=== PATIENT | female | born 1950 | race Caucasian/White ===

== ENCOUNTER 2020-04-25 20:47 | Emergency (ER) | payer OTHER, SELFPAY ==
--- NOTE | ~2020-04-25 | XR_ITS ---
EXAMINATION: XR chest 2V EXAM DATE: 04/25/2020 21:25 INDICATION: Shortness of breath and high blood pressure. TECHNIQUE: Frontal and lateral projections of the chest obtained and reviewed. Comparison is made to prior examination from 12/05/2015. FINDINGS: The cardiomediastinal silhouette is prominent but magnified on this AP technique. Mild chr onic appearing hyperinflation. No confluent consolidation, pneumothorax or pleural effusion suspected . There are mild bony degenerative changes. IMPRESSION: Borderline heart size. Reviewed, dictated and finalized at location G. IMPRESSION: Borderline heart size.
[2020-04-25 20:49] VITALS: BP 164/94; PULSE 70; RESP 20; TEMP 36.8; O2SAT 96
--- NOTE | 2020-04-25 20:57 | ECG_ITS ---
Measurements Intervals Coleman Rate: 62 P: LA: 0 QRS: 3 QRSD: 89 T: 39 QT: 422 QTc: 429 Interpretive Statements SINUS RHYTHM NONSPECIFIC T-WAVE ABNORMALITY- INFERIOR LEADS BASELINE ARTIFACT- I, II, III, AVR, AVL, AVF, V1-V6 BORDERLINE ECG Electronically Signed On 04-26-2020 7:01:15 CDT by Josh Jo D.O.
--- NOTE | 2020-04-25 20:57 | ED.GENADULT ---
HPI - General Adult General Chief complaint: Shortness of Breath/Dyspnea <Kennedi Dubon MD - Last Filed: 04/26/20 14:15> Stated complaint: SOB <Kennedi Dubon MD - Last Filed: 04/26/20 14:15> Time Seen by Provider: 04/25/20 20:49 <Kennedi Dubon MD - Last Filed: 04/26/20 14:15> History of Present Illness HPI narrative: Patient is a 69 y/o female complaining of SOB and not feeling well. She states that her SOB is moderate and intermittent. There is no known alleviating or exacerbating factor. She also had a headache earlier, but it has resolved. She states that she feels like she wants to go to sleep. She denies any fever, cough or chest pain. <Kennedi Dubon MD - Last Filed: 04/26/20 14:15> Related Data Home medications: Home Medications Medication Instructions Recorded Confirmed No Home Medications 04/25/20 04/25/20 <Kennedi Dubon MD - Last Filed: 04/26/20 14:15> Allergies/adverse reactions: Allergies Allergy/AdvReac Type Severity Reaction Status Date / Time No Known Allergies Allergy Verified 04/25/20 20:56 <Kennedi Dubon MD - Last Filed: 04/26/20 14:15> Review of Systems Constitutional: Constitutional: Denies chills, Denies fever(s), Reports headache(s) and Denies weakness <Kennedi Dubon MD - Last Filed: 04/26/20 14:15> Eyes: Eyes: Denies blurry vision <Kennedi Dubon MD - Last Filed: 04/26/20 14:15> ENT: Denies headache(s) and Denies neck pain <Kennedi Dubon MD - Last Filed: 04/26/20 14:15> Cardiovascular: Cardiovascular: Denies chest pain and Denies dyspnea <Kennedi Dubon MD - Last Filed: 04/26/20 14:15> Respiratory: Respiratory: Denies cough and Reports dyspnea <Kennedi Dubon MD - Last Filed: 04/26/20 14:15> Gastrointestinal: Gastrointestinal: Denies abdominal pain, Denies diarrhea, Denies nausea and Denies vomiting <Kennedi Dubon MD - Last Filed: 04/26/20 14:15> Genitourinary: Genitourinary: Denies hematuria and Denies dysuria <Kennedi Dubon MD - Last Filed: 04/26/20 14:15> Musculoskeletal: Musculoskeletal: Denies back pain and Denies neck pain <Kennedi Dubon MD - Last Filed: 04/26/20 14:15> Neurologic: Reports headache(s) and Denies weakness <Kennedi Dubon MD - Last Filed: 04/26/20 14:15> PMF Family History Family History: Family History Father Carcinoma of colon Family history of heart disease in male family member before age 55 Patient's father is Mother Family history of malignant neoplasm of breast in first degree relative <Kennedi Dubon MD - Last Filed: 04/26/20 14:15> Social History Social History: Social History Smoking status: Current every day smoker Alcohol intake: current <Kennedi Dubon MD - Last Filed: 04/26/20 14:15> Exam Const: General: no acute distress and well developed <Kennedi Dubon MD - Last Filed: 04/26/20 14:15> Orientation/consciousness: oriented to person, oriented to place, oriented to time and patient oriented x3 <Kennedi Dubon MD - Last Filed: 04/26/20 14:15> HENMT: Head: normocephalic <Kennedi Dubon MD - Last Filed: 04/26/20 14:15> Ears: external ears normal <Kennedi Dubon MD - Last Filed: 04/26/20 14:15> General nose exam: Normal external nose present <Kennedi Dubon MD - Last Filed: 04/26/20 14:15> Eyes: General: appearance normal, both eyes and all related structures <Kennedi Dubon MD - Last Filed: 04/26/20 14:15> Conjunctivae: conjunctivae normal <Kennedi Dubon MD - Last Filed: 04/26/20 14:15> Neck: Neck: normal visual inspection and full ROM <Kennedi Dubon MD - Last Filed: 04/26/20 14:15> Chest: Chest palpation & inspection: normal inspection of the chest and no tenderness <Kennedi Dubon MD - Last Filed: 04/26/20 14:15> Resp: Effort & Inspection: normal respiratory effort <Kennedi Dubon MD - Last Filed: 04/26/20 14:15> Auscul
[2020-04-25 21:19] LABS: Basophils Absolute Auto 0.1 K/mm3 (0.0-0.1); Basophils Percent Auto 0.6 % (0.2-1.2); Eosinophils Absolute Auto 0.3 K/mm3 (0-0.3); Eosinophils Percent Auto 3.2 % (0-4.4); Hematocrit 40.8 % (37.0-47.0); Hemoglobin 14.3 g/dL (12.0-15.0); Immature Granulocyte Absolute 0.04 K/mm3 (0.00-0.031); Immature Granulocyte Percent A 0.4 % (0-0.5); Lymphocytes Absolute Auto 3.78 K/mm3 (0.9-3.2); Lymphocytes Percent Auto 39.5 % (18.3-44.2); Mean Corpuscular Hemoglobin 32.6 pg (26-34); Mean Corpuscular Volume 93.2 fl (80-100); Mean Platelet Volume 9.2 fl (7.4-10.4); Monocytes Absolute Auto 0.5 K/mm3 (0.1-0.6); Monocytes Percent Auto 5.6 % (2.6-8.5); Neutrophils Absolute Auto 4.9 K/mm3 (1.3-6.7); Neutrophils Percent Auto 50.7 % (45.5-73.1); Platelet Count Result 300 k/mm3 (150-375); Red Blood Count 4.38 M/mm3 (4.2-5.4); Red Cell Distribution Width 12.2 % (11.5-14.5); White Blood Count 9.6 K/mm3 (4.5-10.0)
[2020-04-25 21:31] LABS: Alanine Aminotransferase 34 U/L (4-35); Albumin Level 4.6 g/dL (3.5-5.1); Alkaline Phosphatase 101 U/L (38-126); Aspartate Amino Transferase 34 U/L (14-36); Bilirubin,Total 0.4 mg/dL (0.2-1.3); Blood Urea Nitrogen 8 mg/dL (7-17); Calcium 8.7 mg/dL (8.4-10.2); Carbon Dioxide 22 mmol/L (22-30); Chloride 94 mmol/L (98-107); Estimated Glomerular Filt Rate > 60; Glucose 85 mg/dL (65-105); Sodium 127 mmol/L (137-145)
[2020-04-25 21:38] LABS: D Dimer 0.29 ug/mL (<0.48)
[2020-04-25 21:40] LABS: NT Pro B Type Natriuretic Pept 223 PG/ML (5-100)
[2020-04-25 22:07] VITALS: BP 108/58; PULSE 60; RESP 16; O2SAT 95
[2020-04-25 22:41] VITALS: BP 120/71; PULSE 58; RESP 20; O2SAT 98
[2020-04-25 23:22] LABS: Troponin I < 0.012 ng/mL (0.000-0.034)
[2020-04-25 23:40] VITALS: BP 114/68; PULSE 55; RESP 16; O2SAT 98
[2020-04-26 00:33] LABS: Troponin I < 0.012 ng/mL (0.000-0.034)
== END 2020-04-26 01:02 | disposition home or self-care (01) ==
PROVIDERS: Emergency Medicine; Emergency Provider Emergency Medicine
DX: I50.9 Heart failure, unspecified (principal); F17.200 Nicotine dependence, unspecified, uncomplicated; R94.31 Abnormal electrocardiogram [ECG] [EKG]
CPT/HCPCS: 36415; 71046; 80053; 83880; 84484; 85025; 85380; 93005; 99284

== ENCOUNTER 2020-05-07 11:21 | Outpatient (CLI) | payer OTHER, SELFPAY ==
--- NOTE | ~2020-05-07 | US_ITS ---
EXAMINATION: US renal BI DATE: 05/07/2020 12:19 INDICATION: Hypo-osmolality and hyponatremia. TECHNIQUE: Multiple ultrasound grayscale images of the kidneys were obtained. COMPARISON: None. FINDINGS: The right kidney measures 9.2 x 4.1 x 5.2 cm. The left kidney measures 9.5 x 4.7 x 6.3 cm. The kidney s demonstrate normal parenchymal echogenicity. There is no hydronephrosis. The bladder is normal. IMPRESSION: 1. Normal kidneys. No hydronephrosis. Reviewed, dictated and finalized at location A.
== END 2020-05-07 11:22 | disposition home or self-care (01) ==
PROVIDERS: PCP Family Medicine; Visit Provider Physician Assistant
DX: E87.1 Hypo-osmolality and hyponatremia (principal)
CPT/HCPCS: 76775

== ENCOUNTER → 2020-08-25 11:54 | Outpatient (CLI) | payer OTHER, SELFPAY ==
--- NOTE | ~2020-08-25 | MM_ITS ---
EXAMINATION: MM screening kim BI w delfino HISTORY: Screening TECHNIQUE: Craniocaudal and mediolateral oblique 3-D tomosynthesis images were obtained and synthetic 2-D images were generated. CAD analysis was submitted and interpreted. COMPARISON: 08/08/2017 BREAST PARENCHYMAL COMPOSITION: There are scattered areas of fibroglandular density. FINDINGS: There is no evidence of suspicious mass, calcification, or architectural distortion to sugg est malignancy in either breast. There has been no suspicious interval change. IMPRESSION: 1. No mammographic evidence of malignancy. 2. Recommend routine screening mammography in one year. BI-RADS Category 1: Negative Reviewed, dictated and finalized at location A.
--- NOTE | ~2020-08-25 | DEXA_ITS ---
Bone Density Report Name: Maggie Allen Age: 69 Sex: Female Ethnicity: White Date of : 1950 Indication: osteopenia; prior fracture; hysterectomy; postmenopausal Referring Provider: Martha Samson Study: Bone densitometry was performed. Exam Date: August 25, 2020 Accession number: [id number] Bone Density: Region BMD T-score Z-score Classification AP Spine (L1-L4) 0.804 -2.2 -0.1 Osteopenia Femoral Neck (Right) 0.543 -2.8 -1.0 Osteoporosis Total Hip (Right) 0.680 -2.2 -0.7 Osteopenia World Health Organization criteria for BMD impression classify patients as: Normal (T-score at or above -1.0), Osteopenia (T-score between -1.0 and -2.5), or Osteoporosis (T-score at or below -2.5). 10-year Fracture Risk: FRAX not reported because: Some T-score for Spine Total or Hip Total or Femoral Neck at or below -2.5 Prior hip or vertebral fracture Previous Exams: Region Exam Age BMD T-score BMD Change BMD Change Date g/cm2 vs Baseline vs Previous AP Spine(L1-L4) 08/25/2020 69 0.804 -2.2 -0.032* -0.032* 08/08/2017 66 0.837 -1.9 Total Hip(Right) 08/25/2020 69 0.680 -2.2 -0.016 -0.016 08/08/2017 66 0.696 -2.0 *Denotes significance at 95% confidence level, LSC for AP Spine = 0.022 g/cm2, LSC for Total Hip = 0.027 g/cm2 Clinical Information Provided by Patient: Have had a previous hip or vertebral fracture Has had a low trauma fracture Smokes Has used the following medications: Vitamin D Has the following medical conditions: Hysterectomy Patient maximum height was 60 Menopause Age: 28 No regular weight bearing exercise Drinks caffeinated beverages Onset of menses at age 10 Number of children 4 Impression: The patient has established osteoporosis, based on the Right Femoral Neck T-score and the existence of a prior fracture. The patient has risk factors, including: smoking, previous fracture. The BMD for the AP Spine(L1-L4) decreased, changing by -0.032 since the last DXA exam. Discussion: HIGH RISK OF FRACTURE. BONE DENSITY IS UNDESIRABLY LOW AT ONE OR MORE SKELETAL SITES, CONSISTENT WITH POSTMENOPAUSAL OSTEOPOROSIS. This patient's lowest T-score, in a patient who has previously fractured, meets the World Health Organization's (WHO) criteria for severe osteoporosis. In untreated patients, the risk of osteoporotic fracture increases approximately two-fold for each 1.0 SD decrease in T-score. Low bone density is not the only risk factor for fracture; also consider factors such as patient's age, frailty
== END ==
PROVIDERS: PCP Family Medicine; Visit Provider Physician Assistant
DX: Z12.31 Encounter for screening mammogram for malignant neoplasm of breast (principal); Z78.0 Asymptomatic menopausal state; M85.88 Other specified disorders of bone density and structure, other site; M81.0 Age-related osteoporosis without current pathological fracture; M85.851 Other specified disorders of bone density and structure, right thigh
CPT/HCPCS: 77063; 77067; 77080

== ENCOUNTER 2021-05-24 12:43 | Outpatient (CLI) | payer OTHER, SELFPAY ==
--- NOTE | ~2021-05-24 | CT_ITS ---
EXAMINATION: CT lung screening DATE: 05/24/2021 13:10 INDICATION: History of nicotine dependence TECHNIQUE: Computed tomography (CT) of the chest was performed without intravenous contrast. The dose -length product was 110.54 mGy-cm. Automated exposure control and iterative reconstruction technique were employed. COMPARISON: None FINDINGS: Heart size normal. No significant pleural or pericardial effusion. There are liver cysts, l argest in the right hepatic lobe measuring 3.6 cm. No thoracic lymphadenopathy. Mild atherosclerosis of the aorta and coronary arteries. No pneumothorax. There are scattered calcified granulomas of the lung parenchyma. No endobronchial lesions. There are a few small pulmonary nodules measuring 2 mm or less which are not clearly calcified. Mild thoracic spondylosis. No focal lytic or blastic lesions. IMPRESSION: 1. Lung-RADS category 2: Benign appearance or behavior. Continue annual screening with noncontrast lo w-dose chest CT in 12 months. Reviewed, dictated and finalized at location A. IMPRESSION: 1. Lung-RADS category 2: Benign appearance or behavior. Continue annual screeni ng with noncontrast low-dose chest CT in 12 months.
== END 2021-05-24 12:44 | disposition home or self-care (01) ==
PROVIDERS: PCP Family Medicine; Visit Provider Physician Assistant
DX: Z12.2 Encounter for screening for malignant neoplasm of respiratory organs (principal); Z87.891 Personal history of nicotine dependence
CPT/HCPCS: 71271

== ENCOUNTER → 2022-06-01 11:14 | Outpatient (CLI) | payer MEDICARE, SELFPAY ==
--- NOTE | ~2022-06-01 | CT_ITS ---
EXAMINATION: CT lung screening DATE: 06/01/2022 11:44 INDICATION: Personal history of tobacco dependence. Lung cancer screening. TECHNIQUE: Computed tomography (CT) of the chest was performed without intravenous contrast. The dose -length product was 105.13 mGy-cm. Automated exposure control and iterative reconstruction technique were employed. COMPARISON: CT dated 05/24/2021 FINDINGS: Heart size is normal. No thoracic lymphadenopathy. No significant pleural or pericardial ef fusion. There is atherosclerosis of the aorta and coronary arteries. There are liver cysts. There are are a few small nodules in the upper lobes measuring 2 mm or less. There are a few calcified granulo mas in the lung parenchyma. There is mild thoracic spondylosis. IMPRESSION: 1. Lung-RADS category 2: Benign appearance or behavior. Continue annual screening with noncontrast lo w-dose chest CT in 12 months. Reviewed, dictated and finalized at location A. IMPRESSION: 1. Lung-RADS category 2: Benign appearance or behavior. Continue annual screeni ng with noncontrast low-dose chest CT in 12 months.
== END ==
PROVIDERS: PCP Family Medicine; Visit Provider Physician Assistant
DX: Z12.2 Encounter for screening for malignant neoplasm of respiratory organs (principal); R91.1 Solitary pulmonary nodule; Z87.891 Personal history of nicotine dependence
CPT/HCPCS: 71271

== ENCOUNTER 2022-11-02 16:05 | Observation (INO) | payer MEDICARE, MEDICAID, SELFPAY ==
[2022-11-02] VITALS (13 sets, daily range): BP systolic 94–128; BP diastolic 57–84; PULSE 61–85; RESP 13–32; TEMP 36.2; O2SAT 97–100
--- NOTE | ~2022-11-02 | CT_ITS ---
EXAMINATION: CT abdomen pelvis w con DATE: 11/02/2022 17:36 INDICATION: Left lower quadrant abdominal pain. Rectal bleeding. TECHNIQUE: Computed tomography (CT) of the abdomen and pelvis was performed with 100 mL Omnipaque-350 intravenous contrast. Automated exposure control and iterative reconstruction technique were employe d. The dose-length product was 595.00 mGy-cm. COMPARISON: Chest CT dated 06/01/2022 FINDINGS: Small pneumatocele in the right lower lobe. Heart size is normal. No pericardial or pleural effusion. Several hepatic cysts the largest measuring 2.5 cm the right hepatic lobe. Focal hepatic steatosis a t the ligamentum teres. Gallbladder, spleen, pancreas, bilateral adrenal glands and kidneys are lulú l. Mild diffuse bladder wall thickening. The uterus is not identified and has likely been surgically resected. There is mild colonic diverticulosis with a sigmoid predominance. There is no adjacent infl ammatory change to suggest diverticulitis. Small bowel and appendix are normal. No free intraperiton eal gas or fluid. No pathologically enlarged abdominal or pelvic lymphadenopathy. 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 Moderate lower thoracic and mild to moderate lumbar spondylosis. Likely b enign sclerotic lesions in the proximal left femoral diaphysis most likely bone infarcts or enchondro mas. Screw tracks are seen at the left femoral head neck. IMPRESSION: 1. Mild diffuse wall thickening the bladder which could be seen with cystitis, either acute or chroni c or neurogenic bladder. Correlate with urinalysis. 2. Mild sigmoid diverticulosis without evident diverticulitis. Reviewed, dictated and finalized at location A. R TENDER IMPRESSION: 1. Mild diffuse wall thickening the bladder which could be seen with cystitis, either acute or chronic or neurogenic bladder. Correlate with urinalysis. 2. Mild sigmoid diverticulosis without evident diverticulitis.
[2022-11-02 16:52] LABS: Basophils Percent Auto 0.2 % (0.2-1.2); Eosinophils Percent Auto 0.2 % (0-4.4); Hematocrit 38.2 % (37.0-47.0); Hemoglobin 12.8 g/dL (12.0-15.0); Immature Granulocyte Absolute 0.04 K/mm3 (0.00-0.031); Immature Granulocyte Percent A 0.9 % (0-0.5); Lymphocytes Absolute Auto 1.27 K/mm3 (0.9-3.2); Mean Corpuscular HGB Conc 33.5 g/dl (32-36); Mean Corpuscular Hemoglobin 32.6 pg (26-34); Mean Corpuscular Volume 97.2 fl (80-100); Mean Platelet Volume 9.6 fl (7.4-10.4); Monocytes Absolute Auto 0.5 K/mm3 (0.1-0.6); Monocytes Percent Auto 11.2 % (2.6-8.5); Neutrophils Absolute Auto 2.6 K/mm3 (1.3-6.7); Neutrophils Percent Auto 58.5 % (45.5-73.1); Platelet Count Result 243 k/mm3 (150-375); Red Blood Count 3.93 M/mm3 (4.2-5.4); Red Cell Distribution Width 13.2 % (11.5-14.5); White Blood Count 4.4 K/mm3 (4.5-10.0)
[2022-11-02 17:03] LABS: Alanine Aminotransferase 99 U/L (6-35); Alkaline Phosphatase 59 U/L (38-126); Anion Gap 7 mmol/L (8-16); Aspartate Amino Transferase 56 U/L (14-36); Bilirubin,Total 0.2 mg/dL (0.2-1.3); Blood Urea Nitrogen 41 mg/dL (7-17); Calcium 8.8 mg/dL (8.4-10.2); Carbon Dioxide 23 mmol/L (22-30); Chloride 101 mmol/L (98-107); Estimated CRCL calculation 45 ml/min; Estimated Glomerular Filt Rate > 60; Glucose 122 mg/dL (65-110); Prothrombin Time 12.5 Seconds (11.1-14.7); Sodium 131 mmol/L (137-145)
[2022-11-02 17:36] LABS: Influenza A QL RT-PCR Negative (Negative); Influenza B QL RT-PCR Negative (Negative); SARS-CoV-2 RNA PCR Positive
[2022-11-02] MEDS: PANTOPRAZOLE SODIUM IV 40 MG VIAL IV PUSH (17:48)
--- NOTE | 2022-11-02 18:58 | ED.GIBLEED ---
HPI - GI Bleed General Chief complaint: GI Bleed Stated complaint: pooping blood , can't stand, can't walk Time Seen by Provider: 11/02/22 16:20 History of Present Illness HPI Narrative: 72-year-old with a history of hypertension here with complaints of rectal bleeding since this morning. Patient states that she had several episodes. She denies any abdominal pain. No history of nausea or vomiting. She denies previous history of diverticulosis or diverticulitis. She is presently not on any anticoagulant. Had colonoscopy several years ago which was normal according to the patient. Related Data Allergies Allergy/AdvReac Type Severity Reaction Status Date / Time No Known Allergies Allergy Verified 02/23/22 09:33 Review of Systems Review of Systems: All systems reviewed & are unremarkable except as noted in HPI and below Constitutional: Constitutional: Reports no additional constitutional complaints Eyes: Eyes: Reports no additional eye complaints Cardiovascular: Cardiovascular: Reports no additional cardiovascular complaints Respiratory: Respiratory: Reports no additional respiratory complaints Gastrointestinal: Gastrointestinal: Reports as per HPI Musculoskeletal: Musculoskeletal: Reports no additional musculoskeletal complaints Neurologic: Reports system reviewed and no additional complaints, except as documented Psychiatric: Psychiatric: Reports no additional psychiatric complaints Endocrine: Endocrine: Reports no additional endocrine complaints PMFSH Past Medical History Medical History Chronic diastolic (congestive) heart failure Femur fracture Heart failure, unspecified HTN (hypertension) Hx of fracture of ankle s/p ORIF Mixed hyperlipidemia Osteoporosis Tobacco abuse Tobacco dependence due to cigarettes Vitamin D insufficiency Surgical History Surgical History S/P lumbar fusion S/P ORIF (open reduction internal fixation) fracture L femur fracture- gamma nail S/P ORIF (open reduction internal fixation) fracture Family History Family History Father Carcinoma of colon Family history of heart disease in male family member before age 55 Patient's father is Mother Family history of malignant neoplasm of breast in first degree relative Social History Social History Social History: Smoking packs per day: 0.5 Smoking cigarettes per day: 10.0 Years smoked: 60 Smoking pack-years: 30.00 Smoking status: Current every day smoker Tobacco type: cigarettes Second hand tobacco smoke exposure: Yes Alcohol intake: current Drinks per week: 14 Substance use: never Substance use type: does not use Additional occupation/education comments: Disabled Gender identity (if verbalized by the patient): Female Sexual Orientation (if Verbalized by the Patient): Straight or Heterosexual Exam Narrative: GENERAL: Well-appearing, well-nourished, and in no acute distress. HEAD: Normocephalic, atraumatic. EYES: PERRLA and EOMI.. NECK: Supple. CHEST: Clear to auscultation. No respiratory distress. HEART: Regular rate and rhythm. No murmur heard. Normal peripheral pulses. ABDOMEN: Soft, nontender, nondistended, normal active bowel sounds. Rectal .Dark Maroon blood EXTREMITIES: Normal range of motion. No edema. SKIN: Warm, dry, no rash. NEURO: No focal deficits. Alert and oriented x3. PSYCH: Normal mood and affect. Course Course Emergency Course: 72-year-old here with rectal bleeding her exam is unremarkable except for blood per rectum do CBC and chemistry give IV fluid consult GI. Her hemoglobin has been stable discussed with her Dr. Alvarado will consult the patient. Vital Signs Vital signs: Vital Signs Temperature 36.2 C L 11/02/22 16:07
--- NOTE | 2022-11-02 19:00 | PC.NURSE ---
Patient report including history and physical, chart review, and plan of care received from Leigh RN at this time
--- NOTE | 2022-11-02 20:07 | WPDGICN ---
Assessment and Plan Assessment and plan (1) GI (gastrointestinal hemorrhage): Code(s): K92.2 - Gastrointestinal hemorrhage, unspecified Status: Acute Assessment and Plan: The bleeding started this morning was mostly black with tinges of red. Given the fact that she uses ibuprofen, I suspect this is upper gastrointestinal bleed. She had a colonoscopy few years ago and thinks she had diverticulosis. I am trying to find those results. she will be scheduled for EGD tomorrow. If that is negative, then we would need to consider prepping her for colonoscopy. (2) Tobacco abuse: Code(s): Z72.0 - Tobacco use Status: Acute Assessment and Plan: She has been a smoker of 1/2 pack of cigarettes per day for 60 years and continues to smoke. (3) Chronic diastolic (congestive) heart failure: Code(s): I50.32 - Chronic diastolic (congestive) heart failure Status: Acute Assessment and Plan: She is on amlodipine. She denies shortness of breath or chest pain at this time GI Consult Note Consult date/time: 11/02/22 20:07 HPI: Maggie Allen is a 72 year old female Female who presents to the emergency room with rectal bleeding. She states that this morning when she got up around 430 getting ready to take her granddaughter to school, she had the urge to have a bowel movement. She passed what looked like very black stool but as she flush did she saw some redness. She had several more stools after that until her daughter came to pick her up. There were all black but somewhat reddish again after they hit the water. She has had no rectal pain or abdominal pain. She denies nausea or vomiting heartburn or other new gastrointestinal symptoms. She does take 800 mg ibuprofen tablet a couple times a week 4th right is in her back and hip. She has never had gastrointestinal bleeding in the past. She believes that she had a colonoscopy a few years ago and was told she had diverticulosis. Her hemoglobin on arrival here was 12.8. One year ago was 15.0 . Review of Systems Review of Systems: All systems reviewed & are unremarkable except as noted in HPI and below PMFSH Past Medical History Medical History Chronic diastolic (congestive) heart failure Femur fracture Heart failure, unspecified HTN (hypertension) Hx of fracture of ankle s/p ORIF Mixed hyperlipidemia Osteoporosis Tobacco abuse Tobacco dependence due to cigarettes Vitamin D insufficiency Surgical History Surgical History S/P lumbar fusion S/P ORIF (open reduction internal fixation) fracture L femur fracture- gamma nail S/P ORIF (open reduction internal fixation) fracture Family History Family History Father Carcinoma of colon Family history of heart disease in male family member before age 55 Patient's father is Mother Family history of malignant neoplasm of breast in first degree relative Social History Social History Social History: Smoking packs per day: 0.5 Smoking cigarettes per day: 10.0 Years smoked: 60 Smoking pack-years: 30.00 Smoking status: Current every day smoker Tobacco type: cigarettes Second hand tobacco smoke exposure: Yes Alcohol intake: current Drinks per week: 14 Substance use: never Substance use type: does not use Additional occupation/education comments: Disabled Gender identity (if verbalized by the patient): Female Sexual Orientation (if Verbalized by the Patient): Straight or Heterosexual Meds Home Medications and Allergies Home Medications Medication Instructions Recorded Confirmed Type alendronate 70 mg tablet 70 mg PO WEEKLY #14 tabs 02/23/22 02/23/22 Rx cholecalciferol (vitamin D3) 1,250 1,250 mcg PO WE
--- NOTE | 2022-11-02 21:24 | PM.IMHP ---
H&P: HPI History of Present Illness Date/Time: 11/02/22 21:24 Chief Complaint: GI bleed Narrative: This is a 72-year-old female patient who stated that she was putting blood and could not stand or walk today. She has a history of hypertension and has been using NSAIDs. The patient stated that she had several episodes of rectal bleeding today. She denies any previous history of diverticulosis or diverticulitis. She is not on any anticoagulation. Patient stated she had colonoscopy many years ago and it was normal. Currently H&H is normal. The patient has no complaints of discomfort. Sodium is 131. AST is 56 ALT is 99. The patient was found to be positive for COVID. Abdominal pelvis CT was read as the following. Mild diffuse wall thickening the bladder which could be seen with cystitis, either acute or chronic or neurogenic bladder. Correlate with urinalysis. 2. Mild sigmoid diverticulosis without evident diverticulitis. Dr. Hardy has been consulted. The patient was started on IV fluids and IV Protonix. The patient is being admitted to observation status on the date of service of 11/02/2022. Review of Systems Review of Systems: All systems reviewed & are unremarkable except as noted in HPI and below Constitutional: Constitutional: Reports as per HPI and Reports no additional constitutional complaints Eyes: Eyes: Reports as per HPI and Reports no additional eye complaints ENT: Reports system reviewed and no additional complaints, except as documented and Reports Normal hearing present Cardiovascular: Cardiovascular: Reports no additional cardiovascular complaints Respiratory: Respiratory: Reports no additional respiratory complaints and Reports no additional respiratory complaints Gastrointestinal: Gastrointestinal: Reports as per HPI and Reports no additional gastrointestinal complaints Musculoskeletal: Musculoskeletal: Reports no additional musculoskeletal complaints Integumentary/Breasts: Skin/Breast: Reports system reviewed and no additional complaints, except as docu and Reports as per HPI Neurologic: Reports system reviewed and no additional complaints, except as documented, Reports as per HPI and Reports Normal hearing present Psychiatric: Psychiatric: Reports no additional psychiatric complaints and Reports as per HPI Endocrine: Endocrine: Reports no additional endocrine complaints Hematologic/Lymphatic: Hematologic/Lymphatic: Reports no additional hematologic/lymphatic complaints Allergic/Immunologic: Allergic/Immunologic: Reports no additional allergic/immunologic complaints [facility] Past Medical History Medical History Chronic diastolic (congestive) heart failure Femur fracture Heart failure, unspecified HTN (hypertension) Hx of fracture of ankle s/p ORIF Mixed hyperlipidemia Osteoporosis Tobacco abuse Tobacco dependence due to cigarettes Vitamin D insufficiency Surgical History Surgical History S/P lumbar fusion S/P ORIF (open reduction internal fixation) fracture L femur fracture- gamma nail S/P ORIF (open reduction internal fixation) fracture Family History Family History Father Carcinoma of colon Family history of heart disease in male family member before age 55 Patient's father is Mother Family history of malignant neoplasm of breast in first degree relative Social History Social History (Updated 11/03/22 @ 00:23 by Annie Rodrigues NP) Social History: The patient is and lives with her . Her is a durable power radio aerial installer for healthcare. The patient has 2 children. 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 The patient continues to smoke. The patient occasionally has a drink. Code status full code Smoking packs per day: 0.5 Smoking cigarettes per day:
[2022-11-02] MEDS: SODIUM CHLORIDE 0.9% IV 1,000 ML 125 ML IV CONT (22:36)
[2022-11-03] VITALS (11 sets, daily range): BP systolic 105–134; BP diastolic 49–77; PULSE 46–67; RESP 2–20; TEMP 35.8–36.3; O2SAT 92–99; BMI 30.4
--- NOTE | 2022-11-03 00:10 | ADMGEN ---
This patient, Maggie Allen, was admitted to 3 [facility] Surg Room 331-01. Patient/family oriented to hospital policies and general routines including ID bracelet, bed and alarms, visiting hours, pain management, procedures, bathroom and other care routines, personal items, smoking policy, room service/diet, and visiting hours. Information on how to activate the Rapid Response Team has been discussed. Patient/Family are encouraged to report perceived risks to care and to ask questions if they do not understand what they are told or what they should do.
[2022-11-03] MEDS: MORPHINE SULFATE (*CRX) 4 MG/ML INJ IV PUSH ×3 (00:43→14:58)
[2022-11-03] MEDS: amLODIPine BESYLATE 5 MG TABLET PO ×2 (07:01→21:31)
[2022-11-03 07:09] LABS: Basophils Percent Auto 0.4 % (0.2-1.2); Eosinophils Percent Auto 0.4 % (0-4.4); Hematocrit 31.6 % (37.0-47.0); Hemoglobin 10.4 g/dL (12.0-15.0); Immature Granulocyte Absolute 0.02 K/mm3 (0.00-0.031); Immature Granulocyte Percent A 0.4 % (0-0.5); Lymphocytes Absolute Auto 2.67 K/mm3 (0.9-3.2); Lymphocytes Percent Auto 49.7 % (18.3-44.2); Mean Corpuscular HGB Conc 32.9 g/dl (32-36); Mean Corpuscular Hemoglobin 32.1 pg (26-34); Mean Corpuscular Volume 97.5 fl (80-100); Monocytes Absolute Auto 0.7 K/mm3 (0.1-0.6); Monocytes Percent Auto 12.7 % (2.6-8.5); Neutrophils Percent Auto 36.4 % (45.5-73.1); Platelet Count Result 203 k/mm3 (150-375); Red Blood Count 3.24 M/mm3 (4.2-5.4); Red Cell Distribution Width 13.2 % (11.5-14.5); White Blood Count 5.4 K/mm3 (4.5-10.0)
[2022-11-03 07:23] LABS: Anion Gap 4 mmol/L (8-16); Blood Urea Nitrogen 26 mg/dL (7-17); Calcium 8.1 mg/dL (8.4-10.2); Carbon Dioxide 23 mmol/L (22-30); Chloride 109 mmol/L (98-107); Estimated CRCL calculation 63 ml/min; Estimated Glomerular Filt Rate > 60; Glucose 81 mg/dL (65-110); Potassium 3.3 mmol/L (3.4-5.0); Sodium 136 mmol/L (137-145)
[2022-11-03] MEDS: ERGOCALCIFEROL 50,000 UNITS CAPSULE 50000 UNITS PO (08:55)
[2022-11-03] MEDS: TELMISARTAN 40 MG TABLET PO (08:55)
[2022-11-03] MEDS: PANTOPRAZOLE SODIUM IV 40 MG VIAL IV PUSH ×2 (08:57→21:32)
[2022-11-03] MEDS: SODIUM CHLORIDE 0.9% IV 1,000 ML 125 ML IV CONT (08:59)
[2022-11-03 12:32] LABS: Hematocrit 31.4 % (37.0-47.0); Hemoglobin 10.3 g/dL (12.0-15.0)
[2022-11-03] MEDS: LACTATED RINGERS 1,000 ML 150 ML IV CONT (14:00)
--- NOTE | 2022-11-03 14:03 | WPDANESEPP ---
Anes - Eval Pre Procedure Procedure: Operation Date: 11/03/22 15:45 Proposed Procedures p Esophagogastroduodenoscopy - Nando Alvarado MD Date/Time: 11/03/22 14:03 Pre Op Diagnosis: Lower GI Bleed Patient Data Age: 72 Gender: F Height: 1.52 m Weight: 70.6 kg Last Vital Signs Temp 35.8 C L 11/03/22 09:35 Pulse 51 L 11/03/22 09:35 Resp 16 11/03/22 09:35 BP 105/50 L 11/03/22 09:35 Pulse Ox 98 11/03/22 09:35 O2 Del Method Room Air 11/03/22 09:05 Allergies Allergy/AdvReac Type Severity Reaction Status Date / Time No Known Allergies Allergy Verified 02/23/22 09:33 Home Medications Medication Instructions Recorded Confirmed Type alendronate 70 mg tablet 70 mg PO WEEKLY #14 tabs 02/23/22 11/03/22 Rx ibuprofen 800 mg tablet 800 mg PO TID PRN pain #90 tabs 02/23/22 11/03/22 Rx telmisartan 40 mg tablet 40 mg PO DAILY #90 tabs 02/23/22 11/03/22 Rx amlodipine 5 mg tablet 5 mg PO QHS #90 tabs 07/28/22 11/03/22 Rx cholecalciferol (vitamin D3) 1,250 1,250 mcg PO WEEKLY 11/03/22 11/03/22 History mcg (50,000 unit) capsule Laboratory Tests 11/02/22 11/02/22 11/02/22 16:41 16:41 16:41 WBC 4.4 K/mm3 L K/mm3 (4.5-10.0) RBC 3.93 M/mm3 L M/mm3 (4.2-5.4) Hgb 12.8 g/dL g/dL (12.0-15.0) Hct 38.2 % % (37.0-47.0) MCV 97.2 fl fl (80-100) MCH 32.6 pg pg (26-34) MCHC 33.5 g/dl g/dl (32-36) RDW 13.2 % % (11.5-14.5) Plt Count 243 k/mm3 k/mm3 (150-375) MPV 9.6 fl fl (7.4-10.4) Immature Gran % (Auto) 0.9 % H % (0-0.5) Neut % (Auto) 58.5 % % (45.5-73.1) Lymph % (Auto) 29.0 % % (18.3-44.2) [place] % (Auto) 11.2 % H % (2.6-8.5) Eos % (Auto) 0.2 % % (0-4.4) Baso % (Auto) 0.2 % % (0.2-1.2) Lymph # (Auto) 1.27 K/mm3 K/mm3 (0.9-3.2) [place] # (Auto) 0.5 K/mm3 K/mm3 (0.1-0.6) Eos # (Auto) 0.0 K/mm3 K/mm3 (0-0.3) Baso # (Auto) 0.0 K/mm3 K/mm3 (0.0-0.1) Abs Immat Gran (auto) 0.04 K/mm3 H K/mm3 (0.00-0.031) Absolute Neuts (auto) 2.6 K/mm3 K/mm3 (1.3-6.7) Absolute Nucleated RBC 0.0 K/mm3 K/mm3 (0.0-0.012) Nucleated RBC % 0.0 % % (0.0-0.2) PT 12.5 Seconds Seconds (11.1-14.7) INR 1.0 APTT 27.0 SECONDS SECONDS (22.3-36.8) Sodium 131 mmol/L L mmol/L (137-145) Potassium 4.0 mmol/L mmol/L (3.4-5.0) Chloride 101 mmol/L mmol/L (98-107) Carbon Dioxide 23 mmol/L mmol/L (22-30) Anion Gap 7 mmol/L L mmol/L (8-16) BUN 41 mg/dL H D mg/dL (7-17) Creatinine 0.90 mg/dL mg/dL (0.7-1.0) Estim Creat Clear Calc 45 ml/min ml/min Estimated GFR > 60 (59 - ) Glucose 122 mg/dL H mg/dL (65-110) Calcium 8.8 mg/dL mg/dL (8.4-10.2) Total Bilirubin 0.2 mg/dL mg/dL (0.2-1.3) AST 56 U/L H U/L (14-36) ALT 99 U/L H U/L (6-35) Alkaline Phosphatase 59 U/L U/L (38-126) Total Protein 7.0 g/dL g/dL (6.3-8.2) Albumin 4.0 g/dL g/dL (3.5-5.1) Influenza A (RT-PCR) Influenza B (RT-PCR) SARS-CoV-2 RNA (RT-PCR) Blood Type Antibody Screen 11/02/22 11/02/22 11/03/22 16:41 16:50 06:13 WBC RBC Hgb Hct MCV MCH MCHC RDW Plt Count MPV Immature Gran % (Auto) Neut % (Auto) Lymph % (Auto) [place] % (Auto) Eos % (Auto) Baso % (Auto) Lymph # (Auto) [place] # (Auto) Eos # (Auto) Baso # (Auto) Abs Immat Gran (auto) Absolute Neuts (auto)
--- NOTE | 2022-11-03 14:14 | WPDANESEPPF ---
Anes - Initial Pre Proc Eval Procedure: Operation Date: 11/03/22 15:45 Proposed Procedures p Esophagogastroduodenoscopy - Nando Alvarado MD Date/Time: 11/03/22 14:14 Surgeon: Dre Cummins MD Pre Op Diagnosis: Lower GI Bleed Patient Data Age: 72 Gender: F Height: 1.52 m Weight: 70.6 kg Last Vital Signs Temp 35.8 C L 11/03/22 09:35 Pulse 51 L 11/03/22 09:35 Resp 16 11/03/22 09:35 BP 105/50 L 11/03/22 09:35 Pulse Ox 98 11/03/22 09:35 O2 Del Method Room Air 11/03/22 09:05 Allergies Allergy/AdvReac Type Severity Reaction Status Date / Time No Known Allergies Allergy Verified 11/03/22 14:08 Home Medications Medication Instructions Recorded Confirmed Type alendronate 70 mg tablet 70 mg PO WEEKLY #14 tabs 02/23/22 11/03/22 Rx ibuprofen 800 mg tablet 800 mg PO TID PRN pain #90 tabs 02/23/22 11/03/22 Rx telmisartan 40 mg tablet 40 mg PO DAILY #90 tabs 02/23/22 11/03/22 Rx amlodipine 5 mg tablet 5 mg PO QHS #90 tabs 07/28/22 11/03/22 Rx cholecalciferol (vitamin D3) 1,250 1,250 mcg PO WEEKLY 11/03/22 11/03/22 History mcg (50,000 unit) capsule Laboratory Tests 11/02/22 11/02/22 11/02/22 16:41 16:41 16:41 WBC 4.4 K/mm3 L K/mm3 (4.5-10.0) RBC 3.93 M/mm3 L M/mm3 (4.2-5.4) Hgb 12.8 g/dL g/dL (12.0-15.0) Hct 38.2 % % (37.0-47.0) MCV 97.2 fl fl (80-100) MCH 32.6 pg pg (26-34) MCHC 33.5 g/dl g/dl (32-36) RDW 13.2 % % (11.5-14.5) Plt Count 243 k/mm3 k/mm3 (150-375) MPV 9.6 fl fl (7.4-10.4) Immature Gran % (Auto) 0.9 % H % (0-0.5) Neut % (Auto) 58.5 % % (45.5-73.1) Lymph % (Auto) 29.0 % % (18.3-44.2) [place] % (Auto) 11.2 % H % (2.6-8.5) Eos % (Auto) 0.2 % % (0-4.4) Baso % (Auto) 0.2 % % (0.2-1.2) Lymph # (Auto) 1.27 K/mm3 K/mm3 (0.9-3.2) [place] # (Auto) 0.5 K/mm3 K/mm3 (0.1-0.6) Eos # (Auto) 0.0 K/mm3 K/mm3 (0-0.3) Baso # (Auto) 0.0 K/mm3 K/mm3 (0.0-0.1) Abs Immat Gran (auto) 0.04 K/mm3 H K/mm3 (0.00-0.031) Absolute Neuts (auto) 2.6 K/mm3 K/mm3 (1.3-6.7) Absolute Nucleated RBC 0.0 K/mm3 K/mm3 (0.0-0.012) Nucleated RBC % 0.0 % % (0.0-0.2) PT 12.5 Seconds Seconds (11.1-14.7) INR 1.0 APTT 27.0 SECONDS SECONDS (22.3-36.8) Sodium 131 mmol/L L mmol/L (137-145) Potassium 4.0 mmol/L mmol/L (3.4-5.0) Chloride 101 mmol/L mmol/L (98-107) Carbon Dioxide 23 mmol/L mmol/L (22-30) Anion Gap 7 mmol/L L mmol/L (8-16) BUN 41 mg/dL H D mg/dL (7-17) Creatinine 0.90 mg/dL mg/dL (0.7-1.0) Estim Creat Clear Calc 45 ml/min ml/min Estimated GFR > 60 (59 - ) Glucose 122 mg/dL H mg/dL (65-110) Calcium 8.8 mg/dL mg/dL (8.4-10.2) Total Bilirubin 0.2 mg/dL mg/dL (0.2-1.3) AST 56 U/L H U/L (14-36) ALT 99 U/L H U/L (6-35) Alkaline Phosphatase 59 U/L U/L (38-126) Total Protein 7.0 g/dL g/dL (6.3-8.2) Albumin 4.0 g/dL g/dL (3.5-5.1) Influenza A (RT-PCR) Influenza B (RT-PCR) SARS-CoV-2 RNA (RT-PCR) Blood Type Antibody Screen 11/02/22 11/02/22 11/03/22 16:41 16:50 06:13 WBC RBC Hgb Hct MCV MCH MCHC RDW Plt Count MPV Immature Gran % (Auto) Neut % (Auto) Lymph % (Auto) [place] % (Auto) Eos % (Auto) Baso % (Auto) Lymph # (Auto) [place] # (Auto) Eos # (Auto) Baso # (Auto) Abs Immat Gran (auto)
--- NOTE | 2022-11-03 15:38 | PM.IMPN ---
Progress Note: A&P Assessment and Plan (1) GI (gastrointestinal hemorrhage): Code(s): K92.2 - Gastrointestinal hemorrhage, unspecified Status: Acute Assessment and Plan: -H&H every 6 hours. -so far H&H is stable. -GI has been consulted. -IV Protonix has been started. -avoid NSAIDs. -clear liquid -continue with IV fluid -the plan is for possible EGD with possible biopsy cautery or dilatation tomorrow (2) Mixed hyperlipidemia: Code(s): E78.2 - Mixed hyperlipidemia Status: Acute Assessment and Plan: Continue with heart healthy diet when she is able to eat again. (3) Tobacco dependence due to cigarettes: Code(s): F17.210 - Nicotine dependence, cigarettes, uncomplicated Status: Acute Assessment and Plan: -encourage smoking cessation and we talked about this for approximately 10 minutes. (4) HTN (hypertension): Qualifiers: Hypertension type: essential hypertension Qualified Code(s): I10 - Essential (primary) hypertension Code(s): I10 - Essential (primary) hypertension Status: Acute Assessment and Plan: -continue with amlodipine and telmisartan (5) Chronic diastolic (congestive) heart failure: Code(s): I50.32 - Chronic diastolic (congestive) heart failure Status: Acute Assessment and Plan: -last echo was noted on 08/04/2020 within ejection fraction around 62%. Impaired diastolic grade 1. -echo ordered (6) COVID: Code(s): U07.1 - COVID-19 Status: Acute Assessment and Plan: -at this line the patient is asymptomatic. -conservative care. -the patient does not appear to be decompensated and is on room air. Subjective Date/time seen: 11/03/22 15:38 Patient was seen during the morning rounds today. No acute bleeding noted. no shortness of breath or chest pain. No nausea or vomiting. Review of Systems Review of Systems: All systems reviewed & are unremarkable except as noted in HPI and below Constitutional: Constitutional: Reports as per HPI and Reports no additional constitutional complaints Eyes: Eyes: Reports as per HPI and Reports no additional eye complaints ENT: Reports system reviewed and no additional complaints, except as documented and Reports Normal hearing present Cardiovascular: Cardiovascular: Reports no additional cardiovascular complaints Respiratory: Respiratory: Reports no additional respiratory complaints and Reports no additional respiratory complaints Gastrointestinal: Gastrointestinal: Reports as per HPI and Reports no additional gastrointestinal complaints Musculoskeletal: Musculoskeletal: Reports no additional musculoskeletal complaints Integumentary/Breasts: Skin/Breast: Reports system reviewed and no additional complaints, except as docu and Reports as per HPI Neurologic: Reports system reviewed and no additional complaints, except as documented, Reports as per HPI and Reports Normal hearing present Psychiatric: Psychiatric: Reports no additional psychiatric complaints and Reports as per HPI Endocrine: Endocrine: Reports no additional endocrine complaints Hematologic/Lymphatic: Hematologic/Lymphatic: Reports no additional hematologic/lymphatic complaints Allergic/Immunologic: Allergic/Immunologic: Reports no additional allergic/immunologic complaints Exam Const: General: cooperative, healthy appearing, comfortable, no acute distress, well developed, alert, awake, Physically active, average body habitus and well nourished Nutritional Appearance: average body habitus and well nourished Orientation/consciousness: oriented to person, oriented to place, oriented to time and patient oriented x3 Limitations: no limitations HENMT: Head: normal to inspection, No palpable skull fracture present, normocephalic and atraumatic Ears: hearing grossly normal bilaterally and external ears normal Face/Nose/Sinus: Normal external nose present and Normal nares present Eyes:
[2022-11-03] MEDS: POTASSIUM CHLORIDE 20 MEQ TABLET 40 MEQ PO (15:50)
[2022-11-03 19:19] LABS: Hematocrit 31.1 % (37.0-47.0); Hemoglobin 10.3 g/dL (12.0-15.0)
[2022-11-04] VITALS: BP 126/60; PULSE 53; RESP 14; TEMP 36.1; O2SAT 92
[2022-11-04 04:00] VITALS: BP 149/65; PULSE 77; RESP 14; TEMP 36.1; O2SAT 98
[2022-11-04] MEDS: MORPHINE SULFATE (*CRX) 4 MG/ML INJ IV PUSH (05:15)
[2022-11-04 06:46] LABS: Hematocrit 30.6 % (37.0-47.0); Hemoglobin 10.1 g/dL (12.0-15.0); Mean Corpuscular Hemoglobin 33.2 pg (26-34); Mean Corpuscular Volume 100.7 fl (80-100); Mean Platelet Volume 9.7 fl (7.4-10.4); Platelet Count Result 205 k/mm3 (150-375); Red Blood Count 3.04 M/mm3 (4.2-5.4); Red Cell Distribution Width 13.2 % (11.5-14.5); White Blood Count 4.8 K/mm3 (4.5-10.0)
[2022-11-04 07:14] LABS: Alanine Aminotransferase 80 U/L (6-35); Albumin Level 3.4 g/dL (3.5-5.1); Alkaline Phosphatase 48 U/L (38-126); Anion Gap 3 mmol/L (8-16); Aspartate Amino Transferase 52 U/L (14-36); Bilirubin,Total 0.3 mg/dL (0.2-1.3); Blood Urea Nitrogen 11 mg/dL (7-17); Calcium 8.2 mg/dL (8.4-10.2); Carbon Dioxide 24 mmol/L (22-30); Chloride 108 mmol/L (98-107); Estimated CRCL calculation 74 ml/min; Estimated Glomerular Filt Rate > 60; Glucose 84 mg/dL (65-110); Potassium 3.9 mmol/L (3.4-5.0); Sodium 135 mmol/L (137-145)
--- NOTE | 2022-11-04 08:25 | WPDGIPROGNO ---
Progress Note: A&P Assessment and Plan (1) GI (gastrointestinal hemorrhage): Code(s): K92.2 - Gastrointestinal hemorrhage, unspecified Status: Acute Assessment and Plan: The bleeding started this morning was mostly black with tinges of red. Given the fact that she uses ibuprofen, I suspect this is upper gastrointestinal bleed. She had a colonoscopy few years ago and thinks she had diverticulosis. I am trying to find those results. she will be scheduled for EGD tomorrow. If that is negative, then we would need to consider prepping her for colonoscopy. she feels good. Her hemoglobin is stable at 10.1. She is not have any abdominal pain and no evidence of bleeding. From my perspective she can be discharge (2) Tobacco abuse: Code(s): Z72.0 - Tobacco use Status: Acute Assessment and Plan: She has been a smoker of 1/2 pack of cigarettes per day for 60 years and continues to smoke. (3) Chronic diastolic (congestive) heart failure: Code(s): I50.32 - Chronic diastolic (congestive) heart failure Status: Acute Assessment and Plan: She is on amlodipine. She denies shortness of breath or chest pain at this time (4) COVID: Code(s): U07.1 - COVID-19 Status: Acute Assessment and Plan: she denies any symptoms relative to COVID. Subjective Date/time seen: 11/04/22 08:25 she is not having any abdominal pain. She tolerated her diet but she states to food was cold when it got to her last night. She is still waiting for breakfast. I told her that there seems to be a problem on the entire floor with patient is not receiving there are meals. One staff member told me that there was an issue with the kitchen last night she states that she would like to go home. I think that would be okay for her to leave. I told her that we will have her come back for repeat EGD after 6 weeks of therapy with pantoprazole b.i.d.. I told her that she needs to stay off at ibuprofen for a minimum of 3 weeks and then can only take it after a meal. Exam Const: General: alert and average body habitus Nutritional Appearance: average body habitus Orientation/consciousness: patient oriented x3 Resp: Auscultation: clear to auscultation bilaterally and diminished lung sounds Cardio: Rhythm: regular rhythm GI: Auscultation: normal bowel sounds Neuro: General: patient oriented x3 Objective Data Vital Signs Vital Signs: Vital Signs - 24 hr 11/03/22 09:05 11/03/22 09:35 11/03/22 14:00 Temperature 35.8 C L Pulse Rate 51 L 58 L Respiratory Rate 16 17 Blood Pressure 105/50 L 117/60 Pulse Oximetry 98 96 Oxygen Delivery Room Air Room Air 11/03/22 14:18 11/03/22 14:28 11/03/22 14:38 Temperature Pulse Rate 55 L 55 L 51 L Respiratory Rate 13 13 14 Blood Pressure 121/64 121/49 L 134/68 Pulse Oximetry 99 97 97 Oxygen Delivery Room Air Room Air Room Air 11/03/22 15:27 11/03/22 20:00 11/04/22 00:00 Temperature 35.9 C L 36.3 C L 36.1 C L Pulse Rate 50 L 46 L 53 L Respiratory Rate 17 13 14 Blood Pressure 115/57 L 108/54 L 126/60 Pulse Oximetry 96 97 92 Oxygen Delivery 11/03/22 20:00 11/04/22 04:00 Temperature 36.1 C L Pulse Rate 53 L 77 Respiratory Rate 14 14 Blood Pressure 149/65 H Pulse Oximetry 92 98 Oxygen Delivery Room Air Intake/Output Intake/Output: Intake & Output 11/01/22 11/02/22 11/03/22 11/04/22 23:59 23:59 23:59 23:59 Intake Total 1050 500 Output Total 750 Balance 1050 -250 Meds/Results Medications: Active Medications Generic Name Dose Route Start Last Admin Trade Name Zhaoq PRN Reason Stop Dose Admin Acetaminophen 650 mg 11/02/22 18:22 Acetaminophen 325 Mg Tablet PO Q4H PRN Mild Pain (1-3) or Fever Amlodipine Besylate 5 mg 11/03/22 00:50 11/03/22 21:31 Amlodipine Besylate 5 Mg Tablet PO 5 mg QHS AMANDA Administration Ergocalciferol 50,000 units 11/03/22 09:00
[2022-11-04] MEDS: TELMISARTAN 40 MG TABLET PO (09:06)
[2022-11-04] MEDS: PANTOPRAZOLE 40 MG TABLET PO (09:09)
--- NOTE | 2022-11-04 10:56 | PM.DS ---
DS: Admitting Diagnosis Discharge Date 11/04/2022 Admitting Diagnosis GI bleed DS: Discharge Diagnosis Discharge Diagnosis (1) GI (gastrointestinal hemorrhage): Code(s): K92.2 - Gastrointestinal hemorrhage, unspecified Status: Acute Assessment and Plan: -H&H every 6 hours. -so far H&H is stable. -GI has been consulted. -IV Protonix has been started. -avoid NSAIDs. -clear liquid -continue with IV fluid -the plan is for possible EGD with possible biopsy cautery or dilatation tomorrow (2) Mixed hyperlipidemia: Code(s): E78.2 - Mixed hyperlipidemia Status: Acute Assessment and Plan: Continue with heart healthy diet when she is able to eat again. (3) Tobacco dependence due to cigarettes: Code(s): F17.210 - Nicotine dependence, cigarettes, uncomplicated Status: Acute Assessment and Plan: -encourage smoking cessation and we talked about this for approximately 10 minutes. (4) HTN (hypertension): Qualifiers: Hypertension type: essential hypertension Qualified Code(s): I10 - Essential (primary) hypertension Code(s): I10 - Essential (primary) hypertension Status: Acute Assessment and Plan: -continue with amlodipine and telmisartan (5) Chronic diastolic (congestive) heart failure: Code(s): I50.32 - Chronic diastolic (congestive) heart failure Status: Acute Assessment and Plan: -last echo was noted on 08/04/2020 within ejection fraction around 62%. Impaired diastolic grade 1. -echo ordered (6) COVID: Code(s): U07.1 - COVID-19 Status: Acute Assessment and Plan: -at this line the patient is asymptomatic. -conservative care. -the patient does not appear to be decompensated and is on room air. DS: Summary Hospital Course Reason for hospitalization: GI bleed Hospital Course: 72 years old female was admitted to the hospital for possible GI bleed. Patient hemoglobin stayed normal during the stay in the hospital. GI service was consulted. Patient was taking ibuprofen at home. Ibuprofen was thought to be the cause of GI bleed. It was stopped and patient was put on H2 blockers. No complication the hospital. Today patient is feeling better was discharged home in stable condition. Status at Discharge Cognitive/behavioral status at discharge: Stable Time Spent with Patient Time attestation: Total time spent providing and/or coordinating discharge services: Exam Const: General: cooperative, healthy appearing, comfortable, no acute distress, well developed, alert, awake, Physically active, average body habitus and well nourished Nutritional Appearance: average body habitus and well nourished Orientation/consciousness: oriented to person, oriented to place, oriented to time and patient oriented x3 Limitations: no limitations HENMT: Head: normal to inspection, No palpable skull fracture present, normocephalic and atraumatic Ears: hearing grossly normal bilaterally and external ears normal Face/Nose/Sinus: Normal external nose present and Normal nares present Eyes: General: appearance normal, both eyes and all related structures Alignment and Position: alignment normal Periorbital: periorbital findings normal Eyelids: eyelids normal Sclera: sclerae normal Cornea: corneas normal Pupils: Equal, round and reactive pupils present EOM: EOMs intact bilaterally Neck: Neck: normal visual inspection, full ROM, no lymphadenopathy, trachea midline and supple Chest: Chest palpation & inspection: normal inspection of the chest Resp: Effort & Inspection: normal respiratory effort Auscultation: wheezes and diminished lung sounds Cardio: Palpation: normal PMI Rate: regular rate Rhythm: regular rhythm Heart sounds: S1 normal heart sound present and S2 normal heart sound present Peripheral pulses: Peripheral pulses 2+ throughout GI: Inspection: normal to inspection Auscultation: normal bowel sounds Rectal
[2022-11-04] MEDS: ACETAMINOPHEN 325 MG TABLET 650 MG PO (11:46)
[2022-11-04 12:00] VITALS: BP 115/59; PULSE 50; RESP 16; TEMP 36.3; O2SAT 97
--- NOTE | 2022-11-04 13:00 | PC.NURSE ---
Dr Vásquez notified Echo not done ,okay to discharge.
== END 2022-11-04 13:40 | disposition home or self-care (01) ==
LOC: ANHED 19:05 → ANH3MEDSUR 11-03 00:52
PROVIDERS: Internal Medicine Gastroenterology; Nurse Practitioner; Admitting Provider Chiropractor; Emergency Provider Family Medicine; PCP Family Medicine; Visit Provider Internal Medicine
PROC: 0DJ08ZZ Inspection of Upper Intestinal Tract, Via Natural or Artificial Opening Endoscopic (ICD-10-PCS; CPT 43235; principal; 2022-11-03 15:45)
DX: K92.2 Gastrointestinal hemorrhage, unspecified (principal); E78.2 Mixed hyperlipidemia; F17.210 Nicotine dependence, cigarettes, uncomplicated; I11.0 Hypertensive heart disease with heart failure; I50.32 Chronic diastolic (congestive) heart failure; U07.1 COVID-19; M81.0 Age-related osteoporosis without current pathological fracture; E66.9 Obesity, unspecified; Z68.30 Body mass index [BMI] 30.0-30.9, adult; E55.9 Vitamin D deficiency, unspecified; Z82.49 Family history of ischemic heart disease and other diseases of the circulatory system; F10.90 Alcohol use, unspecified, uncomplicated; Z79.1 Long term (current) use of non-steroidal anti-inflammatories (NSAID); Z79.899 Other long term (current) drug therapy
CPT/HCPCS: 36415; 74177; 80048; 80053; 85014; 85018; 85025; 85027; 85610; 85730; 86850; 86900; 86901; 87081; 87636; 96361; 96374; 96375; 96376; 99285; A9270; C9113; G0378; J0171; J2270; J2704; J7030; J7120; Q9967

== ENCOUNTER 2022-12-20 00:35 | Day surgery (SDC) | payer MEDICARE, SELFPAY ==
[2022-12-06 13:15] VITALS: BMI 32.3
--- NOTE | 2022-12-19 15:07 | PM.HPGS ---
History of Present Illness History of Present Illness Consent: Risks, benefits, and alternatives have been discussed and questions answered. Patient agrees to proceed with procedure. Chief complaint: gastric ulcer, GERD Narrative: Maggie Allen is a 72 year old female who was hospitalized with upper gastrointestinal bleeding 6 weeks ago. She was found have a 2 cm diameter bleeding gastric ulcer in several smaller more superficial ulcerations of the gastric antrum. She has now been taking pantoprazole 40 mg b.i.d. and returns for assessment of healing of her ulcers. Review of Systems Review of Systems: All systems reviewed & are unremarkable except as noted in HPI and below PMFSH Past Medical History Medical History Chronic diastolic (congestive) heart failure Femur fracture Heart failure, unspecified HTN (hypertension) Hx of fracture of ankle s/p ORIF Mixed hyperlipidemia Osteoporosis Tobacco abuse Tobacco dependence due to cigarettes Vitamin D insufficiency Surgical History Surgical History S/P lumbar fusion S/P ORIF (open reduction internal fixation) fracture L femur fracture- gamma nail S/P ORIF (open reduction internal fixation) fracture Family History Family History Father Carcinoma of colon Family history of heart disease in male family member before age 55 Patient's father is Mother Family history of malignant neoplasm of breast in first degree relative Social History Social History Social History: The patient is and lives with her . Her is a durable power mirror machine feeder for healthcare. The patient has 2 children. 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 The patient continues to smoke. The patient occasionally has a drink. Code status full code Smoking packs per day: 0.5 Smoking cigarettes per day: 10.0 Years smoked: 60 Smoking pack-years: 30.00 Smoking status: Current every day smoker Tobacco type: cigarettes Second hand tobacco smoke exposure: Yes Alcohol intake: current Drinks per week: 14 Substance use: never Substance use type: does not use Lack of Transportation: No Lack of Food: Never True Current Housing: I Have Housing Concerned About Future Housing: No Difficulty Paying Gas/Electric Bills: No Difficulty Paying for Meds: No Currently Unemployed: No Education: High School Diploma/GED Difficulty w/ Childcare or Family Care: No Living arrangements: with family Occupation/Education: retired Additional occupation/education comments: Disabled Gender identity (if verbalized by the patient): Female Sexual Orientation (if Verbalized by the Patient): Straight or Heterosexual Spiritual care concerns: No Meds Home Medications and Allergies Home Medications Medication Instructions Recorded Confirmed Type cholecalciferol (vitamin D3) 1,250 1,250 mcg PO WEEKLY 11/03/22 12/09/22 History mcg (50,000 unit) capsule pantoprazole 40 mg tablet,delayed 40 mg PO Q12HR #60 tabs 11/04/22 12/09/22 Rx release alendronate 70 mg tablet 70 mg PO WEEKLY #14 tabs 12/05/22 12/06/22 Rx amlodipine 5 mg tablet 5 mg PO QHS #90 tabs 12/05/22 12/06/22 Rx telmisartan 40 mg tablet 40 mg PO DAILY #90 tabs 12/05/22 12/06/22 Rx Allergies Allergy/AdvReac Type Severity Reaction Status Date / Time No Known Allergies Allergy Verified 12/06/22 13:15 Exam Const: General: alert Orientation/consciousness: patient oriented x3 Resp: Auscultation: clear to auscultation bilaterally Cardio: Rhythm: regular rhythm GI: GI Palp: Yes Soft to palpation and No Tenderness to palpation present (GI) Neuro: General: patient oriented x3 Assessment and Plan Assessment and plan (1
[2022-12-20 08:40] VITALS: BP 157/73; PULSE 60; RESP 18; TEMP 36.1; O2SAT 99; BMI 31.8
[2022-12-20] MEDS: LACTATED RINGERS 1,000 ML 150 ML IV CONT (09:02)
--- NOTE | 2022-12-20 09:23 | WPDANESEPPF ---
Anes - Initial Pre Proc Eval Procedure: Operation Date: 12/20/22 10:15 Proposed Procedures p Esophagogastroduodenoscopy - Nando Alvarado MD Date/Time: 12/20/22 09:23 Surgeon: Nando Alvarado MD Pre Op Diagnosis: gastric ulcer, GERD Patient Data Age: 72 Gender: F Height: 1.52 m Weight: 74.1 kg Last Vital Signs Temp 97 F L 12/20/22 08:40 Pulse 60 12/20/22 08:40 Resp 18 12/20/22 08:40 BP 157/73 H 12/20/22 08:40 Pulse Ox 99 12/20/22 08:40 O2 Del Method Room Air 12/20/22 08:40 Allergies Allergy/AdvReac Type Severity Reaction Status Date / Time No Known Allergies Allergy Verified 12/06/22 13:15 Home Medications Medication Instructions Recorded Confirmed Type cholecalciferol (vitamin D3) 1,250 1,250 mcg PO WEEKLY 11/03/22 12/09/22 History mcg (50,000 unit) capsule pantoprazole 40 mg tablet,delayed 40 mg PO Q12HR #60 tabs 11/04/22 12/09/22 Rx release alendronate 70 mg tablet 70 mg PO WEEKLY #14 tabs 12/05/22 12/06/22 Rx amlodipine 5 mg tablet 5 mg PO QHS #90 tabs 12/05/22 12/06/22 Rx telmisartan 40 mg tablet 40 mg PO DAILY #90 tabs 12/05/22 12/06/22 Rx Patient hx anesthesia problems: none Family hx anesthesia problems: none Results Review: All pre-operative results and documents have been reviewed as part of the pre-operative evaluation. [facility] Past Medical History Medical History Chronic diastolic (congestive) heart failure Femur fracture Heart failure, unspecified HTN (hypertension) Hx of fracture of ankle s/p ORIF Mixed hyperlipidemia Osteoporosis Tobacco abuse Tobacco dependence due to cigarettes Vitamin D insufficiency Surgical History Surgical History S/P lumbar fusion S/P ORIF (open reduction internal fixation) fracture L femur fracture- gamma nail S/P ORIF (open reduction internal fixation) fracture Family History Family History Father Carcinoma of colon Family history of heart disease in male family member before age 55 Patient's father is Mother Family history of malignant neoplasm of breast in first degree relative Social History Social History Social History: The patient is and lives with her . Her is a durable power mergers and acquisitions attorney for healthcare. The patient has 2 children. 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 The patient continues to smoke. The patient occasionally has a drink. Code status full code Smoking packs per day: 0.5 Smoking cigarettes per day: 10.0 Years smoked: 60 Smoking pack-years: 30.00 Smoking status: Current every day smoker Tobacco type: cigarettes Second hand tobacco smoke exposure: Yes Alcohol intake: current Drinks per week: 14 Substance use: never Substance use type: does not use Lack of Transportation: No Lack of Food: Never True Current Housing: I Have Housing Concerned About Future Housing: No Difficulty Paying Gas/Electric Bills: No Difficulty Paying for Meds: No Currently Unemployed: No Education: High School Diploma/GED Difficulty w/ Childcare or Family Care: No Living arrangements: with family Occupation/Education: retired Additional occupation/education comments: Disabled Gender identity (if verbalized by the patient): Female Sexual Orientation (if Verbalized by the Patient): Straight or Heterosexual Spiritual care concerns: No Anes - Eval Final PreProcedure Day of Procedure 12/20/22 09:23 Patient weight: obese Heart: regular rate and rhythm Lungs: clear to auscultation Airway: Mallampati scale class II Neurological: alert and oriented Last oral intake: >/= 8 hours ASA classification: III Emergent: no Anesthetic plan: proceed Anesthesia type and monitorin
--- NOTE | 2022-12-20 09:51 | WPDANESEPPF ---
Anes - Initial Pre Proc Eval Procedure: Operation Date: 12/20/22 10:15 Proposed Procedures p Esophagogastroduodenoscopy - Nando Alvarado MD Date/Time: 12/20/22 09:51 Surgeon: Nando Alvarado MD Pre Op Diagnosis: gastric ulcer, GERD Patient Data Age: 72 Gender: F Height: 1.52 m Weight: 74.1 kg Last Vital Signs Temp 97 F L 12/20/22 08:40 Pulse 60 12/20/22 08:40 Resp 18 12/20/22 08:40 BP 157/73 H 12/20/22 08:40 Pulse Ox 99 12/20/22 08:40 O2 Del Method Room Air 12/20/22 08:40 Allergies Allergy/AdvReac Type Severity Reaction Status Date / Time No Known Allergies Allergy Verified 12/06/22 13:15 Home Medications Medication Instructions Recorded Confirmed Type cholecalciferol (vitamin D3) 1,250 1,250 mcg PO WEEKLY 11/03/22 12/09/22 History mcg (50,000 unit) capsule pantoprazole 40 mg tablet,delayed 40 mg PO Q12HR #60 tabs 11/04/22 12/09/22 Rx release alendronate 70 mg tablet 70 mg PO WEEKLY #14 tabs 12/05/22 12/06/22 Rx amlodipine 5 mg tablet 5 mg PO QHS #90 tabs 12/05/22 12/06/22 Rx telmisartan 40 mg tablet 40 mg PO DAILY #90 tabs 12/05/22 12/06/22 Rx Patient hx anesthesia problems: none Family hx anesthesia problems: none Results Review: All pre-operative results and documents have been reviewed as part of the pre-operative evaluation. [facility] Past Medical History Medical History Chronic diastolic (congestive) heart failure Femur fracture Heart failure, unspecified HTN (hypertension) Hx of fracture of ankle s/p ORIF Mixed hyperlipidemia Osteoporosis Tobacco abuse Tobacco dependence due to cigarettes Vitamin D insufficiency Surgical History Surgical History S/P lumbar fusion S/P ORIF (open reduction internal fixation) fracture L femur fracture- gamma nail S/P ORIF (open reduction internal fixation) fracture Family History Family History Father Carcinoma of colon Family history of heart disease in male family member before age 55 Patient's father is Mother Family history of malignant neoplasm of breast in first degree relative Social History Social History Social History: The patient is and lives with her . Her is a durable power estate attorney for healthcare. The patient has 2 children. 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 The patient continues to smoke. The patient occasionally has a drink. Code status full code Smoking packs per day: 0.5 Smoking cigarettes per day: 10.0 Years smoked: 60 Smoking pack-years: 30.00 Smoking status: Current every day smoker Tobacco type: cigarettes Second hand tobacco smoke exposure: Yes Alcohol intake: current Drinks per week: 14 Substance use: never Substance use type: does not use Lack of Transportation: No Lack of Food: Never True Current Housing: I Have Housing Concerned About Future Housing: No Difficulty Paying Gas/Electric Bills: No Difficulty Paying for Meds: No Currently Unemployed: No Education: High School Diploma/GED Difficulty w/ Childcare or Family Care: No Living arrangements: with family Occupation/Education: retired Additional occupation/education comments: Disabled Gender identity (if verbalized by the patient): Female Sexual Orientation (if Verbalized by the Patient): Straight or Heterosexual Spiritual care concerns: No Anes - Eval Final PreProcedure Day of Procedure 12/20/22 09:51 Patient weight: obese Heart: regular rate and rhythm Lungs: clear to auscultation Airway: Mallampati scale class II Neurological: alert and oriented Last oral intake: >/= 8 hours ASA classification: III Emergent: no Anesthetic plan: proceed Anesthesia type and monitorin
[2022-12-20 10:15] VITALS: BP 117/63; PULSE 55; RESP 19; O2SAT 100
[2022-12-20 10:25] VITALS: BP 138/71; PULSE 54; RESP 18; O2SAT 100
[2022-12-20 10:35] VITALS: BP 144/76; PULSE 50; RESP 18; O2SAT 99
== END 2022-12-20 10:54 | disposition home or self-care (01) ==
PROVIDERS: PCP Family Medicine; Visit Provider Internal Medicine Gastroenterology
PROC: 0DJ08ZZ Inspection of Upper Intestinal Tract, Via Natural or Artificial Opening Endoscopic (ICD-10-PCS; CPT 43235; principal; 2022-12-20 10:15)
DX: Z09 Encounter for follow-up examination after completed treatment for conditions other than malignant neoplasm (principal); K25.9 Gastric ulcer, unspecified as acute or chronic, without hemorrhage or perforation; K21.9 Gastro-esophageal reflux disease without esophagitis; I11.0 Hypertensive heart disease with heart failure; I50.32 Chronic diastolic (congestive) heart failure; E78.2 Mixed hyperlipidemia; M81.0 Age-related osteoporosis without current pathological fracture; E55.9 Vitamin D deficiency, unspecified; Z98.1 Arthrodesis status; F17.210 Nicotine dependence, cigarettes, uncomplicated; E66.9 Obesity, unspecified; Z68.31 Body mass index [BMI] 31.0-31.9, adult
CPT/HCPCS: 43235; J2704; J7120

== ENCOUNTER 2023-02-12 13:58 | Outpatient (CLI) | payer MEDICARE, MEDICAID, SELFPAY ==
--- NOTE | ~2023-02-12 | US_ITS ---
EXAMINATION: US art doppler w press LE BI DATE: 02/12/2023 15:32 INDICATION: Peripheral vascular disease, unspecified. TECHNIQUE: Segmental pressures and plethysmographic and Doppler waveforms of the brachial and lower e xtremity arteries were obtained. COMPARISON: CT abdomen and pelvis 11/02/2022 FINDINGS: Right and left brachial artery pressures of 117 mm Hg and 98 mm Hg, respectively, are concordant (nor mal difference <= 30 mmHg). The right high-thigh pressure index is 1.16 (normal > 1.2). The right ankle-brachial index (JOHN) is 0 .79 (normal >= 0.9-1.0). The right great toe-brachial index (TBI) is 1.07 (normal >= 0.65). The right lower extremity segmental pressure gradients are increased between the below-knee and ankle measurem ents (normal gradients <= 20-30 mmHg between adjacent levels on the same leg or the same levels on th e two legs). Arterial Doppler waveforms are biphasic from common femoral artery to the ankle. The left high-thigh pressure index is 1.14. The left JOHN is 1.06. The left TBI is 0.52. The left lowe r extremity segmental pressure gradients are normal. Arterial Doppler waveforms are triphasic in comm on femoral artery and biphasic from superficial femoral artery to the ankle. IMPRESSION: 1. Moderately decreased right JOHN, consistent with right-sided arterial occlusive disease, likely mul tifocal. 2. Decreased left TBI and normal left JOHN, consistent with left-sided arterial occlusive disease. Not e that JOHN may be overestimated if arteries are calcified. Reviewed, dictated and finalized at location A. IMPRESSION: 1. Moderately decreased right JOHN, consistent with right-sided arterial occlusi ve disease, likely multifocal. 2. Decreased left TBI and normal left JOHN, consistent with left-sided arterial occlusive disease. Note that JOHN may be overestimated if arteries are calcified .
== END 2023-02-12 13:59 | disposition home or self-care (01) ==
PROVIDERS: PCP Family Medicine; Visit Provider Family Medicine
DX: I73.9 Peripheral vascular disease, unspecified (principal)
CPT/HCPCS: 93923

== ENCOUNTER 2023-03-28 21:13 | Inpatient (IN) | payer MEDICARE, MEDICAID, SELFPAY ==
--- NOTE | ~2023-03-28 | XR_ITS ---
EXAMINATION: XR chest 2V Exam Date/Time: 03/28/2023 21:35 CDT HISTORY: chest pain Comparison: 04/25/2020. RESULT: Lines, tubes, and devices: None. Lungs and pleura: Clear. Calcified granulomas. Cardiomediastinal silhouette: Stable. Calcified hilar nodes. Other: No acute osseous or upper abdominal finding. IMPRESSION: No acute cardiopulmonary process. Reviewed, dictated and finalized at location K.
--- NOTE | ~2023-03-28 | CT_ITS ---
EXAMINATION: CT diagnostic chest w con DATE: 03/28/2023 22:32 INDICATION: eval for cancer TECHNIQUE: Computed tomography (CT) of the chest was performed with 100 mL Omnipaque-350 intravenous contrast. Automated exposure control and iterative reconstruction technique were employed. The dose-l ength product was 276.07 mGy-cm. COMPARISON: CT lung screening 06/01/2022. FINDINGS: CHEST: Thoracic aorta: No significant dilation or calcification. Lung parenchyma and airways: Small air cyst in the right lower lobe Multiple calcified bilateral lung granulomas. Triangular-shaped pleural-based nodular density in the left upper lobe likely granuloma, lymph node, or scar. Minimal dependent atelectasis. Mild lingular scar. Lungs and airways are otherw ise clear. Thoracic inlet, axillae and chest wall: Calcified subcentimeter thyroid nodules that require no addit ional evaluation. No soft tissue mass. No axillary lymphadenopathy. Mediastinum: No mass or lymphadenopathy. Heart and pericardium: Normal heart size. No pericardial effusion. Coronary artery calcifications: Mild. Pleura: No effusion or mass. Upper abdomen: Left lobe simple liver cyst. Multiple additional subcentimeter liver hypodensities als o noted, likely representing cysts Thoracic bones: No acute osseous finding in the chest. IMPRESSION: No acute thoracic process detected. No CT evidence of neoplastic disease. Reviewed, dictated and finalized at location K.
--- NOTE | 2023-03-28 21:14 | ECG_ITS ---
Measurements Intervals [place] Rate: 65 P: MS: 0 QRS: 4 QRSD: 88 T: 23 QT: 429 QTc: 447 Interpretive Statements SINUS RHYTHM EARLY PRECORDIAL R/S TRANSITION BORDERLINE T WAVE ABNORMALITY- INFERIOR LEADS BASELINE ARTIFACT- II, III, AVR, AVL, AVF, V1-V6 BORDERLINE ECG COMPARED TO ECG 04/25/2020 20:52:11 Electronically Signed On 03-29-2023 6:40:31 CDT by Josh Jo D.O.
[2023-03-28 21:19] VITALS: BP 144/73; PULSE 69; RESP 21; TEMP 36.7; O2SAT 99
[2023-03-28 21:25] VITALS: BP 144/73; PULSE 70; RESP 14; O2SAT 97
[2023-03-28 21:31] VITALS: BP 129/71; PULSE 60; RESP 13; O2SAT 99
[2023-03-28 21:44] LABS: Basophils Absolute Auto 0.1 K/mm3 (0.0-0.1); Basophils Percent Auto 0.6 % (0.2-1.2); Eosinophils Absolute Auto 0.3 K/mm3 (0-0.3); Eosinophils Percent Auto 2.8 % (0-4.4); Hematocrit 35.8 % (37.0-47.0); Hemoglobin 12.9 g/dL (12.0-15.0); Immature Granulocyte Percent A 2.1 % (0-0.5); Lymphocytes Absolute Auto 3.18 K/mm3 (0.9-3.2); Lymphocytes Percent Auto 32.7 % (18.3-44.2); Mean Corpuscular Hemoglobin 31.5 pg (26-34); Mean Corpuscular Volume 87.5 fl (80-100); Mean Platelet Volume 8.3 fl (7.4-10.4); Monocytes Absolute Auto 0.7 K/mm3 (0.1-0.6); Monocytes Percent Auto 6.9 % (2.6-8.5); Neutrophils Absolute Auto 5.4 K/mm3 (1.3-6.7); Neutrophils Percent Auto 54.9 % (45.5-73.1); Platelet Count Result 371 k/mm3 (150-375); Red Blood Count 4.09 M/mm3 (4.2-5.4); Red Cell Distribution Width 13.2 % (11.5-14.5); White Blood Count 9.7 K/mm3 (4.5-10.0)
[2023-03-28 21:52] LABS: INR 0.9; Prothrombin Time 12.4 Seconds (11.1-14.7)
[2023-03-28 21:53] LABS: Partial Thromboplastin Time 31.3 SECONDS (22.3-36.8)
[2023-03-28 22:00] LABS: Alanine Aminotransferase 55 U/L (6-35); Albumin Level 4.4 g/dL (3.5-5.1); Alkaline Phosphatase 89 U/L (38-126); Anion Gap 13 mmol/L (8-16); Aspartate Amino Transferase 54 U/L (14-36); Bilirubin,Total 0.8 mg/dL (0.2-1.3); Blood Urea Nitrogen 5 mg/dL (7-17); Calcium 8.4 mg/dL (8.4-10.2); Carbon Dioxide 21 mmol/L (22-30); Chloride 82 mmol/L (98-107); Estimated CRCL calculation 76 ml/min; Estimated Glomerular Filt Rate > 60; Glucose 89 mg/dL (65-110); Lipase 51 U/L (23-300); Potassium 3.7 mmol/L (3.4-5.0); Sodium 116 mmol/L (137-145)
[2023-03-28 22:04] LABS: Troponin I < 0.012 ng/mL (0.000-0.034)
--- NOTE | 2023-03-28 22:11 | ED.GENADULT ---
HPI - General Adult General Chief complaint: Chest Pain Stated complaint: CP, WEAKNESS, RLE NUMBNESS Time Seen by Provider: 03/28/23 21:15 History of Present Illness HPI narrative: This is a 72-year-old female presenting ED with a chief complaint of chest pain and shakiness. patient says that she is feeling a little shaky for 1 week. Three days ago she started experiencing a stabbing chest pain that starts in her sternum and radiates to the right side. It is 10 out 10 in intensity. On Sunday it lasted for several hours and then resolved on its own. She has never had pain like this before, it is improved with laying down and is worse with movement. Today she had a recurrence that chest pain lasted for 10-15 minutes. Patient says that it was associated with diaphoresis and shortness of breath. She did not have vomiting or exertional component. Patient is lifelong smoker. Related Data Home Medications Medication Instructions Recorded Confirmed cholecalciferol (vitamin D3) 1,250 1,250 mcg PO WEEKLY 11/03/22 02/06/23 mcg (50,000 unit) capsule Allergies Allergy/AdvReac Type Severity Reaction Status Date / Time No Known Allergies Allergy Verified 01/19/23 11:08 REPLACED BY [facility] Past Medical History Medical History Chronic diastolic (congestive) heart failure Femur fracture Heart failure, unspecified HTN (hypertension) Hx of fracture of ankle s/p ORIF Mixed hyperlipidemia Osteoporosis Tobacco abuse Tobacco dependence due to cigarettes Vitamin D insufficiency Surgical History Surgical History S/P lumbar fusion S/P ORIF (open reduction internal fixation) fracture L femur fracture- gamma nail S/P ORIF (open reduction internal fixation) fracture Family History Family History Father Carcinoma of colon Family history of heart disease in male family member before age 55 Patient's father is Mother Family history of malignant neoplasm of breast in first degree relative Social History Social History Social History: The patient is and lives with her . Her is a durable power civil rights attorney for healthcare. The patient has 2 children. 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 The patient continues to smoke. The patient occasionally has a drink. Code status full code Smoking packs per day: 0.5 Smoking cigarettes per day: 10.0 Years smoked: 60 Smoking pack-years: 30.00 Smoking status: Current every day smoker Tobacco type: cigarettes Second hand tobacco smoke exposure: Yes Alcohol intake: current Substance use: never Substance use type: does not use Lack of Transportation: No Lack of Food: Never True Current Housing: I Have Housing Concerned About Future Housing: No Difficulty Paying Gas/Electric Bills: No Difficulty Paying for Meds: No Currently Unemployed: No Education: High School Diploma/GED Difficulty w/ Childcare or Family Care: No Living arrangements: with family Occupation/Education: retired Additional occupation/education comments: Disabled Gender identity (if verbalized by the patient): Female Sexual Orientation (if Verbalized by the Patient): Straight or Heterosexual Spiritual care concerns: No Exam Narrative: APPEARANCE: No apparent distress. Head: atraumatic. EYES: EOMI, NOSE: Atraumatic NECK: Trachea midline RESPIRATORY: No increased rate of breathing, CTAB CARDIOVASCULAR: RRR, No peripheral edema ABDOMINAL: Non-distended MUSCULOSKELETAl: patient has reproducible past pain over the anterior right chest wall. NEURO: Alert. Moving 4/4 extremities SKIN:: Warm, dry. Normal color PSYCHIATRIC: Normal affect Course Vital Signs Vital signs: Vital Signs Te
--- NOTE | 2023-03-28 22:29 | PC.NURSE ---
Aspirin not given to pt. due to pt stating she took 4 low dose aspirin before coming via EMS to ED.
[2023-03-28 22:33] VITALS: BP 107/62; PULSE 66; RESP 12; O2SAT 100
[2023-03-28] MEDS: ACETAMINOPHEN 500 MG TABLET 1000 MG PO (22:43)
[2023-03-28] MEDS: SODIUM CHLORIDE 0.9% IV 1,000 ML 120 ML IV CONT (22:44)
--- NOTE | 2023-03-28 23:11 | PM.IMHP ---
H&P: HPI History of Present Illness Date/Time: 03/28/23 23:11 Chief Complaint: 72 years old female with past medical history of hypertension and CHF presented to the hospital with chest pain started 1 week ago sharp in nature radiating to the right arm severe resolved spontaneously intermittent aggravated with movement denies shortness of breath fever or chills patient also complains of shakiness specially on the right upper and lower extremity at the ER ECG was done was negative for acute finding troponin was not elevated sodium was 116 patient was admitted to the hospital for further evaluation and treatment of hyponatremia and chest pain Review of Systems Review of Systems: 12 system review negative except above [facility] Past Medical History Medical History Chronic diastolic (congestive) heart failure Femur fracture Heart failure, unspecified HTN (hypertension) Hx of fracture of ankle s/p ORIF Mixed hyperlipidemia Osteoporosis Tobacco abuse Tobacco dependence due to cigarettes Vitamin D insufficiency Surgical History Surgical History S/P lumbar fusion S/P ORIF (open reduction internal fixation) fracture L femur fracture- gamma nail S/P ORIF (open reduction internal fixation) fracture Family History Family History Father Carcinoma of colon Family history of heart disease in male family member before age 55 Patient's father is Mother Family history of malignant neoplasm of breast in first degree relative Social History Social History Social History: The patient is and lives with her . Her is a durable power employment attorney for healthcare. The patient has 2 children. 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 The patient continues to smoke. The patient occasionally has a drink. Code status full code Smoking packs per day: 0.5 Smoking cigarettes per day: 10.0 Years smoked: 60 Smoking pack-years: 30.00 Smoking status: Current every day smoker Tobacco type: cigarettes Second hand tobacco smoke exposure: Yes Alcohol intake: current Substance use: never Substance use type: does not use Lack of Transportation: No Lack of Food: Never True Current Housing: I Have Housing Concerned About Future Housing: No Difficulty Paying Gas/Electric Bills: No Difficulty Paying for Meds: No Currently Unemployed: No Education: High School Diploma/GED Difficulty w/ Childcare or Family Care: No Living arrangements: with family Occupation/Education: retired Additional occupation/education comments: Disabled Gender identity (if verbalized by the patient): Female Sexual Orientation (if Verbalized by the Patient): Straight or Heterosexual Spiritual care concerns: No Meds Home Medications and Allergies Home Medications Medication Instructions Recorded Confirmed Type cholecalciferol (vitamin D3) 1,250 1,250 mcg PO WEEKLY 11/03/22 02/06/23 History mcg (50,000 unit) capsule alendronate 70 mg tablet 70 mg PO WEEKLY #14 tabs 12/05/22 02/06/23 Rx amlodipine 5 mg tablet 5 mg PO QHS #90 tabs 12/05/22 02/06/23 Rx acetaminophen 300 mg-codeine 30 mg 1 tablet PO Q6H PRN pain #30 tabs 02/06/23 02/06/23 Rx tablet irbesartan 300 1 tablet PO DAILY #100 tabs 02/06/23 02/06/23 Rx mg-hydrochlorothiazide 12.5 mg tablet pantoprazole 40 mg tablet,delayed 40 mg PO QAM #90 tabs 02/06/23 02/06/23 Rx release Allergies Allergy/AdvReac Type Severity Reaction Status Date / Time No Known Allergies Allergy Verified 01/19/23 11:08 Vital Signs Vital Signs - 24 hr 03/28/23 21:19 03/28/23 21:19 03/28/23 21:25 Temperature 98.1 F Pulse Rate 69 70 Respiratory Rate 21 H 14 Blood Pressure 144/73
[2023-03-28 23:34] LABS: Anion Gap 10 mmol/L (8-16); Blood Urea Nitrogen 5 mg/dL (7-17); Calcium 8.1 mg/dL (8.4-10.2); Carbon Dioxide 24 mmol/L (22-30); Chloride 81 mmol/L (98-107); Estimated CRCL calculation 76 ml/min; Estimated Glomerular Filt Rate > 60; Glucose 85 mg/dL (65-110); Potassium 3.7 mmol/L (3.4-5.0); Sodium 115 mmol/L (137-145)
[2023-03-28 23:40] VITALS: BP 110/59; PULSE 64; RESP 13; O2SAT 100
--- NOTE | 2023-03-28 23:59 | PC.NURSE ---
this RN tried to obtain a urine specimen but pt is incontinent and was unable to obtain a sample.
[2023-03-29] VITALS (13 sets, daily range): BP systolic 97–133; BP diastolic 50–66; PULSE 52–70; RESP 16–20; TEMP 36.1–36.8; O2SAT 94–100; BMI 31.1
--- NOTE | 2023-03-29 00:07 | PC.NURSE ---
This RN called to attempt to give report to nurse taking pt. Was told they were in patient room and would call me back.
--- NOTE | 2023-03-29 01:06 | ADMGEN ---
This patient, Maggie Allen, was admitted to IMU Room 212-01 at 0106. Patient/family oriented to hospital policies and general routines including ID bracelet, bed and alarms, visiting hours, pain management, procedures, bathroom and other care routines, personal items, smoking policy, room service/diet, and visiting hours. Information on how to activate the Rapid Response Team has been discussed. Patient/Family are encouraged to report perceived risks to care and to ask questions if they do not understand what they are told or what they should do.
[2023-03-29] MEDS: SODIUM CHLORIDE 0.9% IV 1,000 ML 50 ML IV CONT (01:33)
[2023-03-29 02:07] LABS: Troponin I < 0.012 ng/mL (0.000-0.034)
[2023-03-29 04:27] LABS: Creatinine Urine 10.9 mg/dL; Total Protein Urine Random 12 mg/dL
[2023-03-29 04:32] LABS: Potassium Urine Random 3.1 meq/L; Sodium Urine Random 8 meq/L
[2023-03-29 04:35] LABS: Appearance Urine Clear (Clear); Bacteria Urine 4+ /hpf; Bilirubin Urine Negative (Negative); Blood Urine Negative (Negative); Color Urine Yellow (Yellow); Glucose Urine UA Negative (Negative); Ketones Urine Negative (Negative); Leukocyte Esterase Ur Trace LEU/UL (Negative); Need Manual Microscopic Reviewed; Nitrate Urine Negative (Negative); Non Pathogenic Casts 0-2; Protein Urine Negative (Negative); RBC Urine 0-2 /hpf (0-2); Specific Grav Ur 1.011 (1.001-1.035); Squamous Epithelial Cell Urine None seen /hpf (Few); Urobilinogen Urine 0.2 mg/dL (<2.0); WBC Urine 0-5 /hpf
[2023-03-29 04:48] LABS: Basophils Percent Auto 0.6 % (0.2-1.2); Eosinophils Absolute Auto 0.2 K/mm3 (0-0.3); Eosinophils Percent Auto 3.2 % (0-4.4); Hematocrit 34.3 % (37.0-47.0); Hemoglobin 12.4 g/dL (12.0-15.0); Immature Granulocyte Absolute 0.11 K/mm3 (0.00-0.031); Immature Granulocyte Percent A 1.7 % (0-0.5); Lymphocytes Absolute Auto 1.93 K/mm3 (0.9-3.2); Lymphocytes Percent Auto 29.4 % (18.3-44.2); Mean Corpuscular HGB Conc 36.2 g/dl (32-36); Mean Corpuscular Hemoglobin 32.3 pg (26-34); Mean Corpuscular Volume 89.3 fl (80-100); Mean Platelet Volume 8.5 fl (7.4-10.4); Monocytes Absolute Auto 0.6 K/mm3 (0.1-0.6); Monocytes Percent Auto 9.3 % (2.6-8.5); Neutrophils Absolute Auto 3.7 K/mm3 (1.3-6.7); Neutrophils Percent Auto 55.8 % (45.5-73.1); Platelet Count Result 367 k/mm3 (150-375); Red Blood Count 3.84 M/mm3 (4.2-5.4); Red Cell Distribution Width 13.5 % (11.5-14.5); White Blood Count 6.6 K/mm3 (4.5-10.0)
[2023-03-29 04:53] LABS: Add Urine Microscopic? YES
[2023-03-29 04:58] LABS: Alanine Aminotransferase 51 U/L (6-35); Albumin Level 3.9 g/dL (3.5-5.1); Alkaline Phosphatase 77 U/L (38-126); Anion Gap 6 mmol/L (8-16); Aspartate Amino Transferase 46 U/L (14-36); Bilirubin,Total 0.8 mg/dL (0.2-1.3); Blood Urea Nitrogen 4 mg/dL (7-17); Calcium 8.4 mg/dL (8.4-10.2); Carbon Dioxide 28 mmol/L (22-30); Chloride 90 mmol/L (98-107); Estimated CRCL calculation 75 ml/min; Estimated Glomerular Filt Rate > 60; Glucose 81 mg/dL (65-110); Potassium 3.7 mmol/L (3.4-5.0); Sodium 124 mmol/L (137-145)
[2023-03-29 05:10] LABS: Troponin I < 0.012 ng/mL (0.000-0.034)
[2023-03-29] MEDS: PANTOPRAZOLE 40 MG TABLET PO (09:25)
[2023-03-29 09:31] LABS: Sodium 124 mmol/L (137-145)
[2023-03-29 12:28] LABS: Sodium 124 mmol/L (137-145)
--- NOTE | 2023-03-29 13:11 | PM.CNNEP ---
Assessment and Plan Assessment and plan (1) Hyponatremia: Code(s): E87.1 - Hypo-osmolality and hyponatremia Status: Acute Assessment and Plan: acute versus chronic versus acute on chronic?? presuming acute since patient reports no history of this risk factors for low sodium: recent narcotic use PPI use thiazide diuretic use (HCTZ) excess free water intake (?) prerenal factors (?) smoker/COPD evidence of overcorrection in the last 24 hours getting D5W and DDAVP to slow this down goal of therapy is a change of 6 - 8mmol/L in 24 hours check TSH, cortisol, SPEP, UPEP, and serum/urine osmolality follow trend of repeat sodiums (2) Chest pain: Code(s): R07.9 - Chest pain, unspecified Status: Acute Assessment and Plan: resolved musculoskeletal in etiology CT chest negative Troponins negative x 3 EKG noted (3) Chronic diastolic (congestive) heart failure: Code(s): I50.32 - Chronic diastolic (congestive) heart failure Status: Chronic Assessment and Plan: appear compensated (patient euvolemic) not on diuretics follow volume status (4) HTN (hypertension): Qualifiers: Hypertension type: essential hypertension Qualified Code(s): I10 - Essential (primary) hypertension Code(s): I10 - Essential (primary) hypertension Status: Chronic Assessment and Plan: reasonable control follow trend of hemodynamics I will continue to follow the patient with you while she remains hospitalized and make further recommendations during her hospital course Thank you for allowing me to participate in care of this patient. History of Present Illness Reason for Consult Consult date: 03/29/23 Reason for consult: hyponatremia Chief Complaint Chief complaint: Hyponatremia History of Present Illness Narrative: The patient is a 72-year-old female with a past medical history as outlined below who presented to [facility] Emergency room for further evaluation of chest pain. She reports the chest pain started about a week ago and then occurring on off since that time. She described the chest pain is sharp in sensation with radiation to the right arm. The chest pain usually resolves spontaneously and seems to be aggravated with any type of movement. No associated shortness of breath, fevers, chills, nausea, or vomiting. Given the persistence of the symptoms, she presented to the ER for further assessment Workup and evaluation in the emergency room demonstrated the patient being hemodynamically stable and in no acute distress. Her EKG did not show any significant ischemic changes and her initial troponin was negative. Routine blood work demonstrated a normal CBC but her chemistry showed a sodium of 116 but with no other critical electrolyte abnormalities. A CT scan of her chest was done to rule out a pulmonary embolism which was negative and did not demonstrate any other acute pathology by this imaging study. Given her hyponatremia and her chest pain symptoms, she was admitted the hospital for further evaluation and therapy. Since admission, she was started on a fluid restriction as well as IV fluids for treatment of her hyponatremia. Her repeat troponins were negative but her sodium level seems to have overcorrected as noted by a.m. labs. Renal consultation was requested due to the patient's hyponatremia. Unfortunately, I have no previous labs to compare to to assess the acuity versus chronicity of this issue/problem. However, from a discussion with the patient, she does not recall ever being told that she had any issues or problems with her sodium level. With regard to risk factors for hyponatremia, she is on outpatient or qod aches, proton pump inhibitor, and is on hydrochlorothiazide as well. She denies any poor oral intake or excessive fluid intake recently. She is a smoker and apparently does have a history of COPD/emphysem
--- NOTE | 2023-03-29 15:18 | PM.IMPN ---
Progress Note: A&P Assessment and Plan (1) Hyponatremia: Code(s): E87.1 - Hypo-osmolality and hyponatremia Status: Acute Assessment and Plan: Na 116. Etiology unclear but could be related to dehydration or from excess free water intake. Not on diuretics. TSH normal. Na climbed too quickly to 124 this morning. Nephrology consulted and appreciate their input. D5W added. Na up to 126. Continue to check sodium every 6 hours Apprecaite nephrology input Check cortisol level. Consider CT brain (2) Chest pain: Code(s): R07.9 - Chest pain, unspecified Status: Acute Assessment and Plan: [place] to be musculoskeletal. CT chest with contrast not showing any concerning findings. Did not rule out PE. Trop negative x3 EKG showing NSR and borderling T wave changes in the inferior leads CP has resolved. Follow (3) Heart failure, unspecified: Code(s): I50.9 - Heart failure, unspecified Status: Acute Assessment and Plan: Patient with chronic diastolic CHF. Doubt hyponatremia related to fluid overload since clinically she is euvolemic. Not on diuretics at home. Avoid fluid overload (4) HTN (hypertension): Qualifiers: Hypertension type: essential hypertension Qualified Code(s): I10 - Essential (primary) hypertension Code(s): I10 - Essential (primary) hypertension Status: Acute Assessment and Plan: Patient's blood pressure was reviewed on 03/29 Blood pressure remains well controlled. Will continue current medications. (5) Emphysema lung: Code(s): J43.9 - Emphysema, unspecified Status: Acute Assessment and Plan: Stable Subjective Date/time seen: 03/29/23 15:18 Interval history: 72yo female with HTN, CHF and tobacco abuse here for chest pain and weakness. No further episodes of chest pain. No SOB. She drinks about 2-3 40oz pitchers of water per day. No hx of hyponatremia. Exam Narrative: AF 98.3 108/62 58 16 100% ra Gen - NARD Chest - scattered inspiratory crackles. CV - RRR S1/S2. Tele showing no signifincant dysrhythmias Abd - Soft, NT/ND, Positive BS Ext - No pedal edema Neuro - Alert and oriented x3 (not ten name). Nonfocal exam. Psych - Nml mood and affect Skin - Warm and dry Objective Data Vital Signs Vital Signs: Vital Signs - 24 hr 03/28/23 21:19 03/28/23 21:19 03/28/23 21:25 Temperature 98.1 F Pulse Rate 69 70 Respiratory Rate 21 H 14 Blood Pressure 144/73 H 144/73 H Pulse Oximetry 99 99 97 Oxygen Delivery Room Air Room Air 03/28/23 21:31 03/28/23 22:33 03/28/23 23:40 Temperature Pulse Rate 60 66 64 Respiratory Rate 13 12 13 Blood Pressure 129/71 107/62 110/59 L Pulse Oximetry 99 100 100 Oxygen Delivery 03/29/23 01:00 03/29/23 03:07 03/29/23 01:29 Temperature 97.3 F L 98.2 F Pulse Rate 59 L 52 L 52 L Respiratory Rate 20 20 20 Blood Pressure 133/66 119/55 L Pulse Oximetry 99 99 99 Oxygen Delivery Room Air 03/29/23 02:00 03/29/23 04:00 03/29/23 04:00 Temperature Pulse Rate 70 70 54 L Respiratory Rate 20 Blood Pressure Pulse Oximetry 99 Oxygen Delivery Room Air 03/29/23 06:00 03/29/23 08:00 03/29/23 08:00 Temperature 98.1 F Pulse Rate 53 L 60 60 Respiratory Rate 16 16 Blood Pressure 115/56 L Pulse Oximetry 95 95 Oxygen Delivery Room Air 03/29/23 12:00 03/29/23 12:00 03/29/23 08:00 Temperature 98.3 F Pulse Rate 57 L 67 Respiratory Rate 16 Blood Pressure 108/62 Pulse Oximetry 100 Oxygen Delivery Room Air 03/29/23 10:00 03/29/23 12:00 03/29/23 14:00 Temperature Pulse Rate 54 L 70 58 L Respiratory Rate Blood Pressure Pulse Oximetry Oxygen Delivery Intake/Output Intake/Output: Intake & Output 03/26/23 03/27/23 03/28/23 03/29/23 23:59 23:59 23:59 23:59 Intake Total 1380 Output Total 500 Balance 880 Meds/Results Medications: Activ
[2023-03-29] MEDS: ACETAMINOPHEN 325 MG TABLET 650 MG PO (16:11)
[2023-03-29 16:51] LABS: Sodium 126 mmol/L (137-145)
[2023-03-29] MEDS: DEXTROSE 5% IN WATER 500 ML 250 ML IV CONT (18:55)
[2023-03-29 22:12] LABS: Sodium 124 mmol/L (137-145)
[2023-03-30] VITALS: BP 121/66; PULSE 54; PULSE 58; RESP 16; TEMP 36.4; O2SAT 96
[2023-03-30 04:00] VITALS: BP 111/70; PULSE 53; PULSE 54; RESP 16; TEMP 36.4; O2SAT 98
[2023-03-30 04:16] LABS: Sodium 120 mmol/L (137-145)
[2023-03-30 06:41] LABS: Basophils Absolute Auto 0.1 K/mm3 (0.0-0.1); Basophils Percent Auto 0.8 % (0.2-1.2); Eosinophils Absolute Auto 0.2 K/mm3 (0-0.3); Eosinophils Percent Auto 2.4 % (0-4.4); Hematocrit 34.6 % (37.0-47.0); Hemoglobin 12.1 g/dL (12.0-15.0); Immature Granulocyte Absolute 0.12 K/mm3 (0.00-0.031); Immature Granulocyte Percent A 1.7 % (0-0.5); Lymphocytes Absolute Auto 1.72 K/mm3 (0.9-3.2); Lymphocytes Percent Auto 24.2 % (18.3-44.2); Mean Corpuscular Hemoglobin 31.7 pg (26-34); Mean Corpuscular Volume 90.6 fl (80-100); Mean Platelet Volume 8.6 fl (7.4-10.4); Monocytes Absolute Auto 0.8 K/mm3 (0.1-0.6); Monocytes Percent Auto 10.5 % (2.6-8.5); Neutrophils Absolute Auto 4.3 K/mm3 (1.3-6.7); Neutrophils Percent Auto 60.4 % (45.5-73.1); Platelet Count Result 388 k/mm3 (150-375); Red Blood Count 3.82 M/mm3 (4.2-5.4); Red Cell Distribution Width 13.9 % (11.5-14.5); White Blood Count 7.1 K/mm3 (4.5-10.0)
[2023-03-30 06:50] LABS: Alanine Aminotransferase 45 U/L (6-35); Albumin Level 3.8 g/dL (3.5-5.1); Alkaline Phosphatase 76 U/L (38-126); Anion Gap 4 mmol/L (8-16); Aspartate Amino Transferase 38 U/L (14-36); Bilirubin,Total 0.7 mg/dL (0.2-1.3); Blood Urea Nitrogen 7 mg/dL (7-17); Calcium 8.5 mg/dL (8.4-10.2); Carbon Dioxide 28 mmol/L (22-30); Chloride 95 mmol/L (98-107); Estimated CRCL calculation 77 ml/min; Estimated Glomerular Filt Rate > 60; Glucose 97 mg/dL (65-110); Potassium 3.9 mmol/L (3.4-5.0); Sodium 127 mmol/L (137-145)
[2023-03-30 07:21] LABS: Cortisol Random 5.91 ug/dL
[2023-03-30 08:00] VITALS: BP 124/55; PULSE 57; RESP 15; TEMP 36.6; O2SAT 93; O2SAT 98
[2023-03-30 08:05] VITALS: O2SAT 93
--- NOTE | 2023-03-30 13:09 | PM.IMPN ---
Progress Note: A&P Assessment and Plan (1) Hyponatremia: Code(s): E87.1 - Hypo-osmolality and hyponatremia Status: Acute Plan # euvolemic hyponatremia -sodium on presentation 115, improved up to 127 -D5W discontinued, patient's p.o. fluid intake has been liberalized -appreciate Nephrology consultation: MM work-up -will continue to monitor sodium -for weakness will have PT OT evaluate # chronic conditions -osteoporosis: Alendronate, vitamin D supplement -essential hypertension: Norvasc -GERD: Protonix Diet: Heart healthy DVT prophylaxis: SCDs Code status: Full code Disposition: Home in 1-3 days Subjective Date/time seen: 03/30/23 13:09 Interval history: Patient seen examined. She was doing well no new complaints. Sodium 127, she had admitted at sodium 115, has improved over last 24 hours. With rapid over-correction patient started on D5W. Now with stable sodium to D5W has been discontinued and p.o. intake has been liberalized. Nephrology plan closely. Anticipate discharge next day or 2. Will have physical therapy evaluate patient with her weakness from hyponatremia. She denies fever, chills, nausea vomiting or diarrhea. Review of Systems Review of Systems: 10 point ROS complete, negative other than what is specified in HPI. Exam Narrative: - GENERAL: Pleasant elderly woman no acute distress. Well-nourished. - EYES: EOMI. Anicteric. - HENT: Moist mucous membranes. - LUNGS: Clear to auscultation bilaterally, no wheezing, rhonchi, or rales. - CARDIOVASCULAR: Regular rate and rhythm. No murmur. No JVD. - ABDOMEN: Soft, non-tender and non-distended. No palpable masses. - EXTREMITIES: Peripheral pulses 2+. Non-tender. - NEUROLOGIC: No focal neurological deficits. CN II-XII grossly intact. - PSYCHIATRIC: Awake, Alert and oriented x 3. Appropriate mood and affect. - SKIN: No rashes or lesions. Warm. - LYMPH: No cervical lymphadenopathy. Objective Data Vital Signs Vital Signs: Vital Signs - 24 hr 03/29/23 14:00 03/29/23 16:00 03/29/23 16:00 Temperature 36.7 C Pulse Rate 58 L 64 62 Respiratory Rate 16 Blood Pressure 97/56 L Pulse Oximetry 94 Oxygen Delivery 03/29/23 18:00 03/29/23 16:00 03/29/23 20:00 Temperature 36.1 C L Pulse Rate 66 55 L Respiratory Rate 20 Blood Pressure 100/50 L Pulse Oximetry 99 Oxygen Delivery Room Air 03/29/23 20:00 03/30/23 00:00 03/30/23 00:00 Temperature 36.4 C Pulse Rate 58 L 54 L 58 L Respiratory Rate 16 Blood Pressure 121/66 Pulse Oximetry 96 Oxygen Delivery 03/30/23 04:00 03/30/23 04:00 03/30/23 08:05 Temperature 36.4 C L Pulse Rate 54 L 53 L Respiratory Rate 16 Blood Pressure 111/70 Pulse Oximetry 98 93 Oxygen Delivery Room Air 03/30/23 08:00 03/30/23 08:00 03/30/23 08:00 Temperature 36.6 C Pulse Rate 57 L 57 L 57 L Respiratory Rate 15 15 Blood Pressure 124/55 L Pulse Oximetry 98 93 Oxygen Delivery Room Air Intake/Output Intake/Output: Intake & Output 03/27/23 03/28/23 03/29/23 03/30/23 23:59 23:59 23:59 23:59 Intake Total 2132 880 Output Total 500 1800 Balance 1632 -920 Meds/Results Medications: Active Medications Generic Name Dose Route Start Last Admin Trade Name Freq PRN Reason Stop Dose Admin Acetaminophen 650 mg 03/29/23 08:14 03/29/23 16:11 Acetaminophen 325 Mg Tablet PO 650 mg Q6H PRN Administration Mild Pain (1-5) Or Fever Hydrocodone Bitart/Acetaminophen 1 tab 03/29/23 08:14 Hydrocodone/Acetaminophen (*Crx) 5-325 Mg Tablet PO Q6H PRN Pain Rated 6 or Greater Alendronate Sodium 70 mg 03/30/23 21:00 Alendronate Sodium 70 Mg Tablet PO FR@2100 AMANDA Amlodipine Besylate 5 mg 03/29/23 21:00 03/29/23 21:52 Amlodipine Besylate 5 Mg Tablet PO Not Given QHS [facility] Ergocalciferol 50,000 units 03/30/23 09:00 Ergocalciferol 50,000 Units Capsule PO Fr@0900 [facility] Dextrose 50
--- NOTE | 2023-03-30 13:31 | PM.PNNEP ---
Progress Note: A&P Assessment and Plan (1) Hyponatremia: Code(s): E87.1 - Hypo-osmolality and hyponatremia Status: Acute Assessment and Plan: acute versus chronic versus acute on chronic?? presuming acute since patient reports no history of this risk factors for low sodium: recent narcotic use PPI use thiazide diuretic use (HCTZ) excess free water intake (?) prerenal factors (?) smoker/COPD evidence of overcorrection in the last 24 hours getting D5W and DDAVP to slow this down goal of therapy is a change of 6 - 8mmol/L in 24 hours -- this has been achieved evaluation to date: TSH and cortisol okay urine electrolytes prerenal CXR and CT of chest negative SPEP/UPEP and serum/urine osmo pending start fluid restriction follow trend of repeat sodiums (2) Chest pain: Code(s): R07.9 - Chest pain, unspecified Status: Acute Assessment and Plan: resolved musculoskeletal in etiology CT chest negative Troponins negative x 3 EKG noted (3) Chronic diastolic (congestive) heart failure: Code(s): I50.32 - Chronic diastolic (congestive) heart failure Status: Chronic Assessment and Plan: appear compensated (patient euvolemic) not on diuretics follow volume status (4) HTN (hypertension): Qualifiers: Hypertension type: essential hypertension Qualified Code(s): I10 - Essential (primary) hypertension Code(s): I10 - Essential (primary) hypertension Status: Chronic Assessment and Plan: reasonable control follow trend of hemodynamics Will continue to follow. Subjective Date/time seen: 03/30/23 13:31 Interval history: Follow-up for hyponatremia. She appears to be feeling reasonably well since I last saw her. Sodium correction slowed with use of D5W and DDAVP and noted by trend of repeat sodium levels. No other acute issues/events overnight or earlier this morning. Exam Narrative: General: elderly female in NAD Heart: normal S1 and S2; no rub Lungs: coarse breath sounds Abdomen: soft, nontender, nondistended, positive bowel sounds Extremities: no cyanosis or clubbing; no edema Skin: warm and dry Objective Data Vital Signs Vital Signs: Vital Signs Temp Pulse Resp BP Pulse Ox O2 Del Method 03/30/23 08:00 57 L 03/30/23 08:00 57 L 15 93 Room Air 03/30/23 08:00 97.8 F 57 L 15 124/55 L 98 03/30/23 08:05 93 Room Air 03/30/23 04:00 97.5 F L 53 L 16 111/70 98 03/30/23 04:00 54 L 03/30/23 00:00 58 L 03/30/23 00:00 97.6 F 54 L 16 121/66 96 03/29/23 20:00 58 L 03/29/23 20:00 97 F L 55 L 20 100/50 L 99 03/29/23 18:00 66 Intake/Output Intake/Output: Intake & Output 03/27/23 03/28/23 03/29/23 03/30/23 23:59 23:59 23:59 23:59 Intake Total 2132 880 Output Total 500 1800 Balance 1632 -920 Meds/Results Medications: Active Medications Generic Name Dose Route Start Last Admin Trade Name Freq PRN Reason Stop Dose Admin Acetaminophen 650 mg 03/29/23 08:14 03/29/23 16:11 Acetaminophen 325 Mg Tablet PO 650 mg Q6H PRN Administration Mild Pain (1-5) Or Fever Hydrocodone Bitart/Acetaminophen 1 tab 03/29/23 08:14 Hydrocodone/Acetaminophen (*Crx) 5-325 Mg Tablet PO Q6H PRN Pain Rated 6 or Greater Alendronate Sodium 70 mg 03/30/23 21:00 Alendronate Sodium 70 Mg Tablet PO FR@2100 AMANDA Amlodipine Besylate 5 mg 03/29/23 21:00 03/29/23 21:52 Amlodipine Besylate 5 Mg Tablet PO Not Given QHS [facility] Ergocalciferol 50,000 units 03/30/23 21:00 Ergocalciferol 50,000 Units Capsule PO Fr@2100 AMANDA Sodium Chloride 250 mls @ 75 mls/hr 03/30/23 15:01 03/30/23 15:11 Normal Saline Iv IV CONT 03/30/23 18:20 75 mls/hr .Q3H20M ONE Administration Pantoprazole Sodium 40 mg 03/30/23 21:00 Pantoprazole 40 Mg Tablet PO HS S
--- NOTE | 2023-03-30 13:31 | P.PNNP_ITS ---
Progress Note: A&P Assessment and Plan (1) Hyponatremia: Code(s): E87.1 - Hypo-osmolality and hyponatremia Status: Acute Assessment and Plan: * acute versus chronic versus acute on chronic?? * presuming acute since patient reports no history of this * risk factors for low sodium: * recent narcotic use * PPI use * thiazide diuretic use (HCTZ) * excess free water intake (?) * prerenal factors (?) * smoker/COPD * evidence of overcorrection in the last 24 hours * getting D5W and DDAVP to slow this down * goal of therapy is a change of 6 - 8mmol/L in 24 hours -- this has been achieved * evaluation to date: * TSH and cortisol okay * urine electrolytes prerenal * CXR and CT of chest negative * SPEP/UPEP and serum/urine osmo pending * start fluid restriction * follow trend of repeat sodiums (2) Chest pain: Code(s): R07.9 - Chest pain, unspecified Status: Acute Assessment and Plan: * resolved * musculoskeletal in etiology * CT chest negative * Troponins negative x 3 * EKG noted (3) Chronic diastolic (congestive) heart failure: Code(s): I50.32 - Chronic diastolic (congestive) heart failure Status: Chronic Assessment and Plan: * appear compensated (patient euvolemic) * not on diuretics * follow volume status (4) HTN (hypertension): Qualifiers: Hypertension type: essential hypertension Qualified Code(s): I10 - Essential (primary) hypertension Code(s): I10 - Essential (primary) hypertension Status: Chronic Assessment and Plan: * reasonable control * follow trend of hemodynamics Will continue to follow. Subjective Date/time seen: 03/30/23 13:31 Interval history: Follow-up for hyponatremia. She appears to be feeling reasonably well since I last saw her. Sodium correction slowed with use of D5W and DDAVP and noted by trend of repeat sodium levels. No other acute issues/events overnight or earlier this morning. Exam Narrative: General: elderly female in NAD Heart: normal S1 and S2; no rub Lungs: coarse breath sounds Abdomen: soft, nontender, nondistended, positive bowel sounds Extremities: no cyanosis or clubbing; no edema Skin: warm and dry Objective Data Vital Signs Vital Signs: Vital Signs Temp Pulse Resp BP Pulse Ox O2 Del Method 03/30/23 08:00 57 L 03/30/23 08:00 57 L 15 93 Room Air 03/30/23 08:00 97.8 F 57 L 15 124/55 L 98 03/30/23 08:05 93 Room Air 03/30/23 04:00 97.5 F L 53 L 16 111/70 98 03/30/23 04:00 54 L 03/30/23 00:00 58 L 03/30/23 00:00 97.6 F 54 L 16 121/66 96 03/29/23 20:00 58 L 03/29/23 20:00 97 F L 55 L 20 100/50 L 99 03/29/23 18:00 66 Intake/Output Intake/Output: Intake & Output 03/27/23 03/28/23 03/29/23 03/30/23 23:59 23:59 23:59 23:59 Intake Total 2132 880 Output Total 500 1800 Balance 1632 -920 Meds/Results Medications: Active Medications Generic Name Dose Route Start Last Admin Trade Name Zhaoq PRN Reason Stop Dose Admin Acetaminophen 650 mg 03/29
--- NOTE | 2023-03-30 14:29 | PC.NURSE ---
This patient, Maggie Allen, was transferred to [facility] on 03/30/23 at 1429. Personal belongings sent with patient. Report given to ROMULO Thomas. Appropriate documentation sent with patient.
--- NOTE | 2023-03-30 14:36 | PC.NURSE ---
This patient, Maggie Allen, was received from [ imu] on 03/30/23 at 1436. Patient/family oriented to unit policies and routines
[2023-03-30 14:56] LABS: Sodium 127 mmol/L (137-145)
[2023-03-30] MEDS: SODIUM CHLORIDE 0.9% IV 250 ML 75 ML IV CONT (15:11)
[2023-03-30 16:00] VITALS: BP 122/67; PULSE 64; RESP 16; TEMP 35.9; O2SAT 100
[2023-03-30 19:30] LABS: Sodium 126 mmol/L (137-145)
[2023-03-30] MEDS: ALENDRONATE SODIUM 70 MG TABLET PO (20:49)
[2023-03-30] MEDS: amLODIPine BESYLATE 5 MG TABLET PO (20:49)
[2023-03-30] MEDS: ERGOCALCIFEROL 50,000 UNITS CAPSULE 50000 UNITS PO (20:49)
[2023-03-30] MEDS: PANTOPRAZOLE 40 MG TABLET PO (20:50)
[2023-03-31] VITALS: BP 143/72; PULSE 54; RESP 20; TEMP 36.1; O2SAT 100
[2023-03-31] MEDS: ACETAMINOPHEN 325 MG TABLET 650 MG PO ×2 (01:35→17:38)
[2023-03-31 05:32] VITALS: BP 135/67; PULSE 53; RESP 20; TEMP 35.7; O2SAT 99
[2023-03-31 06:55] LABS: Anion Gap 4 mmol/L (8-16); Blood Urea Nitrogen 5 mg/dL (7-17); Calcium 8.7 mg/dL (8.4-10.2); Carbon Dioxide 28 mmol/L (22-30); Chloride 97 mmol/L (98-107); Estimated CRCL calculation 77 ml/min; Estimated Glomerular Filt Rate > 60; Glucose 98 mg/dL (65-110); Magnesium 1.9 mg/dL (1.6-2.3); Potassium 3.9 mmol/L (3.4-5.0); Sodium 129 mmol/L (137-145)
--- NOTE | 2023-03-31 09:30 | PM.IMPN ---
Progress Note: A&P Assessment and Plan (1) Hyponatremia: Code(s): E87.1 - Hypo-osmolality and hyponatremia Status: Acute (2) Acute chest wall pain: Code(s): R07.89 - Other chest pain Status: Acute Plan # acute euvolemic hyponatremia -sodium on presentation 115, improved up to 127 -D5W discontinued, patient's p.o. fluid intake has been liberalized -appreciate Nephrology consultation:? MM work-up pending. Patient is status or D5W and DDAVP. TSH and cortisol within normal limits, urine electrolytes consistent with prerenal etiology, continue fluid restriction -will continue to monitor sodium -patient working with PT and OT -1500 cc fluid restriction # chest pain -resolved, likely musculoskeletal -negative troponins EKG no ST changes # chronic conditions -osteoporosis: Alendronate, vitamin D supplement -essential hypertension: Norvasc -GERD: Protonix Diet:? Heart healthy DVT prophylaxis:?SCDs Code status:? Full code Disposition:? Likely home tomorrow Subjective Date/time seen: 03/31/23 09:30 Interval history: Patient seen examined. She is doing well no new complaints. Sodium up to 129. Patient on a 1500 cc fluid restriction. She is status post D5W and DDAVP. Will continue to trend sodium anticipate discharge in next day or 2. Patient denies fever, chills, nausea vomiting, diarrhea. Starting to get up and work with therapy. Review of Systems Review of Systems: 10 point ROS complete, negative other than what is specified in HPI. Exam Narrative: - GENERAL:? Pleasant elderly woman no acute distress. Well-nourished. - HENT: Moist mucous membranes. - LUNGS: Clear to auscultation bilaterally, no wheezing, rhonchi, or rales. - CARDIOVASCULAR: Regular rate and rhythm. No murmur - ABDOMEN: Soft, non-tender and non-distended. No palpable masses. - EXTREMITIES: Peripheral pulses 2+. Non-tender. - NEUROLOGIC: No focal neurological deficits. CN II-XII grossly intact. - PSYCHIATRIC: Awake, Alert and oriented x 3. Appropriate mood and affect. - SKIN: No rashes or lesions. Warm.? Objective Data Vital Signs Vital Signs: Vital Signs - 24 hr 03/30/23 16:00 03/31/23 00:00 03/31/23 05:32 Temperature 35.9 C L 36.1 C L 35.7 C L Pulse Rate 64 54 L 53 L Respiratory Rate 16 20 20 Blood Pressure 122/67 143/72 H 135/67 Pulse Oximetry 100 100 99 Oxygen Delivery 03/31/23 08:00 03/31/23 08:58 Temperature Pulse Rate Respiratory Rate Blood Pressure Pulse Oximetry Oxygen Delivery Room Air Room Air Intake/Output Intake/Output: Intake & Output 03/28/23 03/29/23 03/30/23 03/31/23 23:59 23:59 23:59 23:59 Intake Total 2132 1620 490 Output Total 500 1800 800 Balance 2959 -180 -509 Meds/Results Medications: Active Medications Generic Name Dose Route Start Last Admin Trade Name Freq PRN Reason Stop Dose Admin Acetaminophen 650 mg 03/29/23 08:14 03/31/23 01:35 Acetaminophen 325 Mg Tablet PO 650 mg Q6H PRN Administration Mild Pain (1-5) Or Fever Hydrocodone Bitart/Acetaminophen 1 tab 03/29/23 08:14 Hydrocodone/Acetaminophen (*Crx) 5-325 Mg Tablet PO Q6H PRN Pain Rated 6 or Greater Alendronate Sodium 70 mg 03/30/23 21:00 03/30/23 20:49 Alendronate Sodium 70 Mg Tablet PO 70 mg FR@2100 AMANDA Administration Amlodipine Besylate 5 mg 03/29/23 21:00 03/30/23 20:49 Amlodipine Besylate 5 Mg Tablet PO 5 mg QHS AMANDA Administration Ergocalciferol 50,000 units 03/30/23 21:00 03/30/23 20:49 Ergocalciferol 50,000 Units Capsule PO 50,000 units Fr@2100 AMANDA Administration Pantoprazole Sodium 40 mg 03/30/23 21:00 03/30/23 20:50 Pantoprazole 40 Mg Tablet PO 40 mg HS AMANDA Administration Radiology Results: ITS Impressions Chest X-Ray 03/28/23 22:02 IMPRESSION: No acute cardiopulmonary process. Chest CT 03/28/23 23:18 IMPRESSION: No acute thoracic process detected. No CT evidence
[2023-03-31 13:40] VITALS: BP 98/55; PULSE 56; RESP 18; TEMP 36; O2SAT 100
--- NOTE | 2023-03-31 14:41 | P.PNNP_ITS ---
Progress Note: A&P Assessment and Plan (1) Hyponatremia: Code(s): E87.1 - Hypo-osmolality and hyponatremia Status: Acute Assessment and Plan: * acute versus chronic versus acute on chronic?? * presuming acute since patient reports no history of this * TSH is okay. * Cortisol level is low. Will check Cortrosyn stim test. * CT chest is negative. * No history of cancer. Up-to-date with cancer screening. * No GERIATRIC ASSISTANT issues. * risk factors for low sodium include: * recent narcotic use. Patient has not received any of these while here. * PPI use Will stop this and use famotidine * thiazide diuretic use (HCTZ) . This has been held * excess free water intake (?). Now on fluid restriction. * prerenal factors (?). Electrolytes show pre renal azotemia. * Cortisol level is low so will check a Cortrosyn stim test * smoker/COPD * evidence of overcorrection in the last 24 hours * received D5W and DDAVP to slow this down * sodium level has been relatively stable the last few days. * goal of therapy is a change of 6 - 8mmol/L in 24 hours -- this has been achieved * evaluation to date: * TSH Okay and cortisol level is low. * urine electrolytes prerenal * CXR and CT of chest negative * SPEP/UPEP and serum/urine osmo pending * On fluid restriction * follow trend of repeat sodiums (2) Chest pain: Code(s): R07.9 - Chest pain, unspecified Status: Acute Assessment and Plan: * resolved * musculoskeletal in etiology * CT chest negative * Troponins negative x 3 * EKG noted (3) Chronic diastolic (congestive) heart failure: Code(s): I50.32 - Chronic diastolic (congestive) heart failure Status: Chronic Assessment and Plan: * appear compensated (patient euvolemic) * not on diuretics * follow volume status (4) HTN (hypertension): Qualifiers: Hypertension type: essential hypertension Qualified Code(s): I10 - Essential (primary) hypertension Code(s): I10 - Essential (primary) hypertension Status: Chronic Assessment and Plan: * reasonable control * follow trend of hemodynamics Will continue to follow. Subjective Date/time seen: 03/31/23 14:41 Interval history: Maggie is feeling okay today. She is eager for discharge. Exam Narrative: General: elderly female in NAD Heart: normal S1 and S2; no rub or cyanosis Lungs: coarse breath sounds Abdomen: soft, nontender, nondistended, positive bowel sounds Extremities: no edema Skin: No rash Objective Data Vital Signs Vital Signs: Vital Signs - 24 hr 03/30/23 16:00 03/31/23 00:00 03/31/23 05:32 Temperature 96.7 F L 96.9 F L 96.3 F L Pulse Rate 64 54 L 53 L Respiratory Rate 16 20 20 Blood Pressure 122/67 143/72 H 135/67 Pulse Oximetry 100 100 99 Oxygen Delivery 03/31/23 08:00 03/31/23 08:58 03/31/23 13:40 Temperature 96.8 F L Pulse Rate 56 L Respiratory Rate 18 Blood Pressure 98/55 L Pulse Oximetry 100 Oxygen Delivery Room Air Room Air Intake/Output Intake/Output: Intake & Output 03/28/23 03/29/23 03/30/23 03/31/23 23:59 23:59 23:59 23:59 Intake Total 2132 1620 540 Output Total
--- NOTE | 2023-03-31 14:41 | PM.PNNEP ---
Progress Note: A&P Assessment and Plan (1) Hyponatremia: Code(s): E87.1 - Hypo-osmolality and hyponatremia Status: Acute Assessment and Plan: acute versus chronic versus acute on chronic?? presuming acute since patient reports no history of this TSH is okay. Cortisol level is low. Will check Cortrosyn stim test. CT chest is negative. No history of cancer. Up-to-date with cancer screening. No WHEEL POLISHER issues. risk factors for low sodium include: recent narcotic use. Patient has not received any of these while here. PPI use Will stop this and use famotidine thiazide diuretic use (HCTZ) . This has been held excess free water intake (?). Now on fluid restriction. prerenal factors (?). Electrolytes show pre renal azotemia. Cortisol level is low so will check a Cortrosyn stim test smoker/COPD evidence of overcorrection in the last 24 hours received D5W and DDAVP to slow this down sodium level has been relatively stable the last few days. goal of therapy is a change of 6 - 8mmol/L in 24 hours -- this has been achieved evaluation to date: TSH Okay and cortisol level is low. urine electrolytes prerenal CXR and CT of chest negative SPEP/UPEP and serum/urine osmo pending On fluid restriction follow trend of repeat sodiums (2) Chest pain: Code(s): R07.9 - Chest pain, unspecified Status: Acute Assessment and Plan: resolved musculoskeletal in etiology CT chest negative Troponins negative x 3 EKG noted (3) Chronic diastolic (congestive) heart failure: Code(s): I50.32 - Chronic diastolic (congestive) heart failure Status: Chronic Assessment and Plan: appear compensated (patient euvolemic) not on diuretics follow volume status (4) HTN (hypertension): Qualifiers: Hypertension type: essential hypertension Qualified Code(s): I10 - Essential (primary) hypertension Code(s): I10 - Essential (primary) hypertension Status: Chronic Assessment and Plan: reasonable control follow trend of hemodynamics Will continue to follow. Subjective Date/time seen: 03/31/23 14:41 Interval history: Maggie is feeling okay today. She is eager for discharge. Exam Narrative: General: elderly female in NAD Heart: normal S1 and S2; no rub or cyanosis Lungs: coarse breath sounds Abdomen: soft, nontender, nondistended, positive bowel sounds Extremities: no edema Skin: No rash Objective Data Vital Signs Vital Signs: Vital Signs - 24 hr 03/30/23 16:00 03/31/23 00:00 03/31/23 05:32 Temperature 96.7 F L 96.9 F L 96.3 F L Pulse Rate 64 54 L 53 L Respiratory Rate 16 20 20 Blood Pressure 122/67 143/72 H 135/67 Pulse Oximetry 100 100 99 Oxygen Delivery 03/31/23 08:00 03/31/23 08:58 03/31/23 13:40 Temperature 96.8 F L Pulse Rate 56 L Respiratory Rate 18 Blood Pressure 98/55 L Pulse Oximetry 100 Oxygen Delivery Room Air Room Air Intake/Output Intake/Output: Intake & Output 03/28/23 03/29/23 03/30/23 03/31/23 23:59 23:59 23:59 23:59 Intake Total 2132 1620 540 Output Total 500 1800 800 Balance 9060 -756 -212 Meds/Results Medications: Active Medications Generic Name Dose Route Start Last Admin Trade Name Freq PRN Reason Stop Dose Admin Acetaminophen 650 mg 03/29/23 08:14 03/31/23 01:35 Acetaminophen 325 Mg Tablet PO 650 mg Q6H PRN Administration Mild Pain (1-5) Or Fever Hydrocodone Bitart/Acetaminophen 1 tab 03/29/23 08:14 Hydrocodone/Acetaminophen (*Crx) 5-325 Mg Tablet PO Q6H PRN Pain Rated 6 or Greater Alendronate Sodium 70 mg 03/30/23 21:00 03/30/23 20:49 Alendronate Sodium 70 Mg Tablet PO 70 mg FR@2100 AMANDA Administration Amlodipine Besylate 5 mg 03/29/23 21:00 03/30/23 20:49 Amlodipine Besylate 5 Mg Tablet PO 5 mg QHS AMANDA Administration Ergocalciferol 50,00
[2023-03-31] MEDS: COSYNTROPIN 0.25 MG/ML VIAL IV PUSH (15:36)
[2023-03-31 16:30] LABS: Cortisol Baseline 4.68 ug/dL
[2023-03-31 21:10] VITALS: BP 120/68; PULSE 58; RESP 16; TEMP 35.9; O2SAT 98
[2023-03-31] MEDS: amLODIPine BESYLATE 5 MG TABLET PO (21:47)
[2023-03-31] MEDS: FAMOTIDINE 20 MG TABLET PO (21:48)
[2023-04-01 04:55] VITALS: BP 145/64; PULSE 55; RESP 16; TEMP 35.9; O2SAT 99
[2023-04-01 06:36] LABS: Albumin Level 4.2 g/dL (3.5-5.1); Anion Gap 5 mmol/L (8-16); Blood Urea Nitrogen 5 mg/dL (7-17); Calcium 8.8 mg/dL (8.4-10.2); Carbon Dioxide 25 mmol/L (22-30); Chloride 102 mmol/L (98-107); Estimated CRCL calculation 77 ml/min; Estimated Glomerular Filt Rate > 60; Glucose 103 mg/dL (65-110); Phosphorus 2.5 mg/dL (2.5-4.5); Potassium 3.7 mmol/L (3.4-5.0); Sodium 132 mmol/L (137-145)
[2023-04-01 08:00] VITALS: PULSE 55; RESP 16; O2SAT 99
[2023-04-01] MEDS: FAMOTIDINE 20 MG TABLET PO (08:46)
--- NOTE | 2023-04-01 10:48 | P.PNNP_ITS ---
Progress Note: A&P Assessment and Plan (1) Hyponatremia: Code(s): E87.1 - Hypo-osmolality and hyponatremia Status: Acute Assessment and Plan: * acute versus chronic versus acute on chronic?? * presuming acute since patient reports no history of this * TSH is okay. * Cortisol level is low. Cortrosyn stim test was negative. * CT chest is negative. * No history of cancer. Up-to-date with cancer screening. * No ETIOLOGY TEACHER issues. * risk factors for low sodium include: * recent narcotic use. Patient has not received any of these while here. * PPI use Off this and on famotidine * thiazide diuretic use (HCTZ) . This has been held * excess free water intake (?). Now on fluid restriction. * prerenal factors (?). Electrolytes show pre renal azotemia. * Cortisol level is low so will check a Cortrosyn stim test * smoker/COPD * over-correction about 4 days ago handled by Dr. Diaz. * goal of therapy is a change of 6 - 8mmol/L in 24 hours -- this has been achieved * evaluation to date: * TSH Okay and cortisol level is low. * urine electrolytes prerenal * CXR and CT of chest negative * SPEP/UPEP and serum/urine osmo pending * On fluid restriction * Sodium level better. Now 132. * Discharge okay from the sodium standpoint. (2) Chest pain: Code(s): R07.9 - Chest pain, unspecified Status: Acute Assessment and Plan: * resolved * musculoskeletal in etiology * CT chest negative * Troponins negative x 3 * EKG noted (3) Chronic diastolic (congestive) heart failure: Code(s): I50.32 - Chronic diastolic (congestive) heart failure Status: Chronic Assessment and Plan: * appear compensated (patient euvolemic) * not on diuretics * follow volume status (4) HTN (hypertension): Qualifiers: Hypertension type: essential hypertension Qualified Code(s): I10 - Essential (primary) hypertension Code(s): I10 - Essential (primary) hypertension Status: Chronic Assessment and Plan: * Systolic up and down ranging from 98-145. * This can be managed as an outpatient Will continue to follow. Subjective Date/time seen: 04/01/23 10:48 Interval history: Maggie is feeling okay today. she wants to go home Exam Narrative: General: elderly female in NAD Heart: normal S1 and S2; no rub or gallop Lungs: coarse breath sounds Abdomen: soft, nontender, nondistended, positive bowel sounds Extremities: no edema or cyanosis Skin: No rash or subcu nodules Objective Data Vital Signs Vital Signs: Vital Signs - 24 hr 03/31/23 13:40 03/31/23 21:10 04/01/23 04:55 Temperature 96.8 F L 96.6 F L 96.6 F L Pulse Rate 56 L 58 L 55 L Respiratory Rate 18 16 16 Blood Pressure 98/55 L 120/68 145/64 H Pulse Oximetry 100 98 99 Oxygen Delivery 04/01/23 08:50 04/01/23 08:00 Temperature Pulse Rate 55 L Respiratory Rate 16 Blood Pressure Pulse Oximetry 99 Oxygen Delivery Room Air Room Air Intake/Output Intake/Output: Intake & Output 03/29/23 03/30/23 03/31/23 04/01/23 23:59 23:59 23:59 23:59 Intake Total 2132 1620 1020 240 Output Total 500 1800 1550
--- NOTE | 2023-04-01 10:48 | PM.PNNEP ---
Progress Note: A&P Assessment and Plan (1) Hyponatremia: Code(s): E87.1 - Hypo-osmolality and hyponatremia Status: Acute Assessment and Plan: acute versus chronic versus acute on chronic?? presuming acute since patient reports no history of this TSH is okay. Cortisol level is low. Cortrosyn stim test was negative. CT chest is negative. No history of cancer. Up-to-date with cancer screening. No PULMONARY PHYSICIAN issues. risk factors for low sodium include: recent narcotic use. Patient has not received any of these while here. PPI use Off this and on famotidine thiazide diuretic use (HCTZ) . This has been held excess free water intake (?). Now on fluid restriction. prerenal factors (?). Electrolytes show pre renal azotemia. Cortisol level is low so will check a Cortrosyn stim test smoker/COPD over-correction about 4 days ago handled by Dr. Diaz. goal of therapy is a change of 6 - 8mmol/L in 24 hours -- this has been achieved evaluation to date: TSH Okay and cortisol level is low. urine electrolytes prerenal CXR and CT of chest negative SPEP/UPEP and serum/urine osmo pending On fluid restriction Sodium level better. Now 132. Discharge okay from the sodium standpoint. (2) Chest pain: Code(s): R07.9 - Chest pain, unspecified Status: Acute Assessment and Plan: resolved musculoskeletal in etiology CT chest negative Troponins negative x 3 EKG noted (3) Chronic diastolic (congestive) heart failure: Code(s): I50.32 - Chronic diastolic (congestive) heart failure Status: Chronic Assessment and Plan: appear compensated (patient euvolemic) not on diuretics follow volume status (4) HTN (hypertension): Qualifiers: Hypertension type: essential hypertension Qualified Code(s): I10 - Essential (primary) hypertension Code(s): I10 - Essential (primary) hypertension Status: Chronic Assessment and Plan: Systolic up and down ranging from 98-145. This can be managed as an outpatient Will continue to follow. Subjective Date/time seen: 04/01/23 10:48 Interval history: Maggie is feeling okay today. she wants to go home Exam Narrative: General: elderly female in NAD Heart: normal S1 and S2; no rub or gallop Lungs: coarse breath sounds Abdomen: soft, nontender, nondistended, positive bowel sounds Extremities: no edema or cyanosis Skin: No rash or subcu nodules Objective Data Vital Signs Vital Signs: Vital Signs - 24 hr 03/31/23 13:40 03/31/23 21:10 04/01/23 04:55 Temperature 96.8 F L 96.6 F L 96.6 F L Pulse Rate 56 L 58 L 55 L Respiratory Rate 18 16 16 Blood Pressure 98/55 L 120/68 145/64 H Pulse Oximetry 100 98 99 Oxygen Delivery 04/01/23 08:50 04/01/23 08:00 Temperature Pulse Rate 55 L Respiratory Rate 16 Blood Pressure Pulse Oximetry 99 Oxygen Delivery Room Air Room Air Intake/Output Intake/Output: Intake & Output 03/29/23 03/30/23 03/31/23 04/01/23 23:59 23:59 23:59 23:59 Intake Total 2132 1620 1020 240 Output Total 500 1800 1550 Balance 1632 180 -530 240 Meds/Results Medications: Active Medications Generic Name Dose Route Start Last Admin Trade Name Zhaoq PRN Reason Stop Dose Admin Acetaminophen 650 mg 03/29/23 08:14 03/31/23 17:38 Acetaminophen 325 Mg Tablet PO 650 mg Q6H PRN Administration Mild Pain (1-5) Or Fever Hydrocodone Bitart/Acetaminophen 1 tab 03/29/23 08:14 Hydrocodone/Acetaminophen (*Crx) 5-325 Mg Tablet PO Q6H PRN Pain Rated 6 or Greater Alendronate Sodium 70 mg 03/30/23 21:00 03/30/23 20:49 Alendronate Sodium 70 Mg Tablet PO 70 mg FR@2100 AMANDA Administration Amlodipine Besylate 5 mg 03/29/23 21:00 03/31/23 21:47 Amlodipine Besylate 5 Mg Tablet PO 5 mg QHS AMANDA Administration Ergocalciferol 50,000 units 03/30/23
--- NOTE | 2023-04-01 11:57 | PM.DS ---
DS: Admitting Diagnosis Discharge Date 04/01/23 Admitting Diagnosis chest pain and hyponatremia DS: Discharge Diagnosis Discharge Diagnosis (1) Chest pain: Code(s): R07.9 - Chest pain, unspecified Status: Acute (2) Acute chest wall pain: Code(s): R07.89 - Other chest pain Status: Acute (3) Hyponatremia: Code(s): E87.1 - Hypo-osmolality and hyponatremia Status: Acute Plan # acute euvolemic hyponatremia -sodium on presentation 115, improved up to 132 (with rapid overcorrection nephrology managed with D5W and DDAVP) -appreciate Nephrology consultation:? MM work-up pending. TSH and cortisol within normal limits, urine electrolytes consistent with prerenal etiology, continue fluid restriction -patient working with PT and OT -1500 cc fluid restriction - will obtain BMP in a week and follow-up with Nephrology # chest pain -resolved, likely musculoskeletal -negative troponins EKG no ST changes # chronic conditions -osteoporosis: Alendronate, vitamin D supplement -essential hypertension: continue irbesartan and amlodipine, stop thiazide diuretic for concern of hyponatremia -GERD: change Protonix to Pepcid for concern of hyponatremia Diet:? Heart healthy Code status:? Full code Disposition:? home DS: Summary Hospital Course Reason for hospitalization: chest pain and hyponatremia Hospital Course: Patient is a 72-year-old female with past medical history of osteoporosis, essential hypertension, GERD, chronic diastolic congestive heart failure, emphysema, tobacco abuse who presents to ED with complaints of chest pain and weakness. her chest pain does appear to be musculoskeletal. Patient drinks 2-3 40oz pitchers of water daily, she was then treated for the hyponatremia. sodium on presentation was 115, with rapid over-correction she was treated with DDAVP and D5W by Nephrology. Patient then had slow correction of sodium to 132 on discharge. Recommendations for 1500 cc fluid restriction. Patient will follow-up with a BMP in 1 week and follow-up with fuels sales representative. There is pending workup for multiple myeloma. recommendation was to stop patient's thiazide diuretic and she will continue amlodipine and irbesartan for blood pressure management. We also stopped patient's PPI and she will be on Rx Pepcid twice daily for her GERD. at time of discharge patient's labs stable, vitals stable, patient is stable for discharge. Patient understands and agrees with plan Status at Discharge Cognitive/behavioral status at discharge: baseline Time Spent with Patient Time attestation: Total time spent providing and/or coordinating discharge services: 35 Exam Narrative: - GENERAL:? Pleasant elderly woman no acute distress. Well-nourished. - HENT: Moist mucous membranes. edentulous - LUNGS: Clear to auscultation bilaterally, no wheezing, rhonchi, or rales. - CARDIOVASCULAR: Regular rate and rhythm. No murmur - ABDOMEN: Soft, non-tender and non-distended. No palpable masses. - EXTREMITIES: Peripheral pulses 2+. Non-tender. - NEUROLOGIC: No focal neurological deficits. CN II-XII grossly intact. - PSYCHIATRIC: Awake, Alert and oriented x 3. Appropriate mood and affect. - SKIN: No rashes or lesions. Warm.? DS: Data Data Completed and Pending Labs on day of discharge: Labs from last 24 hours 04/01/23 03/31/23 03/31/23 06:01 17:13 16:30 Sodium 132 L Potassium 3.7 Chloride 102 Carbon Dioxide 25 Anion Gap 5 L BUN 5 L Creatinine 0.50 L Estim Creat Clear Calc 77 Estimated GFR > 60 Glucose 103 Calcium 8.8 Phosphorus 2.5 Albumin 4.2 Cortisol Baseline Cortisol Resp 30 Min 24.10 Cortisol Resp 60 Min 30.60 03/31/23 15:36 Sodium Potassium Chloride Carbon Dioxide Anion Gap BUN Creatinine Estim Creat Clear Calc Estimated GFR Glucose Calcium Phosphorus Albumin Cortisol Baseline 4.68 Cortisol Resp 30 Min Cortisol Resp 60
[2023-04-02 20:24] LABS: Osmolality, Urine 113 mOsm/kg (50-1200)
[2023-04-03 15:48] LABS: Albumin 3.4 g/dL (3.8-4.8); Alpha 1 Globulin 0.3 g/dL (0.2-0.3); Alpha 2 Globulin 0.7 g/dL (0.5-0.9); Beta 1 Globulin 0.4 g/dL (0.4-0.6); Gamma Globulin 0.8 g/dL (0.8-1.7); Protein, Total 5.9 g/dL (6.1-8.1)
[2023-04-05 11:58] LABS: Kappa\\Lambda Light Chains 1.22 (0.26-1.65); Lambda Light Chain 15.5 mg/L (5.7-26.3)
[2023-04-07 02:12] LABS: Creatinine, Random Urine 18 mg/dL (20-275); Total Protein/Creatinine Ratio 222 mg/g creat (24-184)
== END 2023-04-01 12:50 | disposition home or self-care (01) | DRG 641 ==
LOC: ANHED 21:50 → ANHIMU 23:55 → ANH3MEDSUR 03-30 15:02
PROVIDERS: Internal Medicine; Internal Medicine Nephrology; Admitting Provider Internal Medicine; Emergency Provider Emergency Medicine; PCP Family Medicine; Visit Provider Student in an Organized Health Care Education/Training Program
DX: E87.1 Hypo-osmolality and hyponatremia (principal); I50.32 Chronic diastolic (congestive) heart failure; R07.89 Other chest pain; E86.0 Dehydration; I11.0 Hypertensive heart disease with heart failure; M81.0 Age-related osteoporosis without current pathological fracture; K21.9 Gastro-esophageal reflux disease without esophagitis; J43.9 Emphysema, unspecified; K25.9 Gastric ulcer, unspecified as acute or chronic, without hemorrhage or perforation; T39.395A Adverse effect of other nonsteroidal anti-inflammatory drugs [NSAID], initial encounter; E78.2 Mixed hyperlipidemia; F17.210 Nicotine dependence, cigarettes, uncomplicated; Z98.1 Arthrodesis status; D64.9 Anemia, unspecified
CPT/HCPCS: 36415; 71046; 71260; 80048; 80053; 80069; 81001; 81050; 82533; 82570; 83690; 83735; 83883; 83935; 84133; 84155; 84156; 84165; 84166; 84295; 84300; 84443; 84484; 85025; 85610; 85730; 93005; 97161; 97165; 99285; A9270; J0834; J7030; J7050; J7060; Q9967

== ENCOUNTER 2023-11-28 22:41 | Emergency (ER) | payer MEDICARE, SELFPAY ==
--- NOTE | ~2023-11-28 | CT_ITS ---
Noncontrast CT scan of the cervical spine Technique: Multiple contiguous axial [address] images of the cervical spine were obtained and rec onstructed in 2D sagittal and coronal planes on the acquisition scanner. Dose reduction technique was used on this scan by utilizing automated exposure control, adjustment of the mA and/or kV according to patient size. The dose-length product (DLP) was 535.42 mGy-cm. Clinical History: Pain Findings: No fractures or dislocations. Unremarkable visualized bony structures. The intervertebral disc spaces are preserved. No prevertebral soft tissue swelling. Impression: No fracture or subluxation of the cervical spine. Reviewed, dictated and finalized at location . [facility] Impression: No fracture or subluxation of the cervical spine.
--- NOTE | ~2023-11-28 | CT_ITS ---
CT head without contrast Indication: Head injury Technique: Serial scans were obtained through the brain without the administration of contrast. Dose reduction technique was used on this scan by utilizing automated exposure control and iterative recon struction technique. The dose-length product (DLP) was 605.33 mGy-cm. Findings: There is no evidence of intracranial hemorrhage, mass lesion, or acute infarct. The ventri cles and subarachnoid spaces are dilated, consistent with mild atrophy. Low attenuation regions are seen within the periventricular white matter bilaterally, likely representing changes from chronic mi crovascular ischemic disease. There is no evidence of edema, mass effect or midline shift. The visu alized paranasal sinuses and mastoid air cells are clear. Impression: No intracranial hemorrhage, mass, or acute infarct. Atrophy and chronic white matter changes, as above. Reviewed, dictated and finalized at location . ET LINER Impression: No intracranial hemorrhage, mass, or acute infarct. Atrophy and chronic white matter changes, as above.
--- NOTE | ~2023-11-28 | CT_ITS ---
Noncontrast CT scan of the lumbar spine CLINICAL HISTORY: Status post fall, back pain TECHNIQUE: Axial noncontrast imaging of the lumbar spine was performed. Sagittal and coronal reformat karen images were constructed. Dose reduction technique was used on this scan by utilizing automated ex posure control and iterative reconstruction technique. The dose-length product (DLP) was 605.33 mGy-c m. FINDINGS: No acute fracture or sublocation seen. There is fusion across L4-L5 disc space, as well as fusion across the L4-L5 facet joints. At L1-L2, there is no significant disc bulge or herniation. There is mild facet arthropathy. No centr al canal stenosis or definite neural foraminal narrowing. At L2-L3, there is minimal disc bulge with severe facet arthropathy. There is probable moderate to [place] central canal stenosis/thecal sac compression. There is moderate right neural foraminal narrowin g. Left neural foramen preserved. At L3-L4, there is disc protrusion centrally with moderate facet arthropathy, and probable mild centr al canal stenosis/thecal sac compression. There is mild left neural foraminal narrowing. Right neural foramen preserved. At L4-L5, there is no definite disc bulge or herniation. No definite spinal canal stenosis. There is mild bilateral neural foraminal narrowing. At L5-S1, there is minimal disc bulge and mild facet arthropathy. No definite central canal stenosis. Probable mild bilateral neural foraminal narrowing. Paravertebral soft tissues are unremarkable. Impression: No acute fracture dislocation. Fusion across the L4-5 disc space and L4-L5 facet joints. Probable moderate to advanced degenerative spondylosis at L2-L3, as detailed above. Additional relatively mild degenerative changes throughout the remainder of the lumbar spine, as abov e. Reviewed, dictated and finalized at location M. NED GLASS GLAZIER Impression: No acute fracture dislocation. Fusion across the L4-5 disc space and L4-L5 facet joints. Probable moderate to advanced degenerative spondylosis at L2-L3, as detailed ab ove. Additional relatively mild degenerative changes throughout the remainder of the lumbar spine, as above.
--- NOTE | ~2023-11-28 | XR_ITS ---
EXAM: XR shoulder RT min 2V DATE: 11/28/2023 23:21 HISTORY: pain status post fall . COMPARISON: None available. FINDINGS: Decreased mineralization. No fracture or dislocation. No lytic or blastic lesion. Mild AC joint and glenohumeral joint osteoarthritis. Subacromial narrowing as can occur with rotator cuff pat hology. No erosion or periosteal change. Soft tissues within normal limits. IMPRESSION: No acute osseous finding in the right shoulder. Reviewed, dictated and finalized at location K. REVERSER
--- NOTE | ~2023-11-28 | XR_ITS ---
EXAM: XR hip RT 2V w AP pelvis DATE: 11/28/2023 23:21 HISTORY: pain status post fall . COMPARISON: CT abdomen pelvis 11/02/2022. FINDINGS: Decreased mineralization. No acute fracture or dislocation. Old left subcapital fracture, healed in mild deformity. No lytic or blastic lesion. Mild bilateral hip osteoarthritis. Lower lumbar ankylosis and bilateral bone graft material. Sclerotic proximal left femoral bone lesion, likely enc hondroma. No erosion or periosteal change. Soft tissues within normal limits. IMPRESSION: No acute osseous finding in the pelvis or right hip. Reviewed, dictated and finalized at location K. NATAL DIRECTOR
[2023-11-28 22:39] VITALS: BP 160/84; PULSE 66; RESP 14; TEMP 37; O2SAT 99
[2023-11-29 01:05] VITALS: BP 130/71; PULSE 62; RESP 15; O2SAT 100
[2023-11-29 02:04] VITALS: BP 117/72; RESP 16; O2SAT 95
--- NOTE | 2023-11-29 02:38 | ED.GENADULT ---
HPI - General Adult General Chief complaint: Fall Stated complaint: fall, trauma Time Seen by Provider: 11/28/23 22:42 History of Present Illness HPI narrative: And patient is a 73-year-old female who presents emergency department with chief complaint of fall. He had a ground level fall on the right side reports that she had pain in her right shoulder EMS originally reported that she could not move her lower extremities the patient states that she has chronic lower extremity pain and reports that she did not hit her head and reports that whenever she fell to the ground she could not move to get to the right position to use her legs to get up. Related Data Allergies Allergy/AdvReac Type Severity Reaction Status Date / Time No Known Allergies Allergy Verified 06/05/23 13:16 Review of Systems Review of Systems: A 10 system review of systems was completed on the patient and is negative except for what is stated in the HPI. Nursing and ancillary documentation was reviewed. [facility] Past Medical History Medical History Acute bronchitis, unspecified Acute maxillary sinusitis Age-related osteoporosis without current pathological fracture Benign essential hypertension Chronic diastolic (congestive) heart failure Esophageal spasm Femur fracture Heart failure, unspecified HTN (hypertension) Hx of fracture of ankle s/p ORIF Mixed hyperlipidemia Mixed hyperlipidemia Osteoporosis Sacroiliitis Tobacco abuse Tobacco abuse Tobacco dependence due to cigarettes Vitamin D insufficiency Surgical History Surgical History S/P lumbar fusion S/P ORIF (open reduction internal fixation) fracture L femur fracture- gamma nail S/P ORIF (open reduction internal fixation) fracture Family History Family History Father Carcinoma of colon Family history of heart disease in male family member before age 55 Patient's father is Mother Family history of malignant neoplasm of breast in first degree relative Social History Social History Social History: The patient is and lives with her . Her is a durable power traffic law attorney for healthcare. The patient has 2 children. 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 The patient continues to smoke. The patient occasionally has a drink. Code status full code Smoking packs per day: 0.5 Smoking cigarettes per day: 10.0 Years smoked: 60 Smoking pack-years: 30.00 Smoking status: Current every day smoker Second hand tobacco smoke exposure: Yes Alcohol intake: current Substance use: never Substance use type: does not use Lack of Transportation: No Lack of Food: Never True Current Housing: I Have Housing Concerned About Future Housing: No Difficulty Paying Gas/Electric Bills: No Difficulty Paying for Meds: No Currently Unemployed: No Education: High School Diploma/GED Difficulty w/ Childcare or Family Care: No Living arrangements: with family Occupation/Education: retired Additional occupation/education comments: Disabled Gender identity (if verbalized by the patient): Female Sexual Orientation (if Verbalized by the Patient): Straight or Heterosexual Spiritual care concerns: No Exam Narrative: GENERAL: Well-appearing, well-nourished, and in no acute distress. HEAD: Normocephalic, atraumatic. EYES: PERRLA and EOMI. ENT: Nares clear, no rhinorrhea or epistaxis. Mucous membranes moist. NECK: Supple. CHEST: Clear to auscultation. No respiratory distress. HEART: Regular rate and rhythm. No murmur heard. Normal peripheral pulses. ABDOMEN: Soft, nontender, nondistended, normal active bowel sounds. EXTREMITIES: Normal range of motion. No ed
--- NOTE | 2023-11-29 02:45 | PC.NURSE ---
Patient able to ambulate with walker.
== END 2023-11-29 03:30 | disposition home or self-care (01) ==
PROVIDERS: Emergency Provider Emergency Medicine; PCP Family Medicine
DX: S40.011A Contusion of right shoulder, initial encounter (principal); S70.01XA Contusion of right hip, initial encounter; W18.30XA Fall on same level, unspecified, initial encounter; I50.32 Chronic diastolic (congestive) heart failure; I11.0 Hypertensive heart disease with heart failure; E78.5 Hyperlipidemia, unspecified; E55.9 Vitamin D deficiency, unspecified; F17.210 Nicotine dependence, cigarettes, uncomplicated
CPT/HCPCS: 70450; 72125; 72131; 73030; 73502; 99284

== ENCOUNTER 2023-12-26 13:32 | Outpatient (CLI) | payer MEDICARE, SELFPAY ==
--- NOTE | 2023-12-26 13:54 | ECHO_ITS ---
Patient Info Name: Maggie Allen Age: 73 years : 1950 Gender: Female Ht: 60 in Wt: 165 lbs BSA: 1.81 m2 HR: 60 bpm BP: 152 / 92 mmHg Technical Quality: Fair Exam Date: 12/26/2023 2:05 PM Exam Location: Echo Lab Patient Status: Outpatient Admit Date: 12/26/2023 Staff Ordering Physician: Rachell Kahlil PA-C Lathmaker: Nidia Frank RDCS Attending Provider: Rachell Khalil PA-C Referring Physician: Remi GALLARDO; Exam Type: CA echo doppler color flow Study Info Indications - syncope/ collaspe Complete two-dimensional, color flow and Doppler transthoracic echocardiogram is performed. Summary 1. Complete two-dimensional, color flow and Doppler transthoracic echocardiogram is performed. 2. Left ventricular chamber dimension is normal. 3. Left ventricular systolic function is normal, estimated at 60-65%. 4. The left ventricular diastolic function is grade I diastolic dysfunction. 5. E/e' 16 is elevated. 6. Left atrial chamber dimension is mildly enlarged. 7. There is mild aortic valve sclerosis. 8. No pulmonary hypertension, estimated pulmonary arterial systolic pressure is 23 mmHg. Left Ventricle E/e' 16 is elevated. Left ventricular chamber dimension is normal. Left ventricular systolic function is normal, estimated at 60-65%. The left ventricular diastolic function is grade I diastolic dysfunction. Right Ventricle Right ventricular chamber dimension is normal. Right ventricular systolic function is normal. Left Atria Left atrial chamber dimension is mildly enlarged. Right Atria Right atrial chamber dimension is normal. Aortic Valve The aortic valve is trileaflet. There is mild aortic valve sclerosis. There is no aortic valve stenosis. There is no aortic valve regurgitation. Pulmonic Valve There is no pulmonic regurgitation. Mitral Valve There is no mitral valve stenosis. There is no mitral valve regurgitation. Tricuspid Valve There is no tricuspid valve regurgitation. No pulmonary hypertension, estimated pulmonary arterial systolic pressure is 23 mmHg. Pericardium/Pleural There is no pericardial effusion. Inferior Vena Cava Normal inferior vena cava with >50% collapse upon inspiration consistent with normal right atrial pressure, 5 mmHg. Aorta The aortic root size at the sinus of Valsalva is normal. Left Ventricular Outflow Tract Name Value Normal LVOT 2D LVOT Diameter 2.0 cm LVOT Doppler LVOT Peak Gradient 4 mmHg LVOT Mean Gradient 2 mmHg LVOT VTI 24 cm LVOT VTI/AV VTI Ratio 0.9 LVOT Stroke Volume 75 ml LVOT CO 13.6 l/min LVOT CI 7.5 l/min/m2 Pulmonic Valve Name Value Normal PV Doppler PV Peak Gradient 2 mmHg Mitral Valve
== END 2023-12-26 13:33 | disposition home or self-care (01) ==
LOC: ANHCARD 13:33
PROVIDERS: PCP Family Medicine; Visit Provider Physician Assistant
DX: R55 Syncope and collapse (principal); I11.0 Hypertensive heart disease with heart failure; I50.30 Unspecified diastolic (congestive) heart failure; I50.9 Heart failure, unspecified
CPT/HCPCS: 93306

== ENCOUNTER 2024-03-10 08:15 | Outpatient (CLI) | payer MEDICARE, SELFPAY ==
--- NOTE | ~2024-03-10 | NM_ITS ---
EXAMINATION: NM vida stress w perfusion DATE: 03/10/2024 13:12 CDT INDICATION: Ventricular tachycardia TECHNIQUE: Rest images were obtained following intravenous administration of 9.9 mCi Tc99m tetrofosmi n (Myoview). The patient was infused intravenously with Lexiscan (regadenoson). Then, 30 mCi Tc99m te trofosmin (Myoview) was administered intravenously, and stress images were obtained. Data was reconst ructed into short axis and horizontal and vertical long axis SPECT images. Gated SPECT images were al so obtained. COMPARISON: None. FINDINGS: There is no definite reversible or fixed perfusion abnormality to suggest ischemia or infar ction. There is no segmental wall motion abnormality. Left ventricular ejection fraction measures 7 7%. IMPRESSION: 1. No definite ischemia or infarct. 2. Normal left ventricular ejection fraction measuring 77%. Reviewed, dictated and finalized at location B.
--- NOTE | 2024-03-10 08:38 | EST_ITS ---
Patient Info Name: Maggie Allen Age: 73 years : 1950 Gender: Female Ht: 59 in Wt: 165 lbs BSA: 1.80 m2 HR: 53 bpm BP: 135 / 70 mmHg Heart Rhythm: Sinus Rhythm Exam Date: 03/10/2024 9:30 AM Exam Location: Echo Lab Patient Status: Outpatient Admit Date: 03/10/2024 Staff Ordering Physician: Josh Jo DO Attending Provider: Josh Jo DO Exercise Technologist: Tracy Kerns CT Exercise Physician: Josh Jo DO Exam Type: CA stress vida w NM Study Info Indications I47.2 - Ventricular tachycardia A regadenoson stress test was performed. Summary 1. 1. Negative lexiscan stress test for ischemic ST changes by ECG criteria. 2. 2. Stable hemodynamics throughout the test. 3. 3. Nuclear scan to follow and will be reported separately. Please correlate with it. 4. 4. Patient informed of the above results. Protocol: Lexiscan Stress ECG Details Stage: REST Duration (min): 1 min : 31 sec HR (bpm): 52 SBP (mmHg): 139 DBP (mmHg): 62 Stage: REST Duration (min): 10 min : 48 sec HR (bpm): 54 SBP (mmHg): 139 DBP (mmHg): 62 Stage: STAGE 1 Duration (min): 1 min : 0 sec HR (bpm): 60 SBP (mmHg): 135 DBP (mmHg): 70 Stage: RECOVERY Duration (min): 1 min : 0 sec HR (bpm): 67 SBP (mmHg): 135 DBP (mmHg): 70 Stage: RECOVERY Duration (min): 2 min : 0 sec HR (bpm): 66 SBP (mmHg): 135 DBP (mmHg): 70 Stage: RECOVERY Duration (min): 3 min : 0 sec HR (bpm): 64 SBP (mmHg): 136 DBP (mmHg): 67 Stage: RECOVERY Duration (min): 3 min : 4 sec HR (bpm): 64 SBP (mmHg): 136 DBP (mmHg): 67 Rest HR: 54 bpm Peak HR: 69 bpm Rest Sys BP: 139 mmHg Peak Sys BP: 136 mmHg Max Pred HR: 147 bpm % Max Pred HR: 47 % Target HR: 125 bpm Max RPP: 9,384 bpm*mmHg Termination Reason: Completed protocol Cardiac Symptoms: Shortness of breath Total Time: 1 min : 0 sec Rest Goldsmith BP: 62 mmHg Peak Goldsmith BP: 67 mmHg Total Dose: 0.4 mg Resting ECG Sinus bradycardia. Stress ECG No ST changes. Arrhythmias None. Report Signatures
== END 2024-03-10 08:16 | disposition home or self-care (01) ==
PROVIDERS: PCP Family Medicine; Visit Provider Internal Medicine Cardiovascular Disease
DX: I47.29 Other ventricular tachycardia (principal)
CPT/HCPCS: 78452; 93017; A9502

== ENCOUNTER 2025-01-30 14:08 | Outpatient (CLI) | payer MEDICARE, SELFPAY ==
--- NOTE | ~2025-01-30 | CT_ITS ---
CT Scan of the Chest without Contrast: Clinical Indication: Lung cancer screening, nicotine dependence Technique: Contiguous sections were acquired throughout the chest without intravenous contrast. Dose reduction technique was used on this scan by utilizing automated exposure control and iterative recon struction technique. The dose-length product (DLP) was 178.52 mGy-cm. COMPARISON: 03/28/2023 Findings: There is no evidence of any significant mediastinal, hilar or axillary lymphadenopathy. Coronary lorin ry calcifications are present. There is no evidence of pleural or pericardial effusion. Focal calcified pleural plaques are present. The lungs are clear. No pulmonary nodules or infiltrates are noted. Images through the upper abdomen reveal small calcified gallstones. Impression: Lung RADS 1: Negative. 12 month follow-up screening CT advised. 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 Reviewed, dictated and finalized at [facility]. Impression: Lung RADS 1: Negative. 12 month follow-up screening CT advised. 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
--- OUTSIDE RECORDS SUMMARY | 2025-01-30 14:11 | XMS_ITS | Continuity of Care Document ---
Author Organization [facility] Address [address] [place] [address] Phone Care Team Providers Care Complaint Adjuster Name Role Phone Rocio Davison MD Unavailable Unavailabl e Allergies, Adverse Reactions, Alerts Substance Reaction Status Criticality No Known Drug Allergies Active No I nformation Medications Medication Instructions Dosage Effective Dates (start - stop) Status Comments atorvastatin 40 mg tablet take 1 tablet by oral route every day 40 MG - Active dose increased 12/02/14 Wellbutrin SR 150 mg tablet,sustained-rel ease take 1 tablet (150MG) by oral route 2 times every day 150 MG - Active ibuprofen 800 mg tablet take 1 tablet (800MG) by oral route 3 times every day with food 800 MG - Active tramadol 50 mg tablet TAKE ONE TABLET BY MOUTH EVERY 8 HOURS NEEDED 50 MG - Active auth by [facility]; called Aldo Forbes; spoke to Wanda albuterol sulfate HFA 90 mcg/actuation aerosol inhaler inhale 2 puff by inhalation route 4 times every day as needed for SHORT OF BREAST 2 puff - Active Fish Oil 1,000 mg capsule take 2 capsules daily - Active CALCIUM COMPLETE TABS 1 QD 2 puff - Active ADULT LOW STRENGTH 81MG TABS 1 QD 2 puff - Active Advance Directives Directive Yes / No Effective Date File Name No Information Encounters Encounter Description Practice Location Reason(s) For Visit Diagnoses Date Provider Providers Copied on Encounter [facility], [address], [place], [place], [id number] , [place] tel:[phone] [place] No Information 7 Davison Rocio. [address] [place], [place], [id number]. tel:[phone] [facility], [address], [place], [place], [address] , tel: [phone] [place] Chronic airway obstruction, not elsewhere classifiedDepressive disorder, not elsewhere classifiedOther and unspecified hyperlipidemiaTobacc o use disorderOsteoarthros is, generalized, involving unspecified siteHx of colonic polyps 5 Davison Rocio. [address] [place], [place], [address]. tel:[phone] Referring Provider: Rocio Davison, [address] [place], [address] . tel:[phone] [facility], [address], [place], [place], [address] , [place] tel: [phone] [place] Other and unspecified hyperlipidemiaOsteoa rthrosis, generalized, involving unspecified siteDepressionCOPD 4 Davison Rocio. [address] [place], [place], [address]. tel:[phone] Referring Provider: Rcoio Davison, [address] [place], [address] . tel:[phone] [facility], [address], [place], [place], [address] , [place] tel: [phone] [place] No Information 3 Davison Rocio. [address] [place], [place], [address]. tel:[phone] [facility], [address], [place], [place], [address] , [place] tel: [phone] [place] Tobacco use disorderCOPD (chronic obstructive pulmonary disease)HYPERLIPIDEM IA NEC/NOSDEPRESSIVE DISORDER NECGENERAL OSTEOARTHROSISLUMB/L UMBOSAC DISC DEGENHx of colonic polyps Jul- 3 [address] Nicolasorah[address] [place], [place], [address]. tel:[phone] Referring Provider: Rocio Davison, [address] [place], [address] . tel:[phone] [facility] [address], [place], [place], [address] , tel: [phone] [place] COPD (chronic obstructive pulmonary disease) [address] [place], [place], [address]. tel:[phone] Referring Provider: Rocio Davison, [address] [place], [address] . tel:[phone] [facility] [address], [place], [place], [address] , tel: [phone] [place] Other and unspecified hyperlipidemiaGENERA L OSTEOARTHROSISDEPRES SIVE DISORDER NEC [address] [place] [address], [id number]. tel:[phone] Referring Provider: Rocio Davison, [place], [address] . tel:[phone] [facility] [address], [place], [place], [address] , tel: [phone] [place] Other and unspecified hyperlipidemiaChroni c airway obstruction, not elsewhere classifiDepressive disorder, not elsewhere classifiedGENERAL OSTEOARTHROSISLUMB/L UMBOSAC DISC DEGENGENERAL OSTEOARTHROSISLUMB/L UMBOSAC DISC DEGEN [address] [place], [place], [address]. tel:[phone] Referring Provider: Rocio Davison, [place], [address] . tel:[phone] [facility], [address], [place], [place], [address] , tel: [phone] [place] No Information [address] [place], [place], [address]. tel:[phone] [facility], [address], [place], [place], [address] , tel: [phone] [place] DEPRESSIVE DISORDER NECGENERAL OSTEOARTHROSISLUMB/L UMBOSAC DISC DEGENHYPERLIPIDEMIA NEC/NOSCHR AIRWAY OBSTRUCT NECTOBACCO USE DISORDER [address] [place], [place], [address]. tel:[phone] Family History Family Member Type Diagnosis Age At Onset Mother Problem (finding) raised blood lipids Mother Problem (finding) coronary arterioscleros is Father Problem (finding) Cancer Mother Problem (finding) stroke Immunizations Vaccine Date Status Comments Influenza, injectable, quadrivalent, preservative free, 3 yrs or older administered Source: New Immuniz ation Record Fluzone administered Note: [facility] [id number] ; Source: New Immunization Record Fluzone administered Note: [facility] [id number] -[id number] ; Source: New Immunization Record Pneumo (2 yrs or older) (PPV23) administered Source: New Immuniza tion Record Payers Payer name Insurance type Covered green party ID Authoriza tion(s) [employer] [id number] [employer] [id number] Social History Type Description Quantity Date Captured Comments Alcohol Use Details Unknown Caffeine Use Details Unknown Tobacco Use Status No Information Smoking Status No Information Sex Female Chief Complaint And Reason For Visit No Information Reason For Referral Reason For Referral No Information History Of Present Illness Encounter Date Complaint History Of Prese nt Illness No Information Functional Status Date Functional Assessmen t No Information Instructions Date Instruction Additional Infor mation No Information Assessments Type Assessment Date No Information Patient Care Teams Name Effective Dates (start - stop) Status Members No Information
--- OUTSIDE RECORDS SUMMARY | 2025-01-30 14:11 | XMS_ITS | Clinical Summary ---
Author Organization [facility] [place] [address] [facility] [address] Address [address] [facility] [address] [place] [address] Care Team Providers Care Core Winder Name Role Phone Mely Hamilton MD Primary Care Provider Allergies No known active allergies Medications telmisartan (MICARDIS) 20 mg tablet Take 20 mg by mouth 2 (two) times a day 06/21/2020 Active fludrocortisone 0.1 mg tablet Take 0.1 mg by mouth 2 (two) times a day 07/01/2020 Active cholecalciferol (VITAMIN D-3) 50,000 unit capsule TAKE 1 CAPSULE BY MOUTH ONCE A WEEK 05/12/2020 Active acetaminophen-c odeine (TYLENOL with CODEINE #3) 300-30 mg per tablet Take by mouth every 6 (six) hours as needed 01/14/2025 Active alendronate (FOSAMAX) 70 mg tablet TAKE 1 TABLET BY MOUTH ONCE A WEEK ON Fridays01/14/2025 Active amiodarone (PACERONE) 200 mg tablet Take 1 tablet (200 mg total) by mouth daily 01/17/2025 Active Eliquis 5 mg tablet Take 1 tablet (5 mg total) by mouth 2 (two) times a day 01/14/2025 Active irbesartan (AVAPRO) 300 mg tablet Take 0.5 tablets (150 mg total) by mouth daily 11/03/2024 Active levothyroxine (SYNTHROID) 25 mcg tablet TAKE ONE TABLET BY MOUTH ONCE DAILY SUNDAY THRU SUNDAY AND TAKE 2 TABLETS ON Sunday11/03/2024 Active Active Problems Problem Noted Date Diagnosed Date Peripheral vascular disease, unspecified 025 Assessment & Plan (01/26/2025 3:03 PM CDT): [id number] right lower extremity occlusive disease. Does get claudication to the right lower extremity, sounds like predominantly from her lumbosacral spine as she has had multiple spine surgeries. Recommend risk factor modification with 81 mg ASA and statin therapy. We will plan for repeat evaluation in 1 year. Primary hypertension 01/26/2025 Assessment & Plan (01/26/2025 3:04 PM CDT): Stable continue telmisartan Chronic atrial fibrillation 01/26/2025 Assessment & Plan (01/26/2025 3:03 PM CDT): Stable continue Eliquis Lower extremity edema 01/26/2025 Assessment & Plan (01/26/2025 3:05 PM CDT): Recommend compression therapy, recommended evaluation at [place] pharmacy to be sized appropriately. Encounters Date Type Department Care Team Description 01/27/2025 Orders Only [facility] Vascular and Vein Surgery [address] [place] [address] [place] [address] Jd Knox MD Peripheral vascular disease, unspecified (Primary Dx) 01/26/2025 3:00 PM CDT Office Visit [facility] V[facility] Vein Surgery [address] [place] [address] [address] [place] [address] Jd Knox MD Peripheral vascular disease, unspecified (Primary Dx); Chronic atrial fibrillation (HCC); Primary hypertension; Lower extremity edema from Last 3 Months Surgical History Surgery Date Site/Laterality Comments BACK SURGERY HIP SURGERY Medical History Medical History Date Comments Hypertension Family History Medical History Relation Name Comments Cancer Brother Cancer Father Cancer Mother Relation Name Status Comments Brother Alive Father (Age 42) Mother (Age 90) Social History Tobacco Use Types Packs/Day Years Used Date Smoking Tobacco: Every Day Cigarettes 0.5 50 Smokeless Tobacco: Never Alcohol Use Standard Drinks/Week Comments Yes 15 (1 standard drink = 0.6 oz pu re alcohol) Comments Unknown Sex and Gender Information Value Date Recorded Sex Assigned at Not on file 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 Gender Identity Not on file Sexual Orientation Not on file Obstetrics History Last Filed Vital Signs Vital Sign Reading Time Taken Comments Blood Pressure 150/71 01/26/2025 2:52 PM CDT Pulse 62 01/26/2025 2:52 PM CDT Temperature 36.3 C (97.3 F) 08/04/2020 11:09 AM CDT Respiratory Rate - - Oxygen Saturation 97% 07/21/2020 10:54 AM CDT Inhaled Oxygen Concentration - - Weight 88.5 kg (195 lb) 01/26/2025 2:52 PM CDT Height 152.4 cm (5') 01/26/2025 2:52 PM CDT Body Mass Index 38.08 01/26/2025 2:52 PM CDT Plan of Treatment Health Maintenance Due Date Last Done Comments Breast Cancer Screening-Mammogram 1950 Colon Cancer Screening-Colonoscopy 1950 Depression Screening 1950 Fall Risk Assessment 1950 Hepatitis C Screening 1950 Osteoporosis Screening-Bone Density Scan 1950 DTaP/Tdap/Td Vaccine (1 - Tdap) 1961 Hepatitis B Screening 1968 Pneumococcal vaccine 65+ (1 of 2 - PCV) 1969 Lung Cancer Screening 2000 Zoster Vaccine (1 of 2) 2000 Well Visit 65+ 2015 Influenza Vaccine (#1) 2024 12/01/2014, 2012 [place] [address] Care Teams Core Winder Relationship Specialty Start Date End Date Mely Hamilton MD [address] [place] [address] PCP - General Family Medicine 05/05/20
--- OUTSIDE RECORDS SUMMARY | 2025-01-30 14:11 | XMS_ITS | Referral Summary ---
Author Organization [facility] [place] [address] [facility] [address] [place] [address] Care Team Providers Care Grades 1 Through 6 Teacher Name Role Phone Mely Hamilton MD Primary Care Provider Encounters Date Type Department Care Team Description 01/27/2025 Orders Only [facility] Vascular and Vein Surgery [address] [place] [address] [address] [place] [address] Jd Knox MD Peripheral vascular disease, unspecified (Primary Dx) 01/26/2025 3:00 PM CDT Office Visit [facility] Vascular and Vein Surgery [address] [place] [address] [address] [place] [address] Jd Knox MD Peripheral vascular disease, unspecified (Primary Dx); Chronic atrial fibrillation (HCC); Primary hypertension; Lower extremity edema from Last 3 Months Allergies No known active allergies Medications telmisartan [...] Assessment & Plan (01/26/2025 3:03 PM CDT): [id number]-ojdzourj right lower extremity occlusive disease. Does get [...] CDT): Recommend compression therapy, recommended evaluation at [facility] to be sized appropriately. 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
--- OUTSIDE RECORDS SUMMARY | 2025-01-30 14:11 | XMS_ITS | CONTINUITY OF CARE DOCUMENT ---
Author Name damien quezada Address Unknown Organization [facility] Office Address [address] [place] [address] [address] [place] [address] Phone [phone] Care Team Providers Care Nurse Researcher Name Role Phone Miguel TYLER, Dashawn Ospina Unavailable [phone] RANDAL ALEJANDRE MD Unavailable INSURANCE PROVIDERS Payer name Policy type / Coverage type [place] red republican ID AARP MEDICARE ADVANTAGE ([facility] COMPLETE PPO) Other [id number]
== END 2025-01-30 14:09 | disposition home or self-care (01) ==
PROVIDERS: PCP Family Medicine; Visit Provider Student in an Organized Health Care Education/Training Program
DX: Z12.2 Encounter for screening for malignant neoplasm of respiratory organs (principal); Z87.891 Personal history of nicotine dependence
CPT/HCPCS: 71271

== ENCOUNTER 2025-04-02 08:40 | Inpatient (IN) | payer MEDICARE, SELFPAY ==
[2025-04-02] VITALS (27 sets, daily range): BP systolic 118–132; BP diastolic 54–76; PULSE 56–91; RESP 11–23; TEMP 36.8–36.9; O2SAT 88–99; BMI 37.8
--- NOTE | ~2025-04-02 | XR_ITS ---
Clinical Indication: Weakness AP and lateral views of the chest: Comparison: 03/28/2023 Findings: The lungs are clear, without evidence of focal consolidation or pleural effusion. Cardiome diastinal silhouette is within normal limits. Bones and soft tissues are unremarkable. Impression: Normal chest. Reviewed, dictated and finalized at location . Impression: Normal chest.
--- NOTE | ~2025-04-02 | US_ITS ---
EXAMINATION: US right upper quadrant DATE: 04/02/2025 10:40 INDICATION: Transaminitis. Abnormal CT of gallbladder TECHNIQUE: Multiple grayscale and Doppler ultrasound images of the abdomen were obtained. COMPARISON: CT dated 04/02/2025 FINDINGS: Limited visualization of the pancreatic body due to body habitus but which appears unremarkable. Live r has normal echogenicity and contour, with a smooth surface. No liver lesion identified. No intrahep atic biliary duct dilation suspected. Portal venous flow was seen in the hepatopetal, normal directio n and has normal Doppler waveform. Decompressed gallbladder which limits evaluation. The stone seen a t the neck of the gallbladder on prior CT are difficult to visualize. Common bile duct measures 3 mm maximal diameter which is normal. Sonographic Quintero sign was reported as positive by the php mysql web developer . IMPRESSION: 1. Positive sonographic Quintero's sign but with persistently decompressed gallbladder arguing against acute cholecystitis. Gallstones seen on CT are unable to be visualized. Reviewed, dictated and finalized at location A. IMPRESSION: 1. Positive sonographic Quintero's sign but with persistently decompressed gallbl adder arguing against acute cholecystitis. Gallstones seen on CT are unable to be visualized.
--- NOTE | ~2025-04-02 | NM_ITS ---
EXAMINATION: NM hepatobiliary wo pharm DATE: 04/02/2025 16:42 INDICATION: Leukocytosis and fever. Transaminitis. COMPARISON: CT dated 04/02/2025 and ultrasound dated 04/02/2025 TECHNIQUE: 4.9 mCi Tc-99m mebrofenin (Choletec) was administered intravenously. Scintigraphic images of the abdomen were obtained for one hour. Additional 4 hour delayed AP and lateral scintigrams were obtained. FINDINGS: There is delayed activity clearance of radiotracer from the blood pool with cardiac activit y still readily evident through the 60 minutes of imaging. There is homogeneous tracer uptake by the liver. There is significantly delayed activity clearance from the liver with large amount of liver ac tivity still present on the 60 minute imaging with no evident activity within the common bile duct or gallbladder. There may be a minimal amount of left lower quadrant bowel activity. There is been accu mulation of activity in the region of the gallbladder and additional small amount of diffuse activity in the bowels on the 4 hour delayed imaging on which there still a large amount of residual hepatic activity. IMPRESSION: 1. Delayed activity clearance from the blood pool and significantly delayed activity excretion from the liver with the majority of activity still present within the liver on the 4 hour delayed imaging consistent with likely hepatocellular dysfunction. No evident acute relation of activity in the commo n bile duct or dilation of the bile duct on the prior CT are also imaging to suggest biliary obstruct ion. Reviewed, dictated and finalized at location A. IMPRESSION: 1. Delayed activity clearance from the blood pool and significantly delayed ac tivity excretion from the liver with the majority of activity still present wit hin the liver on the 4 hour delayed imaging consistent with likely hepatocellul ar dysfunction. No evident acute relation of activity in the common bile duct o r dilation of the bile duct on the prior CT are also imaging to suggest biliary obstruction.
--- NOTE | ~2025-04-02 | XR_ITS ---
EXAMINATION: XR cholangiogram surg 1st inj DATE: 04/03/2025 19:53 INDICATION: Intraoperative evaluation during laparoscopic cholecystectomy TECHNIQUE: Multiple fluoroscopic images of the right upper quadrant were obtained during intraoperati ve cholangiography. A total of 43 fluoroscopic images were obtained. The amount of fluoroscopy time used during this procedure was 0.6 minutes. Total DAP was 7.035 Gycm^2. COMPARISON: None. FINDINGS: Cannulation of the cystic duct demonstrates filling of a normal appearing common bile duct which tapers smoothly distally. There is a subtle approximately 4-5 mm lucent filling defect in the d istal common bile duct which may be obstructing with no contrast seen extending into the duodenum. C ontrast refluxes proximally into the central intrahepatic biliary tree which also appears normal. IMPRESSION: 1. Subtle 4-5 mm lucent filling defect in the distal common bile duct suspicious for obstructing chol edocholithiasis with no evident contrast extending to the duodenum. Reviewed, dictated and finalized at location A. IMPRESSION: 1. Subtle 4-5 mm lucent filling defect in the distal common bile duct suspiciou s for obstructing choledocholithiasis with no evident contrast extending to the duodenum.
--- NOTE | ~2025-04-02 | MR_ITS ---
EXAMINATION: MR MRCP wo/w con/w 3D wo ind DATE: 04/03/2025 08:16 INDICATION: Fever, leukocytosis and transaminitis TECHNIQUE: Magnetic resonance imaging (MRI) of the abdomen was performed without and with 15 mL Multi louisa intravenous contrast. Sequences included coronal T2-weighted SS-FSE, coronal T2-weighted FS SS- FSE, coronal T2-weighted FS FIESTA, axial T2-weighted FS FIESTA, axial T2-weighted FIESTA, sagittal T 2-weighted SS-FSE, axial T1-weighted dual-echo FSPGR, axial T2-weighted SS-FSE, axial T1-weighted LAV A, axial T2-weighted STIR FSE. Thick-slab T2-weighted FRFSE-XL images were obtained for magnetic reso nance cholangiopancreatography (MRCP). Rotating maximum intensity projection 3-D reconstructions of t he volumetric data were created by the technologist. Postcontrast sequences included a time course of axial T1-weighted LAVA. COMPARISON: CT, ultrasound and HIDA scan dated 04/02/2025 FINDINGS: ABDOMEN MRI: Heart size is normal. No pericardial or pleural effusion. There is mild periportal edema in the right hepatic lobe There are several T2 hyperintense and enhancing hepatic cysts measuring up to 1.1 cm. T here is a ill-defined region of increased T2 signal in the right hepatic lobe within which is a small er approximately 1.5 cm ill-defined region of subtly decreased T1 signal which demonstrates periphera l arterial enhancement surrounding a 1 cm region which remains nonenhancing through the portal venous phase which demonstrated similar degree of enhancement on the delayed imaging. There is no associate d associated restricted diffusion as would be typical for either hemangioma or abscess. The subtle in creased T2 signal extends peripherally to the capsule where there appears to be slight invagination. The previously decompressed gallbladder now measures up to 3 cm in diameter which is normal. There is no wall thickening however there is a minimal amount of pericholecystic fluid. There are a couple 4- 5 mm low signal intensity gallstones at the neck of the gallbladder. Spleen, pancreas, bilateral adre nal glands and kidneys are normal. Visualized portions of bowels are unremarkable. Mild trabeculation of the bladder mucosa. 1.6 cm right adnexal cyst. The uterus is not identified and has likely been s urgically resected. No free intraperitoneal fluid. No pathologically enlarged abdominal or pelvic lym phadenopathy. Anterior fusion at L4-L5. 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 Normal bone marrow signal throughout. ABDOMEN MRCP: There is no intrahepatic biliary ductal dilation. Motion artifact on the MRCP images and the common b ile duct is better evaluated on some of the standard T2-weighted imaging. The common bile duct is als o normal in caliber measuring up to 4-5 mm in maximal diameter. There is suggestion of a couple 2-3 m m low signal intensity filling defects in the distal common bile duct on the sagittal and coronal T2- weighted SS FSE images which could correspond to the small calcification seen at the head the pancrea s on the prior CT suspicious for choledocholithiasis. Main pancreatic duct is normal. IMPRESSION: 1. Cholelithiasis and likely choledocholithiasis but without evident intra-axial hepatic biliary duct al dilation either in the current study or the prior CT or ultrasound imaging to suggest significant biliary obstruction. 2. Minimal amount of pericholecystic fluid which could be due to acute cholecystitis or more likely d ue to other liver disease given that there is no associated gallbladder wall thickening at that the c ystic duct does not appear obstructed given the recent decompressed state with interval filling of th e gallbladder on subsequent ultrasound and with activity on HIDA scan extending into the gallbladder. 3. 1.5 cm ill-defined region enhancement in the right hepatic lobe which could be related to neoplasm with some imaging features suggestive of cholangiocarcinoma. There are however some atypical feature s such as periportal edema and subtle parenchymal edema in the surrounding right hepatic lobe and thi s could also be infectious in etiology such as due to focal hepatitis or ascending cholangitis withou t evident hepatic abscess. It is unclear whether this lesion would be discernible by either ultrasoun d or noncontrast CT to allow for biopsy with a reasonable degree of diagnostic certainty. Could also consider short-term follow-up pre and postcontrast MRI. Reviewed, dictated and finalized at location A. IMPRESSION: 1. Cholelithiasis and likely choledocholithiasis but without evident intra-axia l hepatic biliary ductal dilation either in the current study or the prior CT o r ultrasound imaging to suggest significant biliary obstruction. 2. Minimal amount of pericholecystic fluid which could be due to acute cholecys titis or more likely due to other liver disease given that there is no associat ed gallbladder wall thickening at that the cystic duct does not appear obstruct ed given the recent decompressed state with interval filling of the gallbladder on subsequent ultrasound and with activity on HIDA scan extending into the gal lbladder. 3. 1.5 cm ill-defined region enhancement in the right hepatic lobe which could be related to neoplasm with some imaging features suggestive of cholangiocarcin velma. There are however some atypical features such as periportal edema and subt le parenchymal edema in the surrounding right hepatic lobe and this could also be infectious in etiology such as due to focal hepatitis or ascending cholangit is without evident hepatic abscess. It is unclear whether this lesion would be discernible by either ultrasound or noncontrast CT to allow for biopsy with a r easonable degree of diagnostic certainty. Could also consider short-term follow -up pre and postcontrast MRI.
--- NOTE | ~2025-04-02 | CT_ITS ---
CT of the Abdomen and Pelvis: Indication: Transaminitis Technique: 2.5 mm axial scans were obtained through the abdomen and pelvis following intravenous adm inistration of 100 cc of Omnipaque 350. Dose reduction technique was used on this scan by utilizing a utomated exposure control and iterative reconstruction technique. The dose-length product (DLP) was 1 110.95 mGy-cm. COMPARISON: 11/02/2022 Findings: Scans through the lung bases are unremarkable. Hepatic cysts are present. Gallbladder is contracted with possible bowel wall thickening and small st ones. No pericholecystic inflammatory change. The spleen, pancreas, adrenals and kidneys are within n ormal limits. There are atherosclerotic calcifications of the aorta. No lymphadenopathy. No bowel obstruction or bowel wall thickening. There is no evidence to suggest acute appendicitis. Mi nimal haziness and central mesentery with multiple shotty lymph nodes is noted. Images through the pelvis were performed. Urinary bladder wall thickening versus underdistention. No pelvic mass. No ascites. Impression: Possible cystitis. Correlate with urinalysis. Mild mesenteric panniculitis. Cholelithiasis with contracted gallbladder and possible mild wall thickening but no acute inflammator y change. Correlate for chronic cholecystitis. Reviewed, dictated and finalized at location . Impression: Possible cystitis. Correlate with urinalysis. Mild mesenteric panniculitis. Cholelithiasis with contracted gallbladder and possible mild wall thickening bu t no acute inflammatory change. Correlate for chronic cholecystitis.
--- NOTE | ~2025-04-02 | XR_ITS ---
EXAMINATION: XR ERCP DATE: 04/07/2025 14:40 CDT INDICATION: KANIKA STONES . TECHNIQUE: 3 fluoroscopic images of the right upper quadrant were obtained during ERCP. I was not pre sent during the procedure. Fluoroscopy exposure time was 124.8 seconds. Air Kerma 39.88 mGy. DAP 1.24 mGym2. COMPARISON: None FINDINGS/IMPRESSION: Fluoroscopic documentation of ERCP. Please refer to the operative note for complete procedural detail s . Reviewed, dictated and finalized at location K.
--- NOTE | 2025-04-02 08:47 | ECG_ITS ---
Test Date: 2025-04-02 08:55:09 Measurements Intervals [place] Rate: 87 P: 93 [place]: 227 QRS: -23 QRSD: 89 T: 4 QT: 369 QTc: 446 Interpretive Statements SINUS RHYTHM WITH FIRST DEGREE AV BLOCK BORDERLINE LEFT AXIS DEVIATION [QRS AXIS < -20] NONSPECIFIC T-WAVE ABNORMALITY ABNORMAL ECG No previous ECG available for comparison Electronically Signed On 04-03-2025 09:35:10 CDT by Omar Huerta M.D.
[2025-04-02 08:57] LABS: Basophils Absolute Auto 0.1 K/mm3 (0.0-0.1); Basophils Percent Auto 0.3 % (0.2-1.2); Eosinophils Absolute Auto 0.1 K/mm3 (0-0.3); Eosinophils Percent Auto 0.6 % (0-4.4); Hematocrit 42.7 % (37.0-47.0); Immature Granulocyte Absolute 0.15 K/mm3 (0.00-0.031); Immature Granulocyte Percent A 0.8 % (0-0.5); Lymphocytes Absolute Auto 0.57 K/mm3 (0.9-3.2); Lymphocytes Percent Auto 2.9 % (18.3-44.2); Mean Corpuscular HGB Conc 32.8 g/dl (32-36); Mean Corpuscular Hemoglobin 29.5 pg (26-34); Mean Corpuscular Volume 89.9 fl (80-100); Monocytes Percent Auto 5.1 % (2.6-8.5); Neutrophils Absolute Auto 17.7 K/mm3 (1.3-6.7); Neutrophils Percent Auto 90.3 % (45.5-73.1); Platelet Count Result 377 k/mm3 (150-375); Red Blood Count 4.75 M/mm3 (4.2-5.4); Red Cell Distribution Width 12.6 % (11.5-14.5); White Blood Count 19.6 K/mm3 (4.5-10.0)
[2025-04-02 09:00] LABS: Add Urine Microscopic? YES; Appearance Urine Clear (Clear); Bacteria Urine 4+ /hpf; Bilirubin Urine Negative (Negative); Blood Urine Negative (Negative); Color Urine Yellow (Yellow); Glucose Urine UA Negative (Negative); Ketones Urine Negative (Negative); Leukocyte Esterase Ur 1+ LEU/UL (Negative); Nitrate Urine Positive (Negative); Non Pathogenic Casts 0-2; Protein Urine Negative (Negative); RBC Urine 0-2 /hpf (0-2); Squamous Epithelial Cell Urine Occasional /hpf (Few); pH Urine 8.5 (5.0-9.0)
[2025-04-02 09:08] LABS: Alanine Aminotransferase 385 U/L (6-35); Albumin Level 4.2 g/dL (3.5-5.1); Alkaline Phosphatase 242 U/L (38-126); Anion Gap 10 mmol/L (4-12); Aspartate Amino Transferase 396 U/L (14-36); Bilirubin,Total 3.6 mg/dL (0.2-1.3); Blood Urea Nitrogen 9 mg/dL (7-17); Calcium 8.9 mg/dL (8.4-10.2); Carbon Dioxide 26 mmol/L (22-30); Chloride 94 mmol/L (98-107); Estimated CRCL calculation 61 ml/min; Estimated Glomerular Filt Rate > 60; Glucose 153 mg/dL (65-110); Potassium 3.7 mmol/L (3.4-5.0); Sodium 130 mmol/L (137-145)
--- NOTE | 2025-04-02 09:14 | ED_ITS ---
HPI - Weakness General Chief complaint: Weakness <Concepción Hill PA-C - Last Filed: 04/02/25 12:33> Stated complaint: N/V <Concepción Hill PA-C - Last Filed: 04/02/25 12:33> Time Seen by Provider: 04/02/25 09:04 <Concepción Hill PA-C - Last Filed: 04/02/25 12:33> History of Present Illness HPI Narrative: 74-year-old female with a history of paroxysmal AFib, PAD, CHF, hyperlipidemia, hypertension, SIADH presents to the emergency department via EMS from home with daughter at bedside for generalized weakness for the past day. Patient reporting associated fatigue, diarrhea, nausea and vomiting, productive cough cough and congestion, body aches. States she had a fever of 100.5 this morning. Patient satting 90% on room air in no distress. She does not wear O2 at home. She denies formal diagnosis of COPD or asthma but does have a medical history of emphysema per chart review. She denies chest pain, shortness of breath, abdominal pain. Admits to smoking daily for 60 years. Has had some lower extremity edema. <BRIAN Malone Last Filed: 04/02/25 12:33> Related Data Allergies/Adverse reactions: Allergies Allergy/AdvReac Type Severity Reaction Status Date / Time No Known Allergies Allergy Verified 01/14/25 13:18 <Concepción Hill PA-C - Last Filed: 04/02/25 12:33> Review of Systems 2 Review of Systems: All systems reviewed & are unremarkable except as noted in HPI and below <Concepción Hill PA-C - Last Filed: 04/02/25 12:33> [facility] Past Medical History Medical History: Medical History (Updated 04/02/25 @ 16:49 by Nile Guan MD) RUQ pain PAF (paroxysmal atrial fibrillation) Gastric ulcer due to nonsteroidal antiinflammatory drug (NSAID) therapy SIADH (syndrome of inappropriate ADH production) Peripheral artery disease Mixed hyperlipidemia Sacroiliitis Esophageal spasm Age-related osteoporosis without current pathological fracture Acute bronchitis, unspecified Hx of fracture of ankle s/p ORIF Femur fracture Osteoporosis Tobacco abuse Chronic diastolic (congestive) heart failure Vitamin D insufficiency HTN (hypertension) <BRIAN Malone Last Filed: 04/02/25 12:33> Surgical History Surgical History: Surgical History History of hysterectomy S/P lumbar fusion S/P ORIF (open reduction internal fixation) fracture S/P ORIF (open reduction internal fixation) fracture L femur fracture- gamma nail <BRIAN Malone Last Filed: 04/02/25 12:33> Family History Family History: Family History Father Carcinoma of colon Family history of heart disease in male family member before age 55 Patient's father is Mother Family history of malignant neoplasm of breast in first degree relative <BRIAN Malone Last Filed: 04/02/25 12:33> Social History Social History: Social History Social History: The patient is and lives with her . Her is a durable power attorney at law for healthcare. The patient has 2 children. 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 The patient continues to smoke. The patient occasionally has a drink. Code status full code Smoking packs per day: 0.5 Smoking cigarettes per day: 10.0 Years smoked: 60 Smoking pack-years: 30.00 Smoking status: Current every day smoker Tobacco type: cigarettes Second hand tobacco smoke exposure: Yes Alcohol intake: current Substance use: never Substance use type: does not use Do You Feel Safe in your Home?: Yes Lack of Transportation: No Lack of Food: Never True Current Housing: I Have Housing Concerned About Future Housing: No Difficulty Paying Gas/Electric Bills: YES Difficulty Paying for Meds: No Currently Unemployed: No Education: Decline to Answer Difficulty w/ Childcare or Family Care: No Living arrangements: with family Occupation/Education: retired Additional occupation/education comments: Disabled Gender identity (if verbalized by the patient): Female Sexual Orientation (if Verbalized by the Patient): Straight or Heterosexual Spiritual care concerns: No <Concepción Hill PA-C - Last Filed: 04/02/25 12:33> Exam 2 Narrative: GENERAL: Ill-appearing, resting in exam bed, NAD HEAD: Normocephalic, atraumatic. EYES: PERRLA and EOMI. ENT: Nares clear, no rhinorrhea or epistaxis. Mucous membranes moist. NECK: Supple. CHEST: Clear to auscultation. No respiratory distress. HEART: Regular rate and rhythm. No murmur heard. Normal peripheral pulses. ABDOMEN: Normoactive bowel sounds. Abdomen soft with minimal tenderness to the epigastrium and right upper quadrant. Negative Quintero sign. No rebound, guarding or rigidity. No CVA tenderness EXTREMITIES: Normal range of motion. 1+ pitting edema bilateral lower extremities SKIN: Warm, dry, no rash. NEURO: No focal deficits. Alert and oriented x3 <Concepción Hill PA-C - Last Filed: 04/02/25 12:33> Course COLD TYPE ARTIST/PA Physician Supervision I agree with midlevel documentation; I performed the medical decision making component of this evaluation. <Farideh Best MD - Last Filed: 04/02/25 19:25> Vital Signs Vital signs: Vital Signs Temperature 98.5 F 04/02/25 08:36 Pulse Rate 91 04/02/25 08:36 Respiratory Rate 20 04/02/25 08:36 Blood Pressure 129/70 04/02/25 08:36 Pulse Oximetry 93 04/02/25 08:36 Oxygen Delivery Room Air 04/02/25 08:36 Temperature 98.2 F 04/02/25 15:10 Pulse Rate 56 L 04/02/25 15:44 Respiratory Rate 18 04/02/25 15:44 Blood Pressure 119/54 L 04/02/25 15:10 Pulse Oximetry 97 04/02/25 17:46 Oxygen Delivery Room Air 04/02/25 17:46 Oxygen Flow Rate 2 04/02/25 11:03 <Concepción Hill PA-C - Last Filed: 04/02/25 12:33> Vital Signs Temperature 98.5 F 04/02/25 08:36 Pulse Rate 91 04/02/25 08:36 Respiratory Rate 20 04/02/25 08:36 Blood Pressure 129/70 04/02/25 08:36 Pulse Oximetry 93 04/02/25 08:36 Oxygen Delivery Room Air 04/02/25 08:36 Temperature 98.2 F 04/02/25 15:10 Pulse Rate 56 L 04/02/25 15:44 Respiratory Rate 18 04/02/25 15:44 Blood Pressure 119/54 L 04/02/25 15:10 Pulse Oximetry 97 04/02/25 17:46 Oxygen Delivery Room Air 04/02/25 17:46 Oxygen Flow Rate 2 04/02/25 11:03 <Farideh Best MD - Last Filed: 04/02/25 19:25> MDM - Weakness MDM Narrative Medical decision making narrative: 74-year-old female presents to the emergency department for generalized malaise, fatigue, N/V/D, cough and congestion for the stay. Vital stable. Patient does have an O2 90% on room air and is in no respiratory distress. Per chart review does have a history of emphysema is a daily smoker. Lung sounds are clear. She does have 1+ pitting edema to bilateral lower extremities. Abdomen with mild tenderness in epigastrium and right upper quadrant, otherwise soft with no peritoneal signs. CBC with leukocytosis of 19.6. Chemistries significant for chronic hyponatremia at 130. Patient does have acute transaminitis with a total bilirubin of 3.6, AST of 396, ALT of 385, alk-phos of 242. Lipase is within normal limits. UA with 6-10 white blood cells, 1+ leuk esterase and positive nitrates. Viral swabs negative. BNP slightly elevated at 4:58 a.m., however this is normal when age adjusted. Chest x-ray shows no acute cardiopulmonary findings. EKG was sinus rhythm with first-degree AV block, prolonged SC interval at 2:27 a.m., normal QRS duration, normal QTC, no ischemic changes. Troponin is undetectable. Given mild tenderness to the right upper quadrant acute transaminitis, CT abdomen pelvis and right upper quadrant ultrasound obtained which are as follows: CT abd/pelvis Impression: Possible cystitis. Correlate with urinalysis. Mild mesenteric panniculitis. Cholelithiasis with contracted gallbladder and possible mild wall thickening but no acute inflammatory change. Correlate for chronic cholecystitis. US RUQ IMPRESSION: 1. Positive sonographic Quintero's sign but with persistently decompressed gallbladder arguing against acute cholecystitis. Gallstones seen on CT are unable to be visualized. Patient and family at bedside updated on results and plan for admission. She received Tylenol and Zofran with improvement, fever resolved. Remainder vitals remained stable. She was started on 2 L nasal cannula per nursing staff for O2 of 90%, however she does have a PMHx of emphysema and this is appropriate. She is not in respiratory distress and lung sounds are clear. Supplemental O2 discontinued. I discussed workup with general surgeon, Dr. Cage, who agrees to consult. Recommends starting Zosyn and obtain an MRCP, HIDA without pharm, hold Eliquis and consult GI. Discussed with Dr. Guan who agrees with the plan, agrees to consult. Discussed with hospitalist COLD TYPE ARTIST, Georgette, who agrees to admission. <Concepción Hill PA-C - Last Filed: 04/02/25 12:33> Lab Data Result diagrams: 04/02/25 08:49 04/02/25 08:49 <Concepción Hill PA-C - Last Filed: 04/02/25 12:33> Labs: Lab Results 04/02/25 04/02/25 Range/Units 08:49 10:03 WBC 19.6 H (4.5-10.0) K/mm3 RBC 4.75 (4.2-5.4) M/mm3 Hgb 14.0 (12.0-15.0) g/dL Hct 42.7 (37.0-47.0) % MCV 89.9 (80-100) fl MCH 29.5 (26-34) pg MCHC 32.8 (32-36) g/dl RDW 12.6 (11.5-14.5) % Plt Count 377 H (150-375) k/mm3 MPV 9.0 (7.4-10.4) fl Immature Gran % (Auto) 0.8 H (0-0.5) % Neut % (Auto) 90.3 H (45.5-73.1) % Lymph % (Auto) 2.9 L (18.3-44.2) % Hamblen % (Auto) 5.1 (2.6-8.5) % Eos % (Auto) 0.6 (0-4.4) % Baso % (Auto) 0.3 (0.2-1.2) % Lymph # (Auto) 0.57 L (0.9-3.2) K/mm3 Hamblen # (Auto) 1.0 H (0.1-0.6) K/mm3 Eos # (Auto) 0.1 (0-0.3) K/mm3 Baso # (Auto) 0.1 (0.0-0.1) K/mm3 Abs Immat Gran (auto) 0.15 H (0.00-0.031) K/mm3 Absolute Neuts (auto) 17.7 H (1.3-6.7) K/mm3 Absolute Nucleated RBC 0.000 (0.0-0.012) K/mm3 Nucleated RBC % 0.0 (0.0-0.2) % Sodium 130 L (137-145) mmol/L Potassium 3.7 (3.4-5.0) mmol/L Chloride 94 L (98-107) mmol/L Carbon Dioxide 26 (22-30) mmol/L Anion Gap 10 (4-12) mmol/L BUN 9 (7-17) mg/dL Creatinine 0.69 L (0.7-1.0) mg/dL Estim Creat Clear Calc 61 ml/min Estimated GFR > 60 (59 - ) Glucose 153 H (65-110) mg/dL Calcium 8.9 (8.4-10.2) mg/dL Magnesium 1.6 (1.6-2.3) mg/dL Total Bilirubin 3.6 H (0.2-1.3) mg/dL AST 396 H (14-36) U/L ALT 385 H (6-35) U/L Alkaline Phosphatase 242 H (38-126) U/L Troponin I < 0.012 (0.000-0.034) ng/mL NT-Pro-B Natriuret Pep 458 H (19.9-100) pg/mL Total Protein 8.0 (6.3-8.2) g/dL Albumin 4.2 (3.5-5.1) g/dL Lipase 38 (23-300) U/L Urine Color Yellow (Yellow) Urine Appearance Clear (Clear) Urine pH 8.5 (5.0-9.0) Ur Specific Sunburst 1.010 (1.001-1.035) Urine Protein Negative (Negative) mg/dL Urine Glucose (UA) Negative (Negative) mg/dL Urine Ketones Negative (Negative) mg/dL Ur Blood (Man) Negative (Negative) Urine Nitrate Positive H (Negative) Urine Bilirubin Negative (Negative) Urine Urobilinogen 1.0 (<2.0) mg/dL Leukocyte Esterase Rfl 1+ H (Negative) JACK/UL Urine RBC 0-2 (0-2) /hpf Urine WBC 6-10 H (0-3) /hpf Ur Squamous Epith Cells Occasional (Few) /hpf Urine Bacteria 4+ /hpf Urine Casts 0-2 Influenza A (RT-PCR) Negative (Negative) Influenza B (RT-PCR) Negative (Negative) RSV (RT-PCR) Negative (Negative) SARS-CoV-2 RNA (RT-PCR) Negative (Negative) <Concepción Hill PA-C - Last Filed: 04/02/25 12:33> Lab Results 04/02/25 04/02/25 Range/Units 08:49 10:03 WBC 19.6 H (4.5-10.0) K/mm3 RBC 4.75 (4.2-5.4) M/mm3 Hgb 14.0 (12.0-15.0) g/dL Hct 42.7 (37.0-47.0) % MCV 89.9 (80-100) fl MCH 29.5 (26-34) pg MCHC 32.8 (32-36) g/dl RDW 12.6 (11.5-14.5) % Plt Count 377 H (150-375) k/mm3 MPV 9.0 (7.4-10.4) fl Immature Gran % (Auto) 0.8 H (0-0.5) % Neut % (Auto) 90.3 H (45.5-73.1) % Lymph % (Auto) 2.9 L (18.3-44.2) % Hamblen % (Auto) 5.1 (2.6-8.5) % Eos % (Auto) 0.6 (0-4.4) % Baso % (Auto) 0.3 (0.2-1.2) % Lymph # (Auto) 0.57 L (0.9-3.2) K/mm3 Hamblen # (Auto) 1.0 H (0.1-0.6) K/mm3 Eos # (Auto) 0.1 (0-0.3) K/mm3 Baso # (Auto) 0.1 (0.0-0.1) K/mm3 Abs Immat Gran (auto) 0.15 H (0.00-0.031) K/mm3 Absolute Neuts (auto) 17.7 H (1.3-6.7) K/mm3 Absolute Nucleated RBC 0.000 (0.0-0.012) K/mm3 Nucleated RBC % 0.0 (0.0-0.2) % Sodium 130 L (137-145) mmol/L Potassium 3.7 (3.4-5.0) mmol/L Chloride 94 L (98-107) mmol/L Carbon Dioxide 26 (22-30) mmol/L Anion Gap 10 (4-12) mmol/L BUN 9 (7-17) mg/dL Creatinine 0.69 L (0.7-1.0) mg/dL Estim Creat Clear Calc 61 ml/min Estimated GFR > 60 (59 - ) Glucose 153 H (65-110) mg/dL Calcium 8.9 (8.4-10.2) mg/dL Magnesium 1.6 (1.6-2.3) mg/dL Total Bilirubin 3.6 H (0.2-1.3) mg/dL AST 396 H (14-36) U/L ALT 385 H (6-35) U/L Alkaline Phosphatase 242 H (38-126) U/L Troponin I < 0.012 (0.000-0.034) ng/mL NT-Pro-B Natriuret Pep 458 H (19.9-100) pg/mL Total Protein 8.0 (6.3-8.2) g/dL Albumin 4.2 (3.5-5.1) g/dL Lipase 38 (23-300) U/L Urine Color Yellow (Yellow) Urine Appearance Clear (Clear) Urine pH 8.5 (5.0-9.0) Ur Specific Sunburst 1.010 (1.001-1.035) Urine Protein Negative (Negative) mg/dL Urine Glucose (UA) Negative (Negative) mg/dL Urine Ketones Negative (Negative) mg/dL Ur Blood (Man) Negative (Negative) Urine Nitrate Positive H (Negative) Urine Bilirubin Negative (Negative) Urine Urobilinogen 1.0 (<2.0) mg/dL Leukocyte Esterase Rfl 1+ H (Negative) JACK/UL Urine RBC 0-2 (0-2) /hpf Urine WBC 6-10 H (0-3) /hpf Ur Squamous Epith Cells Occasional (Few) /hpf Urine Bacteria 4+ /hpf Urine Casts 0-2 Influenza A (RT-PCR) Negative (Negative) Influenza B (RT-PCR) Negative (Negative) RSV (RT-PCR) Negative (Negative) SARS-CoV-2 RNA (RT-PCR) Negative (Negative) <Farideh Best MD - Last Filed: 04/02/25 19:25> Discharge Plan Discharge Clinical Impression: Transaminitis, Acute UTI Sepsis Qualifiers: Sepsis type: sepsis due to unspecified organism Sepsis acute organ dysfunction status: without acute organ dysfunction Qualified Code(s): A41.9 - Sepsis, unspecified organism <Concepción Hill PA-C - Last Filed: 04/02/25 12:33> Patient Disposition: Still a Patient <Concepción Hill PA-C - Last Filed: 04/02/25 12:33> Condition: Stable <Concepción Hill PA-C - Last Filed: 04/02/25 12:33>
[2025-04-02 09:17] LABS: NT Pro B Type Natriuretic Pept 458 pg/mL (19.9-100)
--- OUTSIDE RECORDS SUMMARY | 2025-04-02 09:22 | XMS_ITS | Clinical Summary ---
Author Organization [facility] [address] [address] [facility] [address] [place] [address] Care Team Providers Care Correctional Medicine Physician Name Role Phone Mley Hamilton MD Primary Care Provider Allergies No [...] Assessment & Plan (01/26/2025 3:03 PM CDT): [id number] right lower extremity occlusive disease. Does get [...] CDT): Recommend compression therapy, recommended evaluation at [facility] to be sized appropriately. Encounters Date Type Department Care Team Description 01/27/2025 Orders Only [facility] Vascular and Vein Surgery [address] [place] [address] [place] [phone] Jd Knox MD Peripheral vascular disease, unspecified (Primary Dx) 01/26/2025 3:00 PM CDT Office Visit [facility] Vascular [facility] Vein Surgery [address] [place] [address] [address] [place] [address] Jd Knox MD Peripheral vascular disease, unspecified [...] on file Legal Sex Female 10:[address]ER Gender Identity Not on file Sexual Orientation [...] Vaccine (#1) 2024 12/01/2014, 2012 Insurance MEDICARE ADVANTAGE [facility] MEDICARE Address: [facility] [address] [place] [address] Care Teams Correctional Medicine Physician Relationship Specialty Start Date End Date Mely Hamilton MD [address] [place] [address] PCP - General Family Medicine 05/05/20
--- OUTSIDE RECORDS SUMMARY | 2025-04-02 09:22 | XMS_ITS | Referral Summary ---
Author Organization [facility] [address] [facility] [address] [place] [address] Care Team Providers Care Bath Solution Maker Name Role Phone Mely Hamilton MD Primary Care Provider Encounters Date Type Department Care Team Description 01/27/2025 Orders Only [facility] Vascular and Vein Surgery [address] [place] [address] [address] [place] [address] Jd Knox MD Peripheral vascular disease, unspecified (Primary Dx) 01/26/2025 3:00 PM CDT Office Visit [facility] Vascular and Vein Surgery [address] [place] [address] [address] [place] [address] Jd Knox MD Peripheral vascular [...] Assessment & Plan (01/26/2025 3:03 PM CDT): [id number] right lower extremity occlusive disease. Does get [...] CDT): Recommend compression therapy, recommended evaluation at [facility] to be sized appropriately. 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
[2025-04-02] MEDS: ACETAMINOPHEN 325 MG TABLET 650 MG PO (09:58)
[2025-04-02] MEDS: ONDANSETRON INJ 4 MG/2 ML VIAL IV PUSH (09:58)
[2025-04-02 10:12] LABS: Lipase 38 U/L (23-300); Magnesium 1.6 mg/dL (1.6-2.3)
[2025-04-02 10:24] LABS: Troponin I < 0.012 ng/mL (0.000-0.034)
[2025-04-02 10:46] LABS: Influenza A QL RT-PCR Negative (Negative); Influenza B QL RT-PCR Negative (Negative); RSV RNA, RT-PCR Negative (Negative); SARS-CoV-2 RNA PCR Negative (Negative)
--- NOTE | 2025-04-02 11:12 | PC.NURSE ---
bedside shift report received from aMrina SEBASTIAN, taking over patient care at this time
--- NOTE | 2025-04-02 12:28 | PC.NURSE ---
Spoke with Wei from [facility] about the patient, gave updates and they stated they would come shortly to get the patient.
--- NOTE | 2025-04-02 12:29 | P.HP_ITS ---
H&P: HPI History of Present Illness Date/Time: 04/02/25 12:29 Chief Complaint: Nausea, Vomiting, Fever Narrative: 74 y/o F with PMH of pAifb, SIADH, PAD, HLD, HTN, osteoporosis, smoker, and CHF presents here with for multiple medical complaints. The patient presents here from home via EMS on 04/02 for further evaluation of multiple medical complaints. She reports generalized weakness, nausea, vomiting, headache, fever, chills, abdominal tenderness in the epigastric/RUQ region, and shortness of breath. She reports no previous episodes of similar abdominal tenderness/discomnfort. She reports onset of symptoms yesterday, 04/01. She reports a max T at home of 100.5? F. She has a history of emphysema, no previous supplemental O2 requirements. She arrived 90% on room air and was placed on supplemental O2 with correction of O2 sat. She denies accompanying chest pain, urinary symptoms, or diarrhea. She remains an every day smoker - 0.5 PPD x60 years. Initial VS at presentation: 98.5? F, HR 91, RR 20, 129/70, and 89% on room air. Now 99% on 2L NC. ED workup showed: WBC 19.6, no anemia, sodium 130, creatinine 0.69 and GFR >60, glucose 153, total bilirubin 3.6, AST 396, ALT 385, alk-phos 242, BNP 458, and lipase within normal limits. UA showed positive nitrates, 1+ leuks, 6-10 WBC. Viral PCR negative. CT of the abdomen/pelvis showed possible cystitis, mild mesenteric panniculitis, cholelithiasis with contracted gallbladder and possible mild wall thickening but no acute inflammatory changes. US RUQ showed a positive sonographic Quintero sign but with persistently decompressed gallbladder arguing against acute cholecystitis, gallstones seen on CT are unable to be visualized. CXR showed normal chest. Review of Systems Review of Systems: All systems reviewed & are unremarkable except as noted in HPI and below PMFSH Past Medical History Medical History RUQ pain PAF (paroxysmal atrial fibrillation) Gastric ulcer due to nonsteroidal antiinflammatory drug (NSAID) therapy SIADH (syndrome of inappropriate ADH production) Peripheral artery disease Mixed hyperlipidemia Sacroiliitis Esophageal spasm Age-related osteoporosis without current pathological fracture Acute bronchitis, unspecified Hx of fracture of ankle s/p ORIF Femur fracture Osteoporosis Tobacco abuse Chronic diastolic (congestive) heart failure Vitamin D insufficiency HTN (hypertension) Surgical History Surgical History History of hysterectomy S/P lumbar fusion S/P ORIF (open reduction internal fixation) fracture S/P ORIF (open reduction internal fixation) fracture L femur fracture- gamma nail Family History Family History Father Carcinoma of colon Family history of heart disease in male family member before age 55 Patient's father is Mother Family history of malignant neoplasm of breast in first degree relative Social History Social History Social History: The patient is and lives with her . Her is a durable power attorney law clerk for healthcare. The patient has 2 children. 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 The patient continues to smoke. The patient occasionally has a drink. Code status full code Smoking packs per day: 0.5 Smoking cigarettes per day: 10.0 Years smoked: 60 Smoking pack-years: 30.00 Smoking status: Current every day smoker Tobacco type: cigarettes Second hand tobacco smoke exposure: Yes Alcohol intake: current Substance use: never Substance use type: does not use Do You Feel Safe in your Home?: Yes Lack of Transportation: No Lack of Food: Never True Current Housing: I Have Housing Concerned About Future Housing: No Difficulty Paying Gas/Electric Bills: YES Difficulty Paying for Meds: No Currently Unemployed: No Education: Decline to Answer Difficulty w/ Childcare or Family Care: No Living arrangements: with family Occupation/Education: retired Additional occupation/education comments: Disabled Gender identity (if verbalized by the patient): Female Sexual Orientation (if Verbalized by the Patient): Straight or Heterosexual Spiritual care concerns: No Meds Home Medications and Allergies Home Medications ?Medication ?Instructions ?Recorded ?Confirmed ?Type amiodarone 100 mg tablet 50 mg (1/2 x 100 mg) PO DAILY #45 07/17/24 04/02/25 Rx tabs levothyroxine 25 mcg tablet 25 mcg PO DAILY #34 tabs 07/17/24 04/02/25 Rx Eliquis 5 mg tablet (apixaban) See Rx Instructions .Route 01/14/25 04/02/25 Rx .COMPLEX #180 tabs acetaminophen 300 mg-codeine 30 mg 1 tablet PO Q6H PRN pain #90 tabs 01/14/25 04/02/25 Rx tablet alendronate 70 mg tablet 70 mg PO WEEKLY #14 tabs 01/14/25 04/02/25 Rx cholecalciferol (vitamin D3) 1,250 1,250 mcg PO WEEKLY #14 caps 01/14/25 04/02/25 Rx mcg (50,000 unit) capsule irbesartan 300 mg tablet 150 mg (1/2 x 300 mg) PO DAILY 01/14/25 04/02/25 Rx #100 tabs Allergies Allergy/AdvReac Type Severity Reaction Status Date / Time No Known Allergies Allergy Verified 01/14/25 13:18 Vital Signs Vital Signs - 24 hr 04/02/25 08:36 04/02/25 08:45 04/02/25 08:47 Temperature 98.5 F Pulse Rate 91 91 Respiratory Rate 20 23 H Blood Pressure 129/70 129/70 Pulse Oximetry 93 93 92 Oxygen Delivery Room Air Oxygen Flow Rate 04/02/25 09:00 04/02/25 09:15 04/02/25 09:43 Temperature Pulse Rate 89 88 91 Respiratory Rate 19 17 11 L Blood Pressure Pulse Oximetry 92 89 L 93 Oxygen Delivery Oxygen Flow Rate 04/02/25 09:45 04/02/25 10:00 04/02/25 10:05 Temperature Pulse Rate 88 82 81 Respiratory Rate 19 19 19 Blood Pressure 132/76 Pulse Oximetry 88 L 93 92 Oxygen Delivery Oxygen Flow Rate 04/02/25 10:15 04/02/25 10:38 04/02/25 10:45 Temperature Pulse Rate 86 81 82 Respiratory Rate 17 18 16 Blood Pressure Pulse Oximetry 94 94 95 Oxygen Delivery Oxygen Flow Rate 04/02/25 11:00 04/02/25 11:02 04/02/25 11:03 Temperature Pulse Rate 83 84 Respiratory Rate 15 17 Blood Pressure 132/76 Pulse Oximetry 89 L 88 L 98 Oxygen Delivery Room Air Oxygen Flow Rate 04/02/25 11:03 04/02/25 11:15 04/02/25 11:30 Temperature Pulse Rate 85 75 Respiratory Rate 20 16 Blood Pressure Pulse Oximetry 98 99 99 Oxygen Delivery Nasal Cannula Oxygen Flow Rate 2 04/02/25 11:45 Temperature Pulse Rate 76 Respiratory Rate 17 Blood Pressure Pulse Oximetry 99 Oxygen Delivery Oxygen Flow Rate Exam Const: General: comfortable and no acute distress Other: , female, elderly, nontoxic appearance HENMT: Face/Nose/Sinus: Normal nares present Mouth: Yes moist mucous membranes Eyes: General: appearance normal, both eyes and all related structures Sclera: sclerae normal Pupils: Equal, round and reactive pupils present EOM: EOMs intact bilaterally Resp: Effort & Inspection: normal respiratory effort Auscultation: clear to auscultation bilaterally Cardio: Rate: regular rate Rhythm: regular rhythm Other: S1-S2 present without murmur, rub, ectopy GI: Other: Abdomen soft, tender in the right upper quadrant and epigastric region. Normoactive bowel sounds in all quadrants. Skin: General skin exam: normal color and no rashes or lesions noted Wounds: no wounds Neuro: Speech: normal speech Motor exam (neuro): 5/5 motor strength present throughout Sensory Exam: normal sensation Other: A&O x4 Extrem: General: normal to inspection Psych: Mental Status: mental status grossly normal Affect: normal affect Other: Good insight and judgment, very pleasant H&P: Results Labs Labs: Short CBC 04/02/25 Range/Units 08:49 WBC 19.6 H (4.5-10.0) K/mm3 Hgb 14.0 (12.0-15.0) g/dL Hct 42.7 (37.0-47.0) % Plt Count 377 H (150-375) k/mm3 BMP 04/02/25 08:49 Sodium 130 L Potassium 3.7 Chloride 94 L Carbon Dioxide 26 BUN 9 Creatinine 0.69 L Glucose 153 H Calcium 8.9 Cardiac Enzymes 04/02/25 Range/Units 08:49 Troponin I < 0.012 (0.000-0.034) ng/mL Liver Function 04/02/25 Range/Units 08:49 Total Bilirubin 3.6 H (0.2-1.3) mg/dL AST 396 H (14-36) U/L ALT 385 H (6-35) U/L Alkaline Phosphatase 242 H (38-126) U/L Albumin 4.2 (3.5-5.1) g/dL Urine 04/02/25 Range/Units 08:49 Urine Color Yellow (Yellow) Urine Appearance Clear (Clear) Urine pH 8.5 (5.0-9.0) Ur Specific [place] 1.010 (1.001-1.035) Urine Protein Negative (Negative) mg/dL Urine Glucose (UA) Negative (Negative) mg/dL Assessment and Plan Assessment and plan (1) Sepsis: Qualifiers: Sepsis acute organ dysfunction status: without acute organ dysfunction Sepsis type: sepsis due to unspecified organism Qualified Code(s): A41.9 - Sepsis, unspecified organism Code(s): A41.9 - Sepsis, unspecified organism Status: Acute Assessment and Plan: Met sirs criteria due to WBC and HR. Will check lactic, if elevated will also check procalcitonin. Given 500 mL bolus, no further fluids due to CHF history. Started on Zosyn due to possibility of acute cholecystitis, however imaging in favor of chronic cholecystitis. UA suspicious for UTI, follow culture. Blood cultures obtained on 04/02, follow. No current hemodynamic instability. (2) Cholelithiasis: Code(s): K80.20 - Calculus of gallbladder without cholecystitis without obstruction Status: Acute Assessment and Plan: CT showed cholelithiasis with contracted gallbladder possible mild wall thickening but no acute inflammatory changes on 04/02. Ultrasound of the right upper quadrant showed a positive sonographic Quintero sign, persists and dec ompressed gallbladder arguing against acute cholecystitis, gallstones seen on CT were not able to be visualized. General surgery and GI have been consulted. Patient was started on Zosyn. Will keep patient NPO for MRCP and HIDA scan. Antipyretics and analgesics p.r.n.. IV fluids: 500 mL bolus due to CHF history. Transaminitis noted, likely correlating with cholelithiasis. Lipase within normal limits. Continue to trend labs. (3) Transaminitis: Code(s): R74.01 - Elevation of levels of liver transaminase levels Status: Acute Assessment and Plan: Total bilirubin 3.6, AST 396, ALT 385, alk-phos 242. Suspect transaminitis secondary to cholelithiasis. GI and General surgery have been consulted, see above. Continue to trend. (4) Acute UTI: Code(s): N39.0 - Urinary tract infection, site not specified Status: Acute Assessment and Plan: UA showed positive nitrates, 1+ leuks, 6-10 WBC. Urine culture obtained, follow. Started on Zosyn due to concurrent possibility of acute cholecystitis. No previous micro available for review. Trend WBC. (5) Hyponatremia: Code(s): E87.1 - Hypo-osmolality and hyponatremia Status: Acute Assessment and Plan: Intermittent/chronic. Sodium 130. Given 500 mL bolus of NS. Follow. (6) Emphysema lung: Qualifiers: Emphysema type: centrilobular Qualified Code(s): J43.2 - Centrilobular emphysema Code(s): J43.9 - Emphysema, unspecified Status: Chronic Assessment and Plan: Mild hypoxia upon arrival, 88-90% on room air. Currently placed on supplemental O2. [facility]. CXR showed no evidence of pneumonia. Continue home medications as appropriate. (7) Chronic diastolic (congestive) heart failure: Code(s): I50.32 - Chronic diastolic (congestive) heart failure Status: Chronic Assessment and Plan: No evidence of pulmonary edema on CXR. BNP 458, within normal limits for age. Monitor I&Os and daily weights. (8) PAF (paroxysmal atrial fibrillation): Code(s): I48.0 - Paroxysmal atrial fibrillation Status: Chronic Assessment and Plan: History of paroxysmal AFib. Initial EKG showed sinus rhythm with first-degree AV block and borderline left axis deviation. Continue home dose of amiodarone. Hold Eliquis a case of need for procedure. (9) HTN (hypertension): Qualifiers: Hypertension type: essential hypertension Qualified Code(s): I10 - Essential (primary) hypertension Code(s): I10 - Essential (primary) hypertension Status: Chronic Assessment and Plan: Chronic, currently 132/76. Continue home medications as appropriate. Monitor. Plan Diet: NPO GI Prophylaxis: Pantoprazole IV DVT Prophylaxis: SCDs, hold Eliquis IV fluids: None Lines/Tubes: Peripheral IV Code Status: DNR Quality VTE Prophylaxis VTE prophylaxis: mechanical ordered Hospitalist [facility] Advance Care Plan I have confirmed that the patient's Advanced Care Plan is present, code status is documented, or surrogate decision maker is listed in patient medical record.: Yes
--- NOTE | 2025-04-02 12:49 | PC.NURSE ---
patient to Nuc Med at this time.
[2025-04-02] MEDS: SODIUM CHLORIDE 0.9% IV 500 ML 999 ML IV CONT (12:51)
[2025-04-02] MEDS: PIPERACILLN/TAZ 3.375GM/NS50ML 3.375 GM/50 ML BAG IVPB ×3 (12:51→23:25)
--- NOTE | 2025-04-02 12:58 | PC.NURSE ---
500ml NS 0.9% bag of fluids used instead of 1000ml bag ordered and then wasting the remainder 500ml.
[2025-04-02 13:14] LABS: Lactic Acid Reflex 1.8 mmol/L (0.7-2.0)
--- NOTE | 2025-04-02 14:16 | PM.CNGS ---
Assessment and Plan Assessment and plan (1) Cholelithiasis: Code(s): K80.20 - Calculus of gallbladder without cholecystitis without obstruction Status: Acute Assessment and Plan: Patient presents with a sudden onset of RUQ pain, fever, and vomiting with a WBC count of 19,000. CT scan showed cholelithiasis within a contracted gallbladder with possible mild wall thickening. RUQ ultrasound demonstrates a + sonographic Quintero's sign but a decompressed gallbladder and no other findings to suggest acute cholecystitis. LFTs are elevated with a total bilirubin of 3.6. HIDA scan has been ordered to further evaluate for acute cholecystitis. Continue IV antibiotics for now and will await HIDA results. She may require surgical management depending on further workup. (2) Transaminitis: Code(s): R74.01 - Elevation of levels of liver transaminase levels Status: Acute Assessment and Plan: LFTs elevated on admission with a total bilirubin of 3.6. GI has been consulted. Would recommend MRCP to evaluate for choledocholithiasis. Continue IV Zosyn, which would also cover for possible cholangitis given the fever, RUQ pain, and hyperbilirubinemia. Patient would eventually need a cholecystectomy if she has evidence of common bile duct stones. (3) Leukocytosis: Code(s): D72.829 - Elevated white blood cell count, unspecified Status: Acute Assessment and Plan: Multiple possible etiologies, will await MRCP and HIDA scan as mentioned above. Continue broad-spectrum IV antibiotics. 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 (5) PAF (paroxysmal atrial fibrillation): Code(s): I48.0 - Paroxysmal atrial fibrillation Status: Chronic (6) Chronic diastolic (congestive) heart failure: Code(s): I50.32 - Chronic diastolic (congestive) heart failure Status: Chronic (7) Tobacco abuse: Code(s): Z72.0 - Tobacco use Status: Acute Assessment and Plan: Encouraged cessation. Plan I have discussed the patient's case and plan of care with Dr. Cage. Thank you for allowing us to see the patient in consultation and we will continue to follow along with you. History of Present Illness Consult details Consult date: 04/02/25 Reason for consult: other (Possible cholecystitis, transaminitis) Requesting physician: Concepción Hill PA-C Narrative: This is a 74-year-old woman with a history of paroxysmal atrial fibrillation on Eliquis, CHF, peripheral arterial disease, hypertension, tobacco abuse, and multiple other medical problems, who we have been asked to see in surgical consultation for possible cholecystitis and transaminitis. She presents from home via EMS today for evaluation of multiple medical complaints, including nausea, vomiting, fever, right-sided abdominal pain, and shortness of breath. She also has a history of emphysema, but is not on any home oxygen. She reports a sudden onset of right-sided abdominal pain in the middle of the night last night. She had eaten [place] and an ice cream sandwich prior to bed. She denies having this pain in the past. She had associated nausea and vomiting. She also reports a temp of 100.5? F earlier this morning. There was no alleviating factors for her abdominal pain, and she was brought in for evaluation. She also reports having generalized weakness, which has been ongoing for some time. She denies any recent decline in her weakness. She currently lives at home and reports her daughter, who is her primary caregiver. She reports decreased activity gradually over time due to her congestive heart failure and emphysema, as well as having multiple back surgeries that limited her abilities. She has had a lower tolerance for ADLs and has progressively become more weak with time. Labs in the ED [place] [address], sodium 130, lactic acid 1.8, total bilirubin 3.6, AST 396, ALT 385, alk-phos 242, BNP 458, lipase normal. Troponin negative. UA with positive nitrates, 1+ leukocytes, 6-10 wbc's, 4+ bacteria. Viral panel negative. CT scan of the abdomen and pelvis demonstrates possible cystitis, mild mesenteric panniculitis, cholelithiasis with contracted gallbladder and possible mild wall thickening but no acute inflammatory change, correlate for chronic cholecystitis. Right upper quadrant abdominal ultrasound showed a positive sonographic Quintero sign but with persistently decompressed gallbladder arguing against acute cholecystitis. Gallstones seen on CT are not visualized on ultrasound. Chest x-ray normal. She is now seen in consultation. She is still having right-sided abdominal pain and points to both the right upper quadrant and right lower quadrant. She feels it is more in the right upper quadrant, but is tender along the entire right side. She was unaware of her gallstones. Her only previous abdominal surgery was a hysterectomy. GI has been consulted. Hepatitis panel ordered for the morning. MRCP has also been ordered, but not completed. HIDA scan pending. Review of Systems Review of Systems: All systems reviewed & are unremarkable except as noted in HPI and below PMFSH Past Medical History Medical History (Updated 04/02/25 @ 14:22 by CLARA Ramsey) PAF (paroxysmal atrial fibrillation) Gastric ulcer due to nonsteroidal antiinflammatory drug (NSAID) therapy SIADH (syndrome of inappropriate ADH production) Peripheral artery disease Mixed hyperlipidemia Sacroiliitis Esophageal spasm Age-related osteoporosis without current pathological fracture Acute bronchitis, unspecified Hx of fracture of ankle s/p ORIF Femur fracture Osteoporosis Tobacco abuse Chronic diastolic (congestive) heart failure Vitamin D insufficiency HTN (hypertension) Surgical History Surgical History History of hysterectomy S/P lumbar fusion S/P ORIF (open reduction internal fixation) fracture S/P ORIF (open reduction internal fixation) fracture L femur fracture- gamma nail Family History Family History Father Carcinoma of colon Family history of heart disease in male family member before age 55 Patient's father is Mother Family history of malignant neoplasm of breast in first degree relative Social History Social History Social History: The patient is and lives with her . Her is a durable power insurance defense attorney for healthcare. The patient has 2 children. 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 The patient continues to smoke. The patient occasionally has a drink. Code status full code Smoking packs per day: 0.5 Smoking cigarettes per day: 10.0 Years smoked: 60 Smoking pack-years: 30.00 Smoking status: Current every day smoker Tobacco type: cigarettes Second hand tobacco smoke exposure: Yes Alcohol intake: current Substance use: never Substance use type: does not use Do You Feel Safe in your Home?: Yes Lack of Transportation: No Lack of Food: Never True Current Housing: I Have Housing Concerned About Future Housing: No Difficulty Paying Gas/Electric Bills: YES Difficulty Paying for Meds: No Currently Unemployed: No Education: Decline to Answer Difficulty w/ Childcare or Family Care: No Living arrangements: with family Occupation/Education: retired Additional occupation/education comments: Disabled Gender identity (if verbalized by the patient): Female Sexual Orientation (if Verbalized by the Patient): Straight or Heterosexual Spiritual care concerns: No Meds Home Medications and Allergies Home Medications ?Medication ?Instructions ?Recorded ?Confirmed ?Type amiodarone 100 mg tablet 50 mg (1/2 x 100 mg) PO DAILY #45 07/17/24 04/02/25 Rx tabs levothyroxine 25 mcg tablet 25 mcg PO DAILY #34 tabs 07/17/24 04/02/25 Rx Eliquis 5 mg tablet (apixaban) See Rx Instructions .Route 01/14/25 04/02/25 Rx .COMPLEX #180 tabs acetaminophen 300 mg-codeine 30 mg 1 tablet PO Q6H PRN pain #90 tabs 01/14/25 04/02/25 Rx tablet alendronate 70 mg tablet 70 mg PO WEEKLY #14 tabs 01/14/25 04/02/25 Rx cholecalciferol (vitamin D3) 1,250 1,250 mcg PO WEEKLY #14 caps 01/14/25 04/02/25 Rx mcg (50,000 unit) capsule irbesartan 300 mg tablet 150 mg (1/2 x 300 mg) PO DAILY 01/14/25 04/02/25 Rx #100 tabs Allergies Allergy/AdvReac Type Severity Reaction Status Date / Time No Known Allergies Allergy Verified 01/14/25 13:18 Vital Signs Vital Signs - 24 hr 04/02/25 08:36 04/02/25 08:45 04/02/25 08:47 Temperature 98.5 F Pulse Rate 91 91 Respiratory Rate 20 23 H Blood Pressure 129/70 129/70 Pulse Oximetry 93 93 92 Oxygen Delivery Room Air Oxygen Flow Rate 04/02/25 09:00 04/02/25 09:15 04/02/25 09:43 Temperature Pulse Rate 89 88 91 Respiratory Rate 19 17 11 L Blood Pressure Pulse Oximetry 92 89 L 93 Oxygen Delivery Oxygen Flow Rate 04/02/25 09:45 04/02/25 10:00 04/02/25 10:05 Temperature Pulse Rate 88 82 81 Respiratory Rate 19 19 19 Blood Pressure 132/76 Pulse Oximetry 88 L 93 92 Oxygen Delivery Oxygen Flow Rate 04/02/25 10:15 04/02/25 10:38 04/02/25 10:45 Temperature Pulse Rate 86 81 82 Respiratory Rate 17 18 16 Blood Pressure Pulse Oximetry 94 94 95 Oxygen Delivery Oxygen Flow Rate 04/02/25 11:00 04/02/25 11:02 04/02/25 11:03 Temperature Pulse Rate 83 84 Respiratory Rate 15 17 Blood Pressure 132/76 Pulse Oximetry 89 L 88 L 98 Oxygen Delivery Room Air Oxygen Flow Rate 04/02/25 11:03 04/02/25 11:15 04/02/25 11:30 Temperature Pulse Rate 85 75 Respiratory Rate 20 16 Blood Pressure Pulse Oximetry 98 99 99 Oxygen Delivery Nasal Cannula Oxygen Flow Rate 2 04/02/25 11:45 Temperature Pulse Rate 76 Respiratory Rate 17 Blood Pressure Pulse Oximetry 99 Oxygen Delivery Oxygen Flow Rate Exam Const: General: comfortable, no acute distress and ill appearing chronically Nutritional Appearance: overweight Orientation/consciousness: patient oriented x3 HENMT: Head: normocephalic and atraumatic Ears: hearing grossly normal bilaterally Mouth: Yes moist mucous membranes Eyes: General: appearance normal, both eyes and all related structures Pupils: Equal, round and reactive pupils present Neck: Neck: normal visual inspection and full ROM Resp: Effort & Inspection: no respiratory distress Auscultation: clear to auscultation bilaterally Cardio: Rate: regular rate Rhythm: regular rhythm GI: Inspection: Pannus present, obesity, scar (small umbilical scar), striae and no visible herniation GI Palp: Yes Soft to palpation, Yes Tenderness to palpation present (GI) (diffusely tender but more focal tenderness in the RUQ and RLQ), Yes Guarding due to palpation present (GI) (voluntary guarding with palpation of the RUQ) and No Rebound tenderness present Auscultation: normal bowel sounds Rectal Exam: deferred Skin: General skin exam: normal color Neuro: General: moves all extremities and no focal motor deficits Speech: normal speech Motor exam (neuro): 5/5 motor strength present throughout Extrem: General: normal to inspection and no edema Psych: Mental Status: mental status grossly normal Attitude: cooperative Insight: Good insight present (Psych) Judgement: Good judgement present (Psych) Results Labs 04/02/25 08:49 04/02/25 08:49 Labs: Abnormal lab results 04/02/25 Range/Units 08:49 WBC 19.6 H (4.5-10.0) K/mm3 Plt Count 377 H (150-375) k/mm3 Immature Gran % (Auto) 0.8 H (0-0.5) % Neut % (Auto) 90.3 H (45.5-73.1) % Lymph % (Auto) 2.9 L (18.3-44.2) % Lymph # (Auto) 0.57 L (0.9-3.2) K/mm3 [place] # (Auto) 1.0 H (0.1-0.6) K/mm3 Abs Immat Gran (auto) 0.15 H (0.00-0.031) K/mm3 Absolute Neuts (auto) 17.7 H (1.3-6.7) K/mm3 Sodium 130 L (137-145) mmol/L Chloride 94 L (98-107) mmol/L Creatinine 0.69 L (0.7-1.0) mg/dL Glucose 153 H (65-110) mg/dL Total Bilirubin 3.6 H (0.2-1.3) mg/dL AST 396 H (14-36) U/L ALT 385 H (6-35) U/L Alkaline Phosphatase 242 H (38-126) U/L NT-Pro-B Natriuret Pep 458 H (19.9-100) pg/mL Urine Nitrate Positive H (Negative) Leukocyte Esterase Rfl 1+ H (Negative) JACK/UL Urine WBC 6-10 H (0-3) /hpf Diabetes panel 04/02/25 Range/Units 08:49 Sodium 130 L (137-145) mmol/L Potassium 3.7 (3.4-5.0) mmol/L Chloride 94 L (98-107) mmol/L Carbon Dioxide 26 (22-30) mmol/L BUN 9 (7-17) mg/dL Creatinine 0.69 L (0.7-1.0) mg/dL Glucose 153 H (65-110) mg/dL Calcium 8.9 (8.4-10.2) mg/dL AST 396 H (14-36) U/L ALT 385 H (6-35) U/L Alkaline Phosphatase 242 H (38-126) U/L Total Protein 8.0 (6.3-8.2) g/dL Albumin 4.2 (3.5-5.1) g/dL Calcium panel 04/02/25 Range/Units 08:49 Calcium 8.9 (8.4-10.2) mg/dL Albumin 4.2 (3.5-5.1) g/dL Pituitary panel 04/02/25 Range/Units 08:49 Sodium 130 L (137-145) mmol/L Potassium 3.7 (3.4-5.0) mmol/L Chloride 94 L (98-107) mmol/L Carbon Dioxide 26 (22-30) mmol/L BUN 9 (7-17) mg/dL Creatinine 0.69 L (0.7-1.0) mg/dL Glucose 153 H (65-110) mg/dL Calcium 8.9 (8.4-10.2) mg/dL Adrenal panel 04/02/25 Range/Units 08:49 Sodium 130 L (137-145) mmol/L Potassium 3.7 (3.4-5.0) mmol/L Chloride 94 L (98-107) mmol/L Carbon Dioxide 26 (22-30) mmol/L BUN 9 (7-17) mg/dL Creatinine 0.69 L (0.7-1.0) mg/dL Glucose 153 H (65-110) mg/dL Calcium 8.9 (8.4-10.2) mg/dL Total Bilirubin 3.6 H (0.2-1.3) mg/dL AST 396 H (14-36) U/L ALT 385 H (6-35) U/L Alkaline Phosphatase 242 H (38-126) U/L Total Protein 8.0 (6.3-8.2) g/dL Albumin 4.2 (3.5-5.1) g/dL All other labs normal. Imaging Additional studies: ITS Impressions Abdomen/Pelvis CT 04/02/25 09:48 Impression: Possible cystitis. Correlate with urinalysis. Mild mesenteric panniculitis. Cholelithiasis with contracted gallbladder and possible mild wall thickening but no acute inflammatory change. Correlate for chronic cholecystitis. Upper Quadrant Ultrasound 04/02/25 10:50 IMPRESSION: 1. Positive sonographic Quintero's sign but with persistently decompressed gallbladder arguing against acute cholecystitis. Gallstones seen on CT are unable to be visualized. Chest X-Ray 04/02/25 11:01 Impression: Normal chest.
--- NOTE | 2025-04-02 14:47 | ADMGEN ---
This patient, Maggie Allen, was admitted to [facility] Surg Room 309-01. Patient/family oriented to hospital policies and general routines including ID bracelet, bed and alarms, visiting hours, pain management, procedures, bathroom and other care routines, personal items, smoking policy, room service/diet, and visiting hours. Information on how to activate the Rapid Response Team has been discussed. Patient/Family are encouraged to report perceived risks to care and to ask questions if they do not understand what they are told or what they should do.
[2025-04-02] MEDS: IPRATROPIUM 0.5 MG/ALBUTEROL SULFATE 2.5 MG AMPUL.NEB 3 ML INHALATION ×2 (15:36→20:07)
--- NOTE | 2025-04-02 16:45 | P.CONGI_ITS ---
Assessment and Plan Assessment and plan (1) Sepsis: Qualifiers: Sepsis acute organ dysfunction status: without acute organ dysfunction Sepsis type: sepsis due to unspecified organism Qualified Code(s): A41.9 - Sepsis, unspecified organism Code(s): A41.9 - Sepsis, unspecified organism Status: Acute Assessment and Plan: here with fever, leukocytosis, elevated liver enzymes it seems that she has cholecystitis, evaluated by surgery, on iv abx agree with mrcp, we need to check biliary system for stones and decide if will benefit from ercp hold eliquis since she may require intervention (2) Elevated liver enzymes: Code(s): R74.8 - Abnormal levels of other serum enzymes Status: Acute Assessment and Plan: will get also hepatitis panel no previous episodes ? GB related, mrcp to check bile duct iv abx (3) Cholelithiasis: Code(s): K80.20 - Calculus of gallbladder without cholecystitis without obstruction Status: Acute Assessment and Plan: possible cholecystitis (4) RUQ pain: Code(s): R10.11 - Right upper quadrant pain Status: Acute (5) Anticoagulant long-term use: Code(s): Z79.01 - FPC (current) use of anticoagulants Status: Acute Assessment and Plan: on hold (6) PAF (paroxysmal atrial fibrillation): Code(s): I48.0 - Paroxysmal atrial fibrillation Status: Chronic GI Consult Note Consult date/time: 04/02/25 16:45 Reason for consult: sepsis, ruq pain, elevated liver enzymes HPI: Maggie Allen is a 74 year old female wiht HTN, a fib on eliquis. Here with new onset of fever with abdominal pain in right side. She had eaten [place] and an ice cream sandwich prior to bed. She denies having this pain in the past. She had associated nausea and vomiting and fever 100.5? F earlier this morning. Labs in the ED [place] [address], sodium 130, lactic acid 1.8, total bilirubin 3.6, AST 396, ALT 385, alk-phos 242, BNP 458, lipase normal. Troponin negative. UA with positive nitrates, 1+ leukocytes, 6- 10 wbc's, 4+ bacteria. CT scan of the abdomen and pelvis demonstrates possible cystitis, mild mesenteric panniculitis, cholelithiasis with contracted gallbladder and possible mild wall thickening but no acute inflammatory change, correlate for chronic cholecystitis. Started on iv abx and surgery on board. Review of Systems 2 Constitutional: Comments: fever Eyes: Eyes: Denies blurry vision ENT: Reports Normal hearing present Cardiovascular: Cardiovascular: Denies chest pain Respiratory: Respiratory: Denies cough Gastrointestinal: Gastrointestinal: Reports abdominal pain and Reports nausea Genitourinary: Genitourinary: Denies dysuria Musculoskeletal: Musculoskeletal: Denies neck pain Integumentary/Breasts: Skin/Breast: Denies rash Neurologic: Denies confusion Psychiatric: Psychiatric: Denies behavioral changes [facility] Past Medical History Medical History (Updated 04/02/25 @ 16:49 by Nile Guan MD) RUQ pain PAF (paroxysmal atrial fibrillation) Gastric ulcer due to nonsteroidal antiinflammatory drug (NSAID) therapy SIADH (syndrome of inappropriate ADH production) Peripheral artery disease Mixed hyperlipidemia Sacroiliitis Esophageal spasm Age-related osteoporosis without current pathological fracture Acute bronchitis, unspecified Hx of fracture of ankle s/p ORIF Femur fracture Osteoporosis Tobacco abuse Chronic diastolic (congestive) heart failure Vitamin D insufficiency HTN (hypertension) Surgical History Surgical History History of hysterectomy S/P lumbar fusion S/P ORIF (open reduction internal fixation) fracture S/P ORIF (open reduction internal fixation) fracture L femur fracture- gamma nail Family History Family History Father Carcinoma of colon Family history of heart disease in male family member before age 55 Patient's father is Mother Family history of malignant neoplasm of breast in first degree relative Social History Social History Social History: The patient is and lives with her . Her is a durable power tax attorney for healthcare. The patient has 2 children. 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 The patient continues to smoke. The patient occasionally has a drink. Code status full code Smoking packs per day: 0.5 Smoking cigarettes per day: 10.0 Years smoked: 60 Smoking pack-years: 30.00 Smoking status: Current every day smoker Tobacco type: cigarettes Second hand tobacco smoke exposure: Yes Alcohol intake: current Substance use: never Substance use type: does not use Do You Feel Safe in your Home?: Yes Lack of Transportation: No Lack of Food: Never True Current Housing: I Have Housing Concerned About Future Housing: No Difficulty Paying Gas/Electric Bills: YES Difficulty Paying for Meds: No Currently Unemployed: No Education: Decline to Answer Difficulty w/ Childcare or Family Care: No Living arrangements: with family Occupation/Education: retired Additional occupation/education comments: Disabled Gender identity (if verbalized by the patient): Female Sexual Orientation (if Verbalized by the Patient): Straight or Heterosexual Spiritual care concerns: No Meds Home Medications and Allergies Home Medications ?Medication ?Instructions ?Recorded ?Confirmed ?Type amiodarone 100 mg tablet 50 mg (1/2 x 100 mg) PO DAILY #45 07/17/24 04/02/25 Rx tabs levothyroxine 25 mcg tablet 25 mcg PO DAILY #34 tabs 07/17/24 04/02/25 Rx Eliquis 5 mg tablet (apixaban) See Rx Instructions .Route 01/14/25 04/02/25 Rx .COMPLEX #180 tabs acetaminophen 300 mg-codeine 30 mg 1 tablet PO Q6H PRN pain #90 tabs 01/14/25 04/02/25 Rx tablet alendronate 70 mg tablet 70 mg PO WEEKLY #14 tabs 01/14/25 04/02/25 Rx cholecalciferol (vitamin D3) 1,250 1,250 mcg PO WEEKLY #14 caps 01/14/25 04/02/25 Rx mcg (50,000 unit) capsule irbesartan 300 mg tablet 150 mg (1/2 x 300 mg) PO DAILY 01/14/25 04/02/25 Rx #100 tabs Allergies Allergy/AdvReac Type Severity Reaction Status Date / Time No Known Allergies Allergy Verified 01/14/25 13:18 Vital Signs Vital Signs - 24 hr 04/02/25 08:36 04/02/25 08:45 04/02/25 08:47 Temperature 98.5 F Pulse Rate 91 91 Respiratory Rate 20 23 H Blood Pressure 129/70 129/70 Pulse Oximetry 93 93 92 Oxygen Delivery Room Air Oxygen Flow Rate 04/02/25 09:00 04/02/25 09:15 04/02/25 09:43 Temperature Pulse Rate 89 88 91 Respiratory Rate 19 17 11 L Blood Pressure Pulse Oximetry 92 89 L 93 Oxygen Delivery Oxygen Flow Rate 04/02/25 09:45 04/02/25 10:00 04/02/25 10:05 Temperature Pulse Rate 88 82 81 Respiratory Rate 19 19 19 Blood Pressure 132/76 Pulse Oximetry 88 L 93 92 Oxygen Delivery Oxygen Flow Rate 04/02/25 10:15 04/02/25 10:38 04/02/25 10:45 Temperature Pulse Rate 86 81 82 Respiratory Rate 17 18 16 Blood Pressure Pulse Oximetry 94 94 95 Oxygen Delivery Oxygen Flow Rate 04/02/25 11:00 04/02/25 11:02 04/02/25 11:03 Temperature Pulse Rate 83 84 Respiratory Rate 15 17 Blood Pressure 132/76 Pulse Oximetry 89 L 88 L 98 Oxygen Delivery Room Air Oxygen Flow Rate 04/02/25 11:03 04/02/25 11:15 04/02/25 11:30 Temperature Pulse Rate 85 75 Respiratory Rate 20 16 Blood Pressure Pulse Oximetry 98 99 99 Oxygen Delivery Nasal Cannula Oxygen Flow Rate 2 04/02/25 11:45 04/02/25 15:10 04/02/25 15:38 Temperature 98.2 F Pulse Rate 76 57 L Respiratory Rate 17 16 Blood Pressure 119/54 L Pulse Oximetry 99 97 92 Oxygen Delivery Room Air Oxygen Flow Rate 04/02/25 15:39 04/02/25 15:44 Temperature Pulse Rate 59 L 56 L Respiratory Rate 18 18 Blood Pressure Pulse Oximetry Oxygen Delivery Oxygen Flow Rate Exam 2 Const: General: comfortable, no acute distress and ill appearing chronically Nutritional Appearance: overweight Orientation/consciousness: patient oriented x3 HENMT: Head: normocephalic and atraumatic Ears: hearing grossly normal bilaterally Eyes: General: appearance normal, both eyes and all related structures Neck: Neck: normal visual inspection Resp: Effort & Inspection: no respiratory distress Auscultation: clear to auscultation bilaterally Cardio: Rate: regular rate Rhythm: regular rhythm GI: Inspection: Pannus present, obesity and no visible herniation GI Palp: Yes Soft to palpation, Yes Tenderness to palpation present (GI) (diffusely tender but more focal tenderness in the RUQ and RLQ) and Yes Guarding due to palpation present (GI) (voluntary guarding with palpation of the RUQ) A uscultation: normal bowel sounds Skin: General skin exam: normal color Neuro: General: moves all extremities and no focal motor deficits Speech: n ormal speech Motor exam (neuro): 5/5 motor strength present throughout Extrem: General: normal to inspection and no edema Psych: Mental Status: mental status grossly normal Attitude: cooperative Insight: Good insight present (Psych) Judgement: Good judgement present (Psych) Results Labs 04/02/25 08:49 04/02/25 08:49 Labs: Short CBC 04/02/25 Range/Units 08:49 WBC 19.6 H (4.5-10.0) K/mm3 Hgb 14.0 (12.0-15.0) g/dL Hct 42.7 (37.0-47.0) % Plt Count 377 H (150-375) k/mm3 BMP 04/02/25 08:49 Sodium 130 L Potassium 3.7 Chloride 94 L Carbon Dioxide 26 BUN 9 Creatinine 0.69 L Glucose 153 H Calcium 8.9 Cardiac Enzymes 04/02/25 Range/Units 08:49 Troponin I < 0.012 (0.000-0.034) ng/mL Liver Function 04/02/25 Range/Units 08:49 Total Bilirubin 3.6 H (0.2-1.3) mg/dL AST 396 H (14-36) U/L ALT 385 H (6-35) U/L Alkaline Phosphatase 242 H (38-126) U/L Albumin 4.2 (3.5-5.1) g/dL Urine 04/02/25 Range/Units 08:49 Urine Color Yellow (Yellow) Urine Appearance Clear (Clear) Urine pH 8.5 (5.0-9.0) Ur Specific [place] 1.010 (1.001-1.035) Urine Protein Negative (Negative) mg/dL Urine Glucose (UA) Negative (Negative) mg/dL
[2025-04-02] MEDS: HYDROcodone/acetaminophen (*CRX) 5-325 MG TABLET 1 TAB PO (21:19)
[2025-04-03] VITALS (14 sets, daily range): BP systolic 111–129; BP diastolic 47–91; PULSE 60–85; RESP 12–16; TEMP 36.2–37.2; O2SAT 91–99
[2025-04-03] MEDS: IPRATROPIUM 0.5 MG/ALBUTEROL SULFATE 2.5 MG AMPUL.NEB 3 ML INHALATION ×3 (02:10→22:14)
[2025-04-03] MEDS: PIPERACILLN/TAZ 3.375GM/NS50ML 3.375 GM/50 ML BAG IVPB ×3 (05:21→22:00)
[2025-04-03 06:19] LABS: Basophils Percent Auto 0.2 % (0.2-1.2); Eosinophils Absolute Auto 0.1 K/mm3 (0-0.3); Eosinophils Percent Auto 0.7 % (0-4.4); Hemoglobin 12.7 g/dL (12.0-15.0); Immature Granulocyte Absolute 0.12 K/mm3 (0.00-0.031); Immature Granulocyte Percent A 0.8 % (0-0.5); Lymphocytes Absolute Auto 0.99 K/mm3 (0.9-3.2); Mean Corpuscular HGB Conc 33.4 g/dl (32-36); Mean Corpuscular Hemoglobin 30.2 pg (26-34); Mean Corpuscular Volume 90.3 fl (80-100); Mean Platelet Volume 9.3 fl (7.4-10.4); Monocytes Absolute Auto 1.2 K/mm3 (0.1-0.6); Monocytes Percent Auto 8.3 % (2.6-8.5); Neutrophils Absolute Auto 11.7 K/mm3 (1.3-6.7); Platelet Count Result 362 k/mm3 (150-375); Red Blood Count 4.21 M/mm3 (4.2-5.4); White Blood Count 14.2 K/mm3 (4.5-10.0)
[2025-04-03 06:31] LABS: Partial Thromboplastin Time 30.9 Seconds (22.3-36.8)
[2025-04-03 06:32] LABS: Alanine Aminotransferase 264 U/L (6-35); Albumin Level 3.7 g/dL (3.5-5.1); Alkaline Phosphatase 183 U/L (38-126); Anion Gap 7 mmol/L (4-12); Aspartate Amino Transferase 127 U/L (14-36); Bilirubin,Total 3.7 mg/dL (0.2-1.3); Blood Urea Nitrogen 8 mg/dL (7-17); Calcium 8.4 mg/dL (8.4-10.2); Carbon Dioxide 29 mmol/L (22-30); Chloride 96 mmol/L (98-107); Estimated CRCL calculation 52 ml/min; Estimated Glomerular Filt Rate > 60; Glucose 118 mg/dL (65-110); Potassium 3.7 mmol/L (3.4-5.0); Sodium 132 mmol/L (137-145)
[2025-04-03 07:01] LABS: Hepatitis B Surface Antigen Negative (Negative)
--- NOTE | 2025-04-03 07:03 | P.PNIM_ITS ---
Progress Note: A&P Assessment and Plan (1) Sepsis: Qualifiers: Sepsis acute organ dysfunction status: without acute organ dysfunction Sepsis type: sepsis due to unspecified organism Qualified Code(s): A41.9 - S epsis, unspecified organism Code(s): A41.9 - Sepsis, unspecified organism Status: Acute Assessment and Plan: Meets SIRS criteria: WBC and HR - lactic acid: 1.8 - Given 500 mL bolus, no further fluids due to CHF history. - suspected source: cholelithiasis vs transaminitis vs UTI - blood cultures drawn on 04/02: gram negative bacilli, likely ecoli given urine culture results - Antibiotics: Zosyn started on 04/02 for possible cholecystitis and cocurrent UTI Continue current dose of zosyn, increase if cultures return as pseudomonas, however again unlikely given UCx - UA: clear appearance with positive nitrates, 1+ leukocytes, 6-10 WBC, 4+ bacteria and occasional squamous cells. - Urine culture collected on 04/02: Ecoli sensitivities pending - CXR unremarkable - Abdomen/pelvis CT: possible cystitis, mild mesenteric panniculitis, cholelithiasis with contracted gallbladder and possible mild wall thickening but no acute inflammatory change - RUQ US: Positive murphys sign but with persistently decompressed gallbladder arguing against acute cholecystitis. Gallstones seen on CT are unable to be visualized. - Hepatobiliary scan: Delayed activity clearance from the blood pool and significantly delayed activity excretion from the liver with the majority of activity still present within the liver on the 4 hour delayed imaging consistent with likely hepatocellular dysfunction. No evident acute relation of activity in the common bile duct or dilation of the bile duct on the prior CT are also imaging to suggest biliary obstruction. Remains hemodynamically stable. Continue to monitor. See plan below. (2) Cholelithiasis: Code(s): K80.20 - Calculus of gallbladder without cholecystitis without obstruction Status: Chronic Assessment and Plan: - Abdomen/pelvis CT: possible cystitis, mild mesenteric panniculitis, cholelithiasis with contracted gallbladder and possible mild wall thickening but no acute inflammatory change - RUQ US: Positive murphys sign but with persistently decompressed gallbladder arguing against acute cholecystitis. Gallstones seen on CT are unable to be visualized. - Hepatobiliary scan: Delayed activity clearance from the blood pool and significantly delayed activity excretion from the liver with the majority of activity still present within the liver on the 4 hour delayed imaging consistent with likely hepatocellular dysfunction. No evident acute relation of activity in the common bile duct or dilation of the bile duct on the prior CT are also imaging to suggest biliary obstruction. - IV pain management - Gentle IV fluid resuscitation given at 500 ml x 1 due to CHF history - Start Zosyn 3.375 mg every 6 hours - Diet:NPO - Transaminitis noted, likely correlating with cholelithiasis. Lipase within normal limits. - Monitor vital signs, I and O's, check stool output, neuro status and patient is a fall risk - Monitor serum electrolytes and CBC - Monitor lactic acid - Consult general surgery and GI for further evaluation, appreciate assistance and recommendation Plan for laparoscopic cholecystectomy with intraoperative cholangiogram today with Dr. Cage. Per GI if a common bile duct stone is found during the cholangiogram, a postoperative ERCP will be planned. Lastly, there is a concern about a 1.5 cm intrahepatic ill-defined lesion, which could represent cholangiocarcioma vs abscess. This warrants close out patient follow up with another MRI under more stable conditions. (3) Transaminitis: Code(s): R74.01 - Elevation of levels of liver transaminase levels Status: Acute Assessment and Plan: LFTs on admission: Total bilirubin 3.6, AST 396, ALT 385, alk-phos 242. Hepatitis panel negative Suspect transaminitis secondary to cholelithiasis. GI and General surgery have been consulted, see above. Downtrending on am labs, continue to trend. (4) Acute UTI: Code(s): N39.0 - Urinary tract infection, site not specified Status: Acute Assessment and Plan: - UA: clear appearance with positive nitrates, 1+ leukocytes, 6-10 WBC, 4+ bacteria and occasional squamous cells. - Urine culture collected on 04/02: Ecoli sensitivities pending - No previous micro to be reviewed - started on zosyn for concern of cocurrent cholecystitis (5) Hyponatremia: Code(s): E87.1 - Hypo-osmolality and hyponatremia Status: Acute Assessment and Plan: Intermittent/chronic. Sodium 130 on admission. Given 500 mL bolus of NS. Improved to 132 on am labs. (6) Emphysema lung: Qualifiers: Emphysema type: centrilobular Qualified Code(s): J43.2 - Centrilobular emphysema Code(s): J43.9 - Emphysema, unspecified Status: Chronic Assessment and Plan: Mild hypoxia upon arrival, 88-90% on room air on admission [facility] CXR unremarkable with no evidence of pneumonia or pulmonary edema. Continue home medications as appropriate. (7) Chronic diastolic (congestive) heart failure: Code(s): I50.32 - Chronic diastolic (congestive) heart failure Status: Chronic Assessment and Plan: No evidence of pulmonary edema on CXR. Does not appear in acute exacerbation. BNP 458, within normal limits for age. Monitor I&Os and daily weights. Echo 12/26/23 showed LVEF 60-65% with grade I diastolic dysfunction (8) PAF (paroxysmal atrial fibrillation): Code(s): I48.0 - Paroxysmal atrial fibrillation Status: Chronic Assessment and Plan: History of paroxysmal AFib. Initial EKG showed sinus rhythm with first-degree AV block and borderline left axis deviation. Continue amiodarone 50 mg daily. Hold Eliquis in case of need for procedure, resume as appropriate (9) HTN (hypertension): Qualifiers: Hypertension type: essential hypertension Qualified Code(s): I10 - Essential (primary) hypertension Code(s): I10 - Essential (primary) hypertension Status: Chronic Assessment and Plan: Chronic, continue home medications as appropriate. - Irbesartan 150 mg daily - blood pressures remain stable, continue to monitor. Time Spent With Patient Time with patient: 25 - 35 minutes Subjective Date/time seen: 04/03/25 07:03 Interval history: 74 y/o F with PMH of pAifb, SIADH, PAD, HLD, HTN, osteoporosis, smoker, and CHF presents to the hospital for multiple medical complaints including generalized weakness, nausea, vomiting, headache, fever, chills, abdominal tenderness in the epigastric/RUQ region, and shortness of breath. Patient is pleasant lying in bed. She continues to endorse right upper quadrant pain but states that the nausea and vomiting have improved. She has no other complaints denying chest pain, shortness a breath, palpitations. Review of Systems Review of Systems: All systems reviewed & are unremarkable except as noted in HPI and below Exam Narrative: AF HR 66 RR 16 SpO2 92 BP 120/47 General: female in no acute respiratory distress who is nontoxic appearing, lying semi recumbent in bed. HEENT: Normocephalic. Atraumatic. Extraocular movement intact. Sclera clear and anicteric. No facial asymmetry. Chest: Lungs are clear to auscultation bilaterally. No wheezes or crackles. CV: Heart was regular rate and rhythm. S1-S2. No murmurs, gallops, or rubs. Abd: Abdomen was soft. Tender. Nondistended. Positive bowel sounds. Ext: No clubbing, cyanosis, or edema. 2+ DP pulses bilaterally. Neuro: Patient is alert and oriented x4. Speech is clear. Objective Data Vital Signs Vital Signs: Vital Signs - 24 hr 04/02/25 08:36 04/02/25 08:45 04/02/25 08:47 Temperature 98.5 F Pulse Rate 91 91 Respiratory Rate 20 23 H Blood Pressure 129/70 129/70 Pulse Oximetry 93 93 92 Oxygen Delivery Room Air Oxygen Flow Rate 04/02/25 09:00 04/02/25 09:15 04/02/25 09:43 Temperature Pulse Rate 89 88 91 Respiratory Rate 19 17 11 L Blood Pressure Pulse Oximetry 92 89 L 93 Oxygen Delivery Oxygen Flow Rate 04/02/25 09:45 04/02/25 10:00 04/02/25 10:05 Temperature Pulse Rate 88 82 81 Respiratory Rate 19 19 19 Blood Pressure 132/76 Pulse Oximetry 88 L 93 92 Oxygen Delivery Oxygen Flow Rate 04/02/25 10:15 04/02/25 10:38 04/02/25 10:45 Temperature Pulse Rate 86 81 82 Respiratory Rate 17 18 16 Blood Pressure Pulse Oximetry 94 94 95 Oxygen Delivery Oxygen Flow Rate 04/02/25 11:00 04/02/25 11:02 04/02/25 11:03 Temperature Pulse Rate 83 84 Respiratory Rate 15 17 Blood Pressure 132/76 Pulse Oximetry 89 L 88 L 98 Oxygen Delivery Room Air Oxygen Flow Rate 04/02/25 11:03 04/02/25 11:15 04/02/25 11:30 Temperature Pulse Rate 85 75 Respiratory Rate 20 16 Blood Pressure Pulse Oximetry 98 99 99 Oxygen Delivery Nasal Cannula Oxygen Flow Rate 2 04/02/25 11:45 04/02/25 15:10 04/02/25 15:38 Temperature 98.2 F Pulse Rate 76 57 L Respiratory Rate 17 16 Blood Pressure 119/54 L Pulse Oximetry 99 97 92 Oxygen Delivery Room Air Oxygen Flow Rate 04/02/25 15:39 04/02/25 15:44 04/02/25 17:46 Temperature Pulse Rate 59 L 56 L Respiratory Rate 18 18 Blood Pressure Pulse Oximetry 97 Oxygen Delivery Room Air Oxygen Flow Rate 04/02/25 20:00 04/02/25 20:07 04/02/25 20:17 Temperature Pulse Rate 77 77 72 Respiratory Rate 16 16 Blood Pressure Pulse Oximetry 99 Oxygen Delivery Room Air Oxygen Flow Rate 04/02/25 20:39 04/03/25 02:10 04/03/25 04:27 Temperature 98.2 F Pulse Rate 70 82 85 Respiratory Rate 17 14 16 Blood Pressure 118/59 L Pulse Oximetry 92 Oxygen Delivery Oxygen Flow Rate 04/03/25 05:21 Temperature 97.4 F L Pulse Rate 78 Respiratory Rate 16 Blood Pressure 120/47 L Pulse Oximetry 94 Oxygen Delivery Oxygen Flow Rate Intake/Output Intake/Output: Intake & Output 03/31/25 04/01/25 04/02/25 04/03/25 23:59 23:59 23:59 23:59 Intake Total 1390 50 Output Total 300 Balance 1090 50 Meds/Results Medications: Active Medications Generic Name Dose Route Start Last Admin Trade Name Freq PRN Reason Stop Dose Admin Acetaminophen 650 mg 04/02/25 12:46 Acetaminophen 325 Mg Tablet PO Q6H PRN Mild Pain (1-3) or Fever Hydrocodone Bitart/Acetaminophen 1 tab 04/02/25 12:46 04/02/25 21:19 Hydrocodone/Acetaminophen (*Crx) 5-325 Mg Tablet PO 1 tab Q6H PRN Administration Pain Rated 4-6 Albuterol/Ipratropium 3 ml 04/02/25 14:00 04/03/25 02:10 Ipratropium 0.5 Mg/Albuterol Sulfate 2.5 Mg Ampul.Neb 3 Ml INHALATION 3 ml Q6HRT AMANDA Administration Amiodarone HCl 50 mg 04/03/25 09:00 Amiodarone Hcl 50 Mg Tablet PO DAILY AMANDA Docusate Sodium 100 mg 04/02/25 12:46 Docusate Sodium 100 Mg Capsule PO Q12H PRN Constipation Ergocalciferol 50,000 units 04/03/25 09:00 Ergocalciferol 50,000 Units Capsule PO WEEKLY AMANDA Piperacillin/Tazobactam/Dextrose 3.375 gm in 50 mls @ 100 mls/hr 04/02/25 18:00 04/03/25 05:51 Zosyn 3.375 Gm/Ns 50 Ml IVPB Infused Q6HR [facility] Infusion Irbesartan 150 mg 04/03/25 09:00 Irbesartan 150 Mg Tablet PO DAILY [facility] Levothyroxine Sodium 25 mcg 04/03/25 06:30 04/03/25 05:21 Levothyroxine Sodium 25 Mcg Tablet PO Not Given DAILY@0630 [facility] Morphine Sulfate 2 mg 04/02/25 12:32 Morphine Sulfate (*Crx) 2 Mg/Ml Inj IV PUSH Q2H PRN Pain Rated 7-10 Ondansetron HCl 4 mg 04/02/25 12:32 Ondansetron Inj 4 Mg/2 Ml Vial IV PUSH Q4H PRN Nausea Pantoprazole Sodium 40 mg 04/03/25 09:00 Pantoprazole Sodium Iv 40 Mg Vial IV PUSH QAM [facility] Radiology Results: ITS Impressions Abdomen/Pelvis CT 04/02/25 09:48 Impression: Possible cystitis. Correlate with urinalysis. Mild mesenteric panniculitis. Cholelithiasis with contracted gallbladder and possible mild wall thickening but no acute inflammatory change. Correlate for chronic cholecystitis. Upper Quadrant Ultrasound 04/02/25 10:50 IMPRESSION: 1. Positive sonographic Quintero's sign but with persistently decompressed gallbladder arguing against acute cholecystitis. Gallstones seen on CT are unable to be visualized. Chest X-Ray 04/02/25 11:01 Impression: Normal chest. Hepatobiliary Scan Nuclear Medicine 04/02/25 16:47 IMPRESSION: 1. Delayed activity clearance from the blood pool and significantly delayed activity excretion from the liver with the majority of activity still present within the liver on the 4 hour delayed imaging consistent with likely hepatocellular dysfunction. No evident acute relation of activity in the common bile duct or dilation of the bile duct on the prior CT are also imaging to suggest biliary obstruction. Labs Labs: Laboratory Results - last 24 hr 04/02/25 04/02/25 04/02/25 08:49 10:03 12:48 WBC 19.6 H RBC 4.75 Hgb 14.0 Hct 42.7 MCV 89.9 MCH 29.5 MCHC 32.8 RDW 12.6 Plt Count 377 H MPV 9.0 Immature Gran % (Auto) 0.8 H Neut % (Auto) 90.3 H Lymph % (Auto) 2.9 L [place] % (Auto) 5.1 Eos % (Auto) 0.6 Baso % (Auto) 0.3 Lymph # (Auto) 0.57 L [place] # (Auto) 1.0 H Eos # (Auto) 0.1 Baso # (Auto) 0.1 Abs Immat Gran (auto) 0.15 H Absolute Neuts (auto) 17.7 H Absolute Nucleated RBC 0.000 Nucleated RBC % 0.0 PT INR APTT Sodium 130 L Potassium 3.7 Chloride 94 L Carbon Dioxide 26 Anion Gap 10 BUN 9 Creatinine 0.69 L Estim Creat Clear Calc 61 Estimated GFR > 60 Glucose 153 H Lactic Acid 1.8 Calcium 8.9 Magnesium 1.6 Total Bilirubin 3.6 H AST 396 H ALT 385 H Alkaline Phosphatase 242 H Troponin I < 0.012 NT-Pro-B Natriuret Pep 458 H Total Protein 8.0 Albumin 4.2 Lipase 38 Urine Color Yellow Urine Appearance Clear Urine pH 8.5 Ur Specific [place] 1.010 Urine Protein Negative Urine Glucose (UA) Negative Urine Ketones Negative Ur Blood (Man) Negative Urine Nitrate Positive H Urine Bilirubin Negative Urine Urobilinogen 1.0 Leukocyte Esterase Rfl 1+ H Urine RBC 0-2 Urine WBC 6-10 H Ur Squamous Epith Cells Occasional Urine Bacteria 4+ Urine Casts 0-2 Hep Bs Antigen Influenza A (RT-PCR) Negative Influenza B (RT-PCR) Negative RSV (RT-PCR) Negative SARS-CoV-2 RNA (RT-PCR) Negative 04/03/25 05:52 WBC 14.2 H RBC 4.21 Hgb 12.7 Hct 38.0 MCV 90.3 MCH 30.2 MCHC 33.4 RDW 13.0 Plt Count 362 MPV 9.3 Immature Gran % (Auto) 0.8 H Neut % (Auto) 83.0 H Lymph % (Auto) 7.0 L [place] % (Auto) 8.3 Eos % (Auto) 0.7 Baso % (Auto) 0.2 Lymph # (Auto) 0.99 [place] # (Auto) 1.2 H Eos # (Auto) 0.1 Baso # (Auto) 0.0 Abs Immat Gran (auto) 0.12 H Absolute Neuts (auto) 11.7 H Absolute Nucleated RBC 0.000 Nucleated RBC % 0.0 PT 14.0 INR 1.0 APTT 30.9 Sodium 132 L Potassium 3.7 Chloride 96 L Carbon Dioxide 29 Anion Gap 7 BUN 8 Creatinine 0.81 Estim Creat Clear Calc 52 Estimated GFR > 60 Glucose 118 H Lactic Acid Calcium 8.4 Magnesium Total Bilirubin 3.7 H AST 127 H ALT 264 H Alkaline Phosphatase 183 H Troponin I NT-Pro-B Natriuret Pep Total Protein 7.0 Albumin 3.7 Lipase Urine Color Urine Appearance Urine pH Ur Specific [place] Urine Protein Urine Glucose (UA) Urine Ketones Ur Blood (Man) Urine Nitrate Urine Bilirubin Urine Urobilinogen Leukocyte Esterase Rfl Urine RBC Urine WBC Ur Squamous Epith Cells Urine Bacteria Urine Casts Hep Bs Antigen Negative Influenza A (RT-PCR) Influenza B (RT-PCR) RSV (RT-PCR) SARS-CoV-2 RNA (RT-PCR) Quality VTE Prophylaxis VTE prophylaxis: mechanical ordered
[2025-04-03 07:07] LABS: HAV RESULT Negative (Negative); Hepatitis B Core IgM Result Negative (Negative)
--- NOTE | 2025-04-03 07:08 | PM.PNGS ---
Progress Note: A&P Assessment and Plan (1) RUQ pain: Code(s): R10.11 - Right upper quadrant pain Status: Acute Assessment and Plan: Pain improved and tolerated oral intake fairly well yesterday. Still very tender right upper quadrant (2) Cholelithiasis: Qualifiers: Cholelithiasis location: gallbladder Cholecystitis presence: with cholecystitis Cholecystitis acuity: acute and chronic Biliary obstruction: with biliary obstruction Qualified Code(s): K80.13 - Calculus of gallbladder with acute and chronic cholecystitis with obstruction Code(s): K80.20 - Calculus of gallbladder without cholecystitis without obstruction Status: Chronic Assessment and Plan: Gallbladder contracted which is unusual. Still suspicious for cholecystitis. (3) Elevated liver enzymes: Code(s): R74.8 - Abnormal levels of other serum enzymes Status: Acute Assessment and Plan: Hepatobiliary scan showed hepatocellular dysfunction. Patient to have MRCP today. Hepatitis profile negative (4) Anticoagulant long-term use: Code(s): Z79.01 - intermediate (current) use of anticoagulants Status: Chronic Assessment and Plan: Eliquis on hold (5) PAF (paroxysmal atrial fibrillation): Code(s): I48.0 - Paroxysmal atrial fibrillation Status: Chronic Subjective Subjective Date/Time Seen: 04/03/25 07:08 Patient reports: feels better, still having pain, pain is less and afebrile Review of Systems Review of Systems: All systems reviewed & are unremarkable except as noted in HPI and below (HPI) Exam Const: General: comfortable, awake and tired appearing Nutritional Appearance: obese Orientation/consciousness: patient oriented x3 GI: Inspection: no abdominal wall ecchymosis, non-distended, obesity and no visible herniation GI Palp: Yes abdominal tenderness (Upper abdomen especially right upper quadrant), Yes Soft to palpation, Yes Guarding due to palpation present (GI), No Hernia present and No Palpable mass present Objective Data Vital Signs Vital Signs: Vital Signs - 24 hr 04/02/25 08:36 04/02/25 08:45 04/02/25 08:47 Temperature 36.9 C Pulse Rate 91 91 Respiratory Rate 20 23 H Blood Pressure 129/70 129/70 Pulse Oximetry 93 93 92 Oxygen Delivery Room Air Oxygen Flow Rate 04/02/25 09:00 04/02/25 09:15 04/02/25 09:43 Temperature Pulse Rate 89 88 91 Respiratory Rate 19 17 11 L Blood Pressure Pulse Oximetry 92 89 L 93 Oxygen Delivery Oxygen Flow Rate 04/02/25 09:45 04/02/25 10:00 04/02/25 10:05 Temperature Pulse Rate 88 82 81 Respiratory Rate 19 19 19 Blood Pressure 132/76 Pulse Oximetry 88 L 93 92 Oxygen Delivery Oxygen Flow Rate 04/02/25 10:15 04/02/25 10:38 04/02/25 10:45 Temperature Pulse Rate 86 81 82 Respiratory Rate 17 18 16 Blood Pressure Pulse Oximetry 94 94 95 Oxygen Delivery Oxygen Flow Rate 04/02/25 11:00 04/02/25 11:02 04/02/25 11:03 Temperature Pulse Rate 83 84 Respiratory Rate 15 17 Blood Pressure 132/76 Pulse Oximetry 89 L 88 L 98 Oxygen Delivery Room Air Oxygen Flow Rate 04/02/25 11:03 04/02/25 11:15 04/02/25 11:30 Temperature Pulse Rate 85 75 Respiratory Rate 20 16 Blood Pressure Pulse Oximetry 98 99 99 Oxygen Delivery Nasal Cannula Oxygen Flow Rate 2 04/02/25 11:45 04/02/25 15:10 04/02/25 15:38 Temperature 36.8 C Pulse Rate 76 57 L Respiratory Rate 17 16 Blood Pressure 119/54 L Pulse Oximetry 99 97 92 Oxygen Delivery Room Air Oxygen Flow Rate 04/02/25 15:39 04/02/25 15:44 04/02/25 17:46 Temperature Pulse Rate 59 L 56 L Respiratory Rate 18 18 Blood Pressure Pulse Oximetry 97 Oxygen Delivery Room Air Oxygen Flow Rate 04/02/25 20:00 04/02/25 20:07 04/02/25 20:17 Temperature Pulse Rate 77 77 72 Respiratory Rate 16 16 Blood Pressure Pulse Oximetry 99 Oxygen Delivery Room Air Oxygen Flow Rate 04/02/25 20:39 04/03/25 02:10 04/03/25 04:27 Temperature 36.8 C Pulse Rate 70 82 85 Respiratory Rate 17 14 16 Blood Pressure 118/59 L Pulse Oximetry 92 Oxygen Delivery Oxygen Flow Rate 04/03/25 05:21 Temperature 36.3 C L Pulse Rate 78 Respiratory Rate 16 Blood Pressure 120/47 L Pulse Oximetry 94 Oxygen Delivery Oxygen Flow Rate Intake/Output Intake/Output: Intake & Output 03/31/25 04/01/25 04/02/25 04/03/25 23:59 23:59 23:59 23:59 Intake Total 1390 50 Output Total 300 Balance 1090 50 Meds/Results Medications: Active Medications Generic Name Dose Route Start Last Admin Trade Name Freq PRN Reason Stop Dose Admin Acetaminophen 650 mg 04/02/25 12:46 Acetaminophen 325 Mg Tablet PO Q6H PRN Mild Pain (1-3) or Fever Hydrocodone Bitart/Acetaminophen 1 tab 04/02/25 12:46 04/02/25 21:19 Hydrocodone/Acetaminophen (*Crx) 5-325 Mg Tablet PO 1 tab Q6H PRN Administration Pain Rated 4-6 Albuterol/Ipratropium 3 ml 04/02/25 14:00 04/03/25 02:10 Ipratropium 0.5 Mg/Albuterol Sulfate 2.5 Mg Ampul.Neb 3 Ml INHALATION 3 ml Q6HRT [facility] Administration Amiodarone HCl 50 mg 04/03/25 09:00 Amiodarone Hcl 50 Mg Tablet PO DAILY [facility] Docusate Sodium 100 mg 04/02/25 12:46 Docusate Sodium 100 Mg Capsule PO Q12H PRN Constipation Ergocalciferol 50,000 units 04/03/25 09:00 Ergocalciferol 50,000 Units Capsule PO WEEKLY [facility] Piperacillin/Tazobactam/Dextrose 3.375 gm in 50 mls @ 100 mls/hr 04/02/25 18:00 04/03/25 05:51 Zosyn 3.375 Gm/Ns 50 Ml IVPB Infused Q6HR [facility] Infusion Irbesartan 150 mg 04/03/25 09:00 Irbesartan 150 Mg Tablet PO DAILY [facility] Levothyroxine Sodium 25 mcg 04/03/25 06:30 04/03/25 05:21 Levothyroxine Sodium 25 Mcg Tablet PO Not Given DAILY@0630 [facility] Morphine Sulfate 2 mg 04/02/25 12:32 Morphine Sulfate (*Crx) 2 Mg/Ml Inj IV PUSH Q2H PRN Pain Rated 7-10 Ondansetron HCl 4 mg 04/02/25 12:32 Ondansetron Inj 4 Mg/2 Ml Vial IV PUSH Q4H PRN Nausea Pantoprazole Sodium 40 mg 04/03/25 09:00 Pantoprazole Sodium Iv 40 Mg Vial IV PUSH QAM [facility] Radiology Results: ITS Impressions Abdomen/Pelvis CT 04/02/25 09:48 Impression: Possible cystitis. Correlate with urinalysis. Mild mesenteric panniculitis. Cholelithiasis with contracted gallbladder and possible mild wall thickening but no acute inflammatory change. Correlate for chronic cholecystitis. Upper Quadrant Ultrasound 04/02/25 10:50 IMPRESSION: 1. Positive sonographic Quintero's sign but with persistently decompressed gallbladder arguing against acute cholecystitis. Gallstones seen on CT are unable to be visualized. Chest X-Ray 04/02/25 11:01 Impression: Normal chest. Hepatobiliary Scan Nuclear Medicine 04/02/25 16:47 IMPRESSION: 1. Delayed activity clearance from the blood pool and significantly delayed activity excretion from the liver with the majority of activity still present within the liver on the 4 hour delayed imaging consistent with likely hepatocellular dysfunction. No evident acute relation of activity in the common bile duct or dilation of the bile duct on the prior CT are also imaging to suggest biliary obstruction. Labs Labs: Laboratory Results - last 24 hr 04/02/25 04/02/25 04/02/25 08:49 10:03 12:48 WBC 19.6 H RBC 4.75 Hgb 14.0 Hct 42.7 MCV 89.9 MCH 29.5 MCHC 32.8 RDW 12.6 Plt Count 377 H MPV 9.0 Immature Gran % (Auto) 0.8 H Neut % (Auto) 90.3 H Lymph % (Auto) 2.9 L [place] % (Auto) 5.1 Eos % (Auto) 0.6 Baso % (Auto) 0.3 Lymph # (Auto) 0.57 L [place] # (Auto) 1.0 H Eos # (Auto) 0.1 Baso # (Auto) 0.1 Abs Immat Gran (auto) 0.15 H Absolute Neuts (auto) 17.7 H Absolute Nucleated RBC 0.000 Nucleated RBC % 0.0 PT INR APTT Sodium 130 L Potassium 3.7 Chloride 94 L Carbon Dioxide 26 Anion Gap 10 BUN 9 Creatinine 0.69 L Estim Creat Clear Calc 61 Estimated GFR > 60 Glucose 153 H Lactic Acid 1.8 Calcium 8.9 Magnesium 1.6 Total Bilirubin 3.6 H AST 396 H ALT 385 H Alkaline Phosphatase 242 H Troponin I < 0.012 NT-Pro-B Natriuret Pep 458 H Total Protein 8.0 Albumin 4.2 Lipase 38 Urine Color Yellow Urine Appearance Clear Urine pH 8.5 Ur Specific [place] 1.010 Urine Protein Negative Urine Glucose (UA) Negative Urine Ketones Negative Ur Blood (Man) Negative Urine Nitrate Positive H Urine Bilirubin Negative Urine Urobilinogen 1.0 Leukocyte Esterase Rfl 1+ H Urine RBC 0-2 Urine WBC 6-10 H Ur Squamous Epith Cells Occasional Urine Bacteria 4+ Urine Casts 0-2 Hepatitis A IgM Ab Hep Bs Antigen Hep B Core IgM Ab Influenza A (RT-PCR) Negative Influenza B (RT-PCR) Negative RSV (RT-PCR) Negative SARS-CoV-2 RNA (RT-PCR) Negative 04/03/25 05:52 WBC 14.2 H RBC 4.21 Hgb 12.7 Hct 38.0 MCV 90.3 MCH 30.2 MCHC 33.4 RDW 13.0 Plt Count 362 MPV 9.3 Immature Gran % (Auto) 0.8 H Neut % (Auto) 83.0 H Lymph % (Auto) 7.0 L [place] % (Auto) 8.3 Eos % (Auto) 0.7 Baso % (Auto) 0.2 Lymph # (Auto) 0.99 [place] # (Auto) 1.2 H Eos # (Auto) 0.1 Baso # (Auto) 0.0 Abs Immat Gran (auto) 0.12 H Absolute Neuts (auto) 11.7 H Absolute Nucleated RBC 0.000 Nucleated RBC % 0.0 PT 14.0 INR 1.0 APTT 30.9 Sodium 132 L Potassium 3.7 Chloride 96 L Carbon Dioxide 29 Anion Gap 7 BUN 8 Creatinine 0.81 Estim Creat Clear Calc 52 Estimated GFR > 60 Glucose 118 H Lactic Acid Calcium 8.4 Magnesium Total Bilirubin 3.7 H AST 127 H ALT 264 H Alkaline Phosphatase 183 H Troponin I NT-Pro-B Natriuret Pep Total Protein 7.0 Albumin 3.7 Lipase Urine Color Urine Appearance Urine pH Ur Specific [place] Urine Protein Urine Glucose (UA) Urine Ketones Ur Blood (Man) Urine Nitrate Urine Bilirubin Urine Urobilinogen Leukocyte Esterase Rfl Urine RBC Urine WBC Ur Squamous Epith Cells Urine Bacteria Urine Casts Hepatitis A IgM Ab Negative Hep Bs Antigen Negative Hep B Core IgM Ab Negative Influenza A (RT-PCR) Influenza B (RT-PCR) RSV (RT-PCR) SARS-CoV-2 RNA (RT-PCR)
[2025-04-03 07:19] LABS: Hepatitis C Virus Antibody Negative (Negative)
[2025-04-03] MEDS: MORPHINE SULFATE (*CRX) 2 MG/ML INJ IV PUSH ×2 (09:25→13:35)
[2025-04-03] MEDS: PANTOPRAZOLE SODIUM IV 40 MG VIAL IV PUSH (09:27)
--- NOTE | 2025-04-03 13:58 | WPDGIPROGNO ---
Progress Note: A&P Assessment and Plan (1) Elevated liver enzymes: Code(s): R74.8 - Abnormal levels of other serum enzymes Status: Acute Assessment and Plan: The patient was admitted with right upper quadrant pain and significantly elevated liver enzymes, which have since trended down. The WBC has also improved from 19.2 to 14. MRCP revealed no intrahepatic biliary dilatation, although significant motion artifact limited visualization; the common bile duct caliber was normal at 4-5 mm, with a very small calcification noted that could represent a small common bile duct stone or a calcification in the pancreatic head as seen on recent CT. Notably, the CT scan demonstrated a 1.5 cm ill-defined lesion in the pancreas. After discussing these findings and the patient's overall course with Dr. Cage this afternoon, the plan is to proceed with a laparoscopic cholecystectomy with intraoperative cholangiogram. If a common bile duct stone is found during the cholangiogram, a postoperative ERCP will be planned. The patient will continue on the current antibiotic regimen and remain NPO after midnight for potential surgery tomorrow. Lastly, there is a concern about a 1.5 cm intrahepatic ill-defined lesion, which could represent cholangiocarcioma vs abscess. This warrants close out patient follow up with another MRI under more stable conditions. (2) Acute cholecystitis: Code(s): K81.0 - Acute cholecystitis Status: Acute Subjective Date/time seen: 04/03/25 13:58 Interval history: Patient still complaining of epigastric/ right upper quadrant pain. No fever, liver biochemistry trending down. Exam Const: Other: Cooperative, oriented x3. Anicteric. Abdomen: Soft, tender in the right upper quadrant, Quintero sign positive. Bowel sounds present, no other tender points. Objective Data Vital Signs Vital Signs: Vital Signs - 24 hr 04/02/25 15:10 04/02/25 15:38 04/02/25 15:39 Temperature 98.2 F Pulse Rate 57 L 59 L Respiratory Rate 16 18 Blood Pressure 119/54 L Pulse Oximetry 97 92 Oxygen Delivery Room Air 04/02/25 15:44 04/02/25 17:46 04/02/25 20:00 Temperature Pulse Rate 56 L 77 Respiratory Rate 18 Blood Pressure Pulse Oximetry 97 99 Oxygen Delivery Room Air Room Air 04/02/25 20:07 04/02/25 20:17 05/15/25 20:39 Temperature 98.2 F Pulse Rate 77 72 70 Respiratory Rate 16 16 17 Blood Pressure 118/59 L Pulse Oximetry 92 Oxygen Delivery 04/03/25 02:10 04/03/25 04:27 04/03/25 05:21 Temperature 97.4 F L Pulse Rate 82 85 78 Respiratory Rate 14 16 16 Blood Pressure 120/47 L Pulse Oximetry 94 Oxygen Delivery 04/03/25 08:41 04/03/25 08:41 Temperature Pulse Rate 66 Respiratory Rate 16 Blood Pressure Pulse Oximetry 92 Oxygen Delivery Room Air Intake/Output Intake/Output: Intake & Output 03/31/25 04/01/25 04/02/25 04/03/25 23:59 23:59 23:59 23:59 Intake Total 1390 50 Output Total 300 Balance 1090 50 Meds/Results Medications: Active Medications Generic Name Dose Route Start Last Admin Trade Name Freq PRN Reason Stop Dose Admin Acetaminophen 650 mg 04/02/25 12:46 Acetaminophen 325 Mg Tablet PO Q6H PRN Mild Pain (1-3) or Fever Hydrocodone Bitart/Acetaminophen 1 tab 04/02/25 12:46 04/02/25 21:19 Hydrocodone/Acetaminophen (*Crx) 5-325 Mg Tablet PO 1 tab Q6H PRN Administration Pain Rated 4-6 Albuterol/Ipratropium 3 ml 04/02/25 14:00 04/03/25 08:41 Ipratropium 0.5 Mg/Albuterol Sulfate 2.5 Mg Ampul.Neb 3 Ml INHALATION 3 ml Q6HRT [facility] Administration Amiodarone HCl 50 mg 04/03/25 09:00 04/03/25 09:15 Amiodarone Hcl 50 Mg Tablet PO Not Given DAILY [facility] Docusate Sodium 100 mg 04/02/25 12:46 Docusate Sodium 100 Mg Capsule PO Q12H PRN Constipation Ergocalciferol 50,000 units 04/03/25 09:00 04/03/25 09:15 Ergocalciferol 50,000 Units Capsule PO Not Given WEEKLY [facility] Piperacillin/Tazobactam/Dextrose 3.375 gm in 50 mls @ 100 mls/hr 04/02/25 18:00 04/03/25 13:35 Zosyn 3.375 Gm/Ns 50 Ml IVPB 100 mls/hr Q6HR [facility] Administration Irbesartan 150 mg 04/03/25 09:00 04/03/25 09:15 Irbesartan 150 Mg Tablet PO Not Given DAILY [facility] Levothyroxine Sodium 25 mcg 04/03/25 06:30 04/03/25 05:21 Levothyroxine Sodium 25 Mcg Tablet PO Not Given DAILY@0630 [facility] Morphine Sulfate 2 mg 04/02/25 12:32 04/03/25 13:35 Morphine Sulfate (*Crx) 2 Mg/Ml Inj IV PUSH 2 mg Q2H PRN Administration Pain Rated 7-10 Ondansetron HCl 4 mg 04/02/25 12:32 Ondansetron Inj 4 Mg/2 Ml Vial IV PUSH Q4H PRN Nausea Pantoprazole Sodium 40 mg 04/03/25 09:00 04/03/25 09:27 Pantoprazole Sodium Iv 40 Mg Vial IV PUSH 40 mg QAM [facility] Administration Radiology Results: ITS Impressions Abdomen/Pelvis CT 04/02/25 09:48 Impression: Possible cystitis. Correlate with urinalysis. Mild mesenteric panniculitis. Cholelithiasis with contracted gallbladder and possible mild wall thickening but no acute inflammatory change. Correlate for chronic cholecystitis. Upper Quadrant Ultrasound 04/02/25 10:50 IMPRESSION: 1. Positive sonographic Quintero's sign but with persistently decompressed gallbladder arguing against acute cholecystitis. Gallstones seen on CT are unable to be visualized. Chest X-Ray 04/02/25 11:01 Impression: Normal chest. Hepatobiliary Scan Nuclear Medicine 04/02/25 16:47 IMPRESSION: 1. Delayed activity clearance from the blood pool and significantly delayed activity excretion from the liver with the majority of activity still present within the liver on the 4 hour delayed imaging consistent with likely hepatocellular dysfunction. No evident acute relation of activity in the common bile duct or dilation of the bile duct on the prior CT are also imaging to suggest biliary obstruction. MRCP 04/03/25 08:17 IMPRESSION: 1. Cholelithiasis and likely choledocholithiasis but without evident intra-axial hepatic biliary ductal dilation either in the current study or the prior CT or ultrasound imaging to suggest significant biliary obstruction. 2. Minimal amount of pericholecystic fluid which could be due to acute cholecystitis or more likely due to other liver disease given that there is no associated gallbladder wall thickening at that the cystic duct does not appear obstructed given the recent decompressed state with interval filling of the gallbladder on subsequent ultrasound and with activity on HIDA scan extending into the gallbladder. 3. 1.5 cm ill-defined region enhancement in the right hepatic lobe which could be related to neoplasm with some imaging features suggestive of cholangiocarcinoma. There are however some atypical features such as periportal edema and subtle parenchymal edema in the surrounding right hepatic lobe and this could also be infectious in etiology such as due to focal hepatitis or ascending cholangitis without evident hepatic abscess. It is unclear whether this lesion would be discernible by either ultrasound or noncontrast CT to allow for biopsy with a reasonable degree of diagnostic certainty. Could also consider short-term follow-up pre and postcontrast MRI. Labs Labs: Laboratory Results - last 24 hr 04/03/25 05:52 WBC 14.2 H RBC 4.21 Hgb 12.7 Hct 38.0 MCV 90.3 MCH 30.2 MCHC 33.4 RDW 13.0 Plt Count 362 MPV 9.3 Immature Gran % (Auto) 0.8 H Neut % (Auto) 83.0 H Lymph % (Auto) 7.0 L [place] % (Auto) 8.3 Eos % (Auto) 0.7 Baso % (Auto) 0.2 Lymph # (Auto) 0.99 [place] # (Auto) 1.2 H Eos # (Auto) 0.1 Baso # (Auto) 0.0 Abs Immat Gran (auto) 0.12 H Absolute Neuts (auto) 11.7 H Absolute Nucleated RBC 0.000 Nucleated RBC % 0.0 PT 14.0 INR 1.0 APTT 30.9 Sodium 132 L Potassium 3.7 Chloride 96 L Carbon Dioxide 29 Anion Gap 7 BUN 8 Creatinine 0.81 Estim Creat Clear Calc 52 Estimated GFR > 60 Glucose 118 H Calcium 8.4 Total Bilirubin 3.7 H AST 127 H ALT 264 H Alkaline Phosphatase 183 H Total Protein 7.0 Albumin 3.7 Hepatitis A IgM Ab Negative Hep Bs Antigen Negative Hep B Core IgM Ab Negative Hepatitis C Ab Screen Negative
--- NOTE | 2025-04-03 18:26 | P.PNAN_ITS ---
Anes - Initial Pre Proc Eval Procedure: Operation Date: 04/03/25 16:00 Proposed Procedures p Laparoscopic Cholecystectomy with Intraoperative Cholangiogram - Ry Cage MD Operation Date: 04/06/25 13:00 Proposed Procedures p Endoscopic Retro Cholangiopancreatogram - Jewel Rosado MD Date/Time: 04/03/25 18:26 Surgeon: Tigist Edwards PA-C Pre Op Diagnosis: Transaminitis Patient Data Age: 74 Gender: F Height: 1.52 m Weight: 88 kg Last Vital Signs Temp 99.0 F 04/03/25 15:04 Pulse 76 04/03/25 15:04 Resp 16 04/03/25 15:04 BP 129/55 L 04/03/25 15:04 Pulse Ox 94 04/03/25 15:04 O2 Del Method Room Air 04/03/25 15:04 O2 Flow Rate 2 04/02/25 11:03 Allergies Allergy/AdvReac Type Severity Reaction Status Date / Time No Known Allergies Allergy Verified 01/14/25 13:18 Home Medications ?Medication ?Instructions ?Recorded ?Confirmed ?Type amiodarone 100 mg tablet 50 mg (1/2 x 100 mg) PO DAILY #45 07/17/24 04/02/25 Rx tabs levothyroxine 25 mcg tablet 25 mcg PO DAILY #34 tabs 07/17/24 04/02/25 Rx Eliquis 5 mg tablet (apixaban) See Rx Instructions .Route 01/14/25 04/02/25 Rx .COMPLEX #180 tabs acetaminophen 300 mg-codeine 30 mg 1 tablet PO Q6H PRN pain #90 tabs 01/14/25 04/02/25 Rx tablet alendronate 70 mg tablet 70 mg PO WEEKLY #14 tabs 01/14/25 04/02/25 Rx cholecalciferol (vitamin D3) 1,250 1,250 mcg PO WEEKLY #14 caps 01/14/25 04/02/25 Rx mcg (50,000 unit) capsule irbesartan 300 mg tablet 150 mg (1/2 x 300 mg) PO DAILY 01/14/25 04/02/25 Rx #100 tabs Laboratory Tests 04/03/25 05:52 WBC 14.2 H K/mm3 (4.5-10.0) RBC 4.21 M/mm3 (4.2-5.4) Hgb 12.7 g/dL (12.0-15.0) Hct 38.0 % (37.0-47.0) MCV 90.3 fl (80-100) MCH 30.2 pg (26-34) MCHC 33.4 g/dl (32-36) RDW 13.0 % (11.5-14.5) Plt Count 362 k/mm3 (150-375) MPV 9.3 fl (7.4-10.4) Immature Gran % (Auto) 0.8 H % (0-0.5) Neut % (Auto) 83.0 H % (45.5-73.1) Lymph % (Auto) 7.0 L % (18.3-44.2) [place] % (Auto) 8.3 % (2.6-8.5) Eos % (Auto) 0.7 % (0-4.4) Baso % (Auto) 0.2 % (0.2-1.2) Lymph # (Auto) 0.99 K/mm3 (0.9-3.2) [place] # (Auto) 1.2 H K/mm3 (0.1-0.6) Eos # (Auto) 0.1 K/mm3 (0-0.3) Baso # (Auto) 0.0 K/mm3 (0.0-0.1) Abs Immat Gran (auto) 0.12 H K/mm3 (0.00-0.031) Absolute Neuts (auto) 11.7 H K/mm3 (1.3-6.7) Absolute Nucleated RBC 0.000 K/mm3 (0.0-0.012) Nucleated RBC % 0.0 % (0.0-0.2) PT 14.0 Seconds (11.1-14.7) INR 1.0 APTT 30.9 Seconds (22.3-36.8) Sodium 132 L mmol/L (137-145) Potassium 3.7 mmol/L (3.4-5.0) Chloride 96 L mmol/L (98-107) Carbon Dioxide 29 mmol/L (22-30) Anion Gap 7 mmol/L (4-12) BUN 8 mg/dL (7-17) Creatinine 0.81 mg/dL (0.7-1.0) Estim Creat Clear Calc 52 ml/min Estimated GFR > 60 (59 - ) Glucose 118 H mg/dL (65-110) Calcium 8.4 mg/dL (8.4-10.2) Total Bilirubin 3.7 H mg/dL (0.2-1.3) AST 127 H U/L (14-36) ALT 264 H U/L (6-35) Alkaline Phosphatase 183 H U/L (38-126) Total Protein 7.0 g/dL (6.3-8.2) Albumin 3.7 g/dL (3.5-5.1) Hepatitis A IgM Ab Negative (Negative) Hep Bs Antigen Negative (Negative) Hep B Core IgM Ab Negative (Negative) Hepatitis C Ab Screen Negative (Negative) Patient hx anesthesia problems: none Family hx anesthesia problems: none Results Review: All pre-operative results and documents have been reviewed as part of the pre- operative evaluation. [facility] Past Medical History Medical History RUQ pain PAF (paroxysmal atrial fibrillation) Gastric ulcer due to nonsteroidal antiinflammatory drug (NSAID) therapy SIADH (syndrome of inappropriate ADH production) Peripheral artery disease Mixed hyperlipidemia Sacroiliitis Esophageal spasm Age-related osteoporosis without current pathological fracture Acute bronchitis, unspecified Hx of fracture of ankle s/p ORIF Femur fracture Osteoporosis Tobacco abuse Chronic diastolic (congestive) heart failure Vitamin D insufficiency HTN (hypertension) Surgical History Surgical History History of hysterectomy S/P lumbar fusion S/P ORIF (open reduction internal fixation) fracture S/P ORIF (open reduction internal fixation) fracture L femur fracture- gamma nail Family History Family History Father Carcinoma of colon Family history of heart disease in male family member before age 55 Patient's father is Mother Family history of malignant neoplasm of breast in first degree relative Social History Social History Social History: The patient is and lives with her . Her is a durable power deputy commonwealth's attorney for healthcare. The patient has 2 children. 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 The patient continues to smoke. The patient occasionally has a drink. Code status full code Smoking packs per day: 0.5 Smoking cigarettes per day: 10.0 Years smoked: 60 Smoking pack-years: 30.00 Smoking status: Current every day smoker Tobacco type: cigarettes Second hand tobacco smoke exposure: Yes Alcohol intake: current Substance use: never Substance use type: does not use Do You Feel Safe in your Home?: Yes Lack of Transportation: No Lack of Food: Never True Current Housing: I Have Housing Concerned About Future Housing: No Difficulty Paying Gas/Electric Bills: YES Difficulty Paying for Meds: No Currently Unemployed: No Education: Decline to Answer Difficulty w/ Childcare or Family Care: No Living arrangements: with family Occupation/Education: retired Additional occupation/education comments: Disabled Gender identity (if verbalized by the patient): Female Sexual Orientation (if Verbalized by the Patient): Straight or Heterosexual Spiritual care concerns: No Anes - Eval Final PreProcedure Day of Procedure 04/03/25 18:26 Patient weight: morbidly obese Lungs: normal air movement Airway: Mallampati scale class II Neurological: alert and oriented Last oral intake: >/= 8 hours ASA classification: IV Emergent: no Anesthetic plan: proceed Anesthesia type and monitoring: general ETT and standard monitoring Results Review: All pre-operative results and documents have been reviewed as part of the pre- operative evaluation. Complicated hx reviewed w pt and staff.. COPD/emphysema, still smokes 1-2 cigs/day, HTN, hypothyroidism, pafib prev on AC. Now for lap diana. Stress test 02/2024 no def ischemia, LVEF nml. Informed Consent: The patient's anesthetic plan and its attendant risks and benefits were discussed with the patient/family/POA. Questions were solicited and answers provided to the satisfaction of the patient/family/POA.
--- NOTE | 2025-04-03 18:32 | WPDHPUPDATE1 ---
History and Physical Update Update Date/Time: 04/03/25 18:32 History and Physical has been reviewed, including an updated exam of the patient. There are NO changes in the patient's condition. Risks, benefits, and alternatives have been discussed and questions answered. Patient agrees to proceed with procedure.
--- NOTE | 2025-04-03 18:34 | WPDHPUPDATE1 ---
History and Physical Update Update Date/Time: 04/03/25 18:34 History and Physical has been reviewed, including an updated exam of the patient. There are NO changes in the patient's condition. Risks, benefits, and alternatives have been discussed and questions answered. Patient agrees to proceed with procedure.
[2025-04-03] MEDS: BUPIVACAINE/EPINEPHRINE 0.5% 30 ML VIAL INFILTRATE (19:18)
[2025-04-03] MEDS: LACTATED RINGERS 1,000 ML 30 ML IV CONT ×2 (20:20)
--- NOTE | 2025-04-03 20:20 | W.PM.PROC2 ---
Procedure Note - Detailed Date of Procedure 04/03/25 Pre-op Diagnosis Choledocholithiasis, chronic cholecystitis with stones Post-op Diagnosis Same Procedure Performed Laparoscopic cholecystectomy with intraoperative cholangiogram Surgeon Ry Cage MD Retina Subspecialist [facility] Anesthesia General and Local Indications Patient came to the hospital with severe right upper quadrant pain and tenderness. Imaging showed gallstones. There was also suggestion of common bile duct stones. MRCP was not diagnostic of common bile duct stones although it was suggested there were nonobstructive small stones or sludge in the common bile duct. LFTs were elevated. She is taken to surgery now for laparoscopic cholecystectomy with intraoperative cholangiogram. Findings Severe chronic inflammation, fatty liver, intraoperative cholangiogram showed slight dilatation of the biliary system but no flow into the duodenum even after several dye injections. Description of Procedure Patient was taken to surgery and induced into general anesthesia. The abdomen is prepped and draped. Initial trocar was 5 mm applied Medical epigastric trocar. The remaining trocars were placed in the placed in the usual fashion under direct visualization. Patient was placed in reverse Trendelenburg. Adhesions were taken down from the gallbladder. There were also numerous adhesions from the anterior liver surface to the abdominal wall which were taken down. Liver was obviously friable with fatty change and some hepatomegaly. The gallbladder was decompressed with a laparoscopic aspirator. The cholecystotomy was closed with a Vicryl endoloop. The gallbladder was then retracted anterosuperiorly. Additional adhesions were taken down from the gallbladder until we were able to expose the infundibulum and triangle of Calot. With traction on the infundibulum, dissection was carried out in the cholecystohepatic triangle. Traction on the gallbladder and any dissection resulted in oozing of blood either from the liver or from the hypervascularity. No significant bleeding occurred. The cystic duct was particularly inflamed. It was dissected out carefully. The cystic artery was also dissected. The gallbladder was dissected off the liver at its lower 3rd. Critical view was achieved. We then went ahead and clipped the cystic duct near the gallbladder. Small opening was made in the cystic duct and the cholangiogram catheter was placed. The cine fluoroscopy C-arm was then brought into the field. We ran 3 different runs of full-strength dye. I did not see any filling defects in the common bile duct but the duodenum did not fill on any of the runs either. We then removed the cholangiogram catheter. I divided the cystic duct. I then used a Vicryl endoloop to ligate the cystic duct stump. I then did further dissection on the cystic arteries which had branches going medial and lateral up the wall the gallbladder. Each of these branches were securely clipped and divided. I then continued the dissection of the gallbladder from the liver. Again this was bloody oozing dissection but with suction and cautery, it was able to be done safely. Eventually the gallbladder was completely freed from the liver. Some additional cautery on the gallbladder fossa was carried out. The gallbladder was then placed in an Endo-Catch bag and retrieved through the 10 11 epigastric trocar site. We replaced the epigastric trocar and then elevated the liver to expose the gallbladder fossa. Repeated irrigation and suctioning were carried out. Additional cautery on the gallbladder fossa was done. All looked good with no evidence of bleeding or bile leakage. We then suctioned away any residual irrigation. Insufflation was stopped and we suctioned away the CO2 in the abdomen. Trocars were removed. Skin wounds were closed with subcuticular 4-0 Monocryl skin suture. The wounds were dressed with Exofin surgical adhesive. Sponge and needle counts were correct x2. Estimated Blood Loss -50 Urine Output 300 Drains No Packing No Pathology Yes (Gallbladder) Complications None Condition Stable Disposition PACU [facility] Billing Surgery - Charge Forward: Surgery Billing (Laparoscopic cholecystectomy with intraoperative cholangiogram.)
[2025-04-03] MEDS: fentaNYL CITRATE INJ (*CRX) 100 MCG/2 ML VIAL 25 MCG IV PUSH ×3 (20:30→20:45)
--- NOTE | 2025-04-03 21:20 | PC.NURSE ---
PATIENT ARRIVED ON FLOOR AT 2109
[2025-04-03] MEDS: oxyCODONE/ACETAMINOPHEN (*CRX) 5-325 MG TABLET 1 TABLET PO (21:48)
[2025-04-03] MEDS: LACTATED RINGERS 1,000 ML 100 ML IV CONT (22:00)
[2025-04-04] VITALS (13 sets, daily range): BP systolic 114–140; BP diastolic 49–72; PULSE 57–78; RESP 13–20; TEMP 35.6–36.6; O2SAT 91–100
[2025-04-04] MEDS: fentaNYL CITRATE INJ (*CRX) 100 MCG/2 ML VIAL 25 MCG IV PUSH (00:16)
[2025-04-04] MEDS: IPRATROPIUM 0.5 MG/ALBUTEROL SULFATE 2.5 MG AMPUL.NEB 3 ML INHALATION ×4 (02:33→20:47)
[2025-04-04] MEDS: oxyCODONE/ACETAMINOPHEN (*CRX) 5-325 MG TABLET 1 TABLET PO ×3 (02:59→21:35)
[2025-04-04] MEDS: PIPERACILLN/TAZ 3.375GM/NS50ML 3.375 GM/50 ML BAG IVPB ×2 (02:59→10:34)
[2025-04-04] MEDS: LEVOTHYROXINE SODIUM 25 MCG TABLET PO (05:29)
[2025-04-04] MEDS: IRBESARTAN 150 MG TABLET PO (08:29)
[2025-04-04] MEDS: ENOXAPARIN 40 MG/0.4 ML SYRINGE SUB-Q (08:32)
[2025-04-04] MEDS: AMIODARONE HCL 50 MG TABLET PO (08:33)
--- NOTE | 2025-04-04 08:51 | P.PNIM_ITS ---
Progress Note: A&P Assessment and Plan (1) Sepsis: Qualifiers: Sepsis acute organ dysfunction status: without acute organ dysfunction Sepsis type: sepsis due to unspecified organism Qualified Code(s): A41.9 - S epsis, unspecified organism Code(s): A41.9 - Sepsis, unspecified organism Status: Acute Assessment and Plan: Meets SIRS criteria: WBC and HR - lactic acid: 1.8 - Given 500 mL bolus, no further fluids due to CHF history. - suspected source: cholelithiasis vs transaminitis vs UTI - blood cultures drawn on 04/02: Ecoli - Urine culture collected on 04/02: Ecoli ESBL resistance - CXR unremarkable - Antibiotics: Zosyn started on 04/02, transitioned to meropenem 04/04 given sensitivities after discussing with [facility] pharm. When able to transition to PO, base the completion date off the start of meropenem for 7 day course. - Abdomen/pelvis CT: possible cystitis, mild mesenteric panniculitis, cholelithiasis with contracted gallbladder and possible mild wall thickening but no acute inflammatory change - RUQ US: Positive murphys sign but with persistently decompressed gallbladder arguing against acute cholecystitis. Gallstones seen on CT are unable to be visualized. - Hepatobiliary scan: Delayed activity clearance from the blood pool and significantly delayed activity excretion from the liver with the majority of activity still present within the liver on the 4 hour delayed imaging consistent with likely hepatocellular dysfunction. No evident acute relation of activity in the common bile duct or dilation of the bile duct on the prior CT are also imaging to suggest biliary obstruction. Remains hemodynamically stable. Continue to monitor. See plan below. (2) Cholelithiasis: Qualifiers: Biliary obstruction: with biliary obstruction Cholecystitis acuity: acute and chronic Cholecystitis presence: with cholecystitis Cholelithiasis location: gallbladder Qualified Code(s): K80.13 - Calculus of gallbladder with acute and chronic cholecystitis with obstruction Code(s): K80.20 - Calculus of gallbladder without cholecystitis without obstruction Status: Chronic Assessment and Plan: - Abdomen/pelvis CT: possible cystitis, mild mesenteric panniculitis, cholelithiasis with contracted gallbladder and possible mild wall thickening but no acute inflammatory change - RUQ US: Positive murphys sign but with persistently decompressed gallbladder arguing against acute cholecystitis. Gallstones seen on CT are unable to be visualized. - Hepatobiliary scan: Delayed activity clearance from the blood pool and sig nificantly delayed activity excretion from the liver with the majority of activity still present within the liver on the 4 hour delayed imaging consistent with likely hepatocellular dysfunction. No evident acute relation of activity in the common bile duct or dilation of the bile duct on the prior CT are also imaging to suggest biliary obstruction. - IV pain management - Gentle IV fluid resuscitation given at 500 ml x 1 due to CHF history - Antibiotics: Zosyn started on 04/02, transitioned to meropenem 04/04 given sensitivities after discussing with [facility] pharm. When able to transition to PO, base the completion date off the start of meropenem for 7 day course. - Diet: low fat - Transaminitis noted, likely correlating with cholelithiasis. Lipase within normal limits. - Monitor vital signs, I and O's, check stool output, neuro status and patient is a fall risk - Monitor serum electrolytes and CBC - Monitor lactic acid - Consult general surgery and GI for further evaluation, appreciate assistance and recommendation s/p for laparoscopic cholecystectomy with intraoperative cholangiogram on 04/[address] Cage. Per GI there is a concern about a 1.5 cm intrahepatic ill-defined lesion and limited contrast passage during cholangiogram Could represent cholangiocarcioma vs abscess. This warrants close out patient follow up with another MRI under more stable conditions. Closely observe trends and proceed with early ERCP next week if no improvement (3) Transaminitis: Code(s): R74.01 - Elevation of levels of liver transaminase levels Status: Acute Assessment and Plan: LFTs on admission: Total bilirubin 3.6, AST 396, ALT 385, alk-phos 242. Hepatitis panel negative Suspect transaminitis secondary to cholelithiasis. GI and General surgery have been consulted, see above. Downtrending on am labs, continue to trend. (4) Acute UTI: Code(s): N39.0 - Urinary tract infection, site not specified Status: Acute Assessment and Plan: - UA: clear appearance with positive nitrates, 1+ leukocytes, 6-10 WBC, 4+ bacteria and occasional squamous cells. - Urine culture collected on 04/02: Ecoli with ESBL, sensitive to zosyn - No previous micro to be reviewed - Antibiotics: Zosyn started on 04/02, transitioned to meropenem 04/04 given sensitivities after discussing with ID pharm. When able to transition to PO, base the completion date off the start of meropenem for 7 day course. (5) Hyponatremia: Code(s): E87.1 - Hypo-osmolality and hyponatremia Status: Acute Assessment and Plan: Intermittent/chronic. Sodium 130 on admission. Given 500 mL bolus of NS. Improved to 132 on am labs. Resolved. (6) Emphysema lung: Qualifiers: Emphysema type: centrilobular Qualified Code(s): J43.2 - Centrilobular emphysema Code(s): J43.9 - Emphysema, unspecified Status: Chronic Assessment and Plan: Mild hypoxia upon arrival, 88-90% on room air on admission Weaned back to room air. DuoNebs leslie. CXR unremarkable with no evidence of pneumonia or pulmonary edema. Continue home medications as appropriate. (7) Chronic diastolic (congestive) heart failure: Code(s): I50.32 - Chronic diastolic (congestive) heart failure Status: Chronic Assessment and Plan: No evidence of pulmonary edema on CXR. Does not appear in acute exacerbation. BNP 458, within normal limits for age. Monitor I&Os and daily weights. Echo 12/26/23 showed LVEF 60-65% with grade I diastolic dysfunction (8) PAF (paroxysmal atrial fibrillation): Code(s): I48.0 - Paroxysmal atrial fibrillation Status: Chronic Assessment and Plan: History of paroxysmal AFib. Initial EKG showed sinus rhythm with first-degree AV block and borderline left axis deviation. Continue amiodarone 50 mg daily. Hold Eliquis, resume as appropriate per surgery (9) HTN (hypertension): Qualifiers: Hypertension type: essential hypertension Qualified Code(s): I10 - Essential (primary) hypertension Code(s): I10 - Essential (primary) hypertension Status: Chronic Assessment and Plan: Chronic, continue home medications as appropriate. - Irbesartan 150 mg daily - blood pressures remain stable, continue to monitor. Time Spent With Patient Time with patient: 25 - 35 minutes Subjective Date/time seen: 04/04/25 08:51 Interval history: 74 y/o F with PMH of pAifb, SIADH, PAD, HLD, HTN, osteoporosis, smoker, and CHF presents to the hospital for multiple medical complaints including generalized weakness, nausea, vomiting, headache, fever, chills, abdominal tenderness in the epigastric/RUQ region, and shortness of breath. Patient is pleasant sitting up comfortably in her chair with has been at bedside. She states that she is doing well and tolerating her diet. She continues to endorse slight abdominal discomfort more so in relation to the incisions. She denies any nausea vomiting. She is passing flatness bed no bowel movement at this time. She has no other complaints denies chest pain, palpitations, and shortness of breath. Review of Systems Review of Systems: All systems reviewed & are unremarkable except as noted in HPI and below Exam Narrative: AF HR 64 RR 16 SpO2 93 BP 121/69 General: female in no acute respiratory distress who is nontoxic appearing, sitting up in chair HEENT: Normocephalic. Atraumatic. Extraocular movement intact. Sclera clear and anicteric. No facial asymmetry. Chest: Lungs are slightly diminished to lower bases on auscultation bilaterally, given incentive spirometer. No wheezes or crackles. CV: Heart was regular rate and rhythm. S1-S2. No murmurs, gallops, or rubs. Abd: Abdomen was soft. Slight tenderness around the incisions. Nondistended. Positive bowel sounds. Well-healing laparoscopic incisions without signs of infection. Ext: No clubbing, cyanosis, or edema. DP pulses bilaterally. Neuro: Patient is alert and oriented x4. Speech is clear. Objective Data Vital Signs Vital Signs: Vital Signs - 24 hr 04/03/25 14:00 04/03/25 15:04 04/03/25 20:20 Temperature 98.4 F 99.0 F 98.9 F Pulse Rate 68 76 72 Respiratory Rate 16 16 13 Blood Pressure 115/56 L 129/55 L 111/65 Pulse Oximetry 99 94 93 Oxygen Delivery Room Air Simple Face Mask Oxygen Flow Rate 8 04/03/25 20:30 04/03/25 20:45 04/03/25 21:00 Temperature Pulse Rate 60 63 65 Respiratory Rate 13 15 12 Blood Pressure 124/91 H 120/80 117/66 Pulse Oximetry 98 91 94 Oxygen Delivery Simple Face Mask Nasal Cannula Nasal Cannula Oxygen Flow Rate 8 3 3 04/03/25 21:12 04/03/25 22:15 04/03/25 22:25 Temperature 97.1 F L Pulse Rate 60 62 64 Respiratory Rate 16 16 16 Blood Pressure 122/81 Pulse Oximetry 97 Oxygen Delivery Oxygen Flow Rate 04/03/25 22:57 04/04/25 02:35 04/04/25 02:45 Temperature 98.0 F 97.2 F L Pulse Rate 66 60 61 Respiratory Rate 16 15 18 Blood Pressure 111/56 L 139/72 Pulse Oximetry 96 100 Oxygen Delivery Oxygen Flow Rate 04/04/25 02:45 04/04/25 06:48 04/04/25 07:33 Temperature 97.2 F L Pulse Rate 63 57 L 62 Respiratory Rate 15 20 16 Blood Pressure 117/60 Pulse Oximetry 91 Oxygen Delivery Oxygen Flow Rate 04/04/25 07:51 Temperature 96.0 F L Pulse Rate 71 Respiratory Rate 18 Blood Pressure 124/50 L Pulse Oximetry 94 Oxygen Delivery Oxygen Flow Rate Intake/Output Intake/Output: Intake & Output 04/01/25 04/02/25 04/03/25 04/04/25 23:59 23:59 23:59 23:59 Intake Total 1390 500 100 Output Total 300 300 Balance 1090 200 100 Meds/Results Medications: Active Medications Generic Name Dose Route Start Last Admin Trade Name Freq PRN Reason Stop Dose Admin Acetaminophen 500 mg 04/03/25 21:12 Acetaminophen 500 Mg Tablet PO Q6H PRN Pain Rated 1-3 Albuterol/Ipratropium 3 ml 04/02/25 14:00 04/04/25 07:33 Ipratropium 0.5 Mg/Albuterol Sulfate 2.5 Mg Ampul.Neb 3 Ml INHALATION 3 ml Q6HRT LESLIE Administration Amiodarone HCl 50 mg 04/03/25 09:00 04/04/25 08:33 Amiodarone Hcl 50 Mg Tablet PO 50 mg DAILY LESLIE Administration Docusate Sodium 100 mg 04/02/25 12:46 Docusate Sodium 100 Mg Capsule PO Q12H PRN Constipation Enoxaparin Sodium 40 mg 04/04/25 09:00 04/04/25 08:32 Enoxaparin 40 Mg/0.4 Ml Syringe SUB-Q 40 mg DAILY LESLIE Administration Ergocalciferol 50,000 units 04/03/25 09:00 04/03/25 09:15 Ergocalciferol 50,000 Units Capsule PO Not Given WEEKLY [facility] Fentanyl Citrate 12.5 mcg 04/03/25 21:12 Fentanyl Citrate Inj (*Crx) 100 Mcg/2 Ml Vial IV PUSH Q2H PRN Breakthrough Pain Rated 4-6 or NPO Fentanyl Citrate 25 mcg 04/03/25 21:12 04/04/25 00:16 Fentanyl Citrate Inj (*Crx) 100 Mcg/2 Ml Vial IV PUSH 25 mcg Q2H PRN Administration Breakthrough Pain Rated 7-10 or NPO Lactated Ringer's 1,000 mls @ 100 mls/hr 04/03/25 21:12 04/03/25 22:00 Lr - Lactated Ringers Iv IV CONT 100 mls/hr .Q10H LESLIE Administration Ibuprofen 800 mg in 200 mls @ 400 mls/hr 04/03/25 21:12 Caldolor 800 Mg/200 Ml IVPB Q6H PRN Breakthrough Pain Rated 1-3 or NPO Piperacillin/Tazobactam/Dextrose 3.375 gm in 50 mls @ 100 mls/hr 04/03/25 22:00 04/04/25 02:59 Zosyn 3.375 Gm/Ns 50 Ml IVPB 100 mls/hr Q6H LESLIE Administration Irbesartan 150 mg 04/03/25 09:00 04/04/25 08:29 Irbesartan 150 Mg Tablet PO 150 mg DAILY LESLIE Administration Levothyroxine Sodium 25 mcg 04/03/25 06:30 04/04/25 05:29 Levothyroxine Sodium 25 Mcg Tablet PO 25 mcg DAILY@0630 LESLIE Administration Naloxone HCl 0.1 mg 04/03/25 21:12 Naloxone Hcl 0.4 Mg/Ml Vial IV PUSH Q2M PRN Opiate Reversal Ondansetron HCl 4 mg 04/02/25 12:32 Ondansetron Inj 4 Mg/2 Ml Vial IV PUSH Q4H PRN Nausea Oxycodone/Acetaminophen 1 tablet 04/03/25 21:12 04/04/25 08:08 Oxycodone/Acetaminophen (*Crx) 5-325 Mg Tablet PO 1 tablet Q4H PRN Administration Pain Rated 4-6 Radiology Results: ITS Impressions Abdomen/Pelvis CT 04/02/25 09:48 Impression: Possible cystitis. Correlate with urinalysis. Mild mesenteric panniculitis. Cholelithiasis with contracted gallbladder and possible mild wall thickening but no acute inflammatory change. Correlate for chronic cholecystitis. Upper Quadrant Ultrasound 04/02/25 10:50 IMPRESSION: 1. Positive sonographic Quintero's sign but with persistently decompressed gallbladder arguing against acute cholecystitis. Gallstones seen on CT are unable to be visualized. Chest X-Ray 04/02/25 11:01 Impression: Normal chest. Hepatobiliary Scan Nuclear Medicine 04/02/25 16:47 IMPRESSION: 1. Delayed activity clearance from the blood pool and significantly delayed activity excretion from the liver with the majority of activity still present within the liver on the 4 hour delayed imaging consistent with likely hepatocellular dysfunction. No evident acute relation of activity in the common bile duct or dilation of the bile duct on the prior CT are also imaging to suggest biliary obstruction. MRCP 04/03/25 08:17 IMPRESSION: 1. Cholelithiasis and likely choledocholithiasis but without evident intra-axial hepatic biliary ductal dilation either in the current study or the prior CT or ultrasound imaging to suggest significant biliary obstruction. 2. Minimal amount of pericholecystic fluid which could be due to acute cholecystitis or more likely due to other liver disease given that there is no associated gallbladder wall thickening at that the cystic duct does not appear obstructed given the recent decompressed state with interval filling of the gallbladder on subsequent ultrasound and with activity on HIDA scan extending into the gallbladder. 3. 1.5 cm ill-defined region enhancement in the right hepatic lobe which could be related to neoplasm with some imaging features suggestive of cholangiocarcinoma. There are however some atypical features such as periportal edema and subtle parenchymal edema in the surrounding right hepatic lobe and this could also be infectious in etiology such as due to focal hepatitis or ascending cholangitis without evident hepatic abscess. It is unclear whether this lesion would be discernible by either ultrasound or noncontrast CT to allow for biopsy with a reasonable degree of diagnostic certainty. Could also consider short-term follow-up pre and postcontrast MRI. Cholangiogram,Operative 04/04/25 06:46 IMPRESSION: 1. Subtle 4-5 mm lucent filling defect in the distal common bile duct suspicious for obstructing choledocholithiasis with no evident contrast extending to the duodenum. Quality VTE Prophylaxis VTE prophylaxis: mechanical ordered and pharmacologic ordered (lovenox)
[2025-04-04 09:34] LABS: Hematocrit 37.1 % (37.0-47.0); Mean Corpuscular HGB Conc 32.3 g/dl (32-36); Mean Corpuscular Hemoglobin 29.8 pg (26-34); Mean Corpuscular Volume 92.1 fl (80-100); Mean Platelet Volume 9.3 fl (7.4-10.4); Platelet Count Result 354 k/mm3 (150-375); Red Blood Count 4.03 M/mm3 (4.2-5.4)
[2025-04-04 09:45] LABS: Alanine Aminotransferase 179 U/L (6-35); Albumin Level 3.8 g/dL (3.5-5.1); Alkaline Phosphatase 145 U/L (38-126); Anion Gap 9 mmol/L (4-12); Aspartate Amino Transferase 67 U/L (14-36); Bilirubin,Total 1.2 mg/dL (0.2-1.3); Blood Urea Nitrogen 10 mg/dL (7-17); Calcium 8.4 mg/dL (8.4-10.2); Carbon Dioxide 25 mmol/L (22-30); Chloride 98 mmol/L (98-107); Estimated CRCL calculation 58 ml/min; Estimated Glomerular Filt Rate > 60; Glucose 148 mg/dL (65-110); Potassium 4.1 mmol/L (3.4-5.0); Sodium 132 mmol/L (137-145)
--- NOTE | 2025-04-04 13:38 | WPDGIPROGNO ---
Progress Note: A&P Assessment and Plan (1) Cholelithiasis: Qualifiers: Cholelithiasis location: gallbladder Cholecystitis presence: with cholecystitis Cholecystitis acuity: acute and chronic Biliary obstruction: with biliary obstruction Qualified Code(s): K80.13 - Calculus of gallbladder with acute and chronic cholecystitis with obstruction Code(s): K80.20 - Calculus of gallbladder without cholecystitis without obstruction Status: Chronic Assessment and Plan: The patient is progressing well in the immediate postoperative phase. The cholangiogram's limited contrast passage to the duodenum is concerning for potential obstruction, though inflammation or sphincter of Oddi spasm remain possibilities. We will closely observe her biochemical trends and proceed with early ERCP next week if there is a lack of improvement or worsening of these parameters. Subjective Date/time seen: 04/04/25 13:38 Interval history: The patient feels well, no abdominal pain, no fever. Liver biochemistry trending down after laparoscopic cholecystectomy. Intraoperative cholangiogram shows slow passage of contrast to the duodenum and a subtle radiolucency In the distal common bile duct suggesting the presence of a stone but not definitely. Exam Narrative: AF HR General: female in no acute respiratory distress who is nontoxic appearing, lying semi recumbent in bed. HEENT: Normocephalic. Atraumatic. Extraocular movement intact. Sclera clear and anicteric. No facial asymmetry. Chest: Lungs are clear to auscultation bilaterally. No wheezes or crackles. CV: Heart was regular rate and rhythm. S1-S2. No murmurs, gallops, or rubs. Abd: Abdomen was soft. Tender. Nondistended. Positive bowel sounds. Ext: No clubbing, cyanosis, or edema. 2+ DP pulses bilaterally. Neuro: Patient is alert and oriented x4. Speech is clear. Objective Data Vital Signs Vital Signs: Vital Signs - 24 hr 04/03/25 14:00 04/03/25 15:04 04/03/25 20:20 Temperature 98.4 F 99.0 F 98.9 F Pulse Rate 68 76 72 Respiratory Rate 16 16 13 Blood Pressure 115/56 L 129/55 L 111/65 Pulse Oximetry 99 94 93 Oxygen Delivery Room Air Simple Face Mask Oxygen Flow Rate 8 04/03/25 20:30 04/03/25 20:45 04/03/25 21:00 Temperature Pulse Rate 60 63 65 Respiratory Rate 13 15 12 Blood Pressure 124/91 H 120/80 117/66 Pulse Oximetry 98 91 94 Oxygen Delivery Simple Face Mask Nasal Cannula Nasal Cannula Oxygen Flow Rate 8 3 3 04/03/25 21:12 04/03/25 22:15 04/03/25 22:25 Temperature 97.1 F L Pulse Rate 60 62 64 Respiratory Rate 16 16 16 Blood Pressure 122/81 Pulse Oximetry 97 Oxygen Delivery Oxygen Flow Rate 04/03/25 22:57 04/04/25 02:35 04/04/25 02:45 Temperature 98.0 F 97.2 F L Pulse Rate 66 60 61 Respiratory Rate 16 15 18 Blood Pressure 111/56 L 139/72 Pulse Oximetry 96 100 Oxygen Delivery Oxygen Flow Rate 04/04/25 02:45 04/04/25 06:48 04/04/25 07:33 Temperature 97.2 F L Pulse Rate 63 57 L 62 Respiratory Rate 15 20 16 Blood Pressure 117/60 Pulse Oximetry 91 Oxygen Delivery Oxygen Flow Rate 04/04/25 07:51 04/04/25 12:00 Temperature 96.0 F L 97.2 F L Pulse Rate 71 61 Respiratory Rate 18 20 Blood Pressure 124/50 L 121/69 Pulse Oximetry 94 93 Oxygen Delivery Oxygen Flow Rate Intake/Output Intake/Output: Intake & Output 04/01/25 04/02/25 04/03/25 04/04/25 23:59 23:59 23:59 23:59 Intake Total 1390 500 630 Output Total 300 300 100 Balance 1090 200 530 Meds/Results Medications: Active Medications Generic Name Dose Route Start Last Admin Trade Name Freq PRN Reason Stop Dose Admin Acetaminophen 500 mg 04/03/25 21:12 Acetaminophen 500 Mg Tablet PO Q6H PRN Pain Rated 1-3 Albuterol/Ipratropium 3 ml 04/02/25 14:00 04/04/25 07:33 Ipratropium 0.5 Mg/Albuterol Sulfate 2.5 Mg Ampul.Neb 3 Ml INHALATION 3 ml Q6HRT AMANDA Administration Amiodarone HCl 50 mg 04/03/25 09:00 04/04/25 08:33 Amiodarone Hcl 50 Mg Tablet PO 50 mg DAILY AMANDA Administration Docusate Sodium 100 mg 04/02/25 12:46 Docusate Sodium 100 Mg Capsule PO Q12H PRN Constipation Enoxaparin Sodium 40 mg 04/04/25 09:00 04/04/25 08:32 Enoxaparin 40 Mg/0.4 Ml Syringe SUB-Q 40 mg DAILY [facility] Administration Ergocalciferol 50,000 units 04/03/25 09:00 04/03/25 09:15 Ergocalciferol 50,000 Units Capsule PO Not Given WEEKLY [facility] Fentanyl Citrate 12.5 mcg 04/03/25 21:12 Fentanyl Citrate Inj (*Crx) 100 Mcg/2 Ml Vial IV PUSH Q2H PRN Breakthrough Pain Rated 4-6 or NPO Fentanyl Citrate 25 mcg 04/03/25 21:12 04/04/25 00:16 Fentanyl Citrate Inj (*Crx) 100 Mcg/2 Ml Vial IV PUSH 25 mcg Q2H PRN Administration Breakthrough Pain Rated 7-10 or NPO Ibuprofen 800 mg in 200 mls @ 400 mls/hr 04/03/25 21:12 Caldolor 800 Mg/200 Ml IVPB Q6H PRN Breakthrough Pain Rated 1-3 or NPO Piperacillin/Tazobactam/Dextrose 3.375 gm in 50 mls @ 100 mls/hr 04/03/25 22:00 04/04/25 10:34 Zosyn 3.375 Gm/Ns 50 Ml IVPB 100 mls/hr Q6H [facility] Administration Irbesartan 150 mg 04/03/25 09:00 04/04/25 08:29 Irbesartan 150 Mg Tablet PO 150 mg DAILY [facility] Administration Levothyroxine Sodium 25 mcg 04/03/25 06:30 04/04/25 05:29 Levothyroxine Sodium 25 Mcg Tablet PO 25 mcg DAILY@0630 [facility] Administration Naloxone HCl 0.1 mg 04/03/25 21:12 Naloxone Hcl 0.4 Mg/Ml Vial IV PUSH Q2M PRN Opiate Reversal Ondansetron HCl 4 mg 04/02/25 12:32 Ondansetron Inj 4 Mg/2 Ml Vial IV PUSH Q4H PRN Nausea Oxycodone/Acetaminophen 1 tablet 04/03/25 21:12 04/04/25 08:08 Oxycodone/Acetaminophen (*Crx) 5-325 Mg Tablet PO 1 tablet Q4H PRN Administration Pain Rated 4-6 Radiology Results: ITS Impressions Abdomen/Pelvis CT 04/02/25 09:48 Impression: Possible cystitis. Correlate with urinalysis. Mild mesenteric panniculitis. Cholelithiasis with contracted gallbladder and possible mild wall thickening but no acute inflammatory change. Correlate for chronic cholecystitis. Upper Quadrant Ultrasound 04/02/25 10:50 IMPRESSION: 1. Positive sonographic Quintero's sign but with persistently decompressed gallbladder arguing against acute cholecystitis. Gallstones seen on CT are unable to be visualized. Chest X-Ray 04/02/25 11:01 Impression: Normal chest. Hepatobiliary Scan Nuclear Medicine 04/02/25 16:47 IMPRESSION: 1. Delayed activity clearance from the blood pool and significantly delayed activity excretion from the liver with the majority of activity still present within the liver on the 4 hour delayed imaging consistent with likely hepatocellular dysfunction. No evident acute relation of activity in the common bile duct or dilation of the bile duct on the prior CT are also imaging to suggest biliary obstruction. MRCP 04/03/25 08:17 IMPRESSION: 1. Cholelithiasis and likely choledocholithiasis but without evident intra-axial hepatic biliary ductal dilation either in the current study or the prior CT or ultrasound imaging to suggest significant biliary obstruction. 2. Minimal amount of pericholecystic fluid which could be due to acute cholecystitis or more likely due to other liver disease given that there is no associated gallbladder wall thickening at that the cystic duct does not appear obstructed given the recent decompressed state with interval filling of the gallbladder on subsequent ultrasound and with activity on HIDA scan extending into the gallbladder. 3. 1.5 cm ill-defined region enhancement in the right hepatic lobe which could be related to neoplasm with some imaging features suggestive of cholangiocarcinoma. There are however some atypical features such as periportal edema and subtle parenchymal edema in the surrounding right hepatic lobe and this could also be infectious in etiology such as due to focal hepatitis or ascending cholangitis without evident hepatic abscess. It is unclear whether this lesion would be discernible by either ultrasound or noncontrast CT to allow for biopsy with a reasonable degree of diagnostic certainty. Could also consider short-term follow-up pre and postcontrast MRI. Cholangiogram,Operative 04/04/25 06:46 IMPRESSION: 1. Subtle 4-5 mm lucent filling defect in the distal common bile duct suspicious for obstructing choledocholithiasis with no evident contrast extending to the duodenum. Labs Labs: Laboratory Results - last 24 hr 04/04/25 09:13 WBC 14.0 H RBC 4.03 L Hgb 12.0 Hct 37.1 MCV 92.1 MCH 29.8 MCHC 32.3 RDW 13.0 Plt Count 354 MPV 9.3 Sodium 132 L Potassium 4.1 Chloride 98 Carbon Dioxide 25 Anion Gap 9 BUN 10 Creatinine 0.73 Estim Creat Clear Calc 58 Estimated GFR > 60 Glucose 148 H Calcium 8.4 Total Bilirubin 1.2 AST 67 H ALT 179 H Alkaline Phosphatase 145 H Total Protein 7.0 Albumin 3.8
--- NOTE | 2025-04-04 15:17 | P.PNGS_ITS ---
Progress Note: A&P Assessment and Plan (1) Chronic cholecystitis due to gallbladder calculus with obstruction: Code(s): K80.11 - Calculus of gallbladder with chronic cholecystitis with obstruction Status: Acute Assessment and Plan: Doing well postop day 1. Right upper quadrant pain is much better, nearly gone. Her appetite is good and she has been eating today. Encouraged to ambulate with assistance. Continue antibiotics and follow closely. (2) Abnormal cholangiogram: Code(s): R93.2 - Abnormal findings on diagnostic imaging of liver and biliary tract Status: Acute Assessment and Plan: No duodenal filling. GI aware and following (3) Elevated liver enzymes: Code(s): R74.8 - Abnormal levels of other serum enzymes Status: Acute Assessment and Plan: Despite abnormal cholangiogram, elevated liver enzymes have markedly improved since surgery yesterday. (4) Bacteremia due to coliform bacteria: Code(s): R78.81 - Bacteremia; B96.89 - Other specified bacterial agents as the cause of diseases classified elsewhere Status: Acute Assessment and Plan: Blood cultures from 04/02/2025 are positive for E coli. She has also had a urinary tract infection with culture clipped it on 04/02/2025 positive for E coli. Her gallbladder was definitely infected enough to cause bacteremia and E coli is a common organism to cause cholecystitis. Not sure if bacteremia from her gallbladder or from her urine. Subjective Subjective Date/Time Seen: 04/04/25 15:17 Post Op day: 1 Patient reports: no new complaints, feels better, pain is less, tolerating liquids well, voiding w/o difficulty and afebrile Exam GI: Inspection: non-distended, incision (healing well) and obesity GI Palp: Yes abdominal tenderness and Yes Soft to palpation Objective Data Vital Signs Vital Signs: Vital Signs - 24 hr 04/03/25 20:20 04/03/25 20:30 04/03/25 20:45 Temperature 37.2 C Pulse Rate 72 60 63 Respiratory Rate 13 13 15 Blood Pressure 111/65 124/91 H 120/80 Pulse Oximetry 93 98 91 Oxygen Delivery Simple Face Mask Simple Face Mask Nasal Cannula Oxygen Flow Rate 8 8 3 04/03/25 21:00 04/03/25 21:12 04/03/25 22:15 Temperature 36.2 C L Pulse Rate 65 60 62 Respiratory Rate 12 16 16 Blood Pressure 117/66 122/81 Pulse Oximetry 94 97 Oxygen Delivery Nasal Cannula Oxygen Flow Rate 3 04/03/25 22:25 04/03/25 22:57 04/04/25 02:35 Temperature 36.7 C Pulse Rate 64 66 60 Respiratory Rate 16 16 15 Blood Pressure 111/56 L Pulse Oximetry 96 Oxygen Delivery Oxygen Flow Rate 04/04/25 02:45 04/04/25 02:45 04/04/25 06:48 Temperature 36.2 C L 36.2 C L Pulse Rate 61 63 57 L Respiratory Rate 18 15 20 Blood Pressure 139/72 117/60 Pulse Oximetry 100 91 Oxygen Delivery Oxygen Flow Rate 04/04/25 07:33 04/04/25 07:33 04/04/25 07:40 Temperature Pulse Rate 62 62 Respiratory Rate 16 16 Blood Pressure Pulse Oximetry 92 Oxygen Delivery Room Air Oxygen Flow Rate 04/04/25 07:51 04/04/25 12:00 04/04/25 13:42 Temperature 35.6 C L 36.2 C L Pulse Rate 71 61 64 Respiratory Rate 18 20 16 Blood Pressure 124/50 L 121/69 Pulse Oximetry 94 93 Oxygen Delivery Oxygen Flow Rate 04/04/25 13:49 Temperature Pulse Rate 65 Respiratory Rate 16 Blood Pressure Pulse Oximetry Oxygen Delivery Oxygen Flow Rate Intake/Output Intake/Output: Intake & Output 04/01/25 04/02/25 04/03/25 04/04/25 23:59 23:59 23:59 23:59 Intake Total 1390 500 630 Output Total 300 300 100 Balance 1090 200 530 Meds/Results Medications: Active Medications Generic Name Dose Route Start Last Admin Trade Name Freq PRN Reason Stop Dose Admin Acetaminophen 500 mg 04/03/25 21:12 Acetaminophen 500 Mg Tablet PO Q6H PRN Pain Rated 1-3 Albuterol/Ipratropium 3 ml 04/02/25 14:00 04/04/25 13:42 Ipratropium 0.5 Mg/Albuterol Sulfate 2.5 Mg Ampul.Neb 3 Ml INHALATION 3 ml Q6HRT AMANDA Administration Amiodarone HCl 50 mg 04/03/25 09:00 04/04/25 08:33 Amiodarone Hcl 50 Mg Tablet PO 50 mg DAILY [facility] Administration Docusate Sodium 100 mg 04/02/25 12:46 Docusate Sodium 100 Mg Capsule PO Q12H PRN Constipation Enoxaparin Sodium 40 mg 04/04/25 09:00 04/04/25 08:32 Enoxaparin 40 Mg/0.4 Ml Syringe SUB-Q 40 mg DAILY [facility] Administration Ergocalciferol 50,000 units 04/03/25 09:00 04/03/25 09:15 Ergocalciferol 50,000 Units Capsule PO Not Given WEEKLY [facility] Famotidine 20 mg 04/04/25 21:00 Famotidine 20 Mg Tablet PO Q12HR [facility] Famotidine 20 mg 04/04/25 15:16 Famotidine 20 Mg Tablet PO 04/04/25 15:17 ONCE ONE Fentanyl Citrate 12.5 mcg 04/03/25 21:12 Fentanyl Citrate Inj (*Crx) 100 Mcg/2 Ml Vial IV PUSH Q2H PRN Breakthrough Pain Rated 4-6 or NPO Fentanyl Citrate 25 mcg 04/03/25 21:12 04/04/25 00:16 Fentanyl Citrate Inj (*Crx) 100 Mcg/2 Ml Vial IV PUSH 25 mcg Q2H PRN Administration Breakthrough Pain Rated 7-10 or NPO Ibuprofen 800 mg in 200 mls @ 400 mls/hr 04/03/25 21:12 Caldolor 800 Mg/200 Ml IVPB Q6H PRN Breakthrough Pain Rated 1-3 or NPO Meropenem 1 gm in 100 mls @ 200 mls/hr 04/04/25 14:30 IVPB Q8HR [facility] Irbesartan 150 mg 04/03/25 09:00 04/04/25 08:29 Irbesartan 150 Mg Tablet PO 150 mg DAILY [facility] Administration Levothyroxine Sodium 25 mcg 04/03/25 06:30 04/04/25 05:29 Levothyroxine Sodium 25 Mcg Tablet PO 25 mcg DAILY@0630 [facility] Administration Naloxone HCl 0.1 mg 04/03/25 21:12 Naloxone Hcl 0.4 Mg/Ml Vial IV PUSH Q2M PRN Opiate Reversal Ondansetron HCl 4 mg 04/02/25 12:32 Ondansetron Inj 4 Mg/2 Ml Vial IV PUSH Q4H PRN Nausea Oxycodone/Acetaminophen 1 tablet 04/03/25 21:12 04/04/25 08:08 Oxycodone/Acetaminophen (*Crx) 5-325 Mg Tablet PO 1 tablet Q4H PRN Administration Pain Rated 4-6 Radiology Results: ITS Impressions Abdomen/Pelvis CT 04/02/25 09:48 Impression: Possible cystitis. Correlate with urinalysis. Mild mesenteric panniculitis. Cholelithiasis with contracted gallbladder and possible mild wall thickening but no acute inflammatory change. Correlate for chronic cholecystitis. Upper Quadrant Ultrasound 04/02/25 10:50 IMPRESSION: 1. Positive sonographic Quintero's sign but with persistently decompressed gallbladder arguing against acute cholecystitis. Gallstones seen on CT are unable to be visualized. Chest X-Ray 04/02/25 11:01 Impression: Normal chest. Hepatobiliary Scan Nuclear Medicine 04/02/25 16:47 IMPRESSION: 1. Delayed activity clearance from the blood pool and significantly delayed activity excretion from the liver with the majority of activity still present within the liver on the 4 hour delayed imaging consistent with likely hepatocellular dysfunction. No evident acute relation of activity in the common bile duct or dilation of the bile duct on the prior CT are also imaging to suggest biliary obstruction. MRCP 04/03/25 08:17 IMPRESSION: 1. Cholelithiasis and likely choledocholithiasis but without evident intra-axial hepatic biliary ductal dilation either in the current study or the prior CT or ultrasound imaging to suggest significant biliary obstruction. 2. Minimal amount of pericholecystic fluid which could be due to acute cholecystitis or more likely due to other liver disease given that there is no associated gallbladder wall thickening at that the cystic duct does not appear obstructed given the recent decompressed state with interval filling of the gallbladder on subsequent ultrasound and with activity on HIDA scan extending into the gallbladder. 3. 1.5 cm ill-defined region enhancement in the right hepatic lobe which could be related to neoplasm with some imaging features suggestive of cholangiocarcinoma. There are however some atypical features such as periportal edema and subtle parenchymal edema in the surrounding right hepatic lobe and this could also be infectious in etiology such as due to focal hepatitis or ascending cholangitis without evident hepatic abscess. It is unclear whether this lesion would be discernible by either ultrasound or noncontrast CT to allow for biopsy with a reasonable degree of diagnostic certainty. Could also consider short-term follow-up pre and postcontrast MRI. Cholangiogram,Operative 04/04/25 06:46 IMPRESSION: 1. Subtle 4-5 mm lucent filling defect in the distal common bile duct suspicious for obstructing choledocholithiasis with no evident contrast extending to the duodenum. Labs Labs: Laboratory Results - last 24 hr 04/04/25 09:13 WBC 14.0 H RBC 4.03 L Hgb 12.0 Hct 37.1 MCV 92.1 MCH 29.8 MCHC 32.3 RDW 13.0 Plt Count 354 MPV 9.3 Sodium 132 L Potassium 4.1 Chloride 98 Carbon Dioxide 25 Anion Gap 9 BUN 10 Creatinine 0.73 Estim Creat Clear Calc 58 Estimated GFR > 60 Glucose 148 H Calcium 8.4 Total Bilirubin 1.2 AST 67 H ALT 179 H Alkaline Phosphatase 145 H Total Protein 7.0 Albumin 3.8
[2025-04-04] MEDS: MEROPENEM 1 GM/NS 100 ML 1 GM/100 ML BAG IVPB ×2 (15:44→21:36)
[2025-04-04] MEDS: FAMOTIDINE 20 MG TABLET PO ×2 (15:44→21:36)
[2025-04-05] VITALS (11 sets, daily range): BP systolic 127–151; BP diastolic 50–69; PULSE 69–88; RESP 16–20; TEMP 35.7–36.8; O2SAT 93–100
[2025-04-05] MEDS: IPRATROPIUM 0.5 MG/ALBUTEROL SULFATE 2.5 MG AMPUL.NEB 3 ML INHALATION ×4 (02:31→20:50)
[2025-04-05] MEDS: MEROPENEM 1 GM/NS 100 ML 1 GM/100 ML BAG IVPB ×3 (05:48→21:27)
[2025-04-05] MEDS: LEVOTHYROXINE SODIUM 25 MCG TABLET PO (05:48)
[2025-04-05 06:38] LABS: Alanine Aminotransferase 122 U/L (6-35); Albumin Level 3.3 g/dL (3.5-5.1); Alkaline Phosphatase 120 U/L (38-126); Anion Gap 3 mmol/L (4-12); Aspartate Amino Transferase 42 U/L (14-36); Bilirubin,Total 0.7 mg/dL (0.2-1.3); Blood Urea Nitrogen 8 mg/dL (7-17); Calcium 8.4 mg/dL (8.4-10.2); Carbon Dioxide 33 mmol/L (22-30); Chloride 98 mmol/L (98-107); Estimated CRCL calculation 51 ml/min; Estimated Glomerular Filt Rate > 60; Glucose 119 mg/dL (65-110); Potassium 3.6 mmol/L (3.4-5.0); Sodium 134 mmol/L (137-145)
[2025-04-05 07:01] LABS: Hematocrit 34.7 % (37.0-47.0); Hemoglobin 10.9 g/dL (12.0-15.0); Mean Corpuscular HGB Conc 31.4 g/dl (32-36); Mean Corpuscular Hemoglobin 29.9 pg (26-34); Mean Corpuscular Volume 95.1 fl (80-100); Mean Platelet Volume 9.7 fl (7.4-10.4); Platelet Count Result 346 k/mm3 (150-375); Red Blood Count 3.65 M/mm3 (4.2-5.4); Red Cell Distribution Width 13.2 % (11.5-14.5); White Blood Count 12.4 K/mm3 (4.5-10.0)
--- NOTE | 2025-04-05 07:17 | P.PNIM_ITS ---
Progress Note: A&P Assessment and Plan (1) Sepsis: Qualifiers: Sepsis acute organ dysfunction status: without acute organ dysfunction Sepsis type: sepsis due to unspecified organism Qualified Code(s): A41.9 - S epsis, unspecified organism Code(s): A41.9 - Sepsis, unspecified organism Status: Acute Assessment and Plan: Meets SIRS criteria: WBC and HR - lactic acid: 1.8 - Given 500 mL bolus, no further fluids due to CHF history. - suspected source: cholelithiasis vs transaminitis vs UTI - blood cultures drawn on 04/02: Ecoli - Urine culture collected on 04/02: Ecoli ESBL resistance - CXR unremarkable - Antibiotics: Zosyn started on 04/02, transitioned to meropenem 04/04 given sensitivities after discussing with [facility] pharm. When able to transition to PO, base the completion date off the start of meropenem for 7 day course. - Abdomen/pelvis CT: possible cystitis, mild mesenteric panniculitis, cholelithiasis with contracted gallbladder and possible mild wall thickening but no acute inflammatory change - RUQ US: Positive murphys sign but with persistently decompressed gallbladder arguing against acute cholecystitis. Gallstones seen on CT are unable to be visualized. - Hepatobiliary scan: Delayed activity clearance from the blood pool and significantly delayed activity excretion from the liver with the majority of activity still present within the liver on the 4 hour delayed imaging consistent with likely hepatocellular dysfunction. No evident acute relation of activity in the common bile duct or dilation of the bile duct on the prior CT are also imaging to suggest biliary obstruction. Remains hemodynamically stable. Continue to monitor. See plan below. (2) Cholelithiasis: Qualifiers: Biliary obstruction: with biliary obstruction Cholecystitis acuity: acute and chronic Cholecystitis presence: with cholecystitis Cholelithiasis location: gallbladder Qualified Code(s): K80.13 - Calculus of gallbladder with acute and chronic cholecystitis with obstruction Code(s): K80.20 - Calculus of gallbladder without cholecystitis without obstruction Status: Chronic Assessment and Plan: - Abdomen/pelvis CT: possible cystitis, mild mesenteric panniculitis, cholelithiasis with contracted gallbladder and possible mild wall thickening but no acute inflammatory change - RUQ US: Positive murphys sign but with persistently decompressed gallbladder arguing against acute cholecystitis. Gallstones seen on CT are unable to be visualized. - Hepatobiliary scan: Delayed activity clearance from the blood pool and sig nificantly delayed activity excretion from the liver with the majority of activity still present within the liver on the 4 hour delayed imaging consistent with likely hepatocellular dysfunction. No evident acute relation of activity in the common bile duct or dilation of the bile duct on the prior CT are also imaging to suggest biliary obstruction. - Gentle IV fluid resuscitation given at 500 ml x 1 due to CHF history - Antibiotics: Zosyn started on 04/02, transitioned to meropenem 04/04 given sensitivities after discussing with [facility] pharm. When able to transition to PO, base the completion date off the start of meropenem for 7 day course. Likely able to start Levaquin and Flagyl at discharge. - Diet: low fat tolerating well. - Transaminitis noted, likely correlating with cholelithiasis. Downtrending. Lipase within normal limits. - Monitor vital signs, I and O's, check stool output, neuro status and patient is a fall risk - Monitor serum electrolytes and CBC - Monitor lactic acid - Consult general surgery and GI for further evaluation, appreciate assistance and recommendation s/p for laparoscopic cholecystectomy with intraoperative cholangiogram on 04/[address] Cage. (3) Transaminitis: Code(s): R74.01 - Elevation of levels of liver transaminase levels Status: Acute Assessment and Plan: LFTs on admission: Total bilirubin 3.6, AST 396, ALT 385, alk-phos 242. Hepatitis panel negative Suspect transaminitis secondary to cholelithiasis. Downtrending on am labs, continue to trend. Tot bili has returned WNL. (4) Acute UTI: Code(s): N39.0 - Urinary tract infection, site not specified Status: Acute Assessment and Plan: - UA: clear appearance with positive nitrates, 1+ leukocytes, 6-10 WBC, 4+ bacteria and occasional squamous cells. - Urine culture collected on 04/02: Ecoli with ESBL - No previous micro to be reviewed - Antibiotics: Zosyn started on 04/02, transitioned to meropenem 04/04 given sensitivities after discussing with [facility] pharm. When able to transition to PO, base the completion date off the start of meropenem for 7 day course. Likely able to start levaquin and flagyl at time of discharge. (5) Hyponatremia: Code(s): E87.1 - Hypo-osmolality and hyponatremia Status: Acute Assessment and Plan: Intermittent/chronic. Sodium 130 on admission. Given 500 mL bolus of NS. Improved to 132 on am labs. Resolved. (6) Emphysema lung: Qualifiers: Emphysema type: centrilobular Qualified Code(s): J43.2 - Centrilobular emphysema Code(s): J43.9 - Emphysema, unspecified Status: Chronic Assessment and Plan: Mild hypoxia upon arrival, 88-90% on room air on admission Weaned back to room air. DuoNebs [facility]. CXR unremarkable with no evidence of pneumonia or pulmonary edema. Continue home medications as appropriate. (7) Chronic diastolic (congestive) heart failure: Code(s): I50.32 - Chronic diastolic (congestive) heart failure Status: Chronic Assessment and Plan: No evidence of pulmonary edema on CXR. Does not appear in acute exacerbation. BNP 458, within normal limits for age. Monitor I&Os and daily weights. Echo 12/26/23 showed LVEF 60-65% with grade I diastolic dysfunction (8) PAF (paroxysmal atrial fibrillation): Code(s): I48.0 - Paroxysmal atrial fibrillation Status: Chronic Assessment and Plan: History of paroxysmal AFib. Initial EKG showed sinus rhythm with first-degree AV block and borderline left axis deviation. Continue amiodarone 50 mg daily. Hold Eliquis, resume tomorrow per surgery (9) HTN (hypertension): Qualifiers: Hypertension type: essential hypertension Qualified Code(s): I10 - Essential (primary) hypertension Code(s): I10 - Essential (primary) hypertension Status: Chronic Assessment and Plan: Chronic, continue home medications as appropriate. - Irbesartan 150 mg daily - blood pressures remain stable, continue to monitor. Time Spent With Patient Time with patient: 25 - 35 minutes Subjective Date/time seen: 04/05/25 07:17 Interval history: 74 y/o F with PMH of pAifb, SIADH, PAD, HLD, HTN, osteoporosis, smoker, and CHF presents to the hospital for multiple medical complaints including generalized weakness, nausea, vomiting, headache, fever, chills, abdominal tenderness in the epigastric/RUQ region, and shortness of breath. Patient is pleasant sitting up comfortably in bed with family at bedside. She continues to endorse slight incisional pain but did is tolerating a diet on denies any nausea and vomiting. She has had a bowel movement but is passing gas. She has no other complaints denying chest pain, shortness of breath, palpitations. Review of Systems Review of Systems: All systems reviewed & are unremarkable except as noted in HPI and below Exam Narrative: AF HR 70 RR 20 SpO2 96 BP 139/69 General: female in no acute respiratory distress who is nontoxic appearing, sitting up in bed. HEENT: Normocephalic. Atraumatic. Extraocular movement intact. Sclera clear and anicteric. No facial asymmetry. Chest: Lungs are slightly diminished to lower bases on auscultation bilaterally. No wheezes or crackles. CV: Heart was regular rate and rhythm. S1-S2. No murmurs, gallops, or rubs. Abd: Abdomen was soft. Slight tenderness around the incisions. Nondistended. Positive bowel sounds. Well-healing laparoscopic incisions without signs of infection. Objective Data Vital Signs Vital Signs: Vital Signs - 24 hr 04/04/25 07:33 04/04/25 07:33 04/04/25 07:40 Temperature Pulse Rate 62 62 Respiratory Rate 16 16 Blood Pressure Pulse Oximetry 92 Oxygen Delivery Room Air Fraction of Inspired Oxygen 04/04/25 07:51 04/04/25 12:00 04/04/25 13:42 Temperature 96.0 F L 97.2 F L Pulse Rate 71 61 64 Respiratory Rate 18 20 16 Blood Pressure 124/50 L 121/69 Pulse Oximetry 94 93 Oxygen Delivery Fraction of Inspired Oxygen 04/04/25 13:49 04/04/25 16:00 04/04/25 20:00 Temperature 97.4 F L Pulse Rate 65 62 Respiratory Rate 16 13 Blood Pressure 140/70 Pulse Oximetry 93 Oxygen Delivery Room Air Fraction of Inspired Oxygen 04/04/25 20:49 04/04/25 20:49 04/04/25 21:07 Temperature Pulse Rate 72 78 70 Respiratory Rate 20 20 20 Blood Pressure Pulse Oximetry 92 Oxygen Delivery Room Air Fraction of Inspired Oxygen 21 04/04/25 21:59 04/05/25 02:32 04/05/25 02:51 Temperature 97.8 F Pulse Rate 73 88 85 Respiratory Rate 18 20 20 Blood Pressure 114/49 L Pulse Oximetry 92 Oxygen Delivery Fraction of Inspired Oxygen 04/05/25 06:00 Temperature 97.6 F Pulse Rate 69 Respiratory Rate 20 Blood Pressure 127/50 L Pulse Oximetry 93 Oxygen Delivery Fraction of Inspired Oxygen Intake/Output Intake/Output: Intake & Output 04/02/25 04/03/25 04/04/25 04/05/25 23:59 23:59 23:59 23:59 Intake Total 6405 647 1709 200 Output Total 300 300 500 150 Balance 1090 200 730 50 Meds/Results Medications: Active Medications Generic Name Dose Route Start Last Admin Trade Name Freq PRN Reason Stop Dose Admin Acetaminophen 500 mg 04/03/25 21:12 Acetaminophen 500 Mg Tablet PO Q6H PRN Pain Rated 1-3 Albuterol/Ipratropium 3 ml 04/02/25 14:00 04/05/25 02:31 Ipratropium 0.5 Mg/Albuterol Sulfate 2.5 Mg Ampul.Neb 3 Ml INHALATION 3 ml Q6HRT AMANDA Administration Amiodarone HCl 50 mg 04/03/25 09:00 04/04/25 08:33 Amiodarone Hcl 50 Mg Tablet PO 50 mg DAILY AMANDA Administration Docusate Sodium 100 mg 04/02/25 12:46 Docusate Sodium 100 Mg Capsule PO Q12H PRN Constipation Enoxaparin Sodium 40 mg 04/04/25 09:00 04/04/25 08:32 Enoxaparin 40 Mg/0.4 Ml Syringe SUB-Q 40 mg DAILY AMANDA Administration Ergocalciferol 50,000 units 04/03/25 09:00 04/03/25 09:15 Ergocalciferol 50,000 Units Capsule PO Not Given WEEKLY [facility] Famotidine 20 mg 04/04/25 21:00 04/04/25 21:36 Famotidine 20 Mg Tablet PO 20 mg Q12HR AMANDA Administration Fentanyl Citrate 12.5 mcg 04/03/25 21:12 Fentanyl Citrate Inj (*Crx) 100 Mcg/2 Ml Vial IV PUSH Q2H PRN Breakthrough Pain Rated 4-6 or NPO Fentanyl Citrate 25 mcg 04/03/25 21:12 04/04/25 00:16 Fentanyl Citrate Inj (*Crx) 100 Mcg/2 Ml Vial IV PUSH 25 mcg Q2H PRN Administration Breakthrough Pain Rated 7-10 or NPO Ibuprofen 800 mg in 200 mls @ 400 mls/hr 04/03/25 21:12 Caldolor 800 Mg/200 Ml IVPB Q6H PRN Breakthrough Pain Rated 1-3 or NPO Meropenem 1 gm in 100 mls @ 200 mls/hr 04/04/25 14:30 04/05/25 05:48 IVPB 200 mls/hr Q8HR AMANDA Administration Irbesartan 150 mg 04/03/25 09:00 04/04/25 08:29 Irbesartan 150 Mg Tablet PO 150 mg DAILY AMANDA Administration Levothyroxine Sodium 25 mcg 04/03/25 06:30 04/05/25 05:48 Levothyroxine Sodium 25 Mcg Tablet PO 25 mcg DAILY@0630 AMANDA Administration Naloxone HCl 0.1 mg 04/03/25 21:12 Naloxone Hcl 0.4 Mg/Ml Vial IV PUSH Q2M PRN Opiate Reversal Ondansetron HCl 4 mg 04/02/25 12:32 Ondansetron Inj 4 Mg/2 Ml Vial IV PUSH Q4H PRN Nausea Oxycodone/Acetaminophen 1 tablet 04/03/25 21:12 04/04/25 21:35 Oxycodone/Acetaminophen (*Crx) 5-325 Mg Tablet PO 1 tablet Q4H PRN Administration Pain Rated 4-6 Radiology Results: ITS Impressions Abdomen/Pelvis CT 04/02/25 09:48 Impression: Possible cystitis. Correlate with urinalysis. Mild mesenteric panniculitis. Cholelithiasis with contracted gallbladder and possible mild wall thickening but no acute inflammatory change. Correlate for chronic cholecystitis. Upper Quadrant Ultrasound 04/02/25 10:50 IMPRESSION: 1. Positive sonographic Quintero's sign but with persistently decompressed gallbladder arguing against acute cholecystitis. Gallstones seen on CT are unable to be visualized. Chest X-Ray 04/02/25 11:01 Impression: Normal chest. Hepatobiliary Scan Nuclear Medicine 04/02/25 16:47 IMPRESSION: 1. Delayed activity clearance from the blood pool and significantly delayed activity excretion from the liver with the majority of activity still present within the liver on the 4 hour delayed imaging consistent with likely hepatocellular dysfunction. No evident acute relation of activity in the common bile duct or dilation of the bile duct on the prior CT are also imaging to suggest biliary obstruction. MRCP 04/03/25 08:17 IMPRESSION: 1. Cholelithiasis and likely choledocholithiasis but without evident intra-axial hepatic biliary ductal dilation either in the current study or the prior CT or ultrasound imaging to suggest significant biliary obstruction. 2. Minimal amount of pericholecystic fluid which could be due to acute cholecystitis or more likely due to other liver disease given that there is no associated gallbladder wall thickening at that the cystic duct does not appear obstructed given the recent decompressed state with interval filling of the gallbladder on subsequent ultrasound and with activity on HIDA scan extending in to the gallbladder. 3. 1.5 cm ill-defined region enhancement in the right hepatic lobe which could be related to neoplasm with some imaging features suggestive of cholangiocarcinoma. There are however some atypical features such as periportal edema and subtle parenchymal edema in the surrounding right hepatic lobe and this could also be infectious in etiology such as due to focal hepatitis or ascending cholangitis without evident hepatic abscess. It is unclear whether this lesion would be discernible by either ultrasound or noncontrast CT to allow for biopsy with a reasonable degree of diagnostic certainty. Could also consider short-term follow-up pre and postcontrast MRI. Cholangiogram,Operative 04/04/25 06:46 IMPRESSION: 1. Subtle 4-5 mm lucent filling defect in the distal common bile duct suspicious for obstructing choledocholithiasis with no evident contrast extending to the duodenum. Labs Labs: Laboratory Results - last 24 hr 04/04/25 04/05/25 09:13 05:22 WBC 14.0 H 12.4 H RBC 4.03 L 3.65 L Hgb 12.0 10.9 L Hct 37.1 34.7 L MCV 92.1 95.1 MCH 29.8 29.9 MCHC 32.3 31.4 L RDW 13.0 13.2 Plt Count 354 346 MPV 9.3 9.7 Sodium 132 L 134 L Potassium 4.1 3.6 Chloride 98 98 Carbon Dioxide 25 33 H Anion Gap 9 3 L BUN 10 8 Creatinine 0.73 0.84 Estim Creat Clear Calc 58 51 Estimated GFR > 60 > 60 Glucose 148 H 119 H Calcium 8.4 8.4 Total Bilirubin 1.2 0.7 AST 67 H 42 H ALT 179 H 122 H Alkaline Phosphatase 145 H 120 Total Protein 7.0 6.0 L Albumin 3.8 3.3 L Quality VTE Prophylaxis VTE prophylaxis: mechanical ordered and pharmacologic ordered (lovenox)
--- NOTE | 2025-04-05 08:31 | P.PNGI_ITS ---
Progress Note: A&P Assessment and Plan (1) Acute cholecystitis: Code(s): K81.0 - Acute cholecystitis Status: Acute Assessment and Plan: The patient is tolerating the postoperative period well. Serial laboratory values for bilirubin, AST, ALT, and alkaline phosphatase show a downward trend, reducing the possibility of residual choledocholithiasis. Blood cultures have returned positive for E. coli, and she is on day 2 of meropenem therapy. Current recommendations for bacteremia indicate a 3-5 day course of antibiotics. This was reviewed with the patient, and she has agreed to an extended hospital stay of 1-2 days to complete the intravenous antibiotic regimen. We will continue to monitor her transaminase levels and biirrubin levels while she completes antibiotic treatment in the hospital. Subjective Date/time seen: 04/05/25 08:31 Interval history: The patient feels well, no abdominal pain except for expected postoperative pain/discomfort. Tolerating food well, no fever. Blood cultures positive for E coli, susceptibility still pending. Exam Narrative: unchanged from Yesterday's. Objective Data Vital Signs Vital Signs: Vital Signs - 24 hr 04/04/25 12:00 04/04/25 13:42 04/04/25 13:49 Temperature 97.2 F L Pulse Rate 61 64 65 Respiratory Rate 20 16 16 Blood Pressure 121/69 Pulse Oximetry 93 Oxygen Delivery Fraction of Inspired Oxygen 04/04/25 16:00 04/04/25 20:00 04/04/25 20:49 Temperature 97.4 F L Pulse Rate 62 72 Respiratory Rate 13 20 Blood Pressure 140/70 Pulse Oximetry 93 Oxygen Delivery Room Air Fraction of Inspired Oxygen 04/04/25 20:49 04/04/25 21:07 04/04/25 21:59 Temperature 97.8 F Pulse Rate 78 70 73 Respiratory Rate 20 20 18 Blood Pressure 114/49 L Pulse Oximetry 92 92 Oxygen Delivery Room Air Fraction of Inspired Oxygen 21 04/05/25 02:32 04/05/25 02:51 04/05/25 06:00 Temperature 97.6 F Pulse Rate 88 85 69 Respiratory Rate 20 20 20 Blood Pressure 127/50 L Pulse Oximetry 93 Oxygen Delivery Fraction of Inspired Oxygen Intake/Output Intake/Output: Intake & Output 04/02/25 04/03/25 04/04/25 04/05/25 23:59 23:59 23:59 23:59 Intake Total 0274 284 1985 200 Output Total 300 300 500 150 Balance 1090 200 730 50 Meds/Results Medications: Active Medications Generic Name Dose Route Start Last Admin Trade Name Freq PRN Reason Stop Dose Admin Acetaminophen 500 mg 04/03/25 21:12 Acetaminophen 500 Mg Tablet PO Q6H PRN Pain Rated 1-3 Albuterol/Ipratropium 3 ml 04/02/25 14:00 04/05/25 02:31 Ipratropium 0.5 Mg/Albuterol Sulfate 2.5 Mg Ampul.Neb 3 Ml INHALATION 3 ml Q6HRT AMANDA Administration Amiodarone HCl 50 mg 04/03/25 09:00 04/04/25 08:33 Amiodarone Hcl 50 Mg Tablet PO 50 mg DAILY AMANDA Administration Docusate Sodium 100 mg 04/02/25 12:46 Docusate Sodium 100 Mg Capsule PO Q12H PRN Constipation Enoxaparin Sodium 40 mg 04/04/25 09:00 04/04/25 08:32 Enoxaparin 40 Mg/0.4 Ml Syringe SUB-Q 40 mg DAILY AMANDA Administration Ergocalciferol 50,000 units 04/03/25 09:00 04/03/25 09:15 Ergocalciferol 50,000 Units Capsule PO Not Given [facility] Famotidine 20 mg 04/04/25 21:00 04/04/25 21:36 Famotidine 20 Mg Tablet PO 20 mg Q12HR AMANDA Administration Fentanyl Citrate 12.5 mcg 04/03/25 21:12 Fentanyl Citrate Inj (*Crx) 100 Mcg/2 Ml Vial IV PUSH Q2H PRN Breakthrough Pain Rated 4-6 or NPO Fentanyl Citrate 25 mcg 04/03/25 21:12 04/04/25 00:16 Fentanyl Citrate Inj (*Crx) 100 Mcg/2 Ml Vial IV PUSH 25 mcg Q2H PRN Administration Breakthrough Pain Rated 7-10 or NPO Ibuprofen 800 mg in 200 mls @ 400 mls/hr 04/03/25 21:12 Caldolor 800 Mg/200 Ml IVPB Q6H PRN Breakthrough Pain Rated 1-3 or NPO Meropenem 1 gm in 100 mls @ 200 mls/hr 04/04/25 14:30 04/05/25 05:48 IVPB 200 mls/hr Q8HR AMANDA Administration Irbesartan 150 mg 04/03/25 09:00 04/04/25 08:29 Irbesartan 150 Mg Tablet PO 150 mg DAILY AMANDA Administration Levothyroxine Sodium 25 mcg 04/03/25 06:30 04/05/25 05:48 Levothyroxine Sodium 25 Mcg Tablet PO 25 mcg DAILY@0630 AMANDA Administration Naloxone HCl 0.1 mg 04/03/25 21:12 Naloxone Hcl 0.4 Mg/Ml Vial IV PUSH Q2M PRN Opiate Reversal Ondansetron HCl 4 mg 04/02/25 12:32 Ondansetron Inj 4 Mg/2 Ml Vial IV PUSH Q4H PRN Nausea Oxycodone/Acetaminophen 1 tablet 04/03/25 21:12 04/04/25 21:35 Oxycodone/Acetaminophen (*Crx) 5-325 Mg Tablet PO 1 tablet Q4H PRN Administration Pain Rated 4-6 Radiology Results: ITS Impressions Abdomen/Pelvis CT 04/02/25 09:48 Impression: Possible cystitis. Correlate with urinalysis. Mild mesenteric panniculitis. Cholelithiasis with contracted gallbladder and possible mild wall thickening but no acute inflammatory change. Correlate for chronic cholecystitis. Upper Quadrant Ultrasound 04/02/25 10:50 IMPRESSION: 1. Positive sonographic Quintero's sign but with persistently decompressed gallbladder arguing against acute cholecystitis. Gallstones seen on CT are unable to be visualized. Chest X-Ray 04/02/25 11:01 Impression: Normal chest. Hepatobiliary Scan Nuclear Medicine 04/02/25 16:47 IMPRESSION: 1. Delayed activity clearance from the blood pool and significantly delayed activity excretion from the liver with the majority of activity still present within the liver on the 4 hour delayed imaging consistent with likely hepatocellular dysfunction. No evident acute relation of activity in the common bile duct or dilation of the bile duct on the prior CT are also imaging to dona ggest biliary obstruction. MRCP 04/03/25 08:17 IMPRESSION: 1. Cholelithiasis and likely choledocholithiasis but without evident intra-axial hepatic biliary ductal dilation either in the current study or the prior CT or ultrasound imaging to suggest significant biliary obstruction. 2. Minimal amount of pericholecystic fluid which could be due to acute cholecystitis or more likely due to other liver disease given that there is no associated gallbladder wall thickening at that the cystic duct does not appear obstructed given the recent decompressed state with interval filling of the gallbladder on subsequent ultrasound and with activity on HIDA scan extending into the gallbladder. 3. 1.5 cm ill-defined region enhancement in the right hepatic lobe which could be related to neoplasm with some imaging features suggestive of cholangiocarcinoma. There are however some atypical features such as periportal edema and subtle parenchymal edema in the surrounding right hepatic lobe and this could also be infectious in etiology such as due to focal hepatitis or ascending cholangitis without evident hepatic abscess. It is unclear whether this lesion would be discernible by either ultrasound or noncontrast CT to allow for biopsy with a reasonable degree of diagnostic certainty. Could also consider short-term follow-up pre and postcontrast MRI. Cholangiogram,Operative 04/04/25 06:46 IMPRESSION: 1. Subtle 4-5 mm lucent filling defect in the distal common bile duct suspicious for obstructing choledocholithiasis with no evident contrast extending to the duodenum. Labs Labs: Laboratory Results - last 24 hr 04/04/25 04/05/25 09:13 05:22 WBC 14.0 H 12.4 H RBC 4.03 L 3.65 L Hgb 12.0 10.9 L Hct 37.1 34.7 L MCV 92.1 95.1 MCH 29.8 29.9 MCHC 32.3 31.4 L RDW 13.0 13.2 Plt Count 354 346 MPV 9.3 9.7 Sodium 132 L 134 L Potassium 4.1 3.6 Chloride 98 98 Carbon Dioxide 25 33 H Anion Gap 9 3 L BUN 10 8 Creatinine 0.73 0.84 Estim Creat Clear Calc 58 51 Estimated GFR > 60 > 60 Glucose 148 H 119 H Calcium 8.4 8.4 Total Bilirubin 1.2 0.7 AST 67 H 42 H ALT 179 H 122 H Alkaline Phosphatase 145 H 120 Total Protein 7.0 6.0 L Albumin 3.8 3.3 L
[2025-04-05] MEDS: FAMOTIDINE 20 MG TABLET PO ×2 (08:39→21:27)
[2025-04-05] MEDS: ENOXAPARIN 40 MG/0.4 ML SYRINGE SUB-Q (08:39)
[2025-04-05] MEDS: IRBESARTAN 150 MG TABLET PO (08:39)
[2025-04-05] MEDS: AMIODARONE HCL 50 MG TABLET PO (08:41)
--- NOTE | 2025-04-05 14:32 | PM.PNGS ---
Progress Note: A&P Assessment and Plan (1) Chronic cholecystitis due to gallbladder calculus with obstruction: Code(s): K80.11 - Calculus of gallbladder with chronic cholecystitis with obstruction Status: Acute Assessment and Plan: Doing well postop day 2. Ambulating with her walker and tolerating solid food. Taking only pills as needed for pain. Can go home from surgical standpoint when medically stable. (2) Abnormal cholangiogram: Code(s): R93.2 - Abnormal findings on diagnostic imaging of liver and biliary tract Status: Acute Assessment and Plan: LFTs now essentially normal. GI following. 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 (5) PAF (paroxysmal atrial fibrillation): Code(s): I48.0 - Paroxysmal atrial fibrillation Status: Chronic Subjective Subjective Date/Time Seen: 04/05/25 14:32 Post Op day: 2 Patient reports: no new complaints, pain is less, tolerating a regular diet, voiding w/o difficulty and afebrile Exam Const: General: comfortable, alert and awake GI: Inspection: incision (Healing well) and obesity GI Palp: Yes Soft to palpation and Yes Tenderness to palpation present (GI) (Expected postoperative tenderness) Objective Data Vital Signs Vital Signs: Vital Signs - 24 hr 04/04/25 16:00 04/04/25 20:00 04/04/25 20:49 Temperature 36.3 C L Pulse Rate 62 72 Respiratory Rate 13 20 Blood Pressure 140/70 Pulse Oximetry 93 Oxygen Delivery Room Air Fraction of Inspired Oxygen 04/04/25 20:49 04/04/25 21:07 04/04/25 21:59 Temperature 36.6 C Pulse Rate 78 70 73 Respiratory Rate 20 20 18 Blood Pressure 114/49 L Pulse Oximetry 92 92 Oxygen Delivery Room Air Fraction of Inspired Oxygen 21 04/05/25 02:32 04/05/25 02:51 04/05/25 06:00 Temperature 36.4 C Pulse Rate 88 85 69 Respiratory Rate 20 20 20 Blood Pressure 127/50 L Pulse Oximetry 93 Oxygen Delivery Fraction of Inspired Oxygen 04/05/25 08:00 04/05/25 08:35 04/05/25 08:35 Temperature Pulse Rate 73 Respiratory Rate 16 Blood Pressure Pulse Oximetry 93 Oxygen Delivery Room Air Room Air Fraction of Inspired Oxygen 04/05/25 08:41 04/05/25 08:44 04/05/25 13:54 Temperature 35.7 C L Pulse Rate 82 77 70 Respiratory Rate 16 20 Blood Pressure 139/69 Pulse Oximetry 96 Oxygen Delivery Fraction of Inspired Oxygen Intake/Output Intake/Output: Intake & Output 04/02/25 04/03/25 04/04/25 04/05/25 23:59 23:59 23:59 23:59 Intake Total 6057 674 5882 780 Output Total 300 300 500 250 Balance 1090 200 730 530 Meds/Results Medications: Active Medications Generic Name Dose Route Start Last Admin Trade Name Freq PRN Reason Stop Dose Admin Acetaminophen 500 mg 04/03/25 21:12 Acetaminophen 500 Mg Tablet PO Q6H PRN Pain Rated 1-3 Albuterol/Ipratropium 3 ml 04/02/25 14:00 04/05/25 08:35 Ipratropium 0.5 Mg/Albuterol Sulfate 2.5 Mg Ampul.Neb 3 Ml INHALATION 3 ml Q6HRT AMANDA Administration Amiodarone HCl 50 mg 04/03/25 09:00 04/05/25 08:41 Amiodarone Hcl 50 Mg Tablet PO 50 mg DAILY AMANDA Administration Docusate Sodium 100 mg 04/02/25 12:46 Docusate Sodium 100 Mg Capsule PO Q12H PRN Constipation Enoxaparin Sodium 40 mg 04/04/25 09:00 04/05/25 08:39 Enoxaparin 40 Mg/0.4 Ml Syringe SUB-Q 40 mg DAILY AMANDA Administration Ergocalciferol 50,000 units 04/03/25 09:00 04/03/25 09:15 Ergocalciferol 50,000 Units Capsule PO Not Given WEEKLY AMANDA Famotidine 20 mg 04/04/25 21:00 04/05/25 08:39 Famotidine 20 Mg Tablet PO 20 mg Q12HR AMANDA Administration Fentanyl Citrate 12.5 mcg 04/03/25 21:12 Fentanyl Citrate Inj (*Crx) 100 Mcg/2 Ml Vial IV PUSH Q2H PRN Breakthrough Pain Rated 4-6 or NPO Fentanyl Citrate 25 mcg 04/03/25 21:12 04/04/25 00:16 Fentanyl Citrate Inj (*Crx) 100 Mcg/2 Ml Vial IV PUSH 25 mcg Q2H PRN Administration Breakthrough Pain Rated 7-10 or NPO Ibuprofen 800 mg in 200 mls @ 400 mls/hr 04/03/25 21:12 Caldolor 800 Mg/200 Ml IVPB Q6H PRN Breakthrough Pain Rated 1-3 or NPO Meropenem 1 gm in 100 mls @ 200 mls/hr 04/04/25 14:30 04/05/25 13:11 IVPB 200 mls/hr Q8HR AMANDA Administration Irbesartan 150 mg 04/03/25 09:00 04/05/25 08:39 Irbesartan 150 Mg Tablet PO 150 mg DAILY AMANDA Administration Levothyroxine Sodium 25 mcg 04/03/25 06:30 04/05/25 05:48 Levothyroxine Sodium 25 Mcg Tablet PO 25 mcg DAILY@0630 AMANDA Administration Naloxone HCl 0.1 mg 04/03/25 21:12 Naloxone Hcl 0.4 Mg/Ml Vial IV PUSH Q2M PRN Opiate Reversal Ondansetron HCl 4 mg 04/02/25 12:32 Ondansetron Inj 4 Mg/2 Ml Vial IV PUSH Q4H PRN Nausea Oxycodone/Acetaminophen 1 tablet 04/03/25 21:12 04/04/25 21:35 Oxycodone/Acetaminophen (*Crx) 5-325 Mg Tablet PO 1 tablet Q4H PRN Administration Pain Rated 4-6 Radiology Results: ITS Impressions Abdomen/Pelvis CT 04/02/25 09:48 Impression: Possible cystitis. Correlate with urinalysis. Mild mesenteric panniculitis. Cholelithiasis with contracted gallbladder and possible mild wall thickening but no acute inflammatory change. Correlate for chronic cholecystitis. Upper Quadrant Ultrasound 04/02/25 10:50 IMPRESSION: 1. Positive sonographic Quintero's sign but with persistently decompressed gallbladder arguing against acute cholecystitis. Gallstones seen on CT are unable to be visualized. Chest X-Ray 04/02/25 11:01 Impression: Normal chest. Hepatobiliary Scan Nuclear Medicine 04/02/25 16:47 IMPRESSION: 1. Delayed activity clearance from the blood pool and significantly delayed activity excretion from the liver with the majority of activity still present within the liver on the 4 hour delayed imaging consistent with likely hepatocellular dysfunction. No evident acute relation of activity in the common bile duct or dilation of the bile duct on the prior CT are also imaging to suggest biliary obstruction. MRCP 04/03/25 08:17 IMPRESSION: 1. Cholelithiasis and likely choledocholithiasis but without evident intra-axial hepatic biliary ductal dilation either in the current study or the prior CT or ultrasound imaging to suggest significant biliary obstruction. 2. Minimal amount of pericholecystic fluid which could be due to acute cholecystitis or more likely due to other liver disease given that there is no associated gallbladder wall thickening at that the cystic duct does not appear obstructed given the recent decompressed state with interval filling of the gallbladder on subsequent ultrasound and with activity on HIDA scan extending into the gallbladder. 3. 1.5 cm ill-defined region enhancement in the right hepatic lobe which could be related to neoplasm with some imaging features suggestive of cholangiocarcinoma. There are however some atypical features such as periportal edema and subtle parenchymal edema in the surrounding right hepatic lobe and this could also be infectious in etiology such as due to focal hepatitis or ascending cholangitis without evident hepatic abscess. It is unclear whether this lesion would be discernible by either ultrasound or noncontrast CT to allow for biopsy with a reasonable degree of diagnostic certainty. Could also consider short-term follow-up pre and postcontrast MRI. Cholangiogram,Operative 04/04/25 06:46 IMPRESSION: 1. Subtle 4-5 mm lucent filling defect in the distal common bile duct suspicious for obstructing choledocholithiasis with no evident contrast extending to the duodenum. Labs Labs: Laboratory Results - last 24 hr 04/05/25 05:22 WBC 12.4 H RBC 3.65 L Hgb 10.9 L Hct 34.7 L MCV 95.1 MCH 29.9 MCHC 31.4 L RDW 13.2 Plt Count 346 MPV 9.7 Sodium 134 L Potassium 3.6 Chloride 98 Carbon Dioxide 33 H Anion Gap 3 L BUN 8 Creatinine 0.84 Estim Creat Clear Calc 51 Estimated GFR > 60 Glucose 119 H Calcium 8.4 Total Bilirubin 0.7 AST 42 H ALT 122 H Alkaline Phosphatase 120 Total Protein 6.0 L Albumin 3.3 L
[2025-04-05] MEDS: oxyCODONE/ACETAMINOPHEN (*CRX) 5-325 MG TABLET 1 TABLET PO (19:32)
[2025-04-06] VITALS (11 sets, daily range): BP systolic 116–160; BP diastolic 57–65; PULSE 60–97; RESP 14–20; TEMP 36.3–37.3; O2SAT 92–99
[2025-04-06] MEDS: IPRATROPIUM 0.5 MG/ALBUTEROL SULFATE 2.5 MG AMPUL.NEB 3 ML INHALATION ×3 (03:34→22:53)
[2025-04-06] MEDS: LEVOTHYROXINE SODIUM 25 MCG TABLET PO (05:16)
[2025-04-06] MEDS: MEROPENEM 1 GM/NS 100 ML 1 GM/100 ML BAG IVPB (05:16)
[2025-04-06 06:16] LABS: Alanine Aminotransferase 131 U/L (6-35); Albumin Level 3.5 g/dL (3.5-5.1); Alkaline Phosphatase 259 U/L (38-126); Anion Gap 9 mmol/L (4-12); Aspartate Amino Transferase 82 U/L (14-36); Bilirubin,Total 2.1 mg/dL (0.2-1.3); Blood Urea Nitrogen 6 mg/dL (7-17); Calcium 8.4 mg/dL (8.4-10.2); Carbon Dioxide 27 mmol/L (22-30); Chloride 99 mmol/L (98-107); Estimated CRCL calculation 56 ml/min; Estimated Glomerular Filt Rate > 60; Glucose 116 mg/dL (65-110); Potassium 3.4 mmol/L (3.4-5.0); Sodium 135 mmol/L (137-145)
[2025-04-06 06:20] LABS: Hematocrit 36.7 % (37.0-47.0); Hemoglobin 11.6 g/dL (12.0-15.0); Mean Corpuscular HGB Conc 31.6 g/dl (32-36); Mean Corpuscular Hemoglobin 29.8 pg (26-34); Mean Corpuscular Volume 94.3 fl (80-100); Mean Platelet Volume 9.4 fl (7.4-10.4); Platelet Count Result 395 k/mm3 (150-375); Red Blood Count 3.89 M/mm3 (4.2-5.4); Red Cell Distribution Width 13.4 % (11.5-14.5); White Blood Count 6.7 K/mm3 (4.5-10.0)
--- NOTE | 2025-04-06 08:06 | PM.IMPN ---
Progress Note: A&P Assessment and Plan (1) Sepsis: Qualifiers: Sepsis acute organ dysfunction status: without acute organ dysfunction Sepsis type: sepsis due to unspecified organism Qualified Code(s): A41.9 - Sepsis, unspecified organism Code(s): A41.9 - Sepsis, unspecified organism Status: Acute Assessment and Plan: Meets SIRS criteria: WBC and HR - lactic acid: 1.8 - Given 500 mL bolus, no further fluids due to CHF history. - suspected source: cholelithiasis vs transaminitis vs UTI - blood cultures drawn on 04/02: Ecoli - Urine culture collected on 04/02: Ecoli ESBL resistance - CXR unremarkable - Antibiotics: Zosyn started on 04/02, transitioned to meropenem 04/04 given sensitivities after discussing with [facility] pharm. Transitioned to levaquin and flagyl on 04/06, course completion to be based on the start of meropenem. - Abdomen/pelvis CT: possible cystitis, mild mesenteric panniculitis, cholelithiasis with contracted gallbladder and possible mild wall thickening but no acute inflammatory change - RUQ US: Positive murphys sign but with persistently decompressed gallbladder arguing against acute cholecystitis. Gallstones seen on CT are unable to be visualized. - Hepatobiliary scan: Delayed activity clearance from the blood pool and significantly delayed activity excretion from the liver with the majority of activity still present within the liver on the 4 hour delayed imaging consistent with likely hepatocellular dysfunction. No evident acute relation of activity in the common bile duct or dilation of the bile duct on the prior CT are also imaging to suggest biliary obstruction. Resolved. Remains hemodynamically stable. Continue to monitor. See plan below. (2) Cholelithiasis: Qualifiers: Biliary obstruction: with biliary obstruction Cholecystitis acuity: acute and chronic Cholecystitis presence: with cholecystitis Cholelithiasis location: gallbladder Qualified Code(s): K80.13 - Calculus of gallbladder with acute and chronic cholecystitis with obstruction Code(s): K80.20 - Calculus of gallbladder without cholecystitis without obstruction Status: Chronic Assessment and Plan: - Abdomen/pelvis CT: possible cystitis, mild mesenteric panniculitis, cholelithiasis with contracted gallbladder and possible mild wall thickening but no acute inflammatory change - RUQ US: Positive murphys sign but with persistently decompressed gallbladder arguing against acute cholecystitis. Gallstones seen on CT are unable to be visualized. - Hepatobiliary scan: Delayed activity clearance from the blood pool and significantly delayed activity excretion from the liver with the majority of activity still present within the liver on the 4 hour delayed imaging consistent with likely hepatocellular dysfunction. No evident acute relation of activity in the common bile duct or dilation of the bile duct on the prior CT are also imaging to suggest biliary obstruction. - Gentle IV fluid resuscitation given at 500 ml x 1 due to CHF history - Antibiotics: Zosyn started on 04/02, transitioned to meropenem 04/04 given sensitivities after discussing with [facility] pharm. Transitioned to levaquin and flagyl on 04/06, course completion to be based on the start of meropenem. Discussed antibiotic course with [facility] pharmacy. - Diet: low fat tolerating well. - Transaminitis noted, likely correlating with cholelithiasis. Downtrending. Lipase within normal limits. - Monitor vital signs, I and O's, check stool output, neuro status and patient is a fall risk - Monitor serum electrolytes and CBC - Monitor lactic acid - Consult general surgery and GI for further evaluation, appreciate assistance and recommendation s/p for laparoscopic cholecystectomy with intraoperative cholangiogram on 04/[address] Cage. 04/06: LFTs doubled overnight. Concern about ill defined lesion on cholangiogram as possible cholangiocarcinoma vs abscess. Plan for ERCP tomorrow with Dr. Rosado. (3) Transaminitis: Code(s): R74.01 - Elevation of levels of liver transaminase levels Status: Acute Assessment and Plan: LFTs on admission: Total bilirubin 3.6, AST 396, ALT 385, alk-phos 242. Hepatitis panel negative Suspect transaminitis secondary to cholelithiasis. 04/06: LFTs doubled overnight. Concern about ill defined lesion on cholangiogram as possible cholangiocarcinoma vs abscess. Plan for ERCP tomorrow with Dr. Rosado. (4) Acute UTI: Code(s): N39.0 - Urinary tract infection, site not specified Status: Acute Assessment and Plan: - UA: clear appearance with positive nitrates, 1+ leukocytes, 6-10 WBC, 4+ bacteria and occasional squamous cells. - Urine culture collected on 04/02: Ecoli with ESBL - No previous micro to be reviewed - Antibiotics: Zosyn started on 04/02, transitioned to meropenem 04/04 given sensitivities after discussing with [facility] pharm. Transitioned to levaquin and flagyl on 04/06, course completion to be based on the start of meropenem. (5) Hyponatremia: Code(s): E87.1 - Hypo-osmolality and hyponatremia Status: Acute Assessment and Plan: Intermittent/chronic. Sodium 130 on admission. Given 500 mL bolus of NS. Improved to 132 on am labs. Resolved. (6) Emphysema lung: Qualifiers: Emphysema type: centrilobular Qualified Code(s): J43.2 - Centrilobular emphysema Code(s): J43.9 - Emphysema, unspecified Status: Chronic Assessment and Plan: Mild hypoxia upon arrival, 88-90% on room air on admission Weaned back to room air. [facility]. CXR unremarkable with no evidence of pneumonia or pulmonary edema. Continue home medications as appropriate. (7) Chronic diastolic (congestive) heart failure: Code(s): I50.32 - Chronic diastolic (congestive) heart failure Status: Chronic Assessment and Plan: No evidence of pulmonary edema on CXR. Does not appear in acute exacerbation. BNP 458, within normal limits for age. Monitor I&Os and daily weights. Echo 12/26/23 showed LVEF 60-65% with grade I diastolic dysfunction (8) PAF (paroxysmal atrial fibrillation): Code(s): I48.0 - Paroxysmal atrial fibrillation Status: Chronic Assessment and Plan: History of paroxysmal AFib. Initial EKG showed sinus rhythm with first-degree AV block and borderline left axis deviation. Continue amiodarone 50 mg daily. Hold Eliquis, continue holding per GI for ERCP. Patient aware. SCD for dvt ppx. (9) HTN (hypertension): Qualifiers: Hypertension type: essential hypertension Qualified Code(s): I10 - Essential (primary) hypertension Code(s): I10 - Essential (primary) hypertension Status: Chronic Assessment and Plan: Chronic, continue home medications as appropriate. - Irbesartan 150 mg daily - blood pressures remain stable, continue to monitor. Time Spent With Patient Time with patient: 25 - 35 minutes Subjective Date/time seen: 04/06/25 08:06 Interval history: 74 y/o F with PMH of pAifb, SIADH, PAD, HLD, HTN, osteoporosis, smoker, and CHF presents to the hospital for multiple medical complaints including generalized weakness, nausea, vomiting, headache, fever, chills, abdominal tenderness in the epigastric/RUQ region, and shortness of breath. Patient is pleasant lying comfortably in bed. She is tolerating her diet well denying any nausea/increased abdominal pain. She does continue to endorse incisional pain but states that this is continued to improve. She has no other complaints denying chest pain, shortness of breath and palpitations. Discussed patients antibiotics with [facility] pharm and will transition to oral levaqiun and flagyl to complete the course. Overnight patient had LFTs double. Discussed with GI Dr. Rosado and plan for ERCP tomorrow. Patient informed and agreeable with current plan. Review of Systems Review of Systems: All systems reviewed & are unremarkable except as noted in HPI and below Exam Narrative: AF HR 83 RR 20 Spo2 99 BP 116/57 General: female in no acute respiratory distress who is nontoxic appearing, sitting up in bed. HEENT: Normocephalic. Atraumatic. Extraocular movement intact. Sclera clear and anicteric. No facial asymmetry. Chest: Lungs are clear on auscultation bilaterally. No wheezes or crackles. CV: Heart was regular rate and rhythm. S1-S2. No murmurs, gallops, or rubs. Abd: Abdomen was soft. Slight tenderness around the incisions. Nondistended. Positive bowel sounds. Well-healing laparoscopic incisions without signs of infection. Objective Data Vital Signs Vital Signs: Vital Signs - 24 hr 04/05/25 08:35 04/05/25 08:35 04/05/25 08:41 Temperature Pulse Rate 73 82 Respiratory Rate 16 Blood Pressure Pulse Oximetry 93 Oxygen Delivery Room Air Fraction of Inspired Oxygen 04/05/25 08:44 04/05/25 13:54 04/05/25 15:03 Temperature 96.2 F L Pulse Rate 77 70 75 Respiratory Rate 16 20 16 Blood Pressure 139/69 Pulse Oximetry 96 Oxygen Delivery Fraction of Inspired Oxygen 04/05/25 20:00 04/05/25 20:50 04/05/25 21:00 Temperature 98.3 F Pulse Rate 75 71 Respiratory Rate 16 20 Blood Pressure 151/61 H Pulse Oximetry 100 Oxygen Delivery Room Air Fraction of Inspired Oxygen 21 04/05/25 21:05 04/06/25 03:34 04/06/25 03:46 Temperature Pulse Rate 75 71 75 Respiratory Rate 16 18 16 Blood Pressure Pulse Oximetry Oxygen Delivery Fraction of Inspired Oxygen 04/06/25 04:35 Temperature 99.2 F Pulse Rate 68 Respiratory Rate 20 Blood Pressure 116/57 L Pulse Oximetry 92 Oxygen Delivery Fraction of Inspired Oxygen Intake/Output Intake/Output: Intake & Output 04/03/25 04/04/25 04/05/25 04/06/25 23:59 23:59 23:59 23:59 Intake Total 500 1230 1220 600 Output Total 300 500 250 600 Balance 200 730 970 0 Meds/Results Medications: Active Medications Generic Name Dose Route Start Last Admin Trade Name Freq PRN Reason Stop Dose Admin Acetaminophen 500 mg 04/03/25 21:12 Acetaminophen 500 Mg Tablet PO Q6H PRN Pain Rated 1-3 Albuterol/Ipratropium 3 ml 04/02/25 14:00 04/06/25 08:03 Ipratropium 0.5 Mg/Albuterol Sulfate 2.5 Mg Ampul.Neb 3 Ml INHALATION 3 ml Q6HRT AMANDA Administration Amiodarone HCl 50 mg 04/03/25 09:00 04/05/25 08:41 Amiodarone Hcl 50 Mg Tablet PO 50 mg DAILY AMANDA Administration Docusate Sodium 100 mg 04/02/25 12:46 Docusate Sodium 100 Mg Capsule PO Q12H PRN Constipation Enoxaparin Sodium 40 mg 04/04/25 09:00 04/05/25 08:39 Enoxaparin 40 Mg/0.4 Ml Syringe SUB-Q 40 mg DAILY AMANDA Administration Ergocalciferol 50,000 units 04/03/25 09:00 04/03/25 09:15 Ergocalciferol 50,000 Units Capsule PO Not Given WEEKLY AMANDA Famotidine 20 mg 04/04/25 21:00 04/05/25 21:27 Famotidine 20 Mg Tablet PO 20 mg Q12HR AMANDA Administration Fentanyl Citrate 12.5 mcg 04/03/25 21:12 Fentanyl Citrate Inj (*Crx) 100 Mcg/2 Ml Vial IV PUSH Q2H PRN Breakthrough Pain Rated 4-6 or NPO Fentanyl Citrate 25 mcg 04/03/25 21:12 04/04/25 00:16 Fentanyl Citrate Inj (*Crx) 100 Mcg/2 Ml Vial IV PUSH 25 mcg Q2H PRN Administration Breakthrough Pain Rated 7-10 or NPO Ibuprofen 800 mg in 200 mls @ 400 mls/hr 04/03/25 21:12 Caldolor 800 Mg/200 Ml IVPB Q6H PRN Breakthrough Pain Rated 1-3 or NPO Irbesartan 150 mg 04/03/25 09:00 04/05/25 08:39 Irbesartan 150 Mg Tablet PO 150 mg DAILY AMANDA Administration Levofloxacin 750 mg 04/06/25 09:00 Levofloxacin 750 Mg Tablet PO 04/10/25 09:01 DAILY [facility] Levothyroxine Sodium 25 mcg 04/03/25 06:30 04/06/25 05:16 Levothyroxine Sodium 25 Mcg Tablet PO 25 mcg DAILY@0630 AMANDA Administration Metronidazole 500 mg 04/06/25 14:00 Metronidazole 500 Mg Tablet PO 04/10/25 22:01 Q8HR AMANDA Naloxone HCl 0.1 mg 04/03/25 21:12 Naloxone Hcl 0.4 Mg/Ml Vial IV PUSH Q2M PRN Opiate Reversal Ondansetron HCl 4 mg 04/02/25 12:32 Ondansetron Inj 4 Mg/2 Ml Vial IV PUSH Q4H PRN Nausea Oxycodone/Acetaminophen 1 tablet 04/03/25 21:12 04/05/25 19:32 Oxycodone/Acetaminophen (*Crx) 5-325 Mg Tablet PO 1 tablet Q4H PRN Administration Pain Rated 4-6 Radiology Results: ITS Impressions Abdomen/Pelvis CT 04/02/25 09:48 Impression: Possible cystitis. Correlate with urinalysis. Mild mesenteric panniculitis. Cholelithiasis with contracted gallbladder and possible mild wall thickening but no acute inflammatory change. Correlate for chronic cholecystitis. Upper Quadrant Ultrasound 04/02/25 10:50 IMPRESSION: 1. Positive sonographic Quintero's sign but with persistently decompressed gallbladder arguing against acute cholecystitis. Gallstones seen on CT are unable to be visualized. Chest X-Ray 04/02/25 11:01 Impression: Normal chest. Hepatobiliary Scan Nuclear Medicine 04/02/25 16:47 IMPRESSION: 1. Delayed activity clearance from the blood pool and significantly delayed activity excretion from the liver with the majority of activity still present within the liver on the 4 hour delayed imaging consistent with likely hepatocellular dysfunction. No evident acute relation of activity in the common bile duct or dilation of the bile duct on the prior CT are also imaging to suggest biliary obstruction. MRCP 04/03/25 08:17 IMPRESSION: 1. Cholelithiasis and likely choledocholithiasis but without evident intra-axial hepatic biliary ductal dilation either in the current study or the prior CT or ultrasound imaging to suggest significant biliary obstruction. 2. Minimal amount of pericholecystic fluid which could be due to acute cholecystitis or more likely due to other liver disease given that there is no associated gallbladder wall thickening at that the cystic duct does not appear obstructed given the recent decompressed state with interval filling of the gallbladder on subsequent ultrasound and with activity on HIDA scan extending into the gallbladder. 3. 1.5 cm ill-defined region enhancement in the right hepatic lobe which could be related to neoplasm with some imaging features suggestive of cholangiocarcinoma. There are however some atypical features such as periportal edema and subtle parenchymal edema in the surrounding right hepatic lobe and this could also be infectious in etiology such as due to focal hepatitis or ascending cholangitis without evident hepatic abscess. It is unclear whether this lesion would be discernible by either ultrasound or noncontrast CT to allow for biopsy with a reasonable degree of diagnostic certainty. Could also consider short-term follow-up pre and postcontrast MRI. Cholangiogram,Operative 04/04/25 06:46 IMPRESSION: 1. Subtle 4-5 mm lucent filling defect in the distal common bile duct suspicious for obstructing choledocholithiasis with no evident contrast extending to the duodenum. Labs Labs: Laboratory Results - last 24 hr 04/06/25 05:22 WBC 6.7 RBC 3.89 L Hgb 11.6 L Hct 36.7 L MCV 94.3 MCH 29.8 MCHC 31.6 L RDW 13.4 Plt Count 395 H MPV 9.4 Sodium 135 L Potassium 3.4 Chloride 99 Carbon Dioxide 27 Anion Gap 9 BUN 6 L Creatinine 0.76 Estim Creat Clear Calc 56 Estimated GFR > 60 Glucose 116 H Calcium 8.4 Total Bilirubin 2.1 H AST 82 H ALT 131 H Alkaline Phosphatase 259 H Total Protein 7.0 Albumin 3.5 Quality VTE Prophylaxis VTE prophylaxis: mechanical ordered and pharmacologic ordered (lovenox)
[2025-04-06] MEDS: FAMOTIDINE 20 MG TABLET PO ×2 (08:46→21:08)
[2025-04-06] MEDS: IRBESARTAN 150 MG TABLET PO (08:46)
[2025-04-06] MEDS: levoFLOXacin 750 MG TABLET PO (08:47)
[2025-04-06] MEDS: AMIODARONE HCL 50 MG TABLET PO (08:47)
[2025-04-06] MEDS: DOCUSATE SODIUM 100 MG CAPSULE PO (08:47)
[2025-04-06] MEDS: ENOXAPARIN 40 MG/0.4 ML SYRINGE SUB-Q (08:47)
[2025-04-06] MEDS: oxyCODONE/ACETAMINOPHEN (*CRX) 5-325 MG TABLET 1 TABLET PO ×2 (13:19→17:21)
[2025-04-06] MEDS: metroNIDAZOLE 500 MG TABLET PO ×2 (13:19→21:08)
--- NOTE | 2025-04-06 15:55 | P.PNGI_ITS ---
Progress Note: A&P Assessment and Plan (1) Abnormal cholangiogram: Code(s): R93.2 - Abnormal findings on diagnostic imaging of liver and biliary tract Status: Acute Assessment and Plan: Despite an initial favorable trend in biochemical labs and an intraoperative cholangiogram revealing a questionable common bile duct stone with no passage to the duodenum, the subsequent upward trend in liver biochemistry suggests a potential distal common bile duct obstruction. Consequently, ERCP and sphincterotomy are planned for tomorrow. Subjective Date/time seen: 04/06/25 15:55 Interval history: The patient did not have further abdominal pain or fever. However, transaminases, alkaline phosphatase and bilirubin increased compared to yesterday: 04/05/2025: AST 42, ALT 122, alk-phos 120, bilirubin 0.7. 04/06/2025: AST 82, ALT 131, alk-phos 259, bilirubin 2.1 Exam Narrative: abdomen: Soft, nontender, Quintero sign negative, no rebound. Rest of the exam unchanged. Objective Data Vital Signs Vital Signs: Vital Signs - 24 hr 04/05/25 20:00 04/05/25 20:50 04/05/25 21:00 Temperature 98.3 F Pulse Rate 75 71 Respiratory Rate 16 20 Blood Pressure 151/61 H Pulse Oximetry 100 Oxygen Delivery Room Air Fraction of Inspired Oxygen 04/05/25 21:05 04/06/25 03:34 04/06/25 03:46 Temperature Pulse Rate 75 71 75 Respiratory Rate 16 18 16 Blood Pressure Pulse Oximetry Oxygen Delivery Fraction of Inspired Oxygen 04/06/25 04:35 04/06/25 08:00 04/06/25 08:04 Temperature 99.2 F Pulse Rate 68 83 Respiratory Rate 20 20 Blood Pressure 116/57 L Pulse Oximetry 92 99 99 Oxygen Delivery Room Air Room Air Fraction of Inspired Oxygen 04/06/25 08:04 04/06/25 08:42 04/06/25 14:00 Temperature 97.8 F Pulse Rate 81 83 72 Respiratory Rate 20 20 16 Blood Pressure 160/65 H Pulse Oximetry 94 Oxygen Delivery Fraction of Inspired Oxygen 04/06/25 14:57 Temperature Pulse Rate 97 Respiratory Rate 18 Blood Pressure Pulse Oximetry Oxygen Delivery Fraction of Inspired Oxygen Intake/Output Intake/Output: Intake & Output 04/03/25 04/04/25 04/05/25 04/06/25 23:59 23:59 23:59 23:59 Intake Total 500 1230 1220 1198 Output Total 300 500 250 600 Balance 200 730 970 598 Meds/Results Medications: Active Medications Generic Name Dose Route Start Last Admin Trade Name Freq PRN Reason Stop Dose Admin Acetaminophen 500 mg 04/03/25 21:12 Acetaminophen 500 Mg Tablet PO Q6H PRN Pain Rated 1-3 Albuterol/Ipratropium 3 ml 04/02/25 14:00 04/06/25 08:03 Ipratropium 0.5 Mg/Albuterol Sulfate 2.5 Mg Ampul.Neb 3 Ml INHALATION 3 ml Q6HRT AMANDA Administration Amiodarone HCl 50 mg 04/03/25 09:00 04/06/25 08:47 Amiodarone Hcl 50 Mg Tablet PO 50 mg DAILY AMANDA Administration Docusate Sodium 100 mg 04/02/25 12:46 04/06/25 08:47 Docusate Sodium 100 Mg Capsule PO 100 mg Q12H PRN Administration Constipation Enoxaparin Sodium 40 mg 04/04/25 09:00 04/06/25 08:47 Enoxaparin 40 Mg/0.4 Ml Syringe SUB-Q 40 mg DAILY AMANDA Administration Ergocalciferol 50,000 units 04/03/25 09:00 04/03/25 09:15 Ergocalciferol 50,000 Units Capsule PO Not Given WEEKLY AMANDA Famotidine 20 mg 04/04/25 21:00 04/06/25 08:46 Famotidine 20 Mg Tablet PO 20 mg Q12HR AMANDA Administration Fentanyl Citrate 12.5 mcg 04/03/25 21:12 Fentanyl Citrate Inj (*Crx) 100 Mcg/2 Ml Vial IV PUSH Q2H PRN Breakthrough Pain Rated 4-6 or NPO Fentanyl Citrate 25 mcg 04/03/25 21:12 04/04/25 00:16 Fentanyl Citrate Inj (*Crx) 100 Mcg/2 Ml Vial IV PUSH 25 mcg Q2H PRN Administration Breakthrough Pain Rated 7-10 or NPO Ibuprofen 800 mg in 200 mls @ 400 mls/hr 04/03/25 21:12 Caldolor 800 Mg/200 Ml IVPB Q6H PRN Breakthrough Pain Rated 1-3 or NPO Irbesartan 150 mg 04/03/25 09:00 04/06/25 08:46 Irbesartan 150 Mg Tablet PO 150 mg DAILY AMANDA Administration Levofloxacin 750 mg 04/06/25 09:00 04/06/25 08:47 Levofloxacin 750 Mg Tablet PO 04/10/25 09:01 750 mg DAILY AMANDA Administration Levothyroxine Sodium 25 mcg 04/03/25 06:30 04/06/25 05:16 Levothyroxine Sodium 25 Mcg Tablet PO 25 mcg DAILY@0630 AMANDA Administration Metronidazole 500 mg 04/06/25 14:00 04/06/25 13:19 Metronidazole 500 Mg Tablet PO 04/10/25 22:01 500 mg Q8HR AMANDA Administration Naloxone HCl 0.1 mg 04/03/25 21:12 Naloxone Hcl 0.4 Mg/Ml Vial IV PUSH Q2M PRN Opiate Reversal Ondansetron HCl 4 mg 04/02/25 12:32 Ondansetron Inj 4 Mg/2 Ml Vial IV PUSH Q4H PRN Nausea Oxycodone/Acetaminophen 1 tablet 04/03/25 21:12 04/06/25 13:19 Oxycodone/Acetaminophen (*Crx) 5-325 Mg Tablet PO 1 tablet Q4H PRN Administration Pain Rated 4-6 Radiology Results: ITS Impressions Abdomen/Pelvis CT 04/02/25 09:48 Impression: Possible cystitis. Correlate with urinalysis. Mild mesenteric panniculitis. Cholelithiasis with contracted gallbladder and possible mild wall thickening but no acute inflammatory change. Correlate for chronic cholecystitis. Upper Quadrant Ultrasound 04/02/25 10:50 IMPRESSION: 1. Positive sonographic Quintero's sign but with persistently decompressed gallbladder arguing against acute cholecystitis. Gallstones seen on CT are unable to be visualized. Chest X-Ray 04/02/25 11:01 Impression: Normal chest. Hepatobiliary Scan Nuclear Medicine 04/02/25 16:47 IMPRESSION: 1. Delayed activity clearance from the blood pool and significantly delayed activity excretion from the liver with the majority of activity still present within the liver on the 4 hour delayed imaging consistent with likely hepatocellular dysfunction. No evident acute relation of activity in the common bile duct or dilation of the bile duct on the prior CT are also imaging to suggest biliary obstruction. MRCP 04/03/25 08:17 IMPRESSION: 1. Cholelithiasis and likely choledocholithiasis but without evident intra-axial hepatic biliary ductal dilation either in the current study or the prior CT or ultrasound imaging to suggest significant biliary obstruction. 2. Minimal amount of pericholecystic fluid which could be due to acute cholecystitis or more likely due to other liver disease given that there is no associated gallbladder wall thickening at that the cystic duct does not appear obstructed given the recent decompressed state with interval filling of the gallbladder on subsequent ultrasound and with activity on HIDA scan extending into the gallbladder. 3. 1.5 cm ill-defined region enhancement in the right hepatic lobe which could be related to neoplasm with some imaging features suggestive of cholan giocarcinoma. There are however some atypical features such as periportal edema and subtle parenchymal edema in the surrounding right hepatic lobe and this could also be infectious in etiology such as due to focal hepatitis or ascending cholangitis without evident hepatic abscess. It is unclear whether this lesion would be discernible by either ultrasound or noncontrast CT to allow for biopsy with a reasonable degree of diagnostic certainty. Could also consider short-term follow-up pre and postcontrast MRI. Cholangiogram,Operative 04/04/25 06:46 IMPRESSION: 1. Subtle 4-5 mm lucent filling defect in the distal common bile duct suspicious for obstructing choledocholithiasis with no evident contrast extending to the duodenum. Labs Labs: Laboratory Results - last 24 hr 04/06/25 05:22 WBC 6.7 RBC 3.89 L Hgb 11.6 L Hct 36.7 L MCV 94.3 MCH 29.8 MCHC 31.6 L RDW 13.4 Plt Count 395 H MPV 9.4 Sodium 135 L Potassium 3.4 Chloride 99 Carbon Dioxide 27 Anion Gap 9 BUN 6 L Creatinine 0.76 Estim Creat Clear Calc 56 Estimated GFR > 60 Glucose 116 H Calcium 8.4 Total Bilirubin 2.1 H AST 82 H ALT 131 H Alkaline Phosphatase 259 H Total Protein 7.0 Albumin 3.5
[2025-04-07] VITALS (18 sets, daily range): BP systolic 124–172; BP diastolic 52–94; PULSE 51–77; RESP 14–26; TEMP 35.9–36.3; O2SAT 94–98
[2025-04-07] MEDS: IPRATROPIUM 0.5 MG/ALBUTEROL SULFATE 2.5 MG AMPUL.NEB 3 ML INHALATION ×3 (02:50→19:41)
[2025-04-07] MEDS: LEVOTHYROXINE SODIUM 25 MCG TABLET PO (05:29)
[2025-04-07] MEDS: metroNIDAZOLE 500 MG TABLET PO ×2 (05:29→21:17)
[2025-04-07 05:59] LABS: Hematocrit 39.5 % (37.0-47.0); Hemoglobin 12.4 g/dL (12.0-15.0); Mean Corpuscular HGB Conc 31.4 g/dl (32-36); Mean Corpuscular Hemoglobin 29.7 pg (26-34); Mean Corpuscular Volume 94.7 fl (80-100); Mean Platelet Volume 9.1 fl (7.4-10.4); Platelet Count Result 403 k/mm3 (150-375); Red Blood Count 4.17 M/mm3 (4.2-5.4); Red Cell Distribution Width 13.7 % (11.5-14.5); White Blood Count 8.1 K/mm3 (4.5-10.0)
[2025-04-07 06:13] LABS: Alanine Aminotransferase 121 U/L (6-35); Albumin Level 3.6 g/dL (3.5-5.1); Alkaline Phosphatase 278 U/L (38-126); Anion Gap 8 mmol/L (4-12); Aspartate Amino Transferase 65 U/L (14-36); Bilirubin,Total 1.1 mg/dL (0.2-1.3); Blood Urea Nitrogen 7 mg/dL (7-17); Calcium 8.6 mg/dL (8.4-10.2); Carbon Dioxide 27 mmol/L (22-30); Chloride 99 mmol/L (98-107); Estimated CRCL calculation 60 ml/min; Estimated Glomerular Filt Rate > 60; Glucose 114 mg/dL (65-110); Potassium 3.4 mmol/L (3.4-5.0); Sodium 134 mmol/L (137-145)
--- NOTE | 2025-04-07 07:22 | P.PNIM_ITS ---
Progress Note: A&P Assessment and Plan (1) Sepsis: Qualifiers: Sepsis acute organ dysfunction status: without acute organ dysfunction Sepsis type: sepsis due to unspecified organism Qualified Code(s): A41.9 - S epsis, unspecified organism Code(s): A41.9 - Sepsis, unspecified organism Status: Acute Assessment and Plan: Meets SIRS criteria: WBC and HR - lactic acid: 1.8 - Given 500 mL bolus, no further fluids due to CHF history. - suspected source: cholelithiasis vs transaminitis vs UTI - blood cultures drawn on 04/02: Ecoli - Urine culture collected on 04/02: Ecoli ESBL resistance - CXR unremarkable - Antibiotics: Zosyn started on 04/02, transitioned to meropenem 04/04 given sensitivities after discussing with [facility]. Transitioned to levaquin and flagyl on 04/06, course completion to be based on the start of meropenem. - Abdomen/pelvis CT: possible cystitis, mild mesenteric panniculitis, cholelithiasis with contracted gallbladder and possible mild wall thickening but no acute inflammatory change - RUQ US: Positive murphys sign but with persistently decompressed gallbladder arguing against acute cholecystitis. Gallstones seen on CT are unable to be visualized. - Hepatobiliary scan: Delayed activity clearance from the blood pool and significantly delayed activity excretion from the liver with the majority of activity still present within the liver on the 4 hour delayed imaging consistent with likely hepatocellular dysfunction. No evident acute relation of activity in the common bile duct or dilation of the bile duct on the prior CT are also imaging to suggest biliary obstruction. Resolved. Remains hemodynamically stable. Continue to monitor. See plan below. (2) Cholelithiasis: Qualifiers: Biliary obstruction: with biliary obstruction Cholecystitis acuity: acute and chronic Cholecystitis presence: with cholecystitis Cholelithiasis location: gallbladder Qualified Code(s): K80.13 - Calculus of gallbladder with acute and chronic cholecystitis with obstruction Code(s): K80.20 - Calculus of gallbladder without cholecystitis without obstruction Status: Chronic Assessment and Plan: - Abdomen/pelvis CT: possible cystitis, mild mesenteric panniculitis, cholelithiasis with contracted gallbladder and possible mild wall thickening but no acute inflammatory change - RUQ US: Positive murphys sign but with persistently decompressed gallbladder arguing against acute cholecystitis. Gallstones seen on CT are unable to be visualized. - Hepatobiliary scan: Delayed activity clearance from the blood pool and significantly delayed activity excretion from the liver with the majority of activity still present within the liver on the 4 hour delayed imaging consistent with likely hepatocellular dysfunction. No evident acute relation of activity in the common bile duct or dilation of the bile duct on the prior CT are also imaging to suggest biliary obstruction. - Gentle IV fluid resuscitation given at 500 ml x 1 due to CHF history - Antibiotics: Zosyn started on 04/02, transitioned to meropenem 04/04 given sensitivities after discussing with [facility]. Transitioned to levaquin and flagyl on 04/06, course to be completed on 04/10. Based on the start of meropenem. Discussed antibiotic course with [facility]. - Diet: NPO for ERCP - Transaminitis noted, likely correlating with cholelithiasis. Downtrending. Lipase within normal limits. - Monitor vital signs, I and O's, check stool output, neuro status and patient is a fall risk - Monitor serum electrolytes and CBC - Monitor lactic acid - Consult general surgery and GI for further evaluation, appreciate assistance and recommendation s/p for laparoscopic cholecystectomy with intraoperative cholangiogram on 04/[address] Cage. LFTs doubled on 04/06. Concern about ill defined lesion on cholangiogram as possible cholangiocarcinoma vs abscess. Plan for ERCP today with Dr. Rosado. (3) Transaminitis: Code(s): R74.01 - Elevation of levels of liver transaminase levels Status: Acute Assessment and Plan: LFTs on admission: Total bilirubin 3.6, AST 396, ALT 385, alk-phos 242. Hepatitis panel negative Suspect transaminitis secondary to cholelithiasis. LFTs doubled on 04/06. Slight downtrend today. Concern about ill defined lesion on cholangiogram as possible cholangiocarcinoma vs abscess. Plan for ERCP today with Dr. Rosado. (4) Acute UTI: Code(s): N39.0 - Urinary tract infection, site not specified Status: Acute Assessment and Plan: - UA: clear appearance with positive nitrates, 1+ leukocytes, 6-10 WBC, 4+ bacteria and occasional squamous cells. - Urine culture collected on 04/02: Ecoli with ESBL - No previous micro to be reviewed - Antibiotics: Zosyn started on 04/02, transitioned to meropenem 04/04 given sensitivities after discussing with [facility]. Transitioned to levaquin and flagyl on 04/06, course completion to be based on the start of meropenem. Denies any UTI symptoms at this time. (5) Hyponatremia: Code(s): E87.1 - Hypo-osmolality and hyponatremia Status: Acute Assessment and Plan: Intermittent/chronic. Sodium 130 on admission. Given 500 mL bolus of NS. Improved to 132 on am labs. Resolved. (6) Emphysema lung: Qualifiers: Emphysema type: centrilobular Qualified Code(s): J43.2 - Centrilobular emphysema Code(s): J43.9 - Emphysema, unspecified Status: Chronic Assessment and Plan: Mild hypoxia upon arrival, 88-90% on room air on admission Weaned back to room air. DuoNebs leslie. CXR unremarkable with no evidence of pneumonia or pulmonary edema. Continue home medications as appropriate. (7) Chronic diastolic (congestive) heart failure: Code(s): I50.32 - Chronic diastolic (congestive) heart failure Status: Chronic Assessment and Plan: No evidence of pulmonary edema on CXR. Does not appear in acute exacerbation. BNP 458, within normal limits for age. Monitor I&Os and daily weights. Echo 12/26/23 showed LVEF 60-65% with grade I diastolic dysfunction (8) PAF (paroxysmal atrial fibrillation): Code(s): I48.0 - Paroxysmal atrial fibrillation Status: Chronic Assessment and Plan: History of paroxysmal AFib. Initial EKG showed sinus rhythm with first-degree AV block and borderline left axis deviation. Continue amiodarone 50 mg daily. Hold Eliquis, continue holding per GI for ERCP. Patient aware. SCD for dvt ppx. (9) HTN (hypertension): Qualifiers: Hypertension type: essential hypertension Qualified Code(s): I10 - Essential (primary) hypertension Code(s): I10 - Essential (primary) hypertension Status: Chronic Assessment and Plan: Chronic, continue home medications as appropriate. - Irbesartan 150 mg daily - blood pressures remain stable, continue to monitor. Time Spent With Patient Time with patient: 25 - 35 minutes Subjective Date/time seen: 04/07/25 07:22 Interval history: 74 y/o F with PMH of pAifb, SIADH, PAD, HLD, HTN, osteoporosis, smoker, and CHF presents to the hospital for multiple medical complaints including generalized weakness, nausea, vomiting, headache, fever, chills, abdominal tenderness in the epigastric/RUQ region, and shortness of breath. Patient is pleasant lying comfortably in her bed. She continues to endorse right upper quadrant pain but denies any nausea and vomiting. She is tolerating her diet well. She has no other complaints denies chest pain, shortness a breath, palpitations. Patient to undergo an ERCP today. Review of Systems Review of Systems: All systems reviewed & are unremarkable except as noted in HPI and below Exam Narrative: AF HR 77 RR 20 SpO2 97 BP 124/84 General: female in no acute respiratory distress who is nontoxic appearing, sitting up in bed. HEENT: Normocephalic. Atraumatic. Extraocular movement intact. Sclera clear and anicteric. No facial asymmetry. Chest: Lungs are clear on auscultation bilaterally. No wheezes or crackles. CV: Heart was regular rate and rhythm. S1-S2. No murmurs, gallops, or rubs. Abd: Abdomen was soft. Slight tenderness around the incisions. Nondistended. Positive bowel sounds. Well-healing laparoscopic incisions without signs of infection. Objective Data Vital Signs Vital Signs: Vital Signs - 24 hr 04/06/25 08:00 04/06/25 08:04 04/06/25 08:04 Temperature Pulse Rate 83 81 Respiratory Rate 20 20 Blood Pressure Pulse Oximetry 99 99 Oxygen Delivery Room Air Room Air Fraction of Inspired Oxygen 04/06/25 08:42 04/06/25 14:00 04/06/25 14:57 Temperature 97.8 F Pulse Rate 83 72 97 Respiratory Rate 20 16 18 Blood Pressure 160/65 H Pulse Oximetry 94 Oxygen Delivery Fraction of Inspired Oxygen 04/06/25 20:00 04/06/25 20:50 04/06/25 22:55 Temperature 97.3 F L Pulse Rate 60 62 Respiratory Rate 14 18 Blood Pressure 126/58 L Pulse Oximetry 96 Oxygen Delivery Room Air Fraction of Inspired Oxygen 04/06/25 22:57 04/07/25 02:55 04/07/25 05:43 Temperature 96.6 F L Pulse Rate 60 65 Respiratory Rate 18 18 Blood Pressure 126/52 L Pulse Oximetry 94 96 Oxygen Delivery Room Air Fraction of Inspired Oxygen Intake/Output Intake/Output: Intake & Output 04/04/25 04/05/25 04/06/2520/25 23:59 23:59 23:59 23:59 Intake Total 1230 1220 1866 Output Total 234 376 2991 250 Balance 730 313 -622 -430 Meds/Results Medications: Active Medications Generic Name Dose Route Start Last Admin Trade Name Freq PRN Reason Stop Dose Admin Acetaminophen 500 mg 04/03/25 21:12 Acetaminophen 500 Mg Tablet PO Q6H PRN Pain Rated 1-3 Albuterol/Ipratropium 3 ml 04/02/25 14:00 04/07/25 02:50 Ipratropium 0.5 Mg/Albuterol Sulfate 2.5 Mg Ampul.Neb 3 Ml INHALATION 3 ml Q6HRT LESLIE Administration Amiodarone HCl 50 mg 04/03/25 09:00 04/06/25 08:47 Amiodarone Hcl 50 Mg Tablet PO 50 mg DAILY LESLIE Administration Docusate Sodium 100 mg 04/02/25 12:46 04/06/25 08:47 Docusate Sodium 100 Mg Capsule PO 100 mg Q12H PRN Administration Constipation Enoxaparin Sodium 40 mg 04/04/25 09:00 04/06/25 08:47 Enoxaparin 40 Mg/0.4 Ml Syringe SUB-Q 40 mg DAILY LESLIE Administration Ergocalciferol 50,000 units 04/03/25 09:00 04/03/25 09:15 Ergocalciferol 50,000 Units Capsule PO Not Given WEEKLY LESLIE Famotidine 20 mg 04/04/25 21:00 04/06/25 21:08 Famotidine 20 Mg Tablet PO 20 mg Q12HR LESLIE Administration Fentanyl Citrate 12.5 mcg 04/03/25 21:12 Fentanyl Citrate Inj (*Crx) 100 Mcg/2 Ml Vial IV PUSH Q2H PRN Breakthrough Pain Rated 4-6 or NPO Fentanyl Citrate 25 mcg 04/03/25 21:12 04/04/25 00:16 Fentanyl Citrate Inj (*Crx) 100 Mcg/2 Ml Vial IV PUSH 25 mcg Q2H PRN Administration Breakthrough Pain Rated 7-10 or NPO Ibuprofen 800 mg in 200 mls @ 400 mls/hr 04/03/25 21:12 Caldolor 800 Mg/200 Ml IVPB Q6H PRN Breakthrough Pain Rated 1-3 or NPO Irbesartan 150 mg 04/03/25 09:00 04/06/25 08:46 Irbesartan 150 Mg Tablet PO 150 mg DAILY LESLIE Administration Levofloxacin 750 mg 04/06/25 09:00 04/06/25 08:47 Levofloxacin 750 Mg Tablet PO 04/10/25 09:01 750 mg DAILY LESLIE Administration Levothyroxine Sodium 25 mcg 04/03/25 06:30 04/07/25 05:29 Levothyroxine Sodium 25 Mcg Tablet PO 25 mcg DAILY@0630 LESLIE Administration Metronidazole 500 mg 04/06/25 14:00 04/07/25 05:29 Metronidazole 500 Mg Tablet PO 04/10/25 22:01 500 mg Q8HR LESLIE Administration Naloxone HCl 0.1 mg 04/03/25 21:12 Naloxone Hcl 0.4 Mg/Ml Vial IV PUSH Q2M PRN Opiate Reversal Ondansetron HCl 4 mg 04/02/25 12:32 Ondansetron Inj 4 Mg/2 Ml Vial IV PUSH Q4H PRN Nausea Oxycodone/Acetaminophen 1 tablet 04/03/25 21:12 04/06/25 17:21 Oxycodone/Acetaminophen (*Crx) 5-325 Mg Tablet PO 1 tablet Q4H PRN Administration Pain Rated 4-6 Radiology Results: ITS Impressions Abdomen/Pelvis CT 04/02/25 09:48 Impression: Possible cystitis. Correlate with urinalysis. Mild mesenteric panniculitis. Cholelithiasis with contracted gallbladder and possible mild wall thickening but no acute inflammatory change. Correlate for chronic cholecystitis. Upper Quadrant Ultrasound 04/02/25 10:50 IMPRESSION: 1. Positive sonographic Quintero's sign but with persistently decompressed gallbladder arguing against acute cholecystitis. Gallstones seen on CT are unable to be visualized. Chest X-Ray 04/02/25 11:01 Impression: Normal chest. Hepatobiliary Scan Nuclear Medicine 04/02/25 16:47 IMPRESSION: 1. Delayed activity clearance from the blood pool and significantly delayed activity excretion from the liver with the majority of activity still present within the liver on the 4 hour delayed imaging consistent with likely hepatocellular dysfunction. No evident acute relation of activity in the common bile duct or dilation of the bile duct on the prior CT are also imaging to suggest biliary obstruction. MRCP 04/03/25 08:17 IMPRESSION: 1. Cholelithiasis and likely choledocholithiasis but without evident intra-axial hepatic biliary ductal dilation either in the current study or the prior CT or ultrasound imaging to suggest significant biliary obstruction. 2. Minimal amount of pericholecystic fluid which could be due to acute cholecystitis or more likely due to other liver disease given that there is no associated gallbladder wall thickening at that the cystic duct does not appear obstructed given the recent decompressed state with interval filling of the gallbladder on subsequent ultrasound and with activity on HIDA scan extending into the gallbladder. 3. 1.5 cm ill-defined region enhancement in the right hepatic lobe which could be related to neoplasm with some imaging features suggestive of cholangiocarcinoma. There are however some atypical features such as periportal edema and subtle parenchymal edema in the surrounding right hepatic lobe and this could also be infectious in etiology such as due to focal hepatitis or ascending cholangitis without evident hepatic abscess. It is unclear whether this lesion would be discernible by either ultrasound or noncontrast CT to allow for biopsy with a reasonable degree of diagnostic certainty. Could also consider short-term follow-up pre and postcontrast MRI. Cholangiogram,Operative 04/04/25 06:46 IMPRESSION: 1. Subtle 4-5 mm lucent filling defect in the distal common bile duct suspicious for obstructing choledocholithiasis with no evident contrast extending to the duodenum. Labs Labs: Laboratory Results - last 24 hr 04/07/25 05:24 WBC 8.1 RBC 4.17 L Hgb 12.4 Hct 39.5 MCV 94.7 MCH 29.7 MCHC 31.4 L RDW 13.7 Plt Count 403 H MPV 9.1 Sodium 134 L Potassium 3.4 Chloride 99 Carbon Dioxide 27 Anion Gap 8 BUN 7 Creatinine 0.70 Estim Creat Clear Calc 60 Estimated GFR > 60 Glucose 114 H Calcium 8.6 Total Bilirubin 1.1 AST 65 H ALT 121 H Alkaline Phosphatase 278 H Total Protein 7.0 Albumin 3.6 Quality VTE Prophylaxis VTE prophylaxis: mechanical ordered and pharmacologic ordered (lovenox)
--- NOTE | 2025-04-07 10:08 | PCPTNOTE ---
Patient declines PT stating she feels weak and shaky today. She states she is NPO today and scheduled for a procedure/test later today. PT will continue to follow.
[2025-04-07] MEDS: levoFLOXacin 750 MG TABLET PO (10:57)
[2025-04-07] MEDS: FAMOTIDINE 20 MG TABLET PO ×2 (10:57→21:17)
[2025-04-07] MEDS: AMIODARONE HCL 50 MG TABLET PO (10:58)
--- NOTE | 2025-04-07 13:48 | WPDANESEPPF ---
Anes - Initial Pre Proc Eval Procedure: Operation Date: 04/07/25 14:30 Proposed Procedures p Endoscopic Retro Cholangiopancreatogram - Jewel Rosado MD Date/Time: 04/07/25 13:48 Surgeon: Tigist Edwards PA-C Pre Op Diagnosis: Transaminitis Patient Data Age: 74 Gender: F Height: 1.52 m Weight: 88 kg Last Vital Signs Temp 35.9 C L 04/07/25 05:43 Pulse 57 L 04/07/25 08:35 Resp 16 04/07/25 08:35 BP 126/52 L 04/07/25 05:43 Pulse Ox 95 04/07/25 08:35 O2 Del Method Room Air 04/07/25 08:35 O2 Flow Rate 3 04/03/25 21:00 FiO2 21 04/06/25 20:00 Allergies Allergy/AdvReac Type Severity Reaction Status Date / Time No Known Allergies Allergy Verified 04/07/25 13:51 Home Medications ?Medication ?Instructions ?Recorded ?Confirmed ?Type amiodarone 100 mg tablet 50 mg (1/2 x 100 mg) PO DAILY #45 07/17/24 04/02/25 Rx tabs levothyroxine 25 mcg tablet 25 mcg PO DAILY #34 tabs 07/17/24 04/02/25 Rx Eliquis 5 mg tablet (apixaban) See Rx Instructions .Route 01/14/25 04/02/25 Rx .COMPLEX #180 tabs acetaminophen 300 mg-codeine 30 mg 1 tablet PO Q6H PRN pain #90 tabs 01/14/25 04/02/25 Rx tablet alendronate 70 mg tablet 70 mg PO WEEKLY #14 tabs 01/14/25 04/02/25 Rx cholecalciferol (vitamin D3) 1,250 1,250 mcg PO WEEKLY #14 caps 01/14/25 04/02/25 Rx mcg (50,000 unit) capsule irbesartan 300 mg tablet 150 mg (1/2 x 300 mg) PO DAILY 01/14/25 04/02/25 Rx #100 tabs oxycodone-acetaminophen 5 mg-325 0.5 - 1 tablet PO Q6H PRN pain #10 04/05/25 Rx mg tablet (Percocet) tabs Laboratory Tests 04/07/25 05:24 WBC 8.1 K/mm3 (4.5-10.0) RBC 4.17 L M/mm3 (4.2-5.4) Hgb 12.4 g/dL (12.0-15.0) Hct 39.5 % (37.0-47.0) MCV 94.7 fl (80-100) MCH 29.7 pg (26-34) MCHC 31.4 L g/dl (32-36) RDW 13.7 % (11.5-14.5) Plt Count 403 H k/mm3 (150-375) MPV 9.1 fl (7.4-10.4) Sodium 134 L mmol/L (137-145) Potassium 3.4 mmol/L (3.4-5.0) Chloride 99 mmol/L (98-107) Carbon Dioxide 27 mmol/L (22-30) Anion Gap 8 mmol/L (4-12) BUN 7 mg/dL (7-17) Creatinine 0.70 mg/dL (0.7-1.0) Estim Creat Clear Calc 60 ml/min Estimated GFR > 60 (59 - ) Glucose 114 H mg/dL (65-110) Calcium 8.6 mg/dL (8.4-10.2) Total Bilirubin 1.1 mg/dL (0.2-1.3) AST 65 H U/L (14-36) ALT 121 H U/L (6-35) Alkaline Phosphatase 278 H U/L (38-126) Total Protein 7.0 g/dL (6.3-8.2) Albumin 3.6 g/dL (3.5-5.1) Patient hx anesthesia problems: none Family hx anesthesia problems: none Results Review: All pre-operative results and documents have been reviewed as part of the pre-operative evaluation. [facility] Past Medical History Medical History RUQ pain PAF (paroxysmal atrial fibrillation) Gastric ulcer due to nonsteroidal antiinflammatory drug (NSAID) therapy SIADH (syndrome of inappropriate ADH production) Peripheral artery disease Mixed hyperlipidemia Sacroiliitis Esophageal spasm Age-related osteoporosis without current pathological fracture Acute bronchitis, unspecified Hx of fracture of ankle s/p ORIF Femur fracture Osteoporosis Tobacco abuse Chronic diastolic (congestive) heart failure Vitamin D insufficiency HTN (hypertension) Surgical History Surgical History History of hysterectomy S/P lumbar fusion S/P ORIF (open reduction internal fixation) fracture S/P ORIF (open reduction internal fixation) fracture L femur fracture- gamma nail Family History Family History Father Carcinoma of colon Family history of heart disease in male family member before age 55 Patient's father is Mother Family history of malignant neoplasm of breast in first degree relative Social History Social History Social History: The patient is and lives with her . Her is a durable power contracts attorney for healthcare. The patient has 2 children. 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 The patient continues to smoke. The patient occasionally has a drink. Code status full code Smoking packs per day: 0.5 Smoking cigarettes per day: 10.0 Years smoked: 60 Smoking pack-years: 30.00 Smoking status: Current every day smoker Tobacco type: cigarettes Second hand tobacco smoke exposure: Yes Alcohol intake: current Substance use: never Substance use type: does not use Do You Feel Safe in your Home?: Yes Lack of Transportation: No Lack of Food: Never True Current Housing: I Have Housing Concerned About Future Housing: No Difficulty Paying Gas/Electric Bills: YES Difficulty Paying for Meds: No Currently Unemployed: No Education: Decline to Answer Difficulty w/ Childcare or Family Care: No Living arrangements: with family Occupation/Education: retired Additional occupation/education comments: Disabled Gender identity (if verbalized by the patient): Female Sexual Orientation (if Verbalized by the Patient): Straight or Heterosexual Spiritual care concerns: No Anes - Eval Final PreProcedure Day of Procedure 04/07/25 13:48 Patient weight: obese Heart: regular rate and rhythm Lungs: clear to auscultation Airway: Mallampati scale class II Neurological: alert and oriented Last oral intake: >/= 8 hours ASA classification: IV Emergent: no Anesthetic plan: proceed Anesthesia type and monitoring: general ETT and standard monitoring Results Review: All pre-operative results and documents have been reviewed as part of the pre-operative evaluation. Informed Consent: The patient's anesthetic plan and its attendant risks and benefits were discussed with the patient/family/POA. Questions were solicited and answers provided to the satisfaction of the patient/family/POA.
[2025-04-07] MEDS: LACTATED RINGERS 1,000 ML 150 ML IV CONT (13:57)
[2025-04-07] MEDS: INDOMETHACIN 50 MG SUPP.RECT 100 MG RECTAL (14:13)
--- NOTE | 2025-04-07 16:07 | P.PNGI_ITS ---
Progress Note: A&P Assessment and Plan (1) Abnormal cholangiogram: Code(s): R93.2 - Abnormal findings on diagnostic imaging of liver and biliary tract Status: Acute Assessment and Plan: Patient with suspected common bile duct stone, however ERCP was technically challenging due to abnormal position of the ampulla of Vater. A pancreatic stent was placed to prevent post ERCP pancreatitis. She can be discharged and referral was placed for [facility] advanced procedures team to attempt Endoscopic Ultrasound and possible reattempting at ERCP if a stone is present. Subjective Date/time seen: 04/07/25 16:07 Interval history: See ERCP report in chart. Objective Data Vital Signs Vital Signs: Vital Signs - 24 hr 04/06/25 20:00 04/06/25 20:50 04/06/25 22:55 Temperature 97.3 F L Pulse Rate 60 62 Respiratory Rate 14 18 Blood Pressure 126/58 L Pulse Oximetry 96 Oxygen Delivery Room Air Oxygen Flow Rate Fraction of Inspired Oxygen 21 04/06/25 22:57 04/07/25 02:55 04/07/25 05:43 Temperature 96.6 F L Pulse Rate 60 65 Respiratory Rate 18 18 Blood Pressure 126/52 L Pulse Oximetry 94 96 Oxygen Delivery Room Air Oxygen Flow Rate Fraction of Inspired Oxygen 04/07/25 08:00 04/07/25 08:35 04/07/25 08:35 Temperature Pulse Rate 77 57 L Respiratory Rate 20 16 Blood Pressure Pulse Oximetry 97 95 Oxygen Delivery Room Air Room Air Oxygen Flow Rate Fraction of Inspired Oxygen 21 04/07/25 13:52 04/07/25 15:48 04/07/25 15:58 Temperature 97.4 F L Pulse Rate 77 57 L 61 Respiratory Rate 20 22 H 16 Blood Pressure 124/84 127/76 143/85 H Pulse Oximetry 97 97 98 Oxygen Delivery Room Air Nasal Cannula Nasal Cannula Oxygen Flow Rate 4 4 Fraction of Inspired Oxygen Intake/Output Intake/Output: Intake & Output 04/04/25 04/05/25 04/06/25 04/07/25 23:59 23:59 23:59 23:59 Intake Total 1230 1220 1866 200 Output Total 519 240 1696 250 Balance 730 970 -284 -50 Meds/Results Medications: Active Medications Generic Name Dose Route Start Last Admin Trade Name Freq PRN Reason Stop Dose Admin Acetaminophen 500 mg 04/03/25 21:12 Acetaminophen 500 Mg Tablet PO Q6H PRN Pain Rated 1-3 Albuterol/Ipratropium 3 ml 04/02/25 14:00 04/07/25 14:27 Ipratropium 0.5 Mg/Albuterol Sulfate 2.5 Mg Ampul.Neb 3 Ml INHALATION Not Given Q6HRT [facility] Amiodarone HCl 50 mg 04/03/25 09:00 04/07/25 10:58 Amiodarone Hcl 50 Mg Tablet PO 50 mg DAILY [facility] Administration Docusate Sodium 100 mg 04/02/25 12:46 04/06/25 08:47 Docusate Sodium 100 Mg Capsule PO 100 mg Q12H PRN Administration Constipation Enoxaparin Sodium 40 mg 04/04/25 09:00 04/07/25 10:53 Enoxaparin 40 Mg/0.4 Ml Syringe SUB-Q Not Given DAILY [facility] Ergocalciferol 50,000 units 04/03/25 09:00 04/03/25 09:15 Ergocalciferol 50,000 Units Capsule PO Not Given WEEKLY [facility] Famotidine 20 mg 04/04/25 21:00 04/07/25 10:57 Famotidine 20 Mg Tablet PO 20 mg Q12HR [facility] Administration Fentanyl Citrate 12.5 mcg 04/03/25 21:12 Fentanyl Citrate Inj (*Crx) 100 Mcg/2 Ml Vial IV PUSH Q2H PRN Breakthrough Pain Rated 4-6 or NPO Fentanyl Citrate 25 mcg 04/03/25 21:12 04/04/25 00:16 Fentanyl Citrate Inj (*Crx) 100 Mcg/2 Ml Vial IV PUSH 25 mcg Q2H PRN Administration Breakthrough Pain Rated 7-10 or NPO Ibuprofen 800 mg in 200 mls @ 400 mls/hr 04/03/25 21:12 Caldolor 800 Mg/200 Ml IVPB Q6H PRN Breakthrough Pain Rated 1-3 or NPO Lactated Ringer's 1,000 mls @ 150 mls/hr 04/07/25 13:55 04/07/25 15:47 Lr - Lactated Ringers Iv IV CONT Infused .Q6H40M [facility] Infusion Irbesartan 150 mg 04/03/25 09:00 04/07/25 10:54 Irbesartan 150 Mg Tablet PO Not Given DAILY [facility] Levofloxacin 750 mg 04/06/25 09:00 04/07/25 10:57 Levofloxacin 750 Mg Tablet PO 04/10/25 09:01 750 mg DAILY [facility] Administration Levothyroxine Sodium 25 mcg 04/03/25 06:30 04/07/25 05:29 Levothyroxine Sodium 25 Mcg Tablet PO 25 mcg DAILY@0630 [facility] Administration Metronidazole 500 mg 04/06/25 14:00 04/07/25 15:51 Metronidazole 500 Mg Tablet PO 04/10/25 22:01 Not Given Q8HR [facility] Naloxone HCl 0.1 mg 04/03/25 21:12 Naloxone Hcl 0.4 Mg/Ml Vial IV PUSH Q2M PRN Opiate Reversal Ondansetron HCl 4 mg 04/02/25 12:32 Ondansetron Inj 4 Mg/2 Ml Vial IV PUSH Q4H PRN Nausea Oxycodone/Acetaminophen 1 tablet 04/03/25 21:12 04/06/25 17:21 Oxycodone/Acetaminophen (*Crx) 5-325 Mg Tablet PO 1 tablet Q4H PRN Administration Pain Rated 4-6 Radiology Results: ITS Impressions Abdomen/Pelvis CT 04/02/25 09:48 Impression: Possible cystitis. Correlate with urinalysis. Mild mesenteric panniculitis. Cholelithiasis with contracted gallbladder and possible mild wall thickening but no acute inflammatory change. Correlate for chronic cholecystitis. Upper Quadrant Ultrasound 04/02/25 10:50 IMPRESSION: 1. Positive sonographic Quintero's sign but with persistently decompressed gallbladder arguing against acute cholecystitis. Gallstones seen on CT are unable to be visualized. Chest X-Ray 04/02/25 11:01 Impression: Normal chest. Hepatobiliary Scan Nuclear Medicine 04/02/25 16:47 IMPRESSION: 1. Delayed activity clearance from the blood pool and significantly delayed a ctivity excretion from the liver with the majority of activity still present within the liver on the 4 hour delayed imaging consistent with likely hepatocellular dysfunction. No evident acute relation of activity in the common bile duct or dilation of the bile duct on the prior CT are also imaging to suggest biliary obstruction. MRCP 04/03/25 08:17 IMPRESSION: 1. Cholelithiasis and likely choledocholithiasis but without evident intra-axial hepatic biliary ductal dilation either in the current study or the prior CT or ultrasound imaging to suggest significant biliary obstruction. 2. Minimal amount of pericholecystic fluid which could be due to acute cholecystitis or more likely due to other liver disease given that there is no associated gallbladder wall thickening at that the cystic duct does not appear obstructed given the recent decompressed state with interval filling of the gallbladder on subsequent ultrasound and with activity on HIDA scan extending into the gallbladder. 3. 1.5 cm ill-defined region enhancement in the right hepatic lobe which could be related to neoplasm with some imaging features suggestive of cholangiocarcinoma. There are however some atypical features such as periportal edema and subtle parenchymal edema in the surrounding right hepatic lobe and this could also be infectious in etiology such as due to focal hepatitis or ascending cholangitis without evident hepatic abscess. It is unclear whether this lesion would be discernible by either ultrasound or noncontrast CT to allow for biopsy with a reasonable degree of diagnostic certainty. Could also consider short-term follow-up pre and postcontrast MRI. Cholangiogram,Operative 04/04/25 06:46 IMPRESSION: 1. Subtle 4-5 mm lucent filling defect in the distal common bile duct suspicious for obstructing choledocholithiasis with no evident contrast extending to the duodenum. Labs Labs: Laboratory Results - last 24 hr 04/07/25 05:24 WBC 8.1 RBC 4.17 L Hgb 12.4 Hct 39.5 MCV 94.7 MCH 29.7 MCHC 31.4 L RDW 13.7 Plt Count 403 H MPV 9.1 Sodium 134 L Potassium 3.4 Chloride 99 Carbon Dioxide 27 Anion Gap 8 BUN 7 Creatinine 0.70 Estim Creat Clear Calc 60 Estimated GFR > 60 Glucose 114 H Calcium 8.6 Total Bilirubin 1.1 AST 65 H ALT 121 H Alkaline Phosphatase 278 H Total Protein 7.0 Albumin 3.6
[2025-04-08] MEDS: IPRATROPIUM 0.5 MG/ALBUTEROL SULFATE 2.5 MG AMPUL.NEB 3 ML INHALATION ×2 (02:10→08:14)
[2025-04-08 02:13] VITALS: PULSE 61; RESP 16
[2025-04-08 02:17] VITALS: PULSE 61; RESP 18
[2025-04-08 05:16] VITALS: BP 140/61; PULSE 58; RESP 12; TEMP 36.1; O2SAT 95
[2025-04-08] MEDS: metroNIDAZOLE 500 MG TABLET PO (05:33)
[2025-04-08] MEDS: LEVOTHYROXINE SODIUM 25 MCG TABLET PO (05:33)
[2025-04-08 06:22] LABS: Hematocrit 40.6 % (37.0-47.0); Mean Corpuscular Hemoglobin 29.8 pg (26-34); Mean Corpuscular Volume 93.1 fl (80-100); Mean Platelet Volume 9.2 fl (7.4-10.4); Platelet Count Result 440 k/mm3 (150-375); Red Blood Count 4.36 M/mm3 (4.2-5.4); Red Cell Distribution Width 13.5 % (11.5-14.5); White Blood Count 11.7 K/mm3 (4.5-10.0)
[2025-04-08 06:40] LABS: Alanine Aminotransferase 100 U/L (6-35); Albumin Level 3.9 g/dL (3.5-5.1); Alkaline Phosphatase 244 U/L (38-126); Anion Gap 9 mmol/L (4-12); Aspartate Amino Transferase 50 U/L (14-36); Blood Urea Nitrogen 8 mg/dL (7-17); Calcium 9.2 mg/dL (8.4-10.2); Carbon Dioxide 25 mmol/L (22-30); Chloride 99 mmol/L (98-107); Estimated CRCL calculation 59 ml/min; Estimated Glomerular Filt Rate > 60; Glucose 99 mg/dL (65-110); Potassium 3.6 mmol/L (3.4-5.0); Sodium 133 mmol/L (137-145)
--- NOTE | 2025-04-08 07:31 | P.PNGI_ITS ---
Progress Note: A&P Assessment and Plan (1) Chronic cholecystitis due to gallbladder calculus with obstruction: Code(s): K80.11 - Calculus of gallbladder with chronic cholecystitis with obstruction Status: Acute Assessment and Plan: The patient underwent ERCP yesterday. See report. A pancreatic stent was placed to minimize the risk of post ERCP pancreatitis. As stated yesterday's note, the patient is referred to [facility] advanced endoscopy division, for endoscopic sonogram and, if a common bile duct stone is present will attempt ERCP. She can be discharged today on a heart healthy diet. Subjective Date/time seen: 04/08/25 07:31 Interval history: The patient feels well, no abdominal pain, no fever, nausea or vomiting. Exam Narrative: Abdomen: Soft, nontender, nondistended, no rebound. Rest of the exam unchan Objective Data Vital Signs Vital Signs: Vital Signs - 24 hr 04/07/25 08:00 04/07/25 08:35 04/07/25 08:35 Temperature Pulse Rate 77 57 L Respiratory Rate 20 16 Blood Pressure Pulse Oximetry 97 95 Oxygen Delivery Room Air Room Air Oxygen Flow Rate Fraction of Inspired Oxygen 21 04/07/25 13:52 04/07/25 15:48 04/07/25 15:58 Temperature 97.4 F L Pulse Rate 77 57 L 61 Respiratory Rate 20 22 H 16 Blood Pressure 124/84 127/76 143/85 H Pulse Oximetry 97 97 98 Oxygen Delivery Room Air Nasal Cannula Nasal Cannula Oxygen Flow Rate 4 4 Fraction of Inspired Oxygen 04/07/25 16:08 04/07/25 16:18 04/07/25 16:28 Temperature Pulse Rate 65 52 L 59 L Respiratory Rate 14 17 20 Blood Pressure 157/94 H 159/75 H 158/62 H Pulse Oximetry 96 95 94 Oxygen Delivery Nasal Cannula Room Air Room Air Oxygen Flow Rate 2 Fraction of Inspired Oxygen 04/07/25 16:38 04/07/25 17:28 04/07/25 18:05 Temperature 97.0 F L 97.0 F L Pulse Rate 51 L 66 54 L Respiratory Rate 26 H 18 18 Blood Pressure 151/65 H 147/57 H 172/84 H Pulse Oximetry 95 95 98 Oxygen Delivery Room Air Oxygen Flow Rate Fraction of Inspired Oxygen 04/07/25 18:26 04/07/25 19:43 04/07/25 19:44 Temperature 97.1 F L Pulse Rate 52 L 66 Respiratory Rate 16 16 Blood Pressure 152/76 H Pulse Oximetry 97 96 Oxygen Delivery Room Air Oxygen Flow Rate Fraction of Inspired Oxygen 04/07/25 19:50 04/07/25 20:00 04/07/25 20:35 Temperature 97.3 F L Pulse Rate 63 53 L Respiratory Rate 16 14 Blood Pressure 143/68 H Pulse Oximetry 97 Oxygen Delivery Room Air Oxygen Flow Rate Fraction of Inspired Oxygen 04/08/25 02:13 04/08/25 02:17 04/08/25 05:16 Temperature 96.9 F L Pulse Rate 61 61 58 L Respiratory Rate 16 18 12 Blood Pressure 140/61 Pulse Oximetry 95 Oxygen Delivery Oxygen Flow Rate Fraction of Inspired Oxygen Intake/Output Intake/Output: Intake & Output 04/05/25 04/06/25 04/07/25 04/08/25 23:59 23:59 23:59 23:59 Intake Total 1220 1866 440 200 Output Total 250 2150 750 700 Balance 486 -237 -706 -693 Meds/Results Medications: Active Medications Generic Name Dose Route Start Last Admin Trade Name Freq PRN Reason Stop Dose Admin Acetaminophen 500 mg 04/03/25 21:12 Acetaminophen 500 Mg Tablet PO Q6H PRN Pain Rated 1-3 Albuterol/Ipratropium 3 ml 04/02/25 14:00 04/08/25 02:10 Ipratropium 0.5 Mg/Albuterol Sulfate 2.5 Mg Ampul.Neb 3 Ml INHALATION 3 ml Q6HRT [facility] Administration Amiodarone HCl 50 mg 04/03/25 09:00 04/07/25 10:58 Amiodarone Hcl 50 Mg Tablet PO 50 mg DAILY [facility] Administration Docusate Sodium 100 mg 04/02/25 12:46 04/06/25 08:47 Docusate Sodium 100 Mg Capsule PO 100 mg Q12H PRN Administration Constipation Enoxaparin Sodium 40 mg 04/04/25 09:00 04/07/25 10:53 Enoxaparin 40 Mg/0.4 Ml Syringe SUB-Q Not Given DAILY [facility] Ergocalciferol 50,000 units 04/03/25 09:00 04/03/25 09:15 Ergocalciferol 50,000 Units Capsule PO Not Given WEEKLY [facility] Famotidine 20 mg 04/04/25 21:00 04/07/25 21:17 Famotidine 20 Mg Tablet PO 20 mg Q12HR [facility] Administration Fentanyl Citrate 12.5 mcg 04/03/25 21:12 Fentanyl Citrate Inj (*Crx) 100 Mcg/2 Ml Vial IV PUSH Q2H PRN Breakthrough Pain Rated 4-6 or NPO Irbesartan 150 mg 04/03/25 09:00 04/07/25 10:54 Irbesartan 150 Mg Tablet PO Not Given DAILY [facility] Levofloxacin 750 mg 04/06/25 09:00 04/07/25 10:57 Levofloxacin 750 Mg Tablet PO 04/10/25 09:01 750 mg DAILY [facility] Administration Levothyroxine Sodium 25 mcg 04/03/25 06:30 04/08/25 05:33 Levothyroxine Sodium 25 Mcg Tablet PO 25 mcg DAILY@0630 [facility] Administration Metronidazole 500 mg 04/06/25 14:00 04/08/25 05:33 Metronidazole 500 Mg Tablet PO 04/10/25 22:01 500 mg Q8HR [facility] Administration Naloxone HCl 0.1 mg 04/03/25 21:12 Naloxone Hcl 0.4 Mg/Ml Vial IV PUSH Q2M PRN Opiate Reversal Ondansetron HCl 4 mg 04/02/25 12:32 Ondansetron Inj 4 Mg/2 Ml Vial IV PUSH Q4H PRN Nausea Oxycodone/Acetaminophen 1 tablet 04/03/25 21:12 04/06/25 17:21 Oxycodone/Acetaminophen (*Crx) 5-325 Mg Tablet PO 1 tablet Q4H PRN Administration Pain Rated 4-6 Radiology Results: ITS Impressions Abdomen/Pelvis CT 04/02/25 09:48 Impression: Possible cystitis. Correlate with urinalysis. Mild mesenteric panniculitis. Cholelithiasis with contracted gallbladder and possible mild wall thickening but no acute inflammatory change. Correlate for chronic cholecystitis. Upper Quadrant Ultrasound 04/02/25 10:50 IMPRESSION: 1. Positive sonographic Quintero's sign but with persistently decompressed gallbladder arguing against acute cholecystitis. Gallstones seen on CT are unable to be visualized. Chest X-Ray 04/02/25 11:01 Impression: Normal chest. Hepatobiliary Scan Nuclear Medicine 04/02/25 16:47 IMPRESSION: 1. Delayed activity clearance from the blood pool and significantly delayed activity excretion from the liver with the majority of activity still present within the liver on the 4 hour delayed imaging consistent with likely hepatocellular dysfunction. No evident acute relation of activity in the common bile duct or dilation of the bile duct on the prior CT are also imaging to suggest biliary obstruction. MRCP 04/03/25 08:17 IMPRESSION: 1. Cholelithiasis and likely choledocholithiasis but without evident intra-axial hepatic biliary ductal dilation either in the current study or the prior CT or ultrasound imaging to suggest significant biliary obstruction. 2. Minimal amount of pericholecystic fluid which could be due to acute cholecystitis or more likely due to other liver disease given that there is no associated gallbladder wall thickening at that the cystic duct does not appear obstructed given the recent decompressed state with interval filling of the gallbladder on subsequent ultrasound and with activity on HIDA scan extending into the gallbladder. 3. 1.5 cm ill-defined region enhancement in the right hepatic lobe which could be related to neoplasm with some imaging features suggestive of cholangiocarcinoma. There are however some atypical features such as periportal edema and subtle parenchymal edema in the surrounding right hepatic lobe and this could also be infectious in etiology such as due to focal hepatitis or ascending cholangitis without evident hepatic abscess. It is unclear whether this lesion would be discernible by either ultrasound or noncontrast CT to allow for biopsy with a reasonable degree of diagnostic certainty. Could also consider short-term follow-up pre and postcontrast MRI. Cholangiogram,Operative 04/04/25 06:46 IMPRESSION: 1. Subtle 4-5 mm lucent filling defect in the distal common bile duct suspicious for obstructing choledocholithiasis with no evident contrast extending to the duodenum. Labs Labs: Laboratory Results - last 24 hr 04/08/25 05:32 WBC 11.7 H RBC 4.36 Hgb 13.0 Hct 40.6 MCV 93.1 MCH 29.8 MCHC 32.0 RDW 13.5 Plt Count 440 H MPV 9.2 Sodium 133 L Potassium 3.6 Chloride 99 Carbon Dioxide 25 Anion Gap 9 BUN 8 Creatinine 0.71 Estim Creat Clear Calc 59 Estimated GFR > 60 Glucose 99 Calcium 9.2 Total Bilirubin 1.0 AST 50 H ALT 100 H Alkaline Phosphatase 244 H Total Protein 7.0 Albumin 3.9
[2025-04-08 08:17] VITALS: PULSE 69; RESP 16
[2025-04-08] MEDS: levoFLOXacin 750 MG TABLET PO (08:38)
[2025-04-08] MEDS: AMIODARONE HCL 50 MG TABLET PO (08:38)
[2025-04-08] MEDS: IRBESARTAN 150 MG TABLET PO (08:38)
[2025-04-08] MEDS: FAMOTIDINE 20 MG TABLET PO (08:38)
--- NOTE | 2025-04-08 12:10 | PM.DS ---
DS: Admitting Diagnosis Discharge Date 04/08 Admitting Diagnosis n/v, fever DS: Discharge Diagnosis Discharge Diagnosis (1) Sepsis: Qualifiers: Sepsis acute organ dysfunction status: without acute organ dysfunction Sepsis type: sepsis due to unspecified organism Qualified Code(s): A41.9 - Sepsis, unspecified organism Code(s): A41.9 - Sepsis, unspecified organism Status: Acute (2) Cholelithiasis: Qualifiers: Cholelithiasis location: gallbladder Cholecystitis presence: with cholecystitis Cholecystitis acuity: acute and chronic Biliary obstruction: with biliary obstruction Qualified Code(s): K80.13 - Calculus of gallbladder with acute and chronic cholecystitis with obstruction Code(s): K80.20 - Calculus of gallbladder without cholecystitis without obstruction Status: Chronic (3) Transaminitis: Code(s): R74.01 - Elevation of levels of liver transaminase levels Status: Acute Assessment and Plan: (4) Acute UTI: Code(s): N39.0 - Urinary tract infection, site not specified Status: Acute Assessment and Plan: (5) Hyponatremia: Code(s): E87.1 - Hypo-osmolality and hyponatremia Status: Acute Assessment and Plan: Intermittent/chronic. Sodium 130 on admission. Given 500 mL bolus of NS. Improved to 132 on am labs. Resolved. (6) Emphysema lung: Qualifiers: Emphysema type: centrilobular Qualified Code(s): J43.2 - Centrilobular emphysema Code(s): J43.9 - Emphysema, unspecified Status: Chronic (7) Chronic diastolic (congestive) heart failure: Code(s): I50.32 - Chronic diastolic (congestive) heart failure Status: Chronic (8) PAF (paroxysmal atrial fibrillation): Code(s): I48.0 - Paroxysmal atrial fibrillation Status: Chronic (9) HTN (hypertension): Qualifiers: Hypertension type: essential hypertension Qualified Code(s): I10 - Essential (primary) hypertension Code(s): I10 - Essential (primary) hypertension Status: Chronic DS: Summary Hospital Course Hospital Course: 74 y/o F with PMH of pAifb, SIADH, PAD, HLD, HTN, osteoporosis, smoker, and CHF presents here with for multiple medical complaints. The patient presents here from home via EMS on 04/02 for further evaluation of multiple medical complaints. She reports generalized weakness, nausea, vomiting, headache, fever, chills, abdominal tenderness in the epigastric/RUQ region, and shortness of breath. She reports no previous episodes of similar abdominal tenderness/discomnfort. She reports onset of symptoms yesterday, 04/01. She reports a max T at home of 100.5? F. She has a history of emphysema, no previous supplemental O2 requirements. Several issues were addressed: #sepsis Meets SIRS criteria: WBC and HR - lactic acid: 1.8 - Given 500 mL bolus, no further fluids due to CHF history. - suspected source: cholelithiasis vs transaminitis vs UTI - blood cultures drawn on 04/02: Ecoli - Urine culture collected on 04/02: Ecoli ESBL resistance - CXR unremarkable - Antibiotics: Zosyn started on 04/02, transitioned to meropenem 04/04 given sensitivities after discussing with [facility] pharm. Transitioned to levaquin and flagyl on 04/06, course completion to be based on the start of meropenem. - Abdomen/pelvis CT: possible cystitis, mild mesenteric panniculitis, cholelithiasis with contracted gallbladder and possible mild wall thickening but no acute inflammatory change - RUQ US: Positive murphys sign but with persistently decompressed gallbladder arguing against acute cholecystitis. Gallstones seen on CT are unable to be visualized. - Hepatobiliary scan: Delayed activity clearance from the blood pool and significantly delayed activity excretion from the liver with the majority of activity still present within the liver on the 4 hour delayed imaging consistent with likely hepatocellular dysfunction. No evident acute relation of activity in the common bile duct or dilation of the bile duct on the prior CT are also imaging to suggest biliary obstruction. Resolved. Remains hemodynamically stable. Noted that no repeated BC collected. # cholecystitis - Abdomen/pelvis CT: possible cystitis, mild mesenteric panniculitis, cholelithiasis with contracted gallbladder and possible mild wall thickening but no acute inflammatory change - RUQ US: Positive murphys sign but with persistently decompressed gallbladder arguing against acute cholecystitis. Gallstones seen on CT are unable to be visualized. - Hepatobiliary scan: Delayed activity clearance from the blood pool and significantly delayed activity excretion from the liver with the majority of activity still present within the liver on the 4 hour delayed imaging consistent with likely hepatocellular dysfunction. No evident acute relation of activity in the common bile duct or dilation of the bile duct on the prior CT are also imaging to suggest biliary obstruction. - Gentle IV fluid resuscitation given at 500 ml x 1 due to CHF history - Antibiotics: Zosyn started on 04/02, transitioned to meropenem 04/04 given sensitivities after discussing with [facility] pharm. Transitioned to levaquin and flagyl on 04/06, course to be completed on 04/10. Based on the start of meropenem. Discussed antibiotic course with [facility] pharmacy. - Diet: NPO for ERCP - Transaminitis noted, likely correlating with cholelithiasis. Downtrending. Lipase within normal limits. - Monitor vital signs, I and O's, check stool output, neuro status and patient is a fall risk - Monitor serum electrolytes and CBC - Monitor lactic acid - Consult general surgery and GI for further evaluation, appreciate assistance and recommendation s/p for laparoscopic cholecystectomy with intraoperative cholangiogram on 04/[address] Cage. LFTs doubled on 04/06. Concern about ill defined lesion on cholangiogram as possible cholangiocarcinoma vs abscess. Patient underwent ERCP 04/07. A pancreatic stent was placed to minimize the risk of post ERCP pancreatitis. Patient is referred to [facility] advanced endoscopy division, for endoscopic sonogram and, if a common bile duct stone is present will attempt ERCP. She can be discharged today per GI team on a heart healthy diet. Pain, antibiotics mngment and f/u per GI team # UTI - UA: clear appearance with positive nitrates, 1+ leukocytes, 6-10 WBC, 4+ bacteria and occasional squamous cells. - Urine culture collected on 04/02: Ecoli with ESBL - No previous micro to be reviewed - Antibiotics: Zosyn started on 04/02, transitioned to meropenem 04/04 given sensitivities after discussing with [facility] pharm. Transitioned to levaquin and flagyl on 04/06, course completion to be based on the start of meropenem. Denies any UTI symptoms at this time. Status at Discharge Functional status at discharge: uses cane/walker Overall status at discharge: patient is progressing back to baseline Time Spent with Patient Time attestation: Total time spent providing and/or coordinating discharge services: Time spent: Greater than 30 minutes Exam Narrative: General: female in no acute respiratory distress who is nontoxic appearing, sitting up in bed. HEENT: Normocephalic. Atraumatic. Extraocular movement intact. Sclera clear and anicteric. No facial asymmetry. Chest: Lungs are clear on auscultation bilaterally. No wheezes or crackles. CV: Heart was regular rate and rhythm. S1-S2. No murmurs, gallops, or rubs. Abd: Abdomen was soft. Slight tenderness around the incisions. Nondistended. Positive bowel sounds. Well-healing laparoscopic incisions without signs of infection. Const: General: comfortable and no acute distress Other: , female, elderly, nontoxic appearance HENMT: Face/Nose/Sinus: Normal nares present Mouth: Yes moist mucous membranes Eyes: General: appearance normal, both eyes and all related structures Sclera: sclerae normal Pupils: Equal, round and reactive pupils present EOM: EOMs intact bilaterally Resp: Effort & Inspection: normal respiratory effort Auscultation: clear to auscultation bilaterally Cardio: Rate: regular rate Rhythm: regular rhythm Other: S1-S2 present without murmur, rub, ectopy GI: Other: Abdomen soft, tender in the right upper quadrant and epigastric region. Normoactive bowel sounds in all quadrants. Skin: General skin exam: normal color and no rashes or lesions noted Wounds: no wounds Neuro: Cranial nerves: Yes Equal, round and reactive pupils present Speech: normal speech Motor exam (neuro): 5/5 motor strength present throughout Sensory Exam: normal sensation Other: A&O x4 Extrem: General: normal to inspection Psych: Mental Status: mental status grossly normal Affect: normal affect Other: Good insight and judgment, very pleasant DS: Data Data Completed and Pending Completed studies during hospitalization: Pending at discharge 04/03/25 19:03 Surgical [PTH] Routine Labs on day of discharge: Labs from last 24 hours 04/08/25 05:32 WBC 11.7 H RBC 4.36 Hgb 13.0 Hct 40.6 MCV 93.1 MCH 29.8 MCHC 32.0 RDW 13.5 Plt Count 440 H MPV 9.2 Sodium 133 L Potassium 3.6 Chloride 99 Carbon Dioxide 25 Anion Gap 9 BUN 8 Creatinine 0.71 Estim Creat Clear Calc 59 Estimated GFR > 60 Glucose 99 Calcium 9.2 Total Bilirubin 1.0 AST 50 H ALT 100 H Alkaline Phosphatase 244 H Total Protein 7.0 Albumin 3.9 Preliminary micro results at discharge 04/02/25 12:48 Blood Culture - Preliminary Blood Escherichia Coli Discharge Plan Discharge Attending physician on discharge: Stoney Islas Discharging Clinician: Opal Morillo Patient Disposition: Home Activity: may shower, no straining, no driving and as tolerated Diet: regular Wound Care Instructions: incision open to air Discharge Instructions: Post-operative Discharge Instructions: Okay to bathe or shower. Wash over all incisions at least every other day with soap and water Ambulate, even if it is just in the house, at least 3 times a day. Try to walk for 5-10 minutes at a time. Resume your normal diet Call Dr. Lee office and see him in follow-up in 2-3 weeks Call for severe abdominal pain, persistent drainage or bleeding from 1 of the wounds, nausea and vomiting, temp over 101?, other significant change in condition. YOu were referred to [facility] advanced endoscopy division, for endoscopic sonogram and, if a common bile duct stone is present will attempt ERCP. Please follow a heart healthy diet per your GI team. Patient Instructions: Antibiotic Form Patient Language: Burkinan Stand Alone Forms: General Discharge Information Follow-up/Referrals: Ry Cage MD [Physician] - 2 Weeks (Call Dr. Lee office to make follow-up appointment) Discharge Medications: New oxycodone-acetaminophen [Percocet] 5-325 mg tablet 0.5 - 1 tablet PO Q6H PRN (Reason: pain) Qty: 10 0RF Continued Eliquis 5 mg tablet See Rx Instructions .ROUTE .COMPLEX Qty: 180 1RF Dose Instruction: Take 1 tablet by mouth twice daily Rx Instructions: Take 1 tablet by mouth twice daily cholecalciferol (vitamin D3) 1,250 mcg (50,000 unit) capsule 1,250 mcg PO WEEKLY Qty: 14 1RF Rx Instructions: Takes on Fridays alendronate 70 mg tablet 70 mg PO WEEKLY Qty: 14 1RF Rx Instructions: Takes on Fridays acetaminophen-codeine 300-30 mg tablet 1 tablet PO Q6H PRN (Reason: pain) Qty: 90 1RF irbesartan 300 mg tablet 150 mg PO DAILY Qty: 100 1RF amiodarone 100 mg tablet 50 mg PO DAILY Qty: 45 2RF levothyroxine 25 mcg tablet 25 mcg PO DAILY Qty: 34 2RF Rx Instructions: Take 1 tablet daily -Sun and two tablets on Sunday Date of admission: 04/03/25 14:21 Primary Care Provider: Sushil Breaux Admitting Provider: Matthew Hatfield Attending physician on admission: Tigist Edwards Condition: Improved Quality VTE Prophylaxis VTE prophylaxis: mechanical ordered and pharmacologic ordered (lovenox)
== END 2025-04-08 12:52 | disposition home or self-care (01) | DRG 854 ==
LOC: ANHED 12:31 → ANH3MEDSUR 12:53
PROVIDERS: Emergency Medicine; Internal Medicine Gastroenterology; Nurse Practitioner Family; Student in an Organized Health Care Education/Training Program; Surgery; Admitting Provider Internal Medicine; Emergency Provider Physician Assistant; PCP Family Medicine; Visit Provider Nurse Practitioner
PROC: 0FT44ZZ Resection of Gallbladder, Percutaneous Endoscopic Approach (ICD-10-PCS; CPT 47562; principal; 2025-04-03 16:00)
PROC: 0F7D8DZ Dilation of Pancreatic Duct with Intraluminal Device, Via Natural or Artificial Opening Endoscopic (ICD-10-PCS; CPT 43260; principal; 2025-04-07 14:30)
DX: A41.9 Sepsis, unspecified organism (principal); E22.2 Syndrome of inappropriate secretion of antidiuretic hormone; K80.65 Calculus of gallbladder and bile duct with chronic cholecystitis with obstruction; N39.0 Urinary tract infection, site not specified; I50.32 Chronic diastolic (congestive) heart failure; I11.0 Hypertensive heart disease with heart failure; I48.0 Paroxysmal atrial fibrillation; I73.9 Peripheral vascular disease, unspecified; J43.9 Emphysema, unspecified; E78.5 Hyperlipidemia, unspecified; K57.10 Diverticulosis of small intestine without perforation or abscess without bleeding; B96.20 Unspecified Escherichia coli [E. coli] as the cause of diseases classified elsewhere; M81.0 Age-related osteoporosis without current pathological fracture; F17.210 Nicotine dependence, cigarettes, uncomplicated; Z87.11 Personal history of peptic ulcer disease; Z98.1 Arthrodesis status; Z80.0 Family history of malignant neoplasm of digestive organs
CPT/HCPCS: 36415; 71046; 74177; 74183; 74300; 74329; 76376; 76705; 78226; 80053; 80074; 81001; 83605; 83690; 83735; 83880; 84484; 85025; 85027; 85610; 85730; 87040; 87086; 87186; 87637; 88304; 93005; 94640; 96365; 96375; 96376; 97116; 97161; 97530; 99285; A9270; A9537; A9577; C2625; G0378; J0330; J1100; J1650; J2003; J2185; J2270; J2371; J2405; J2470; J2543; J2704; J3010; J7030; J7040; J7120; Q9966; Q9967